=== PATIENT | female | born 1965 | race Caucasian/White ===

== ENCOUNTER 2018-10-06 12:21 | Emergency (ER) | payer MEDICAID, SELFPAY ==
[2018-10-06 10:51] VITALS: BMI 22.3
[2018-10-06 12:22] VITALS: BP 178/134; PULSE 109; RESP 16; TEMP 35.9; O2SAT 96; BMI 22.8
--- NOTE | 2018-10-06 12:33 | EKG12_ITS ---
Test Reason : Blood Pressure : / mmHG Vent. Rate : 105 BPM Atrial Rate : 105 BPM P-R Int : 164 ms QRS Dur : 076 ms QT Int : 356 ms P-R-T Axes : 052 006 004 degrees QTc Int : 470 ms Sinus tachycardia Possible Left atrial enlargement Left ventricular hypertrophy Abnormal ECG Confirmed by GANGA MEDINA, HEATHER ([id number]), sound editor JAMIE ARDON ([id number]) on 10/10/2018 1:21:17 PM Referred By: Confirmed By:HEATHER SCHULER MD
--- NOTE | 2018-10-06 13:02 | ED.VIS.GEN ---
History of Present Illness Chief Complaint: Hypertension Informant: Patient Onset: Month(s) Current Severity: - - None no complaints Narrative: Patient indicates she has hypertension she is on lisinopril, indicates she just spent 60 days in skilled nursing where she was not getting any of her meds she made upon see her outpatient providers to get her prescription for her blood pressure medicine she was found a blood pressure about 170/130 she indicates they would not treat her in the office and insisted that she come to the emergency department even though she had no complaints she simply wanted the prescription refilled the office did call they refill the prescription lisinopril to the pharmacy for her. The patient denies any complaints of any kind she has no head neck chest or abdominal pain occasionally when she is able to get her meds she does take it Past Medical History - Allergies and Home Meds Allergies/Adverse Reactions: Allergies codeine Allergy (Severe, Verified 10/06/18 12:22) difficulty breathing Primary Care Physician: Samina Joya MD [Primary Care Provider] - Past Medical History: - Smoking Status: Current every day smoker Review of Systems General: Denies: Chills, Fever, Sweats Eyes: Denies: Visual changes - bilaterally, Diplopia ENT: Denies: Rhinorrhea, Sore throat Cardiovascular: Denies: Chest pain, Palpitations Respiratory: Denies: Dyspnea, Cough, Dyspnea on exertion Gastrointestinal: Denies: Abdominal pain, Nausea, Vomiting, Diarrhea, Melena, Hematochezia Genitourinary: Denies: Dysuria, Hematuria, Frequency Musculoskeletal: Denies: Back pain, Extremity Pain Skin: Denies: Rash, Wounds Neurological: Denies: Headache, Weakness, Numbness Physical Exam Vital Signs/Narrative: Vital Signs Temp Pulse Resp BP Pulse Ox 10/06/18 12:22 96.6 F L 109 H 16 178/134 H 96 General: Well nourished, Well developed, No Acute Distress Head: Normocephalic, Atraumatic Eyes: Perrl, EOMI ENT: Moist mucous membranes, No rhinorrhea Neck: Supple, Nontender Cardiovascular: Regular rate, Regular rhythm, No murmurs Respiratory: No distress, CTA bilaterally, Chest nontender Abdomen: Soft, Nontender, Nondistended, Normal bowel sounds Back: Nontender, Normal Inspection Extremities: Nontender, No edema Skin: Normal color, No rash Neurological: Alert, Oriented x3, Cranial nerves II-XII grossly intact, Normal Strength, Normal Sensation Psychological: Normal affect, Normal Mood Diagnostic/Tx/Re-eval - Medical Decision Making His blood pressure about 170/120 she is resting company the bed she has no complaints of any kind no head neck chest or abdominal pain she indicates she will take 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 to gently lower her blood pressure of explained precipitous change in blood pressure can make her ill, EKG was done that showed a sinus rhythm no acute injury pattern rate about 70, we discussed other ED work-up such as labs etc. 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 and follow-up with your outpatient providers His repeat blood pressure is now about 170/110 , one lisinopril tablet in case there is any trouble picking up the prescription which she states she should not have any trouble doing that she will take lisinopril understand she is close outpatient follow-up with her outpatient providers to further manage her blood pressure she should return for any other symptoms develop and agrees Home stable Final impression Hypertension ED Disposition - Plan for ED Patient: Diagnosis: Hypertension Instructions: HYPERTENSION, Established Referrals: Samina Joya MD [Primary Care Provider] -
[2018-10-06] MEDS: Clonidine HCl 0.1 MG, Clonidine HCl 0.2 MG 0.3 MG PO (13:18)
[2018-10-06] MEDS: Lisinopril 20 MG Tablet PO (14:08)
[2018-10-06 14:11] VITALS: RESP 18
[2018-10-06 15:01] VITALS: BP 123/95; PULSE 101; RESP 16; O2SAT 97
== END 2018-10-06 15:02 | disposition home or self-care (01) ==
PROVIDERS: Emergency Provider Emergency Medicine; Family Provider Internal Medicine; PCP Internal Medicine
DX: I10 Essential (primary) hypertension (principal); Z79.899 Other long term (current) drug therapy; F17.200 Nicotine dependence, unspecified, uncomplicated
CPT/HCPCS: 99282

== ENCOUNTER 2018-10-07 09:19 | Inpatient (IN) | payer MEDICAID, SELFPAY ==
[2018-10-06 12:22] VITALS: BMI 22.8
[2018-10-07] VITALS (32 sets, daily range): BP systolic 65–139; BP diastolic 40–85; PULSE 46–66; RESP 14–29; TEMP 36–37.2; O2SAT 93–100; BMI 24.7; BMI 23.8
--- NOTE | 2018-10-07 09:36 | ED.VISSUMM ---
- ER Visit Summary Date of Service: 10/07/18 Chief Complaint: Abdominal pain with nausea, vomiting and diarrhea History of Present Illness: The patient is a 53 F history of hypertension. She was seen in the emergency department yesterday the only reason she came in at that time was to get a prescription for blood pressure medication. She has been incarcerated in the recent past and currently has no primary care physician. She states that last night she started having nausea, vomiting and diarrhea. Denies any melena or fever. No dysuria. And diffuse abdominal pain. She also states this is been going on for approximately a month intermittently but she has not told anyone about it or been evaluated for it. She denies any prior abdominal surgeries or any abdominal trauma. Physical Examination: Middle-aged female. Initial blood pressure was low at 86/55. She is afebrile. Pulse ox 90% room air no hypoxia. HEENT exam is unremarkable except for dry mucous membranes. Neck nontender no lymphadenopathy. Lungs clear to auscultation bilaterally. Heart regular rhythm rate about 60 no murmur. Abdomen is soft. Nondistended. Normal bowel sounds. Minimally tender in the epigastric region. No rebound, guarding or rigidity. No signs of obstruction. Positive bowel sounds. Both the right upper and right lower quadrants are unremarkable. I do not appreciate any hernias or masses. There is no pulsatile mass. Patient is moving all 4 extremities. Neurovascular intact. Calves are nontender. No edema. Back exam nontender. Neurologically she is awake and alert. Test Results: CBC White count 9. Hemoglobin 14. No bands. Chemistries CO2 of 20. Gap of 12. BUN of 47 and creatinine of 3 no old labs available for comparison. Liver enzymes unremarkable alk phos elevated 124. Lipase normal. Serum test negative. At this time she is been unable to urinate urinalysis is pending. Emergency Department Course and Treatment: Patient will be treated with IV fluids for dehydration and hypotension. Zofran for nausea. Labs will be obtained for diffuse nonspecific abdominal pain. Repeat exam the patient is doing well. She is remains hypotensive in the 70s and 80s systolically but she is tolerating it well sitting upright in bed. She is on her first liter of fluid and I ordered a second and 3rd liter. She understands she needs to be admitted we went over her labs and her kidney function. Treatment Plan: I spoke to hospitalist about the PCU admission. Disposition: Admission Impression: Acute abdominal pain uncertain etiology Acute nausea, vomiting and diarrhea Dehydration Acute kidney injury Acute hypotension This note was generated with [employer] dictation software. It may contain incorrect words, spelling, and punctuation that were not noted in review of the chart prior to signing ED Disposition - Plan for ED Patient: Referrals: Samina Joya MD [Primary Care Provider] -
[2018-10-07 09:55] LABS: Absolute Lymphocyte Count 2.49 X10^3/uL (0.83-4.51); Absolute Neutrophil Count 6.3 X10^3/uL (2.0-7.7); Basophil# 0.02 X10^3/uL; Basophil% 0.2 % (0-1); Eosinophil# 0.14 X10^3/uL; Eosinophils% 1.4 % (0-5); Hematocrit 42.9 % (37-47); Hemoglobin 14.4 g/dL (12.0-15.0); Lymphocyte # 2.49 X10^3/ul (4.0); Lymphocyte % 25.2 % (19-41); Mean Corp Hgb Conc 33.6 g/dL (32-36); Mean Corpuscular Hgb 31.2 pg (27.0-32.0); Mean Corpuscular Volume 92.9 fL (81-99); Monocyte# 0.94 X10^3/uL; Monocyte% 9.5 % (0-10); NRBC Flagged by Analyzer 0 % (0-5); Neutrophil # 6.25 X10^3/uL (2.7-7.7); Neutrophil % 63.1 % (47-70); Platelet Count 260 K/mm3 (150-450); RBC Distribution Width SD 47.7 fl (35.1-43.9); Red Blood Count 4.62 M/mm3 (4.2-5.4); White Blood Count 9.9 K/mm3 (4.4-11.0)
[2018-10-07 10:09] LABS: BUN 47 mg/dL (7-18); Creatinine, Serum 3.01 mg/dL (0.55-1.02); Estimated Creatinine Clearance 17.67 ml/min; Glucose 107 mg/dL (74-106)
[2018-10-07 10:10] LABS: AST(SGOT) 34 U/L (15-37); Alanine Aminotransfer ALT/SGPT 40 U/L (13-56); Albumin, Serum 3.6 g/dL (3.2-5.0); Alkaline Phosphatase 124 U/L (45-117); Anion Gap 12 (5-15); BUN/Creat Ratio 15.6 RATIO (10-20); Bilirubin, Direct 0.23 mg/dL (0.00-0.30); Calcium,Total 8.6 mg/dL (8.5-10.1); Chloride 106 mmol/L (98-107); EST Glomerular Filtration Rate 17 mL/min (>60); Est Glom Filt Rate - Afr Amer 21 mL/min (>60); Globulin 4.2 g/dL (2.2-4.2); Lipase 183 U/L (73-393); Potassium 4.2 mmol/L (3.5-5.1); Protein, Total 7.8 g/dL (6.4-8.2); Sodium Level 138 mmol/L (136-145)
[2018-10-07 10:14] LABS: Internal QC Validated? YES +Cl - CLEAR BKGD; Pregnancy, Serum, hCG Quali. NEGATIVE Negative
[2018-10-07] MEDS: 0.9% Normal Saline 1,000 ML 1000 ML IV ×3 (10:22→14:20)
[2018-10-07] MEDS: Ondansetron 4 MG/2 ML Vial IV (10:22)
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
[2018-10-07] MEDS: 0.9% Normal Saline 1,000 ML 999 ML IV (10:53)
--- NOTE | 2018-10-07 11:45 | US_ITS ---
STUDY: RENAL ULTRASOUND - COMPLETE REASON FOR EXAM: Female, 53 years old. Acute renal failure. TECHNIQUE: Ultrasound evaluation of the kidneys was performed with real-time and static dong-scale imaging. COMPARISON: None. FINDINGS: RIGHT KIDNEY: Normal location of the right kidney, which is normal in size. The right kidney measures 11.5 cm. There is a normal cortex of the right kidney. The renal cortex measures 1.2 cm. There is no right renal mass or cyst. There are tiny echogenic foci in the renal pelvis without shadowing. Small nonobstructing stones cannot be ruled out. There is no right hydronephrosis. There appears to be fluid in the perinephric soft tissues adjacent to the upper pole of the right kidney. DISTAL RIGHT URETER: There is non-visualization of the distal right ureter. There is no demonstrated right ureterovesical junction calculus. There is a visualized right ureteral jet. LEFT KIDNEY: Normal location of the left kidney, which is normal in size. The left kidney measures 10.8 cm. There is a normal cortex of the left kidney. The renal cortex measures 1.1 cm. There is no left renal mass or cyst. There are tiny echogenic foci in the renal pelvis without shadowing. Small nonobstructing stones cannot be ruled out. There is no left hydronephrosis. DISTAL LEFT URETER: There is non-visualization of the distal left ureter. There is no demonstrated left ureterovesical junction calculus. There is a visualized left ureteral jet. BLADDER: The distended urinary bladder has a volume of 369 ml. There is a normal wall thickness of the distended urinary bladder. There is a partially echogenic mass in the film and thought to be the balloon was fully catheter.. There are no demonstrated bladder calculi. US/Kidney and Bladder IMPRESSION: 1. Normal size, cortical thickness and cortical echogenicity of the bilateral kidneys. 2. Multiple small echogenic foci within the central sinus fat. Question small nonobstructing stones versus reflections from vascular structures. 3. Filling defect in the urinary bladder. This is thought to represent a Weeks balloon. A large calcification cannot be ruled out. Electronically Signed: Johnathon Lorenzana DO at 21:45 EDT Tel [phone], Service support ,
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
--- NOTE | 2018-10-07 12:41 | RAD_ITS ---
STUDY: X-RAY CHEST REASON FOR EXAM: Female, 53 years old. Cough, hypertension. TECHNIQUE: Single AP portable upright view of the chest. COMPARISON: None. FINDINGS: Incidental note of an azygos lobe in the medial right apex, an anatomic variant. The lungs are clear and expanded. There is no demonstrated pleural abnormality. Normal size heart. Normal mediastinum and gopal. Normal visualized pulmonary arteries. Normal visualized aortic arch and descending thoracic aorta. There is a slight S-shaped scoliosis of the thoracic spine. Slight deformity at the posterolateral left eighth rib versus questionable healed fracture. Otherwise, normal visualized ribs, clavicles, and shoulders. There is no demonstrated abnormality of the visualized soft tissue structures of the upper abdomen. RAD/Chest 1 View (Portable) IMPRESSION: No acute cardiopulmonary disease. Electronically Signed: Rohit Lai MD at 13:26 EDT , Service support ,
--- NOTE | 2018-10-07 12:46 | NURSING ---
called [employer] for picc line order. stated they will call back w/ETA.
[2018-10-07 13:33] LABS: Bacteria 0 SEEN /hpf (None Seen); Mucous, Urine 0 SEEN /hpf (<or=2+); Red Blood Cells-Urine 0 SEEN /hpf (0-5); Squamous Epithelial Cells - UA 0 SEEN /hpf (5-10); White Blood Cells 0 SEEN /hpf (0-5)
[2018-10-07 13:37] LABS: Color, Urine Yellow (Yellow); Glucose, Dipstick Normal (Normal); Ketone-Dipstick 5 mg/dl (Negative); Leukocyte Esterase-Dipstick Negative /ul (Negative); Nitrite-Dipstick Negative (Negative); Occult Blood-Urine 10 /ul (Negative); Protein-Dipstick 30 mg/dl (Negative); Specific Gravity, Urine 1.015 (1.002-1.030); Urine Bilirubin Dipstick Negative (Negative); Urine Clarity Clear (Clear); Urine Urobilinogen Normal (Normal)
[2018-10-07 13:43] LABS: Amorphous Sediment 1+
[2018-10-07 13:49] LABS: Lactic Acid 0.5 mmol/L (0.4-2.0)
[2018-10-07 14:12] LABS: Urine Sodium 27 mmol/L (Not Establ.)
[2018-10-07] MEDS: Lactated Ringers 1,000 ML 150 ML IV ×2 (15:20→21:41)
--- NOTE | 2018-10-07 16:16 | CHAPLAIN ---
Type of Pastoral Visit _x__ Initial Visit ___ Follow-up Visit ___ On-call Visit ___ General Patient Visit ___ Spiritual Assessment ___ Family Conference ___ Bereavement ___ Rapid Response ___ Code Blue ___ Other (describe below) Pastoral Care Referral From _x__ Patient ___ Family ___ Nurse ___ Physician ___ Chemical Applicator ___ Can Carrier ___ Other (describe below) Sacrament/Intervention ___ Active listening ___ Anointing ___ Confucianist ___ Bereavement ___ Communion ___ Ciarra exploration ___ ___ Life review ___ Prayer ___ Reconciliation ___ Sacrament of Sick ___ Supportive presence ___ Wedding _x__ Other (describe below) Pastoral Comments patient was sleeping and this roof foreman allowed her to rest; sister of pt was in the room and was offered support; sister affirmed hope for sister to have spiritual and emotional support but to also allow her to sleep at this time
[2018-10-07 16:30] LABS: Thyroid Stim Hormone (TSH) 1.04 uIU/mL (0.358-3.74)
[2018-10-07 16:39] LABS: Amphetamine Urine VISTA NEGATIVE (<1000 ng/mL); Barbiturate Urine VISTA NEGATIVE (< 200 ng/mL); Benzodiazepine Urine VISTA NEGATIVE (< 200 ng/mL); Cocaine Urine VISTA POSITIVE (< 300 ng/mL); Ecstacy Urine VISTA NEGATIVE (< 500 ng/mL); Methadone Urine VISTA NEGATIVE (< 300 ng/mL); PCP Urine VISTA NEGATIVE (< 25 ng/mL); THC Urine VISTA NEGATIVE (< 50 ng/mL); Vista UDS pH Range 5
[2018-10-07] MEDS: Acetaminophen 325 MG Tablet 650 MG PO (23:59)
[2018-10-08] VITALS (32 sets, daily range): BP systolic 83–179; BP diastolic 7–94; PULSE 46–75; RESP 11–24; TEMP 36.4–37; O2SAT 92–99
[2018-10-08 04:21] LABS: Absolute Lymphocyte Count 2.16 X10^3/uL (0.83-4.51); Absolute Neutrophil Count 2.9 X10^3/uL (2.0-7.7); Basophil# 0.01 X10^3/uL; Basophil% 0.2 % (0-1); Eosinophil# 0.11 X10^3/uL; Eosinophils% 1.9 % (0-5); Hematocrit 34.7 % (37-47); Hemoglobin 11.5 g/dL (12.0-15.0); Lymphocyte # 2.16 X10^3/ul (4.0); Lymphocyte % 37.9 % (19-41); Mean Corp Hgb Conc 33.1 g/dL (32-36); Mean Corpuscular Hgb 31.5 pg (27.0-32.0); Mean Corpuscular Volume 95.1 fL (81-99); Mean Platelet Vol. 8.8 fl (6.2-12.0); Monocyte# 0.51 X10^3/uL; Monocyte% 8.9 % (0-10); NRBC Flagged by Analyzer 0 % (0-5); Neutrophil # 2.89 X10^3/uL (2.7-7.7); Neutrophil % 50.7 % (47-70); Platelet Count 168 K/mm3 (150-450); RBC Distribution Width CV 14.1 % (11.6-14.6); Red Blood Count 3.65 M/mm3 (4.2-5.4); White Blood Count 5.7 K/mm3 (4.4-11.0)
[2018-10-08] MEDS: Lactated Ringers 1,000 ML 150 ML IV ×3 (04:36→17:16)
[2018-10-08 04:37] LABS: Anion Gap 6 (5-15); BUN 20 mg/dL (7-18); BUN/Creat Ratio 22.3 RATIO (10-20); Calcium,Total 7.7 mg/dL (8.5-10.1); Chloride 119 mmol/L (98-107); EST Glomerular Filtration Rate 69 mL/min (>60); Est Glom Filt Rate - Afr Amer 84 mL/min (>60); Glucose 94 mg/dL (74-106); Potassium 3.9 mmol/L (3.5-5.1); Sodium Level 147 mmol/L (136-145)
--- NOTE | 2018-10-08 06:37 | PN_ITS ---
Subjective: The patient was seen and examined at the bedside this morning. Events from the last 24 hours have been reviewed. The patient is currently afebrile, hemodynamically stable and maintaining appropriate oxygen saturations on room air. Overnight, the patient was able to be weaned off of vasopressor support at approximately 2 AM. Urine output has been adequate. Renal function is significantly improved. Although the patient initially reported to me yesterday that she has been abstinent from cocaine use for over a year, her urine toxicology screen was positive. The patient does report feeling better this morning and denies the presence of diarrhea, abdominal pain, nausea or vomiting. She did tolerate clear liquids yesterday. Objective: The patient's most recent lab work, culture data and imaging studies have all been personally reviewed. Renal ultrasound was largely unremarkable. Plain film chest x-ray revealed no acute cardiopulmonary process. Blood and urine cultures are pending. Urine toxicology screen was positive for cocaine. General: Alert, Cooperative, No apparent distress HEENT: Atraumatic, PERRLA, Normocephalic Oral: No Gingival or Mucosal Lesions/ Ulcerations Neck: Supple, No Nodes, Trachea Midline Lungs: Normal air movement, No rhonchi, No wheeze, No rales Cardiovascular: Normal S1, Normal S2, No murmurs, Bradycardic Abdomen: Bowel Sounds Present, Soft, Non-Distended Extremities: No clubbing, No cyanosis, No edema Skin: No breakdown Musculoskeletal: No Muscle Wasting Lymphatic: No Cervical, Supraclavicular, or Inguinal Adenopathy Neurological: Cranial nerves II-XII grossly intact, Neuro grossly intact Psych/Mental Status: Normal Affect, Appropriate Vital Signs Temp Pulse Resp BP Pulse Ox 97.5 F L 50 L 14 91/64 93 10/08/18 04:00 10/08/18 06:00 10/08/18 06:00 10/08/18 06:00 10/08/18 06:00 Oxygen Delivery Method Room Air Weight: 151 lb 7.321 oz Body Mass Index (BMI) 23.8 Intake and Output for Last 24 Hours 10/06/18 10/07/18 10/08/18 23:59 23:59 23:59 Intake Total 4207.7 / 4207.7 900 / 900 Output Total 1450 / 1450 800 / 800 Balance 2757.7 / 2757.7 100 / 100 Labs (Last 48 Hours) 10/07/18 10/07/18 10/07/18 09:45 09:45 09:45 WBC 9.9 RBC 4.62 Hgb 14.4 Hct 42.9 MCV 92.9 MCH 31.2 MCHC 33.6 RDW Std Deviation 47.7 H RDW Coeff of Chuck 14.0 Plt Count 260 MPV 9.0 Immature Gran % (Auto) 0.600 Neut % (Auto) 63.1 Lymph % (Auto) 25.2 [place] % (Auto) 9.5 Eos % (Auto) 1.4 Baso % (Auto) 0.2 Absolute Neuts (auto) 6.3 Absolute Lymphs (auto) 2.49 Nucleated RBC % 0 Sodium 138 Potassium 4.2 Chloride 106 Carbon Dioxide 20.0 L Anion Gap 12 BUN 47 H Creatinine 3.01 H Estim Creat Clear Calc 17.67 Est GFR (MDRD) Af Amer 21 L Est GFR (MDRD) Non-Af 17 L BUN/Creatinine Ratio 15.6 Glucose 107 H Lactic Acid Calcium 8.6 Total Bilirubin 1.00 Direct Bilirubin 0.23 AST 34 ALT 40 Alkaline Phosphatase 124 H Total Protein 7.8 Albumin 3.6 Globulin 4.2 Lipase 183 TSH Serum , Qual NEGATIVE Urine Color Urine Clarity Urine pH Ur Specific [place] Urine Protein Urine Glucose (UA) Urine Ketones Urine Occult Blood Urine Nitrite Urine Bilirubin Urine Urobilinogen Ur Leukocyte Esterase Urine RBC Urine WBC Ur Squamous Epith Cells Amorphous Sediment Urine Bacteria Urine Mucus Ur Random Sodium Urine Creatinine Urine Opiates Screen Urine Methadone Screen Ur Barbiturates Screen Ur Phencyclidine Scrn Ur Amphetamines Screen U Methamphetamin-MDMA U Benzodiazepines Scrn Urine Cocaine Screen U Cannabinoids Screen Ur Drug Screen Comment 10/07/18 10/07/18 10/07/18 09:45 11:09 13:20 WBC RBC Hgb Hct MCV MCH MCHC RDW Std Deviation RDW Coeff of Chuck Plt Count MPV Immature Gran % (Auto) Neut % (Auto) Lymph % (Auto) [place] % (Auto) Eos % (Auto) Baso % (Auto) Absolute Neuts (auto) Absolute Lymphs (auto) Nucleated RBC % Sodium Potassium Chloride Carbon Dioxide Anion Gap BUN Creatinine Estim Creat Clear Calc Est GFR (MDRD) Af Amer Est GFR (MDRD) Non-Af BUN/Creatinine Ratio Glucose Lactic Acid Cancelled 0.5 Calcium Total Bilirubin Direct Bilirubin AST ALT Alkaline Phosphatase Total Protein Albumin Globulin Lipase TSH 1.04 Serum , Qual Urine Color Urine Clarity Urine pH Ur Specific [place] Urine Protein Urine Glucose (UA) Urine Ketones Urine Occult Blood Urine Nitrite Urine Bilirubin Urine Urobilinogen Ur Leukocyte Esterase Urine RBC Urine WBC Ur Squamous Epith Cells Amorphous Sediment Urine Bacteria Urine Mucus Ur Random Sodium Urine Creatinine Urine Opiates Screen Urine Methadone Screen Ur Barbiturates Screen Ur Phencyclidine Scrn Ur Amphetamines Screen U Methamphetamin-MDMA U Benzodiazepines Scrn Urine Cocaine Screen U Cannabinoids Screen Ur Drug Screen Comment 10/07/18 10/07/18 10/07/18 13:20 13:20 13:20 WBC RBC Hgb Hct MCV MCH MCHC RDW Std Deviation RDW Coeff of Chuck Plt Count MPV Immature Gran % (Auto) Neut % (Auto) Lymph % (Auto) [place] % (Auto) Eos % (Auto) Baso % (Auto) Absolute Neuts (auto) Absolute Lymphs (auto) Nucleated RBC % Sodium Potassium Chloride Carbon Dioxide Anion Gap BUN Creatinine Estim Creat Clear Calc Est GFR (MDRD) Af Amer Est GFR (MDRD) Non-Af BUN/Creatinine Ratio Glucose Lactic Acid Calcium Total Bilirubin Direct Bilirubin AST ALT Alkaline Phosphatase Total Protein Albumin Globulin Lipase TSH Serum , Qual Urine Color Urine Clarity Urine pH Ur Specific [place] Urine Protein Urine Glucose (UA) Urine Ketones Urine Occult Blood Urine Nitrite Urine Bilirubin Urine Urobilinogen Ur Leukocyte Esterase Urine RBC Urine WBC Ur Squamous Epith Cells Amorphous Sediment Urine Bacteria Urine Mucus Ur Random Sodium 27 Urine Creatinine 127.00 Urine Opiates Screen NEGATIVE Urine Methadone Screen NEGATIVE Ur Barbiturates Screen NEGATIVE Ur Phencyclidine Scrn NEGATIVE Ur Amphetamines Screen NEGATIVE U Methamphetamin-MDMA NEGATIVE U Benzodiazepines Scrn NEGATIVE Urine Cocaine Screen POSITIVE H U Cannabinoids Screen NEGATIVE Ur Drug Screen Comment 10/07/18 10/08/18 10/08/18 13:20 04:10 04:10 WBC 5.7 RBC 3.65 L Hgb 11.5 L Hct 34.7 L MCV 95.1 MCH 31.5 MCHC 33.1 RDW Std Deviation 49.0 H RDW Coeff of Chuck 14.1 Plt Count 168 MPV 8.8 Immature Gran % (Auto) 0.400 Neut % (Auto) 50.7 Lymph % (Auto) 37.9 [place] % (Auto) 8.9 Eos % (Auto) 1.9 Baso % (Auto) 0.2 Absolute Neuts (auto) 2.9 Absolute Lymphs (auto) 2.16 Nucleated RBC % 0 Sodium 147 H Potassium 3.9 Chloride 119 H Carbon Dioxide 22.0 Anion Gap 6 BUN 20 H Creatinine 0.90 Estim Creat Clear Calc 64.30 Est GFR (MDRD) Af Amer 84 Est GFR (MDRD) Non-Af 69 BUN/Creatinine Ratio 22.3 H Glucose 94 Lactic Acid Calcium 7.7 L Total Bilirubin Direct Bilirubin AST ALT Alkaline Phosphatase Total Protein Albumin Globulin Lipase TSH Serum , Qual Urine Color Yellow Urine Clarity Clear Urine pH 5.0 Ur Specific [place] 1.015 Urine Protein 30 H Urine Glucose (UA) Normal Urine Ketones 5 H Urine Occult Blood 10 H Urine Nitrite Negative Urine Bilirubin Negative Urine Urobilinogen Normal Ur Leukocyte Esterase Negative Urine RBC 0 SEEN Urine WBC 0 SEEN Ur Squamous Epith Cells 0 SEEN Amorphous Sediment 1+ Urine Bacteria 0 SEEN Urine Mucus 0 SEEN Ur Random Sodium Urine Creatinine Urine Opiates Screen Urine Methadone Screen Ur Barbiturates Screen Ur Phencyclidine Scrn Ur Amphetamines Screen U Methamphetamin-MDMA U Benzodiazepines Scrn Urine Cocaine Screen U Cannabinoids Screen Ur Drug Screen Comment Clinical Impression(s) from Imaging Studies Renal Ultrasound 10/07/18 11:45 IMPRESSION: 1. Normal size, cortical thickness and cortical echogenicity of the bilateral kidneys. 2. Multiple small echogenic foci within the central sinus fat. Question small nonobstructing stones versus reflections from vascular structures. 3. Filling defect in the urinary bladder. This is thought to represent a Weeks balloon. A large calcification cannot be ruled out. Electronically Signed: Johnathon Lorenzana DO at 21:45 EDT Tel [phone], Service support , Chest X-Ray 10/07/18 12:41 IMPRESSION: No acute cardiopulmonary disease. Electronically Signed: Rohit Lai MD at 13:26 EDT , Service support , Medical Necessity - Tobacco Use Smoking Status: Current every day smoker Assessment/Plan RECOMMENDATIONS: 1. Continue gentle IV fluid hydration, pending improvement in p.o. intake. 2. Advance diet to regular. 3. If patient tolerates regular diet today, discontinue supplemental IV fluids. 4. Encourage incentive spirometer use while in bed. Mobilize patient as bouchra erated. 5. Remove Weeks catheter tomorrow, pending clinical stability today. 6. Continue to monitor in ICU setting to ensure stability in hemodynamics. IMPRESSIONS: 1. Hypovolemic shock Improved. The patient presented to the ICU with fluid refractory hypotension, requiring the initiation of vasopressor support. The patient was significantly intravascularly volume depleted, potentially related to viral gastroenteritis with subsequent poor p.o. intake. At this time, the patient is currently hemodynamically stable off of levophed. We will plan to continue gentle IV fluid hydration, pending improvement in p.o. intake. The patient's diet can be advanced to regular from my perspective. No infectious etiologies have been identified. Would recommend continued monitoring in ICU today. 2. Acute kidney injury Improved. Likely prerenal in etiology and related to intravascular volume depletion and concurrent use of JACINTO inhibitor. Plan to continue supplemental IV fluid hydration. Anticipate continued improvement and renal function with volume expansion. Continue to monitor urine output. No current indication for renal replacement therapy. Weeks catheter can be removed tomorrow pending clinical stability today. 3. History of cocaine abuse/tobacco dependency/hypertension Complicates care, management, recovery and prognosis. Continue to hold home antihypertensives. Nicotine replacement therapy can be offered to the patient while admitted to the hospital. This note was generated with [employer] dictation software. It may contain incorrect words, spelling, and punctuation that were not noted in checking the note before signing. Code Visit Inpatient E&M: [address] [facility] L3
--- NOTE | 2018-10-08 08:55 | PN_ITS ---
Subjective: Patient seen and examined. She had no complaints this morning. Diarrhea has resolved and she is had no vomiting. Review of systems otherwise negative. She required Levophed overnight but this has now been weaned off. Blood pressure has normalized and she is on IV fluid normal saline. Of note, patient tested positive for cocaine in her urine tox though she denied any recent history of cocaine use. Labs and vitals reviewed. Vitals/I&O's: Vital Signs Temp Pulse Resp BP Pulse Ox 97.5 F L 57 L 16 112/75 92 10/08/18 04:00 10/08/18 08:00 10/08/18 08:00 10/08/18 08:00 10/08/18 08:00 Oxygen Delivery Method Room Air Weight: 151 lb 7.321 oz Body Mass Index (BMI) 23.8 Intake and Output for Last 24 Hours 10/06/18 10/07/18 10/08/18 23:59 23:59 23:59 Intake Total 4207.7 / 4207.7 900 / 900 Output Total 1450 / 1450 800 / 800 Balance 2757.7 / 2757.7 100 / 100 General: Alert, Oriented x3, Cooperative, No apparent distress HEENT: Atraumatic, PERRLA, EOMI, Normocephalic Oral: Dry Mucosa Neck: Supple, No JVD, Negative Carotid Bruits Lungs: Clear to auscultation, Normal air movement Cardiovascular: Regular rate, Regular Rhythm, Normal S1, Normal S2, No murmurs Abdomen: Bowel Sounds Present, Soft, Non Tender, Non-Distended, No Hepato- splenomegaly Extremities: No clubbing, No cyanosis, No edema, Capillary Refill Less than 3 Seconds Skin: No rashes, No breakdown Musculoskeletal: No Tenderness to Palpation of Joints or Extremities Lymphatic: No Cervical, Supraclavicular, or Inguinal Adenopathy Neurological: Cranial nerves II-XII grossly intact, Neuro grossly intact, Motor Exam 5/5 strength throughout Psych/Mental Status: Normal Affect, Appropriate, Alert and oriented to time, place, person, mood and affect Laboratory Results 10/07/18 09:45: WBC 9.9, RBC 4.62, Hgb 14.4, Hct 42.9, MCV 92.9, MCH 31.2, MCHC 33.6, RDW Std Deviation 47.7 H, RDW Coeff of Chuck 14.0, Plt Count 260, MPV 9.0, Immature Gran % (Auto) 0.600, Neut % (Auto) 63.1, Lymph % (Auto) 25.2, [place] % (Auto) 9.5, Eos % (Auto) 1.4, Baso % (Auto) 0.2, Absolute Neuts (auto) 6.3, Absolute Lymphs (auto) 2.49, Nucleated RBC % 0 10/07/18 09:45: Sodium 138, Potassium 4.2, Chloride 106, Carbon Dioxide 20.0 L, Anion Gap 12, BUN 47 H, Creatinine 3.01 H, Estim Creat Clear Calc 17.67, Est GFR (MDRD) Af Amer 21 L, Est GFR (MDRD) Non-Af 17 L, BUN/Creatinine Ratio 15.6, Glucose 107 H, Calcium 8.6, Total Bilirubin 1.00, Direct Bilirubin 0.23, AST 34, ALT 40, Alkaline Phosphatase 124 H, Total Protein 7.8, Albumin 3.6, Globulin 4.2, Lipase 183 10/07/18 09:45: Serum , Qual NEGATIVE 10/07/18 09:45: TSH 1.04 10/07/18 11:09: Lactic Acid Cancelled 10/07/18 13:20: Lactic Acid 0.5 10/07/18 13:20: Urine Opiates Screen NEGATIVE, Urine Methadone Screen NEGATIVE, Ur Barbiturates Screen NEGATIVE, Ur Phencyclidine Scrn NEGATIVE, Ur Amphetamines Screen NEGATIVE, U Methamphetamin-MDMA NEGATIVE, U Benzodiazepines Scrn NEGATIVE, Urine Cocaine Screen POSITIVE H, U Cannabinoids Screen NEGATIVE, Ur Drug Screen Comment 10/07/18 13:20: Urine Creatinine 127.00 10/07/18 13:20: Ur Random Sodium 27 10/07/18 13:20: Urine Color Yellow, Urine Clarity Clear, Urine pH 5.0, Ur Specific [place] 1.015, Urine Protein 30 H, Urine Glucose (UA) Normal, Urine Ketones 5 H, Urine Occult Blood 10 H, Urine Nitrite Negative, Urine Bilirubin Negative, Urine Urobilinogen Normal, Ur Leukocyte Esterase Negative, Urine RBC 0 SEEN, Urine WBC 0 SEEN, Ur Squamous Epith Cells 0 SEEN, Amorphous Sediment 1+, Urine Bacteria 0 SEEN, Urine Mucus 0 SEEN 10/08/18 04:10: WBC 5.7, RBC 3.65 L, Hgb 11.5 L, Hct 34.7 L, MCV 95.1, MCH 31.5, MCHC 33.1, RDW Std Deviation 49.0 H, RDW Coeff of Chuck 14.1, Plt Count 168, MPV 8.8, Immature Gran % (Auto) 0.400, Neut % (Auto) 50.7, Lymph % (Auto) 37.9, [place] % (Auto) 8.9, Eos % (Auto) 1.9, Baso % (Auto) 0.2, Absolute Neuts (auto) 2.9, Absolute Lymphs (auto) 2.16, Nucleated RBC % 0 10/08/18 04:10: Sodium 147 H, Potassium 3.9, Chloride 119 H, Carbon Dioxide 22.0, Anion Gap 6, BUN 20 H, Creatinine 0.90, Estim Creat Clear Calc 64.30, Est GFR (MDRD) Af Amer 84, Est GFR (MDRD) Non-Af 69, BUN/Creatinine Ratio 22.3 H, Glucose 94, Calcium 7.7 L Diagnostic Data Renal Ultrasound 10/07/18 11:45 IMPRESSION: 1. Normal size, cortical thickness and cortical echogenicity of the bilateral kidneys. 2. Multiple small echogenic foci within the central sinus fat. Question small nonobstructing stones versus reflections from vascular structures. 3. Filling defect in the urinary bladder. This is thought to represent a Weeks balloon. A large calcification cannot be ruled out. Electronically Signed: Johnathon Lorenzana DO at 21:45 EDT Tel [phone], Service support , Chest X-Ray 10/07/18 12:41 IMPRESSION: No acute cardiopulmonary disease. Electronically Signed: Rohit Lai MD at 13:26 EDT , Service support , Current Medications Acetaminophen (Tylenol) 650 mg PO Q6H PRN PRN PRN Reason: PAIN Last Admin: 10/07/18 23:59 Dose: 650 mg Documented by: Dextrose (D50w Syringe) 0 gm IV X1 PRN; Protocol PRN Reason: Hypoglycemia Enoxaparin Sodium (Lovenox) 30 mg SC DAILY@1000 RUI Glucagon () 1 mg IM .X1 PRN PRN Reason: Hypoglycemia Heparin Sodium (Beef Lung) () 50 units IV UD PRN PRN Reason: HEPARIN FLUSH Lactated Ringer's () 1,000 mls @ 150 mls/hr IV .[id number] [facility] Last Admin: 10/08/18 04:36 Dose: 150 mls/hr Documented by: Norepinephrine Bitartrate 8 mg (/ Sodium Chloride) 250 mls @ 9.375 mls/hr CONT INF .[id number] [facility] Last Admin: 10/08/18 06:44 Dose: Not Given Documented by: Paroxetine HCl (Paxil Cr) 25 mg PO DAILY [facility] Sodium Chloride () 10 - 40 ml IV UD PRN PRN Reason: SALINE FLUSH Sodium Chloride () 10 - 40 ml IV UD PRN PRN Reason: PICC FLUSH Medical Necessity - Tobacco Use Smoking Status: Current every day smoker Assessment/Plan 1. Hypovolemic shock due to gastroenteritis and medication induced * resolved. Required levophed overnight, but this was weaned off successfully * lisinopril on hold and diarrhea has resolved. * BP 112/75 at time of review this morning * continue hydration with IVF * will change fluid to 0.45 NS o/a of hypernatremia, with sodium of 147 today * furnishings conservator on board * 2. OC: * was pre-renal, o/a of hypotension and gastroenteritis. FeNA was 0.5 * Cr was 3.04 on admission, now trended down to 0.9 * kidney USG pending * continue hydration with iVF. * 3. Hypernatremia: Na is 147; likely due to IVF. Switch fluids to 0.45 NS 4. Gastroenteritis: resolved. will hold off on C DIff since diarrhea has resolved. * 5. Hypertension: hold lisinopril o/a of hypotension 6. Depression and anxiety: on trazodone and paroxetine DVT prophylaxis: lovenox Code status: full code * Code Visit Inpatient E&M: 78249 Subs Hosp L3
--- NOTE | 2018-10-08 09:23 | CM.UR ---
RN CM Assessment Introduced role of RN CM to patient. Patient is alert and able to participate in RN CM Assessment. Patient's sister, Lorie Gonzalez, present during assessment. Care providers, pharmacy, and demographics verified. No family at bedside. Presentation: Presented with abd pain, nausea, vomiting, diarrhea. SBP in 70-80s. Admit Dx: OC, hypotension Re-Admit: No. was in ER day before though for rx. Had no pcp but Barriers/Issues: Drug use. Discussed her successful completion of Rehab at [facility]. States she had an exceptional completion. Tox screen + for cocaine. Did not mention during assmt since sister present. PCP: [facility]. Had not seen yet but was referred to her. Specialists: none Preferred Pharmacy: [facility] Insurance: [employer] Rx Benefit: yes via CS LNOK: Mother, Hien Carson LW/HPOA: None. Education booklet given and explained that they can be completed while she is here. Verb understanding. Living Arrangements: Technically is homeless. Staying with sister while in contact with [employer] for housing. Relocated here from [place]. ADL?s: Independent with all. Transportation: Walks, family or bus. DME: None DME co: no preference. HHC: None SNF: None Goal: To return home with sister and continue working with [employer]. DC PLAN: Referred to for further explore drug use and if needs assistance with [employer]. Has been working with Henna Haskins at [employer] [phone] Mehran Rosales RN, [facility].
[2018-10-08] MEDS: PARoxetine CR 12.5 MG Tablet 25 MG PO (10:51)
--- NOTE | 2018-10-08 17:06 | CASEMGMT ---
SOCIAL WORK INFORMANT: YESSICA RODRIGEZ REASON FOR REFERRAL: SUBSTANCE ABUSE/RESOURCES MET WITH PATIENT IN ROOM. INTRODUCED ROLE AND REASON FOR REFERRAL. DISCUSSED POSITIVE DRUG SCREEN. PATIENT REPORTS RELAPSED A FEW DAYS AGO AFTER 8 MONTHS OF SOBRIETY. PATIENT STATES HAS BEEN WORKING WITH [facility] FOR TREATMENT OPTIONS AND HAS TO COMPLETE PHYSICAL ON WEDNESDAY. PATIENT STATES WILL BE STAYING WITH SISTER UPON D/C UNTIL ACCEPTED INTO [facility]. PATIENT DENIES ANY FURTHER NEEDS. UPDATED PATIENT'S NURSE ON THE ABOVE. 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
[2018-10-08] MEDS: Acetaminophen 325 MG Tablet 650 MG PO (18:50)
--- NOTE | 2018-10-08 19:43 | NURSING ---
Pt very restless in room, sitting, laying, rocking, standing at bedside; pt c/o having a cold and needing some penicillin or something Pt informed that ATBs are usually not given and a cold needs to run its course. Pt offered hot soup broth, but refuses at this time. Nasal congestion w/sinus drainage noted, but LSC.
[2018-10-08] MEDS: Sodium Chloride 0.65% 1 SPRAY SPRAY.BTL 2 SPRAY NASAL (22:10)
[2018-10-08] MEDS: Lactated Ringers 1,000 ML 50 ML IV (22:11)
[2018-10-09] VITALS (12 sets, daily range): BP systolic 115–173; BP diastolic 61–102; PULSE 49–69; RESP 16–21; TEMP 36.6–37.1; O2SAT 92–98
[2018-10-09] MEDS: Lactated Ringers 1,000 ML 50 ML IV (04:18)
[2018-10-09 06:19] LABS: Absolute Lymphocyte Count 1.92 X10^3/uL (0.83-4.51); Absolute Neutrophil Count 3.6 X10^3/uL (2.0-7.7); Basophil# 0.02 X10^3/uL; Basophil% 0.3 % (0-1); Eosinophil# 0.14 X10^3/uL; Eosinophils% 2.2 % (0-5); Hematocrit 35.2 % (37-47); Hemoglobin 11.6 g/dL (12.0-15.0); Lymphocyte # 1.92 X10^3/ul (4.0); Lymphocyte % 30.2 % (19-41); Mean Corpuscular Hgb 30.6 pg (27.0-32.0); Mean Corpuscular Volume 92.9 fL (81-99); Mean Platelet Vol. 9.2 fl (6.2-12.0); Monocyte# 0.66 X10^3/uL; Monocyte% 10.4 % (0-10); NRBC Flagged by Analyzer 0 % (0-5); Neutrophil # 3.59 X10^3/uL (2.7-7.7); Neutrophil % 56.6 % (47-70); Platelet Count 186 K/mm3 (150-450); RBC Distribution Width CV 13.7 % (11.6-14.6); Red Blood Count 3.79 M/mm3 (4.2-5.4); White Blood Count 6.4 K/mm3 (4.4-11.0)
[2018-10-09 06:33] LABS: Anion Gap 5 (5-15); BUN 17 mg/dL (7-18); BUN/Creat Ratio 26.2 RATIO (10-20); Chloride 114 mmol/L (98-107); Creatinine, Serum 0.65 mg/dL (0.55-1.02); EST Glomerular Filtration Rate 101 mL/min (>60); Est Glom Filt Rate - Afr Amer 122 mL/min (>60); Estimated Creatinine Clearance 89.03 ml/min; Glucose 97 mg/dL (74-106); Potassium 3.6 mmol/L (3.5-5.1); Sodium Level 145 mmol/L (136-145)
--- NOTE | 2018-10-09 07:29 | PN_ITS ---
Subjective: The patient was seen and examined at the bedside this morning. Events from the last 24 hours have been reviewed. The patient is currently afebrile, hemodynamically stable and maintaining appropriate oxygen saturations on room air. The patient was noted to have one episode of diarrhea overnight. She has otherwise been clinically stable. The patient did tolerate a regular diet yesterday. She currently denies the presence of abdominal pain, nausea or vomiting. Objective: The patient's most recent lab work, culture data and imaging studies have all been personally reviewed. Renal ultrasound was largely unremarkable. Plain film chest x-ray revealed no acute cardiopulmonary process. Blood and urine cultures are pending. Urine toxicology screen was positive for cocaine. General: Alert, Cooperative, No apparent distress HEENT: Atraumatic, PERRLA, Normocephalic Oral: Moist Mucosa, No Gingival or Mucosal Lesions/ Ulcerations Neck: Supple, No Nodes, Trachea Midline Lungs: No rhonchi, No wheeze, No rales Cardiovascular: Regular rate, Regular Rhythm, Normal S1, Normal S2 Abdomen: Bowel Sounds Present, Soft, Non-Distended Extremities: No clubbing, No cyanosis, No edema Skin: No breakdown Musculoskeletal: No Muscle Wasting Lymphatic: No Cervical, Supraclavicular, or Inguinal Adenopathy Neurological: Cranial nerves II-XII grossly intact, Neuro grossly intact Psych/Mental Status: Alert and oriented to time, place, person, mood and affect Vital Signs Temp Pulse Resp BP Pulse Ox 98.7 F 65 21 H 148/102 H 93 10/09/18 04:00 10/09/18 06:00 10/09/18 06:00 10/09/18 06:00 10/09/18 06:00 Oxygen Delivery Method Room Air Weight: 154 lb 12.232 oz Body Mass Index (BMI) 23.8 Intake and Output for Last 24 Hours 10/07/18 10/08/18 10/09/18 23:59 23:59 23:59 Intake Total 4207.7 / 4207.7 4398 / 4398 439 / 439 Output Total 1450 / 1450 3575 / 3575 800 / 800 Balance 2757.7 / 2757.7 823 / 823 -361 / -361 Labs (Last 48 Hours) 10/07/18 10/07/18 10/07/18 09:45 09:45 09:45 WBC 9.9 RBC 4.62 Hgb 14.4 Hct 42.9 MCV 92.9 MCH 31.2 MCHC 33.6 RDW Std Deviation 47.7 H RDW Coeff of Chuck 14.0 Plt Count 260 MPV 9.0 Immature Gran % (Auto) 0.600 Neut % (Auto) 63.1 Lymph % (Auto) 25.2 [place] % (Auto) 9.5 Eos % (Auto) 1.4 Baso % (Auto) 0.2 Absolute Neuts (auto) 6.3 Absolute Lymphs (auto) 2.49 Nucleated RBC % 0 Sodium 138 Potassium 4.2 Chloride 106 Carbon Dioxide 20.0 L Anion Gap 12 BUN 47 H Creatinine 3.01 H Estim Creat Clear Calc 17.67 Est GFR (MDRD) Af Amer 21 L Est GFR (MDRD) Non-Af 17 L BUN/Creatinine Ratio 15.6 Glucose 107 H Lactic Acid Calcium 8.6 Total Bilirubin 1.00 Direct Bilirubin 0.23 AST 34 ALT 40 Alkaline Phosphatase 124 H Total Protein 7.8 Albumin 3.6 Globulin 4.2 Lipase 183 TSH Serum , Qual NEGATIVE Urine Color Urine Clarity Urine pH Ur Specific [place] Urine Protein Urine Glucose (UA) Urine Ketones Urine Occult Blood Urine Nitrite Urine Bilirubin Urine Urobilinogen Ur Leukocyte Esterase Urine RBC Urine WBC Ur Squamous Epith Cells Amorphous Sediment Urine Bacteria Urine Mucus Ur Random Sodium Urine Creatinine Urine Opiates Screen Urine Methadone Screen Ur Barbiturates Screen Ur Phencyclidine Scrn Ur Amphetamines Screen U Methamphetamin-MDMA U Benzodiazepines Scrn Urine Cocaine Screen U Cannabinoids Screen Ur Drug Screen Comment 10/07/18 10/07/18 10/07/18 09:45 11:09 13:20 WBC RBC Hgb Hct MCV MCH MCHC RDW Std Deviation RDW Coeff of Chuck Plt Count MPV Immature Gran % (Auto) Neut % (Auto) Lymph % (Auto) [place] % (Auto) Eos % (Auto) Baso % (Auto) Absolute Neuts (auto) Absolute Lymphs (auto) Nucleated RBC % Sodium Potassium Chloride Carbon Dioxide Anion Gap BUN Creatinine Estim Creat Clear Calc Est GFR (MDRD) Af Amer Est GFR (MDRD) Non-Af BUN/Creatinine Ratio Glucose Lactic Acid Cancelled 0.5 Calcium Total Bilirubin Direct Bilirubin AST ALT Alkaline Phosphatase Total Protein Albumin Globulin Lipase TSH 1.04 Serum , Qual Urine Color Urine Clarity Urine pH Ur Specific [place] Urine Protein Urine Glucose (UA) Urine Ketones Urine Occult Blood Urine Nitrite Urine Bilirubin Urine Urobilinogen Ur Leukocyte Esterase Urine RBC Urine WBC Ur Squamous Epith Cells Amorphous Sediment Urine Bacteria Urine Mucus Ur Random Sodium Urine Creatinine Urine Opiates Screen Urine Methadone Screen Ur Barbiturates Screen Ur Phencyclidine Scrn Ur Amphetamines Screen U Methamphetamin-MDMA U Benzodiazepines Scrn Urine Cocaine Screen U Cannabinoids Screen Ur Drug Screen Comment 10/07/18 10/07/18 10/07/18 13:20 13:20 13:20 WBC RBC Hgb Hct MCV MCH MCHC RDW Std Deviation RDW Coeff of Chuck Plt Count MPV Immature Gran % (Auto) Neut % (Auto) Lymph % (Auto) [place] % (Auto) Eos % (Auto) Baso % (Auto) Absolute Neuts (auto) Absolute Lymphs (auto) Nucleated RBC % Sodium Potassium Chloride Carbon Dioxide Anion Gap BUN Creatinine Estim Creat Clear Calc Est GFR (MDRD) Af Amer Est GFR (MDRD) Non-Af BUN/Creatinine Ratio Glucose Lactic Acid Calcium Total Bilirubin Direct Bilirubin AST ALT Alkaline Phosphatase Total Protein Albumin Globulin Lipase TSH Serum , Qual Urine Color Urine Clarity Urine pH Ur Specific [place] Urine Protein Urine Glucose (UA) Urine Ketones Urine Occult Blood Urine Nitrite Urine Bilirubin Urine Urobilinogen Ur Leukocyte Esterase Urine RBC Urine WBC Ur Squamous Epith Cells Amorphous Sediment Urine Bacteria Urine Mucus Ur Random Sodium 27 Urine Creatinine 127.00 Urine Opiates Screen NEGATIVE Urine Methadone Screen NEGATIVE Ur Barbiturates Screen NEGATIVE Ur Phencyclidine Scrn NEGATIVE Ur Amphetamines Screen NEGATIVE U Methamphetamin-MDMA NEGATIVE U Benzodiazepines Scrn NEGATIVE Urine Cocaine Screen POSITIVE H U Cannabinoids Screen NEGATIVE Ur Drug Screen Comment 10/07/18 10/08/18 10/08/18 13:20 04:10 04:10 WBC 5.7 RBC 3.65 L Hgb 11.5 L Hct 34.7 L MCV 95.1 MCH 31.5 MCHC 33.1 RDW Std Deviation 49.0 H RDW Coeff of Chuck 14.1 Plt Count 168 MPV 8.8 Immature Gran % (Auto) 0.400 Neut % (Auto) 50.7 Lymph % (Auto) 37.9 [place] % (Auto) 8.9 Eos % (Auto) 1.9 Baso % (Auto) 0.2 Absolute Neuts (auto) 2.9 Absolute Lymphs (auto) 2.16 Nucleated RBC % 0 Sodium 147 H Potassium 3.9 Chloride 119 H Carbon Dioxide 22.0 Anion Gap 6 BUN 20 H Creatinine 0.90 Estim Creat Clear Calc 64.30 Est GFR (MDRD) Af Amer 84 Est GFR (MDRD) Non-Af 69 BUN/Creatinine Ratio 22.3 H Glucose 94 Lactic Acid Calcium 7.7 L Total Bilirubin Direct Bilirubin AST ALT Alkaline Phosphatase Total Protein Albumin Globulin Lipase TSH Serum , Qual Urine Color Yellow Urine Clarity Clear Urine pH 5.0 Ur Specific [place] 1.015 Urine Protein 30 H Urine Glucose (UA) Normal Urine Ketones 5 H Urine Occult Blood 10 H Urine Nitrite Negative Urine Bilirubin Negative Urine Urobilinogen Normal Ur Leukocyte Esterase Negative Urine RBC 0 SEEN Urine WBC 0 SEEN Ur Squamous Epith Cells 0 SEEN Amorphous Sediment 1+ Urine Bacteria 0 SEEN Urine Mucus 0 SEEN Ur Random Sodium Urine Creatinine Urine Opiates Screen Urine Methadone Screen Ur Barbiturates Screen Ur Phencyclidine Scrn Ur Amphetamines Screen U Methamphetamin-MDMA U Benzodiazepines Scrn Urine Cocaine Screen U Cannabinoids Screen Ur Drug Screen Comment 10/09/18 10/09/18 06:00 06:00 WBC 6.4 RBC 3.79 L Hgb 11.6 L Hct 35.2 L MCV 92.9 MCH 30.6 MCHC 33.0 RDW Std Deviation 47.0 H RDW Coeff of Chuck 13.7 Plt Count 186 MPV 9.2 Immature Gran % (Auto) 0.300 Neut % (Auto) 56.6 Lymph % (Auto) 30.2 [place] % (Auto) 10.4 H Eos % (Auto) 2.2 Baso % (Auto) 0.3 Absolute Neuts (auto) 3.6 Absolute Lymphs (auto) 1.92 Nucleated RBC % 0 Sodium 145 Potassium 3.6 Chloride 114 H Carbon Dioxide 26.0 Anion Gap 5 BUN 17 Creatinine 0.65 Estim Creat Clear Calc 89.03 Est GFR (MDRD) Af Amer 122 Est GFR (MDRD) Non-Af 101 BUN/Creatinine Ratio 26.2 H Glucose 97 Lactic Acid Calcium 8.0 L Total Bilirubin Direct Bilirubin AST ALT Alkaline Phosphatase Total Protein Albumin Globulin Lipase TSH Serum , Qual Urine Color Urine Clarity Urine pH Ur Specific [place] Urine Protein Urine Glucose (UA) Urine Ketones Urine Occult Blood Urine Nitrite Urine Bilirubin Urine Urobilinogen Ur Leukocyte Esterase Urine RBC Urine WBC Ur Squamous Epith Cells Amorphous Sediment Urine Bacteria Urine Mucus Ur Random Sodium Urine Creatinine Urine Opiates Screen Urine Methadone Screen Ur Barbiturates Screen Ur Phencyclidine Scrn Ur Amphetamines Screen U Methamphetamin-MDMA U Benzodiazepines Scrn Urine Cocaine Screen U Cannabinoids Screen Ur Drug Screen Comment Clinical Impression(s) from Imaging Studies Renal Ultrasound 10/07/18 11:45 IMPRESSION: 1. Normal size, cortical thickness and cortical echogenicity of the bilateral kidneys. 2. Multiple small echogenic foci within the central sinus fat. Question small nonobstructing stones versus reflections from vascular structures. 3. Filling defect in the urinary bladder. This is thought to represent a Weeks balloon. A large calcification cannot be ruled out. Electronically Signed: Johnathon Lorenzana DO at 21:45 EDT Tel [phone], Service support , Chest X-Ray 10/07/18 12:41 IMPRESSION: No acute cardiopulmonary disease. Electronically Signed: Rohit Lai MD at 13:26 EDT , Service support , Medical Necessity - Tobacco Use Smoking Status: Current every day smoker Assessment/Plan RECOMMENDATIONS: 1. Supplemental IV fluids can be discontinued pending continued appropriate p.o. intake. 2. Remove Weeks catheter. 3. Encourage incentive spirometer use while in bed and mobilize patient as tolerated. 4. The patient is medically stable for transfer out of the intensive care unit. Will sign off at this time from a critical care perspective. IMPRESSIONS: 1. Hypovolemic shock Resolved. The patient presented to the ICU with fluid refractory hypotension, requiring the initiation of vasopressor support. The patient was significantly intravascularly volume depleted, potentially related to viral gastroenteritis with subsequent poor p.o. intake. At this time, the patient remains hemodynamically stable off of levophed. She is currently tolerating a regular diet. No infectious etiologies have been identified. 2. Acute kidney injury Resolved. Likely prerenal in etiology and related to intravascular volume depletion and concurrent use of JACINTO inhibitor. Plan to continue gentle supplemental IV fluid hydration. Continue to monitor urine output. No current indication for renal replacement therapy. Okay to remove Weeks catheter. 3. History of cocaine abuse/tobacco dependency/hypertension Complicates care, management, recovery and prognosis. Continue to hold home antihypertensives. Nicotine replacement therapy can be offered to the patient while admitted to the hospital. This note was generated with [employer] dictation software. It may contain incorrect words, spelling, and punctuation that were not noted in checking the note before signing. Code Visit Inpatient E&M: 67793 Subs Hosp L2
--- NOTE | 2018-10-09 11:20 | DCINST_ITS ---
You will use the following diet at home:: Cardiac Your food should be the consistency of: Regular Your liquids should be the consistency of: Regular/Thin Discharge Activity: Return to Normal Activity Weight Bearing Status: Weight bearing as tolerated Call your doctor if you observe: Dizziness, Fainting spells, Swelling in the ankles Instructions: Low Blood Pressure (Hypotension), How Your Kidneys Work Additional Instructions: check BP daily at home. If BP<120/80, dont take your BP medication until you are evaluated by your PCP at next visit. Keep a log of your BP checks and present to your PCP at next visit. Allergies/Adverse Reactions: Allergies codeine Allergy (Severe, Verified 10/07/18 09:20) difficulty breathing Medications to take at Discharge paroxetine ER 25 mg tablet,extended release 24 hr 25 mg PO DAILY #30 tab 10/06/18 trazodone 50 mg tablet 50 mg PO DAILY 10/06/18 Amlodipine [Norvasc] 5 mg PO DAILY #30 tab 10/09/18 The following prescriptions were given: Amlodipine [Norvasc] 5 mg PO DAILY #30 tab Transmission Status: Pending to [facility] [place] - [address] Primary Care Physician: Samina Joya MD [Primary Care Provider] - Please follow up with your Primary Care Physician in: within one week Test Results: Test results from this visit will be discussed in further detail at your follow- up appointment, if applicable. Proposed Discharge Date: 10/09/18
--- NOTE | 2018-10-09 11:22 | DS.PCM_ITS ---
Discharge Date and Diagnosis Date of Admission: 10/07/18 Date of Discharge: 10/09/18 - Primary Discharge Diagnosis hypovolemic shock pre-renal OC gastroenteritis Hospital Course and Treatment Imaging Results: Diagnostic Data Renal Ultrasound 10/07/18 11:45 IMPRESSION: 1. Normal size, cortical thickness and cortical echogenicity of the bilateral kidneys. 2. Multiple small echogenic foci within the central sinus fat. Question small nonobstructing stones versus reflections from vascular structures. 3. Filling defect in the urinary bladder. This is thought to represent a Weeks balloon. A large calcification cannot be ruled out. Electronically Signed: Johnathon Lorenzana DO at 21:45 EDT Tel [phone], Service support , Chest X-Ray 10/07/18 12:41 IMPRESSION: No acute cardiopulmonary disease. Electronically Signed: Rohit Lai MD at 13:26 EDT , Service support , critical care- Dr Geo Orellana Operations: None Procedures: None Summary of Care Provided: The patient is a 53 year old F with a past medical history as listed. Patient was admitted through the ED on 10/07/2018 with a complaint of general feeling of unwellness as well as diarrhea and vomiting. She states diarrhea and vomiting has been going on episodically for some time. Patient states she went to her PCP for physical yesterday and was found to have elevated blood pressure. She states she was sent to the emergency room on account of elevated blood pressure which was given some medication and his prescription refilled. On review of PCPs notes from 10/06/2018, patient went there for physical pending admission to [facility] rehab program on account of previous cocaine use. Patient's blood pressure was found to be elevated in the 170s to 190 systolic. Patient asked for refill of her medications but she was sent to the ED by PCP on account of elevated blood pressure. Of note, patient stated as per ED documentation from 10/06/2018 that she had been in snf for 60 days prior to presentation and so had not been taking her blood pressure medications. She was given p.o. clonidine in the ED and patient was not interested in any labs or further work-up. She was given a prescription for her lisinopril and was discharged. However started feeling generally unwell and states she has been having the diarrhea and vomiting but it worsened yesterday. Of note, patient also stated that about a year ago, she was admitted at [facility] for about 2 weeks on account of hypotension which did not respond to fluids and she needed to be admitted in the ICU. She could not see whether she needed vasopressors or otherwise. She also could not say exactly what the cause of her hypotension is but states that he is been known to have fluctuating blood pressure. Patient denied any fever or chills, any chest pain or palpitations or dizziness but admitted to diarrhea and vomiting as stated above. She also complained of back pain which was chronic. In the ED, blood pressure was 74/51 and pulse rate was 46 with a temperature of 97.6. Respiratory rate was 15. Chemistry showed bicarb of 20 with creatinine of 3.01. Patient denied any history of kidney disease and there is no baseline creatinine in the EMR. CBC was unremarkable. She was admitted to the ICU to be managed for hypovolemic shock due to gastroenteritis and medication induced, as well as OC. Patient was hydrated with IV fluids but was not responding and so required start of vasopressor (Levophed) to support her blood pressure. OC resolved and diarrhea also resolved spontaneously. Lisinopril was held. Renal ultrasound done showed normal size, cortical thickness and echogenicity of the bilateral kidneys with filling defect in the urinary bladder likely due to Weeks balloon as well as multiple small echogenic foci within the central sinus fat with a question of small nonobstructing stone versus reflections from vascular structures. Patient's blood pressure improved and Levophed was weaned off. Patient remained stable. IV fluids was discontinued. She remained stable and was discharged home on 10/09/2018. She was discharged with a prescription for p.o. amlodipine 5 mg daily. Patient was counseled to check her blood pressure daily and not to take her blood pressure medications if blood pressure was less than 120/80 mmHg. She is to keep her record of her blood pressure readings and is to follow-up with her primary care doctor within 1 week. Patient states she has an appointment with her primary care doctor this coming , October 13, 2018 and she was counseled to keep this appointment. Of note, patient's urine tox was positive for cocaine though she claims she had to use cocaine and at least 60 days today she had been in the [facility] snf. Patient's wishes to follow-up with inpatient rehab other [facility] program and is being discharged home pending acceptance to this facility. Patient seen and examined prior to discharge. She had no complaints and felt well. Review of systems is otherwise negative. Labs and vitals reviewed. Home medications reviewed and reconciled. o/e: Vital Signs Height 5 ft 5 in Weight: 154 lb 12.232 oz Weight in Pounds 154.8 lbs Pulse Ox 94 Temperature 98.7 F Pulse Rate 67 Respiratory Rate 19 Blood Pressure [BP] 139/79 Blood Pressure 140/100 Blood Pressure Position [BP] Semi-Fowlers Blood Pressure Position Supine General: Alert, Oriented x3, Cooperative, No apparent distress HEENT: Atraumatic, PERRLA, EOMI, Normocephalic Oral: Dry Mucosa Neck: Supple, No JVD, Negative Carotid Bruits Lungs: Clear to auscultation, Normal air movement Cardiovascular: Regular rate, Regular Rhythm, Normal S1, Normal S2, No murmurs Abdomen: Bowel Sounds Present, Soft, Non Tender, Non-Distended, No Hepato- splenomegaly Extremities: No clubbing, No cyanosis, No edema, Capillary Refill Less than 3 Seconds Skin: No rashes, No breakdown Musculoskeletal: No Tenderness to Palpation of Joints or Extremities Lymphatic: No Cervical, Supraclavicular, or Inguinal Adenopathy Neurological: Cranial nerves II-XII grossly intact, Neuro grossly intact, Motor Exam 5/5 strength throughout Psych/Mental Status: Normal Affect, Appropriate, Alert and oriented to time, place, person, mood and affect Plan as above - Physical Exam Vital Signs Temp Pulse Resp BP Pulse Ox 98.7 F 67 19 H 139/79 H 94 10/09/18 04:00 10/09/18 10:58 10/09/18 10:58 10/09/18 10:58 10/09/18 10:58 Oxygen Delivery Method Room Air Weight: 154 lb 12.232 oz Body Mass Index (BMI) 23.8 Intake and Output for Last 24 Hours 10/07/18 10/08/18 10/09/18 23:59 23:59 23:59 Intake Total 4207.7 / 4207.7 4398 / 4398 439 / 439 Output Total 1450 / 1450 3575 / 3575 800 / 800 Balance 2757.7 / 2757.7 823 / 823 -361 / -361 Laboratory Tests Past 24 Hrs 10/09/18 10/09/18 06:00 06:00 WBC 6.4 RBC 3.79 L Hgb 11.6 L Hct 35.2 L MCV 92.9 MCH 30.6 MCHC 33.0 RDW Std Deviation 47.0 H RDW Coeff of Chuck 13.7 Plt Count 186 MPV 9.2 Immature Gran % (Auto) 0.300 Neut % (Auto) 56.6 Lymph % (Auto) 30.2 [place] % (Auto) 10.4 H Eos % (Auto) 2.2 Baso % (Auto) 0.3 Absolute Neuts (auto) 3.6 Absolute Lymphs (auto) 1.92 Nucleated RBC % 0 Sodium 145 Potassium 3.6 Chloride 114 H Carbon Dioxide 26.0 Anion Gap 5 BUN 17 Creatinine 0.65 Estim Creat Clear Calc 89.03 Est GFR (MDRD) Af Amer 122 Est GFR (MDRD) Non-Af 101 BUN/Creatinine Ratio 26.2 H Glucose 97 Calcium 8.0 L Discharge Activity: Return to Normal Activity Weight Bearing Status: Weight bearing as tolerated Call your doctor if you observe: Dizziness, Fainting spells, Swelling in the ankles Home Medications: Medications to take at Discharge paroxetine ER 25 mg tablet,extended release 24 hr 25 mg PO DAILY #30 tab 10/06/18 trazodone 50 mg tablet 50 mg PO DAILY 10/06/18 Amlodipine [Norvasc] 5 mg PO DAILY #30 tab 10/09/18 Following Prescrptions Were Given to Patient: Amlodipine [Norvasc] 5 mg PO DAILY #30 tab Transmission Status: Received by [employer] [facility] [place] - [id number] Primary Care Physician: Samina Joya MD [Primary Care Provider] - Please follow up with your Primary Care Physician in: within one week Patient Instructions: How Your Kidneys Work, Low Blood Pressure (Hypotension) Disposition: Home Minutes spent on discharge:: 40 Patient Condition:: Stable Medical Necessity - Tobacco Use Smoking Status: Current every day smoker Meaningful Use Info Meaningful Use Diagnoses (Choose all that apply): None applicable Code Visit Inpatient E&M: 80427 Disch Hosp
== END 2018-10-09 11:57 | disposition home or self-care (01) | DRG 469 ==
LOC: ED 09:47 → ICU 15:29
PROVIDERS: Internal Medicine Critical Care Medicine; Admitting Provider Student in an Organized Health Care Education/Training Program; Emergency Provider Emergency Medicine; Family Provider Internal Medicine; PCP Internal Medicine; Visit Provider Student in an Organized Health Care Education/Training Program
DX: N17.9 Acute kidney failure, unspecified (principal); K52.9 Noninfective gastroenteritis and colitis, unspecified; R57.1 Hypovolemic shock; I10 Essential (primary) hypertension; F17.210 Nicotine dependence, cigarettes, uncomplicated; Z79.899 Other long term (current) drug therapy
CPT/HCPCS: 36415; 36569; 71045; 76770; 80048; 80076; 80307; 81001; 82570; 83605; 83690; 84300; 84443; 84703; 85025; 87040; 87086; 93005; 97802; 99282; 99285; 99406; J7030; J7050; J7120; A4216; J2405

== ENCOUNTER → 2018-10-20 | Outpatient (CLI) | payer MEDICAID, SELFPAY ==
[2018-10-20 10:26] VITALS: BMI 24.3
[2018-10-20 12:44] LABS: Anion Gap 6 (5-15); BUN 24 mg/dL (7-18); BUN/Creat Ratio 33.2 RATIO (10-20); Chloride 109 mmol/L (98-107); Creatinine, Serum 0.72 mg/dL (0.55-1.02); EST Glomerular Filtration Rate 89 mL/min (>60); Est Glom Filt Rate - Afr Amer 108 mL/min (>60); Glucose 107 mg/dL (74-106); Potassium 4.4 mmol/L (3.5-5.1); Sodium Level 137 mmol/L (136-145)
[2018-10-22 03:07] LABS: HCV Quant. RNA PCR 6720000 IU/mL (.)
[2018-10-23 12:09] LABS: HCV log 10 6.827 (.)
== END | disposition home or self-care (01) ==
LOC: BIMLAB 10:51
PROVIDERS: Nurse Practitioner Family; Family Provider Internal Medicine; PCP Internal Medicine; Visit Provider Internal Medicine
DX: B19.20 Unspecified viral hepatitis C without hepatic coma (principal); N17.9 Acute kidney failure, unspecified; I10 Essential (primary) hypertension
CPT/HCPCS: 36415; 80048; 87522

== ENCOUNTER → 2018-11-02 | Outpatient (CLI) | payer MEDICAID, SELFPAY ==
[2018-11-01 13:57] VITALS: BMI 24.3
[2018-11-02 09:44] LABS: Bacteria 0 SEEN /hpf (None Seen); Mucous, Urine 0 SEEN /hpf (<or=2+); Red Blood Cells-Urine 0 SEEN /hpf (0-5)
[2018-11-02 12:10] LABS: Hemoglobin 15.2 g/dL (12.0-15.0); Mean Corpuscular Volume 93.7 fL (81-99); Mean Platelet Vol. 9.1 fl (6.2-12.0); Platelet Count 219 K/mm3 (150-450); RBC Distribution Width CV 13.6 % (11.6-14.6); RBC Distribution Width SD 46.7 fl (35.1-43.9); Red Blood Count 4.91 M/mm3 (4.2-5.4); White Blood Count 6.8 K/mm3 (4.4-11.0)
[2018-11-02 12:12] LABS: Color, Urine Yellow (Yellow); Glucose, Dipstick Normal (Normal); Ketone-Dipstick 5 mg/dl (Negative); Leukocyte Esterase-Dipstick 25 /ul (Negative); Nitrite-Dipstick Negative (Negative); Occult Blood-Urine Negative /ul (Negative); Protein-Dipstick Negative (Negative); Urine Bilirubin Dipstick Negative (Negative); Urine Clarity Sl. Cloudy (Clear); Urine Urobilinogen Normal (Normal)
[2018-11-02 12:28] LABS: ALB/GLOB Ratio 0.8 RATIO (0.9-2.4); AST(SGOT) 36 U/L (15-37); Alanine Aminotransfer ALT/SGPT 53 U/L (13-56); Albumin, Serum 3.5 g/dL (3.2-5.0); Alkaline Phosphatase 137 U/L (45-117); Anion Gap 10 (5-15); BUN 16 mg/dL (7-18); BUN/Creat Ratio 21.3 RATIO (10-20); Calcium,Total 8.9 mg/dL (8.5-10.1); Chloride 108 mmol/L (98-107); Creatinine, Serum 0.75 mg/dL (0.55-1.02); EST Glomerular Filtration Rate 85 mL/min (>60); Est Glom Filt Rate - Afr Amer 103 mL/min (>60); Globulin 4.3 g/dL (2.2-4.2); Glucose 123 mg/dL (74-106); Protein, Total 7.8 g/dL (6.4-8.2); Sodium Level 143 mmol/L (136-145)
[2018-11-02 12:34] LABS: Squamous Epithelial Cells - UA 0-5 SEEN /hpf (5-10); White Blood Cells 0-5 SEEN /hpf (0-5)
[2018-11-03 07:07] LABS: HEPATITIS B SURFACE AG Negative (Negative); Hepatitis A AB, Total Negative (Negative); Hepatitis A IgM Antibody Negative (Negative); Hepatitis B Core AB IgM Negative (Negative); Hepatitis B Core Ab Total Positive (Negative); Hepatitis C Ab >11.0 s/co ratio (0.0-0.9)
[2018-11-03 13:05] LABS: Hep B Surface Antibodies Reactive (.)
== END | disposition home or self-care (01) ==
LOC: BIMLAB 09:38
PROVIDERS: Nurse Practitioner Family; Family Provider Internal Medicine; PCP Internal Medicine; Visit Provider Internal Medicine
DX: I10 Essential (primary) hypertension (principal); R30.0 Dysuria; F19.10 Other psychoactive substance abuse, uncomplicated
CPT/HCPCS: 36415; 80053; 81001; 85027; 86704; 86705; 86706; 86708; 86709; 86803; 87086; 87088; 87340

== ENCOUNTER → 2018-11-16 11:22 | Outpatient (CLI) | payer MEDICAID, SELFPAY ==
[2018-11-16 10:52] VITALS: BMI 25.4
[2018-11-16 11:25] LABS: Bacteria 0 SEEN /hpf (None Seen); Red Blood Cells-Urine 0 SEEN /hpf (0-5)
[2018-11-16 12:26] LABS: Color, Urine Yellow (Yellow); Glucose, Dipstick Normal (Normal); Ketone-Dipstick 5 mg/dl (Negative); Leukocyte Esterase-Dipstick 25 /ul (Negative); Nitrite-Dipstick Negative (Negative); Occult Blood-Urine Negative /ul (Negative); Protein-Dipstick Negative (Negative); Urine Bilirubin Dipstick Negative (Negative); Urine Clarity Clear (Clear); Urine Urobilinogen 1 mg/dl (Normal)
[2018-11-16 12:35] LABS: Squamous Epithelial Cells - UA 0-5 SEEN /hpf (5-10); White Blood Cells 0-5 SEEN /hpf (0-5)
[2018-11-16 12:36] LABS: Mucous, Urine 1+ /hpf (<or=2+)
== END ==
PROVIDERS: Family Provider Internal Medicine; PCP Internal Medicine; Visit Provider Nurse Practitioner Family
DX: R30.0 Dysuria (principal)
CPT/HCPCS: 81001; 87086; 87088

== ENCOUNTER → 2018-12-08 16:24 | Outpatient (CLI) | payer MEDICAID, SELFPAY ==
[2018-12-08 14:06] VITALS: BMI 25.4
[2018-12-08 21:51] LABS: Chlamydia Trachomatis by PCR Negative (Negative); Neisserai gonorrhoeae by PCR Negative (Negative); Probe Check PASS; Sample Adequacy Control PASS; Specimen Processing Control PASS
[2018-12-14 14:08] LABS: HPV Genotype 16, Aptima Negative (Negative)
[2018-12-15 14:36] LABS: HPV APTIMA, High Risk Positive (Negative); HPV Genotype 18,45 Aptima Negative (Negative)
== END ==
PROVIDERS: Family Provider Internal Medicine; PCP Internal Medicine; Referring Provider Nurse Practitioner Women's Health; Visit Provider Nurse Practitioner Women's Health
DX: N76.0 Acute vaginitis (principal); Z12.4 Encounter for screening for malignant neoplasm of cervix
CPT/HCPCS: 87070; 87077; 87205; 87491; 87591; 87624; 88175; G0145

== ENCOUNTER 2019-01-16 22:35 | Emergency (ER) | payer MEDICAID, SELFPAY ==
[2019-01-13 13:16] VITALS: BMI 25.4
[2019-01-16 22:36] VITALS: BP 171/124; PULSE 111; RESP 16; TEMP 36.6; O2SAT 99; BMI 26.6
[2019-01-16] MEDS: Ondansetron 4 MG/2 ML Vial IV (23:12)
[2019-01-16] MEDS: Morphine 4 MG/ML Syringe IV (23:12)
[2019-01-16] MEDS: 0.9% Normal Saline 1,000 ML 150 ML IV (23:12)
[2019-01-16 23:15] LABS: Bacteria 0 SEEN /hpf (None Seen); Mucous, Urine 0 SEEN /hpf (<or=2+); Red Blood Cells-Urine 0 SEEN /hpf (0-5); White Blood Cells 0 SEEN /hpf (0-5)
[2019-01-16 23:17] LABS: Absolute Lymphocyte Count 2.34 X10^3/uL (0.83-4.51); Absolute Neutrophil Count 6.6 X10^3/uL (2.0-7.7); Basophil# 0.02 X10^3/uL; Basophil% 0.2 % (0-1); Eosinophil# 0.09 X10^3/uL; Eosinophils% 0.9 % (0-5); Hematocrit 49.3 % (37-47); Hemoglobin 16.7 g/dL (12.0-15.0); Lymphocyte # 2.34 X10^3/ul (4.0); Lymphocyte % 23.9 % (19-41); Mean Corp Hgb Conc 33.9 g/dL (32-36); Mean Corpuscular Hgb 30.5 pg (27.0-32.0); Mean Corpuscular Volume 90.1 fL (81-99); Mean Platelet Vol. 8.7 fl (6.2-12.0); Monocyte# 0.68 X10^3/uL; Monocyte% 6.9 % (0-10); NRBC Flagged by Analyzer 0 % (0-5); Neutrophil # 6.64 X10^3/uL (2.7-7.7); Neutrophil % 67.9 % (47-70); Platelet Count 255 K/mm3 (150-450); RBC Distribution Width SD 43.4 fl (35.1-43.9); Red Blood Count 5.47 M/mm3 (4.2-5.4); White Blood Count 9.8 K/mm3 (4.4-11.0)
[2019-01-16 23:18] LABS: Color, Urine Yellow (Yellow); Glucose, Dipstick Normal (Normal); Ketone-Dipstick Negative (Negative); Leukocyte Esterase-Dipstick Negative /ul (Negative); Nitrite-Dipstick Negative (Negative); Occult Blood-Urine Negative /ul (Negative); Protein-Dipstick 15 mg/dl (Negative); Urine Bilirubin Dipstick Negative (Negative); Urine Clarity Clear (Clear); Urine Urobilinogen Normal (Normal)
[2019-01-16 23:25] LABS: Squamous Epithelial Cells - UA 0-5 SEEN /hpf (5-10)
[2019-01-16 23:30] LABS: Anion Gap 6 (5-15); BUN 7 mg/dL (7-18); BUN/Creat Ratio 8.3 RATIO (10-20); Calcium,Total 9.8 mg/dL (8.5-10.1); Chloride 103 mmol/L (98-107); Creatinine, Serum 0.84 mg/dL (0.55-1.02); EST Glomerular Filtration Rate 75 mL/min (>60); Est Glom Filt Rate - Afr Amer 91 mL/min (>60); Estimated Creatinine Clearance 63.33 ml/min; Glucose 104 mg/dL (74-106); Potassium 3.6 mmol/L (3.5-5.1); Sodium Level 136 mmol/L (136-145)
--- NOTE | 2019-01-16 23:40 | ED.VISSUMM ---
- ER Visit Summary Date of Service: 01/16/19 Chief Complaint: [Back pain] History of Present Illness: The patient is a 53 F [presents with complaint of back pain that started around 9 PM tonight. Patient states that it started gradually with spasm-like discomfort in her mid back. Pain became progressively more severe. She denies any trauma to her back. Patient states that she has a history of some chronic back pain issues because as a child she had some crushed vertebrae. Patient sees a chiropractor. Denies any pain rating down her legs. She denies any change in bowel bladder function. She denies any chest pain or shortness of breath. She has not had any trauma to her back. She denies urinary symptoms. Patient does have a history of hypertension and history of PTSD.] Patient states that she has had similar pain like this at least 3 other times. One time patient states that her kidneys had dried out and she had to spend some time in the hospital getting fluids. Physical Examination: [HEENT-PERRLA, EOMI. Cranial nerves II through XII grossly intact. TMs clear. Mucous membranes moist. No adenopathy. Cardiovascular-regular rate and rhythm without murmur or ectopy Lungs-clear to auscultation, chest wall stable without crepitus or subcu emphysema Abdomen-normoactive bowel sounds, soft, nontender, no rebound or rigidity, no peritoneal signs. Back exam-no real tenderness over the thoracic or lumbar spine. I cannot reproduce her pain with palpation of her back. Patient has negative straight leg raises. Deep tendon reflexes are plus 2 out of 4 bilaterally at the patella and Achilles. Patient has normal 5 extension bilaterally. Extremities-intact ?4, normal range of motion, normal pulses, atraumatic] Test Results: [CBC with differential was normal. Chemistries normal. Urinalysis normal.] Emergency Department Course and Treatment: [Patient was medicated with morphine and Zofran and was given normal saline. Patient did feel significantly improved.] Treatment Plan: [She will be given a prescription for Flexeril, Mckinney, and naproxen.] Disposition: [Discharged home in stable condition. Patient advised to return if worsening pain, change in bowel or bladder function, radiation to the legs or weakness in the extremities, saddle anesthesia, or conditions worsen anyway.] Impression: [Atraumatic back pain-acute on chronic] This note was generated with [employer] dictation software. It may contain incorrect words, spelling, and punctuation that were not noted in review of the chart prior to signing ED Disposition - Plan for ED Patient: Referrals: Samina Joya MD [Primary Care Provider] -
--- NOTE | 2019-01-16 23:43 | DCINST.ED_ITS ---
ED Disposition - Plan for ED Patient: Instructions: BACK AND NECK PAIN, General Prescriptions: cycloBENZAPRine HCl [Flexeril] 10 mg PO TID PRN #20 tab PRN Reason: Muscle Spasm Prescription Printed Naproxen [Naprosyn] 500 mg PO BID PRN #20 tab Prescription Printed Hydrocodone Bitart/Apap 5-325 [[place] 5MG-325MG] 1 tab PO Q4H PRN PRN 2 Days #10 tab PRN Reason: Pain Prescription Printed Referrals: Samina Joya MD [Primary Care Provider] - 3-5 Days
[2019-01-16 23:54] VITALS: BP 169/111; PULSE 100; RESP 15; O2SAT 98
--- NOTE | 2019-01-16 23:54 | ED.RN ---
PT GIVEN WRITTEN AND VERBAL DISCHARGE INSTRUCTIONS AND HOME GOING PRESCRIPTIONS. PT VERBALIZES UNDERSTANDING. EDUCATED NOT TO DRIVE WHEN TAKING NARCOTIC MEDICATION. PT VERBALIZES UNDERSTANDING. PT IV D/C AND COVERED WITH 2X2 GAUZE AND PAPER TAPE. PT DRESSES SELF AND AMBULATES OUT OF DEPT WITH SPOUSE.
== END 2019-01-16 23:57 | disposition home or self-care (01) ==
PROVIDERS: Emergency Provider Emergency Medicine; Family Provider Internal Medicine; PCP Internal Medicine
DX: M54.9 Dorsalgia, unspecified (principal); G89.29 Other chronic pain; F43.10 Post-traumatic stress disorder, unspecified; I10 Essential (primary) hypertension; Z79.899 Other long term (current) drug therapy; Z72.0 Tobacco use
CPT/HCPCS: 80048; 81001; 85025; 96361; 96374; 96375; 99284; J7030; J2405

== ENCOUNTER 2019-02-16 00:44 | Emergency (ER) | payer MEDICAID, SELFPAY ==
[2019-02-16 00:45] VITALS: BP 166/120; PULSE 139; RESP 18; TEMP 36.9; O2SAT 96; BMI 27.1
[2019-02-16 01:02] VITALS: BP 140/109; PULSE 118; RESP 28; O2SAT 93
--- NOTE | 2019-02-16 01:02 | EKG12_ITS ---
Test Reason : CP Blood Pressure : / mmHG Vent. Rate : 141 BPM Atrial Rate : 141 BPM P-R Int : 152 ms QRS Dur : 072 ms QT Int : 260 ms P-R-T Axes : 057 016 029 degrees QTc Int : 398 ms Sinus tachycardia with Fusion complexes Possible Left atrial enlargement Borderline ECG Confirmed by SALTY MEDINA, JUSTUS ([id number]), editor publications RICK RAMIREZ ([id number]) on 02/22/2019 11:36:31 AM Referred By: Confirmed By:EDUARDO POND MD
--- NOTE | 2019-02-16 01:02 | RAD_ITS ---
STUDY: X-RAY CHEST REASON FOR EXAM: Female, 53 years old. Chest pain TECHNIQUE: Single AP portable view of the chest. COMPARISON: 10/07/2018 FINDINGS: Prominence of interstitial lung markings at bilateral lung bases, new from prior imaging. No confluent airspace opacity. Normal size heart. Normal mediastinum and gopal. Normal visualized pulmonary arteries. There is atherosclerotic calcification of the aortic arch . Normal visualized thoracic spine. Normal visualized ribs, clavicles, and shoulders. There is no demonstrated abnormality of the visualized soft tissue structures of the upper abdomen. RAD/Chest 1 View (Portable) IMPRESSION: Mild bibasilar interstitial infiltration which is new from prior imaging, likely representing edema Electronically Signed: Sanjeev Garvin MD at 1:58 EST Tel , Service support ,
[2019-02-16 01:10] LABS: Absolute Lymphocyte Count 2.02 X10^3/uL (0.83-4.51); Absolute Neutrophil Count 8.3 X10^3/uL (2.0-7.7); Basophil# 0.02 X10^3/uL; Basophil% 0.2 % (0-1); Eosinophil# 0.11 X10^3/uL; Hematocrit 46.3 % (37-47); Hemoglobin 15.6 g/dL (12.0-15.0); Lymphocyte # 2.02 X10^3/ul (4.0); Lymphocyte % 17.8 % (19-41); Mean Corp Hgb Conc 33.7 g/dL (32-36); Mean Corpuscular Hgb 30.1 pg (27.0-32.0); Mean Corpuscular Volume 89.2 fL (81-99); Monocyte# 0.88 X10^3/uL; Monocyte% 7.8 % (0-10); NRBC Flagged by Analyzer 0 % (0-5); Neutrophil # 8.25 X10^3/uL (2.7-7.7); Neutrophil % 72.8 % (47-70); Platelet Count 290 K/mm3 (150-450); RBC Distribution Width CV 13.2 % (11.6-14.6); RBC Distribution Width SD 43.2 fl (35.1-43.9); Red Blood Count 5.19 M/mm3 (4.2-5.4); White Blood Count 11.3 K/mm3 (4.4-11.0)
[2019-02-16] MEDS: LORazepam 2 MG/ML Syringe 1 MG IV (01:11)
[2019-02-16] MEDS: Ketorolac 15 MG/ML Vial IV (01:11)
[2019-02-16] MEDS: 0.9% Normal Saline 1,000 ML 1000 ML IV (01:11)
--- NOTE | 2019-02-16 01:30 | ED.VIS.GEN ---
History of Present Illness Chief Complaint: Chest Pain Onset: Today Narrative: Patient presents the emergency department with chest pain. She describes it as tender to palpation over the anterior chest wall. She states she has been doing a lot of coughing recently and has had some sputum production. She states she feels herself wheezing. She states she believes her left arm is tingling now. She tells me she has a history of having had a heart attack (unfortunately I see nothing in her prior records here that would say that but the patient insists that she had a heart attack and it should be in her chart). She tells me that tonight she smokes marijuana that may or may not had something else in it. She has a history of cocaine use. No fevers but has felt chilled. Past Medical History - Allergies and Home Meds Allergies/Adverse Reactions: Allergies codeine Allergy (Severe, Verified 02/16/19 00:49) difficulty breathing latex Adverse Reaction (Unknown, Verified 02/16/19 00:49) hives Primary Care Physician: Samina Joya MD [Primary Care Provider] - 3-5 Days if not improving Smoking Status: Current every day smoker Review of Systems General: Reports: Chills. Denies: Fever, Sweats Eyes: Denies: Visual changes - bilaterally, Diplopia ENT: Denies: Rhinorrhea, Sore throat Cardiovascular: Reports: Chest pain, Heart racing. Denies: Palpitations Respiratory: Reports: Dyspnea, Cough, Sputum. Denies: Dyspnea on exertion Gastrointestinal: Denies: Abdominal pain, Nausea, Vomiting, Diarrhea, Melena, Hematochezia Genitourinary: Denies: Dysuria, Hematuria, Frequency Musculoskeletal: Denies: Back pain, Extremity Pain Skin: Denies: Rash, Wounds Neurological: Denies: Headache, Weakness, Numbness Psych: Denies: Suicidal thoughts, Suicidal ideations Endocrine: Denies: Polyuria, Polydipsia, Heat intolerance, Cold intolerance Hematologic: Denies: Easy bruising, Easy bleeding, Lymphadenopathy Allergy: Denies: Uticaria, Swelling of the mouth, Swelling of the tongue Physical Exam Vital Signs/Narrative: Vital Signs Temp Pulse Resp BP Pulse Ox 02/16/19 01:02 118 H 28 H 140/109 H 93 02/16/19 00:45 98.5 F 139 H 18 166/120 H 96 Inital Vital Signs reviewed: Yes General: Well nourished, Well developed, No Acute Distress Head: Normocephalic, Atraumatic Eyes: Perrl, EOMI ENT: Moist mucous membranes, No rhinorrhea Neck: Supple, Nontender Cardiovascular: Regular rate, No murmurs, Tachycardia Respiratory: No distress, CTA bilaterally, Chest nontender Abdomen: Soft, Nontender, Nondistended, Normal bowel sounds Back: Nontender, Normal Inspection Extremities: Nontender, No edema Skin: Normal color, No rash Neurological: Alert, Oriented x3, Cranial nerves II-XII grossly intact, Normal Strength, Normal Sensation Psychological: - - Patient appears anxious and has pressured speech Diagnostic/Tx/Re-eval - EKG Initial EKG Interpretation: Sinus Tachycardia - Heart rate 141 with noted PVCs. - Medical Decision Making Basic blood work was negative. Chest x-ray shows no consolidation. Please see radiologist read. Opponent is negative. EKG is a sinus tach with no concerning features of ACS. Tox screen is positive for cannabinoids and cocaine Patient received a liter of fluids, Toradol, and Ativan. Repeat exam shows her lungs continue to be clear pulse ox of 98% on room air and heart rate is now down into the low 90s. The patient most likely has a bronchitis. I believe she also has a costochondritis. As the chest pain is easily reproducible with palpation I do not believe this is a pulmonary embolism. I will place her on an albuterol MDI as well as burst dose prednisone. We will also add in doxycycline. Patient was encouraged to refrain from smoking as well as drug use. ED Disposition - Plan for ED Patient: Disposition: LEFT WITHOUT BEING SEEN Diagnosis: Acute bronchitis, Costochondritis, acute, Cocaine abuse Instructions: Acute Bronchitis, CHEST WALL PAIN, Costochondritis Prescriptions: Prednisone [Deltasone] 40 mg PO DAILY #10 tab Prescription Printed Doxycycline 100 mg PO BID #14 cap Prescription Printed Albuterol Inhaler [Ventolin Hfa] 2 puff INHALATION Q4H PRN PRN #1 inhaler PRN Reason: Wheezing Prescription Printed Referrals: Samina Joya MD [Primary Care Provider] - 3-5 Days if not improving
[2019-02-16 01:46] LABS: ALB/GLOB Ratio 0.9 RATIO (0.9-2.4); AST(SGOT) 49 U/L (15-37); Alanine Aminotransfer ALT/SGPT 56 U/L (13-56); Albumin, Serum 3.9 g/dL (3.2-5.0); Alkaline Phosphatase 118 U/L (45-117); Anion Gap 8 (5-15); BUN 16 mg/dL (7-18); BUN/Creat Ratio 16.3 RATIO (10-20); Calcium,Total 9.6 mg/dL (8.5-10.1); Chloride 107 mmol/L (98-107); Creatinine, Serum 0.98 mg/dL (0.55-1.02); EST Glomerular Filtration Rate 63 mL/min (>60); Est Glom Filt Rate - Afr Amer 76 mL/min (>60); Estimated Creatinine Clearance 54.29 ml/min; Globulin 4.4 g/dL (2.2-4.2); Glucose 108 mg/dL (74-106); Potassium 4.5 mmol/L (3.5-5.1); Protein, Total 8.3 g/dL (6.4-8.2); Sodium Level 139 mmol/L (136-145)
[2019-02-16 01:55] LABS: Alcohol, Blood (Medical)-Serum < 3.0 mg/dL
[2019-02-16 01:59] LABS: Bacteria 0 SEEN /hpf (None Seen); Mucous, Urine 0 SEEN /hpf (<or=2+); Red Blood Cells-Urine 0 SEEN /hpf (0-5)
[2019-02-16 02:07] VITALS: BP 136/87; PULSE 94; RESP 19; O2SAT 97
[2019-02-16 02:10] LABS: Color, Urine Yellow (Yellow); Glucose, Dipstick Normal (Normal); Ketone-Dipstick Negative (Negative); Leukocyte Esterase-Dipstick 25 /ul (Negative); Nitrite-Dipstick Negative (Negative); Occult Blood-Urine 25 /ul (Negative); Protein-Dipstick 30 mg/dl (Negative); Urine Bilirubin Dipstick Negative (Negative); Urine Clarity Sl. Cloudy (Clear); Urine Urobilinogen Normal (Normal)
[2019-02-16 02:16] LABS: Amorphous Sediment 1+; Squamous Epithelial Cells - UA 5-10 SEEN /hpf (5-10); White Blood Cells 5-10 SEEN /hpf (0-5)
[2019-02-16 02:18] VITALS: PULSE 92; RESP 22
[2019-02-16] MEDS: Ipratropium/Albuterol Sulfate 3 ML AMPUL.NEB INHALATION (02:18)
[2019-02-16 02:20] LABS: Vista UDS pH Range 5
[2019-02-16 02:32] LABS: Amphetamine Urine VISTA NEGATIVE (<1000 ng/mL); Barbiturate Urine VISTA NEGATIVE (< 200 ng/mL); Benzodiazepine Urine VISTA NEGATIVE (< 200 ng/mL); Cocaine Urine VISTA POSITIVE (< 300 ng/mL); Ecstacy Urine VISTA NEGATIVE (< 500 ng/mL); Methadone Urine VISTA NEGATIVE (< 300 ng/mL); PCP Urine VISTA NEGATIVE (< 25 ng/mL); THC Urine VISTA POSITIVE (< 50 ng/mL)
[2019-02-16 02:44] VITALS: BP 124/63; PULSE 96; RESP 18; O2SAT 97
== END 2019-02-16 02:45 | disposition home or self-care (01) ==
PROVIDERS: Emergency Provider Emergency Medicine; Family Provider Internal Medicine; PCP Internal Medicine
DX: J20.9 Acute bronchitis, unspecified (principal); M94.0 Chondrocostal junction syndrome [Tietze]; F14.10 Cocaine abuse, uncomplicated; I49.3 Ventricular premature depolarization; F12.90 Cannabis use, unspecified, uncomplicated; F17.200 Nicotine dependence, unspecified, uncomplicated
CPT/HCPCS: 71045; 80053; 80307; 80320; 81001; 84484; 85025; 93005; 94640; 96361; 96374; 96375; 99285; J7030; G0480

== ENCOUNTER 2019-04-14 20:06 | Emergency (ER) | payer MEDICAID, SELFPAY ==
[2019-04-14 20:07] VITALS: BP 151/104; PULSE 85; RESP 15; TEMP 36.8; O2SAT 96; BMI 28.7
--- NOTE | 2019-04-14 20:37 | ED.VISSUMM ---
- ER Visit Summary Date of Service: 04/14/19 Chief Complaint: Axillary abscesses, bronchitis History of Present Illness: The patient is a 53 F who presents with abscesses in both axilla as well as a cough. She states she has a history of axillary abscesses in the past. 5 days ago new and started on the left and right. The one on the left spontaneously drained. She has been using warm compresses. She denies fevers. She has a cough as well. She was diagnosed with bronchitis but seems to not be going away. Physical Examination: Vital signs reviewed. HEENT exam unremarkable. Heart is regular rate and rhythm. Lungs are clear bilaterally. She does have diffuse chest tenderness to palpation. Abdomen soft nontender. Skin exam reveals small, bilateral axillary abscesses, not amenable to drainage. One on the left has spontaneously drained. There are no fluctuant areas on either side. Her neurologic exam is normal. Test Results: None performed Emergency Department Course and Treatment: I will place the patient on Bactrim to help with these abscesses. Her bronchitis is likely viral and being exacerbated by her smoking. She will continue [id number] medications for this at home. Treatment Plan: [] Disposition: Discharge Impression: Bilateral axillary abscesses, bronchitis This note was generated with [employer] dictation software. It may contain incorrect words, spelling, and punctuation that were not noted in review of the chart prior to signing ED Disposition - Plan for ED Patient: Disposition: Home or Assisted Living Instructions: ABSCESS, Antiobiotic Treatment Only Prescriptions: Smz/Tmp Ds [Bactrim Ds] 1 tab PO BID #20 tab Prescription Printed Referrals: Samina Joya MD [Primary Care Provider] -
[2019-04-14] MEDS: Smz/Tmp Ds Tablet 1 TABLET PO (20:46)
== END 2019-04-14 20:49 | disposition home or self-care (01) ==
PROVIDERS: Emergency Provider Emergency Medicine; PCP Internal Medicine
DX: L02.412 Cutaneous abscess of left axilla (principal); L02.411 Cutaneous abscess of right axilla; J40 Bronchitis, not specified as acute or chronic; I10 Essential (primary) hypertension; Z79.899 Other long term (current) drug therapy; Z72.0 Tobacco use
CPT/HCPCS: 99283

== ENCOUNTER → 2019-04-26 09:41 | Outpatient (CLI) | payer MEDICAID, SELFPAY ==
[2019-04-25 16:40] VITALS: BMI 28.7
[2019-04-26 13:19] LABS: T4 Free Direct 0.94 ng/dL (0.76-1.46); Thyroid Stim Hormone (TSH) 1.75 uIU/mL (0.358-3.74)
== END ==
PROVIDERS: PCP Internal Medicine; Referring Provider Internal Medicine; Visit Provider Internal Medicine
DX: Z13.29 Encounter for screening for other suspected endocrine disorder (principal)
CPT/HCPCS: 36415; 84439; 84443

== ENCOUNTER 2019-05-20 20:40 | Emergency (ER) | payer MEDICAID, SELFPAY ==
[2019-04-25 16:40] VITALS: BMI 28.7
[2019-05-20 20:41] VITALS: BP 126/84; PULSE 71; RESP 16; TEMP 37.3; O2SAT 100; BMI 28.0
--- NOTE | 2019-05-20 21:09 | ED.DCSUM_ITS ---
- ER Visit Summary Date of Service: 05/20/19 Chief Complaint: Back pain History of Present Illness: The patient is a 53 F presenting with back pain. She states this started last night. She does not recall a specific injury. She has a history of chronic back pain. She has tried ibuprofen at home with no r elief. She has nausea with no vomiting. She denies urinary complaints. Denies bowel or bladder incontinence. Denies numbness or weakness. She is able to ambulate with pain. Denies other complaints. Physical Examination: Vitals are stable. Patient is afebrile. Alert no acute distress. HEENT exam is unremarkable. Neck is supple. Lungs are clear and equal bilaterally. Heart is regular rate and rhythm. Abdomen is soft nontender nondistended. Back: Bilateral paraspinal lumbar muscle tenderness. Straight leg raise negative bilaterally Extremities are unremarkable. Skin is warm and dry. No focal neurologic deficit. Normal strength and sensation Remainder of exam is unremarkable. Emergency Department Course and Treatment: Patient was given morphine, Zofran IM. Urinalysis shows 0-5 white blood cells, 0 red blood cells. Chemistries unremarkable. On reevaluation, patient is resting comfortably. She is advised to continue ibuprofen at home and was given a prescription for Flexeril. Advised to follow-up with her primary care physician. Advised return to ED if worsening complaints. Disposition: Discharge home Impression: Acute on chronic back pain This note was generated with [employer] dictation software. It may contain incorrect words, spelling, and punctuation that were not noted in review of the chart prior to signing ED Disposition - Plan for ED Patient: Instructions: Back Sprain/Strain Prescriptions: cycloBENZAPRine HCl [Flexeril] 10 mg PO TID PRN #20 tab PRN Reason: Muscle Spasm Prescription Printed Referrals: Samina Joya MD [Primary Care Provider] -
[2019-05-20] MEDS: Ondansetron 4 MG/2 ML Vial IM (21:11)
[2019-05-20] MEDS: Morphine 4 MG/ML Syringe 8 MG IM (21:11)
[2019-05-20 21:44] LABS: Red Blood Cells-Urine 0 SEEN /hpf (0-5)
[2019-05-20 21:55] LABS: Anion Gap 5 (5-15); BUN 20 mg/dL (7-18); BUN/Creat Ratio 19.4 RATIO (10-20); Calcium,Total 8.9 mg/dL (8.5-10.1); Chloride 109 mmol/L (98-107); Creatinine, Serum 1.03 mg/dL (0.55-1.02); EST Glomerular Filtration Rate 59 mL/min (>60); Est Glom Filt Rate - Afr Amer 72 mL/min (>60); Estimated Creatinine Clearance 51.65 ml/min; Glucose 111 mg/dL (74-106); Potassium 4.3 mmol/L (3.5-5.1); Sodium Level 139 mmol/L (136-145)
[2019-05-20 22:05] LABS: Color, Urine Yellow (Yellow); Glucose, Dipstick Normal (Normal); Ketone-Dipstick 5 mg/dl (Negative); Leukocyte Esterase-Dipstick 25 /ul (Negative); Nitrite-Dipstick Negative (Negative); Occult Blood-Urine Negative /ul (Negative); Protein-Dipstick 30 mg/dl (Negative); Specific Gravity, Urine 1.025 (1.002-1.030); Urine Clarity Clear (Clear); Urine Urobilinogen 1 mg/dl (Normal)
[2019-05-20 22:06] LABS: Urine Bilirubin Dipstick 1 mg/dL (Negative)
[2019-05-20 22:11] LABS: Bacteria RARE /hpf (None Seen); Mucous, Urine 1+ /hpf (<or=2+); Squamous Epithelial Cells - UA 0-5 SEEN /hpf (5-10); White Blood Cells 0-5 SEEN /hpf (0-5)
[2019-05-20 22:42] VITALS: BP 120/77; PULSE 59; RESP 18; O2SAT 97
--- NOTE | 2019-05-20 22:44 | ED.DEP ---
ED Disposition - Plan for ED Patient: Instructions: Back Sprain/Strain Prescriptions: cycloBENZAPRine HCl [Flexeril] 10 mg PO TID PRN #20 tablet PRN Reason: Muscle Spasm Referrals: Samina Joya MD [Primary Care Provider] -
== END 2019-05-20 23:01 | disposition home or self-care (01) ==
LOC: ED 21:12
PROVIDERS: Emergency Provider Emergency Medicine; PCP Internal Medicine
DX: M54.5 Low back pain (principal); G89.29 Other chronic pain; R11.0 Nausea
CPT/HCPCS: 80048; 81001; 96372; 99283; A4216; J2405

== ENCOUNTER 2019-06-27 12:50 | Emergency (ER) | payer MEDICAID, SELFPAY ==
[2019-06-27 12:51] VITALS: BP 164/100; PULSE 96; RESP 18; TEMP 36.6; O2SAT 97; BMI 27.4
--- NOTE | 2019-06-27 12:59 | ED.VIS.GEN ---
History of Present Illness Chief Complaint: Abscess Informant: Patient Narrative: Patient reports the emergency department for the evaluation of left axillary abscess. Patient has a history of recurrent issues and is in the process of getting surgery approved for it. Unfortunately she has had another flare. She notes is very painful and swollen and red. She is not currently on any antibiotics. Past Medical History - Allergies and Home Meds Allergies/Adverse Reactions: Allergies codeine Allergy (Severe, Verified 06/27/19 12:52) difficulty breathing latex Adverse Reaction (Unknown, Verified 06/27/19 12:52) hives Primary Care Physician: Cedrick Christianson MD [STAFF PHYSICIAN] - Keep [facility] appointment Smoking Status: Current every day smoker Review of Systems General: Denies: Chills, Fever, Sweats Eyes: Denies: Visual changes - bilaterally, Diplopia ENT: Denies: Rhinorrhea, Sore throat Cardiovascular: Denies: Chest pain, Palpitations Respiratory: Denies: Dyspnea, Cough, Dyspnea on exertion Gastrointestinal: Denies: Abdominal pain, Nausea, Vomiting, Diarrhea, Melena, Hematochezia Genitourinary: Denies: Dysuria, Hematuria, Frequency Musculoskeletal: Denies: Back pain, Extremity Pain Skin: Reports: Abscess. Denies: Rash, Wounds Neurological: Denies: Headache, Weakness, Numbness Physical Exam Vital Signs/Narrative: Vital Signs Temp Pulse Resp BP Pulse Ox 06/27/19 12:51 98 F 96 18 164/100 H 97 Inital Vital Signs reviewed: Yes General: Well nourished, Well developed, No Acute Distress Head: Normocephalic, Atraumatic Eyes: Perrl, EOMI ENT: Moist mucous membranes, No rhinorrhea Neck: Supple, Nontender Cardiovascular: Regular rate, Regular rhythm, No murmurs Respiratory: No distress, CTA bilaterally, Chest nontender Abdomen: Soft, Nontender, Nondistended, Normal bowel sounds Back: Nontender, Normal Inspection Extremities: Nontender, No edema Skin: Normal color, - - There is multiple cutaneous axillary abscesses on the left. There is some surrounding erythema. Neurological: Alert, Oriented x3, Cranial nerves II-XII grossly intact, Normal Strength, Normal Sensation Psychological: Normal affect, Normal Mood Diagnostic/Tx/Re-eval - Medical Decision Making Patient had let applied and then 1% lidocaine instilled into the area. Incision was made with 11 blade and large amount of pus was expressed. She will be placed on clindamycin. I will write for some [place]. She was encouraged to continue her work-up with plastic surgery. ED Disposition - Plan for ED Patient: Disposition: Home or Assisted Living Diagnosis: Hidradenitis suppurativa of left axilla Instructions: ED AXILLARY GLAND INFECTION IandD Referrals: Cedrick Christianson MD [STAFF PHYSICIAN] - Keep [facility] appointment
[2019-06-27 13:31] VITALS: BP 172/115; PULSE 78; RESP 14; O2SAT 96
[2019-06-27] MEDS: Lidocaine/Epi/Tetracaine 50 ML 1 APPLIC TOPICAL (13:33)
== END 2019-06-27 14:10 | disposition home or self-care (01) ==
PROVIDERS: Emergency Provider Emergency Medicine; PCP Internal Medicine
DX: L02.412 Cutaneous abscess of left axilla (principal); L73.2 Hidradenitis suppurativa; F17.200 Nicotine dependence, unspecified, uncomplicated
CPT/HCPCS: 10060; 99283

== ENCOUNTER 2019-08-25 12:10 | Observation (INO) | payer MEDICAID, SELFPAY ==
[2019-07-25 16:07] VITALS: BMI 27.4
[2019-08-22 13:41] VITALS: BMI 27.4
[2019-08-25] VITALS (13 sets, daily range): BP systolic 81–128; BP diastolic 52–88; PULSE 47–68; RESP 14–20; TEMP 36.1–36.9; O2SAT 92–98; BMI 25.9
--- NOTE | 2019-08-25 07:05 | HP.PCM_ITS ---
History and Physical Date of Admission: 08/25/19 HISTORY OF PRESENT ILLNESS 54 year old woman presents for evaluation of hidradenitis involving her left axillary area after a recent I&D procedure. She has persistent pain and induration in the left axilla. She states she also had an I&D procedure to an area of hidradenitis on her right axilla area and that area is stable at the present time. She was placed on Clindamycin. She denies any fever at present. She denies any trauma. She presents at this time for further evaluation and treatment. PAST MEDICAL HISTORY Hepatitis B Hepatitis C Acute kidney injury Anxiety and depression History of substance abuse PTSD (post-traumatic stress disorder) Chronic back pain Hypertension PAST SURGICAL HISTORY foot surgery hand surgery ALLERGIES codeine latex MEDICATIONS amlodipine Albuterol Inhaler [Ventolin Hfa] paroxetine clindamycin FAMILY HISTORY Other - Anxiety and depression, Asthma, Cancer, Diabetes, Hyperlipemia, Hypertension, Seizures SOCIAL HISTORY Smoking Status: Current every day smoker Tobacco: How many years used: 40 alcohol intake: never substance use type: former substance user, crack/cocaine REVIEW OF SYSTEMS General - Denies fever and weight loss. She does have a history of fatigue. Eyes - Denies cataracts and glaucoma. ENT - Denies nasal congestion and sore throat. Endocrine - Denies excessive thirst and urination. She has a history of Hepatitis B&C Skin - Denies history of skin cancer. Musculoskeletal - Denies weakness of muscles and joints, back pain, and arthritis. History of joint pain, joint stiffness and back pain. Neuro - Denies headaches. History of dizziness or lightheadedness. Cardiovascular - Denies chest pain, fatigue, and shortness of breath with exertion. History of HTN. Psych - History of depression. Respiratory - Denies chronic cough and shortness of breath. She does smoke cigarettes. Gastrointestinal - Denies nausea, vomiting, diarrhea, and constipation. Hematologic - Denies abnormal bruising and bleeding. Genitourinary - Denies hematuria and urinary frequency. PHYSICAL EXAMINATION General - Alert and oriented. HEENT - PERRL. EOMI. Throat is clear. Neck - Supple and non-tender. No cervical adenopathy. Lungs- Clear to auscultation. Heart - Regular rate and rhythm. Abdomen - Soft and non distended. Extremities - FROM. No axillary adenopathy. Radial pulses are palpable. Has bilateral axillary hidradenitis. Left side measures 7 x 4 cm with some induration present. Some nodularity present with tenderness. Minimal redness. No fluctuance. No purulent drainge. The right axilla has mild scarring from hidradenitis and is stable at this time. Neuro - CN II-XII grossly intact. Psych - Normal mood and affect. ASSESSMENT 1. Hidradenitis left axilla. 2. Hidradenitis right axilla, stable. 3. Smoker PLAN Recommend surgical preparation left axilla with excision of hidradenitis. Will leave the wound open and proceed with postop wound care with a VAC or with Silver dressing changes daily. Would send tissue to Pathology for analysis to rule out carcinoma and to Microbiology for culture. A positive culture would necessitate antibiotic therapy. If there is a plateau in the healing process, can proceed with delayed closure with skin grafting. Surgery would be done under general anesthesia with a surgical observation overnight stay in the hospital. After discharge, would followup at the Wound Center. The right axillary area is stable at this time. Continue Clindamycin antibiotics for any flare ups until the surgery. She will call when she needs a refill. Patient was informed of the risks and complications of the procedure including alternatives to surgery. These were discussed with the patient personally. Patient voices understanding and wishes to proceed. Some of the risks and complications were included in a form from the [employer]. Encouraged the patient to stop smoking as it may have deleterious effects on wound healing. Procedure Criteria Procedure Type: Essential Procedure Essential: Yes Criteria Statement: On 05/23/2019 the [place] Department of Health ([facility]) Public Order signed by [facility] Director Ysabel Solo M.D., regarding the Management of Non-Essential Surgeries and Procedures for the purpose of preserving Personal Protective Equipment (PPE) and critical hospital capacity and resources within [place] went into effect as of 05/24/2019 at 5:00PM. According to the [facility] Public Order: This action will remain in full force and effect until the State of Emergency declared by the Governor no longer exists or the Director of the [facility] rescinds or modifies this Order. This [facility] order stated all non-essential or elective surgeries and procedures that utilize PPE should be delayed unless there is undue risk to the current or future health of a patient. After reviewing the aforementioned [facility] Public Order and the patient's clinical case, I have determined that the scheduled procedure meets the criteria to go forward. Risk to Patient if Procedure Delayed: Risk of rapidly worsening to severe symptoms if delayed - patient has left axillary hidradenitis with risk of worsening infection that may affect left arm function.
[2019-08-25] MEDS: Lactated Ringers 1,000 ML 100 ML IV (10:53)
--- NOTE | 2019-08-25 11:25 | HID_PTH ---
PATIENT: ANGELA ARRIAGA LOC: MS3 U#:[id number] AGE/SX: 54/F ROOM: ND306 RE08/25/[address]: Dr. Cedrick Christianson MD : 1965 BED: 1 DIS: 08/28/2019 SPEC #: [id number] RECD: 08/25/19 13:39 STATUS: PRICILLA REJo Ann #: [id number] EUGENIA: 08/25/19 11:[address]: Cedrick Christianson DEPT: SURGICAL PATHOLOGY RECD BY: Ngoc Pickard ENTERED: 08/28/19 09:38 SP TYPE: Hidradenit YAHIR DR: Dr. Samina Joya MD Tissues: Axilla, NOS Procedures: Surgery Specimen Level III HEADER OPERATION: Surgical preparation axilla with excision hidradenitis PRE-OP DIAGNOSIS: Hidradenitis left axilla TISSUE SUBMITTED: Hidradenitis left axilla, soft tissue MICROSCOPIC DIAGNOSIS Skin and soft tissue of left axilla, excision: Consistent with hidradenitis. AM:vazquez 08/29/19 COMMENT Case has been reviewed in consultation with Dr. Cifuentes who concurs with the above diagnosis. IDC:JOSÉ MIGUEL MICROSCOPIC DESCRIPTION Slides are reviewed. GROSS DESCRIPTION Received in fixative is one container labeled with the patient's name and designated hidradenitis left axilla soft tissue. The specimen consists of a piece of skin with underlying tissue measuring 5.5 x 4 x 1 cm. Sections do not reveal any mass lesion. Carbon Lamp Cleaner sections are submitted in 7 cassettes. / SJ:vazquez 08/28/19 Additional sections are submitted in cassettes 3-5. / AM:vazquez 08/29/19 TC:3 CPT: 01890
--- NOTE | 2019-08-25 12:05 | OP.PCM_ITS ---
Report of Operation Date of Procedure: 08/25/19 Pre-Operative Diagnosis: 1. Hidradenitis left axilla. 2. Smoker. Post-Operative Diagnosis: Same. Surgery/Procedure Performed:: Surgical preparation left axilla with excision hidradenitis (24 cm2). Description of Surgical Findings:: 54 year old woman presents for evaluation of hidradenitis involving her left axillary area after a recent I&D procedure. She has persistent pain and induration in the left axilla. She states she also had an I&D procedure to an area of hidradenitis on her right axilla area and that area is stable at the present time. She was placed on Clindamycin. She denies any fever at present. She denies any trauma. Patient was informed of the risks and complications of the procedure including alternatives to surgery. These were discussed with the patient personally. Patient voices understanding and wishes to proceed. Some of the risks and complications were included in a form from the [employer] [place] [employer]. Encouraged patient to stop smoking as it may have deleterious effects on wound healing. Size of defect left axilla - 6 x 4 x 1.5 cm. engineering equipment operator: None Type of Anesthesia:: General Specimen's removed: Hidradenitis left axilla to Pathology and Microbiology. Drains: None. Estimated Blood Loss (mL): 20 ml. Description of Procedure: Patient was taken to OR in supine position and was placed under general anesthesia. The left axilla was prepped and draped in the usual fashion. SCD's were placed for DVT prophylaxis. Perioperative antibiotics were given intravenously. I performed the surgery with an N95 mask and proper eye protection. Using xylocaine with epinephrine, the left axilla was infiltrated. After waiting 5 minutes for the anesthetic to take effect, I made a circular incision in the left axilla, and I excised skin and subcutaneous tissue down to the underlying muscle. There was fat necrosis present and indurated tissue indicative of chronic scarring from infection as well as previous scarring from previous hidradenitis. No pus was seen. The wound was irrigated with saline. Hemostasis was obtained with electrocautery. Tissue was sent to Microbiology for culture as well as to Pathology for analysis to rule out carcinoma. A positive culture will necessitate antibiotic therapy. The size of the defect left axilla after excision of her recurrent hidradenitis, was 6 x 4 x 1.5 cm or 24 cm2. The wound was dressed with Mepitel nonadherent dressing followed by Kerlix gauze and Betadine followed by dry Kerlix gauze and followed by compression jah wrap. Patient tolerated the procedure well and was sent to PACU in satisfactory condition. Patient will be sent upstairs for continued postop care. The VAC will be applied tomorrow. She will followup at the wound center after discharge. Grafts/Implants Used: None. - Complications None. - Admit VTE Documentation VTE Present on Admission: No VTE Mechan Device Prophylaxis: SCD's VTE Pharm Prophylaxis ordered?: No Surgery Charges CPT - 85234 ICD-10 - L73.2, S41.102A, F17.200
--- NOTE | 2019-08-25 14:51 | CASEMGMT ---
GELACIO JUAN updated that patient will need wound vac at discharge. GELACIO JUAN submitted order for wound vac on [facility] website. GELACIO JUAN called [facility] to arrange for HHC. [facility] is able to accept the patient. GELACIO JUAN updated the patient regarding wound vac and HHC setup. Patient is agreeable to [facility] and had no other concerns at this time.
[2019-08-25] MEDS: oxyCODONE 5 MG Tablet 10 MG PO ×2 (16:10→20:17)
[2019-08-25] MEDS: Lactated Ringers 1,000 ML 60 ML IV (20:18)
[2019-08-25] MEDS: Docusate Sodium 100 MG Capsule PO (22:32)
[2019-08-26 02:30] VITALS: BP 93/56; PULSE 58; RESP 16; TEMP 36.3; O2SAT 94
--- NOTE | 2019-08-26 02:48 | NURSING ---
informed pt that her boyfriend called asking for an update regarding her bp and that this RN reported to him that the pt is sleeping and stable but did not give any further detail. this RN asked pt if she wanted her boyfriends contact information added to the chart and if updates should be given in future. pt asks that updates only be given to her mother, Hien, by staff at this time.
[2019-08-26] MEDS: oxyCODONE 5 MG Tablet 10 MG PO ×3 (05:27→19:50)
[2019-08-26 06:38] LABS: Hematocrit 43.6 % (37-47); Hemoglobin 14.2 g/dL (12.0-15.0); Mean Corp Hgb Conc 32.6 g/dL (32-36); Mean Corpuscular Hgb 30.3 pg (27.0-32.0); Mean Platelet Vol. 9.5 fl (6.2-12.0); Platelet Count 217 K/mm3 (150-450); RBC Distribution Width CV 13.4 % (11.6-14.6); RBC Distribution Width SD 46.1 fl (35.1-43.9); Red Blood Count 4.69 M/mm3 (4.2-5.4); White Blood Count 18.5 K/mm3 (4.4-11.0)
[2019-08-26 07:22] LABS: Anion Gap 7 (5-15); BUN 25 mg/dL (7-18); BUN/Creat Ratio 32.2 RATIO (10-20); Calcium,Total 8.4 mg/dL (8.5-10.1); Chloride 105 mmol/L (98-107); Creatinine, Serum 0.78 mg/dL (0.55-1.02); EST Glomerular Filtration Rate 82 mL/min (>60); Est Glom Filt Rate - Afr Amer 99 mL/min (>60); Estimated Creatinine Clearance 73.33 ml/min; Glucose 187 mg/dL (74-106); Prealbumin 19.7 mg/dL (20.0-40.0); Sodium Level 138 mmol/L (136-145)
[2019-08-26 08:11] VITALS: BP 95/63; PULSE 49; PULSE 70; RESP 16; TEMP 36.7; O2SAT 94
[2019-08-26] MEDS: Paroxetine 20 MG Tablet 30 MG PO (08:25)
[2019-08-26] MEDS: Docusate Sodium 100 MG Capsule PO ×2 (08:25→21:12)
[2019-08-26] MEDS: Lactated Ringers 1,000 ML 60 ML IV (13:49)
[2019-08-26 14:55] VITALS: BP 112/71; PULSE 62; RESP 16; TEMP 36.9; O2SAT 94
--- NOTE | 2019-08-26 15:29 | PCM.PN.SRG ---
Subjective: Postop #1 Patient complains of wound pain. VAC to be applied today. - Physical Exam Vitals/I&O's: Vital Signs Temp Pulse Resp BP Pulse Ox 98.4 F 62 16 112/71 94 08/26/19 14:55 08/26/19 14:55 08/26/19 14:55 08/26/19 14:55 08/26/19 14:55 Oxygen Delivery Method Room Air Weight: 156 lb 4.924 oz Body Mass Index (BMI) 25.9 Intake and Output for Last 24 Hours 08/24/19 08/25/19 08/26/19 23:59 23:59 23:59 Intake Total 1437.33 / 2077.33 2110 Output Total 240 / 240 Balance 1197.33 / 1837.33 2110 General: Alert, Oriented x3 HEENT: PERRLA, EOMI Oral: Moist Mucosa Neck: Supple Abdomen: Soft, Non-Distended Skin: Ulcer/ Wound - left axillary wound stable. No active bleeding seen. VAC to be applied today. Neurological: Cranial nerves II-XII grossly intact Psych/Mental Status: Normal Affect, Appropriate Microbiology Past 72 Hours 08/25/19 11:57 Tissue - Other Gram Stain - Final 08/25/19 11:57 Tissue - Other Wound Culture - Preliminary No growth-Final to follow Laboratory Results 08/26/19 06:06: WBC 18.5 H, RBC 4.69, Hgb 14.2, Hct 43.6, MCV 93.0, MCH 30.3, MCHC 32.6, RDW Std Deviation 46.1 H, RDW Coeff of Chuck 13.4, Plt Count 217, MPV 9.5 08/26/19 06:06: Sodium 138, Potassium 4.0, Chloride 105, Carbon Dioxide 26.0, Anion Gap 7, BUN 25 H, Creatinine 0.78, Estim Creat Clear Calc 73.33, Est GFR (MDRD) Af Amer 99, Est GFR (MDRD) Non-Af 82, BUN/Creatinine Ratio 32.2 H, Glucose 187 H, Calcium 8.4 L, Prealbumin 19.7 L Current Medications Amlodipine Besylate (Norvasc) 2.5 mg PO BID [facility] Last Admin: 08/26/19 10:49 Dose: Not Given Documented by: Diazepam (Valium) 5 mg PO 4X/DAY PRN PRN PRN Reason: SPASMS Docusate Sodium (Colace) 100 mg PO BID [facility] Last Admin: 08/26/19 08:25 Dose: 100 mg Documented by: Hydromorphone HCl (Dilaudid Inj) 1 mg IV Q4H PRN PRN PRN Reason: Pain Score 6-10/10 Clindamycin Phosphate 900 mg/ (Dextrose) 106 mls @ 150 mls/hr IV Q8 [facility] Last Infusion: 08/26/19 14:35 Dose: Infused Documented by: Lactated Ringer's () 1,000 mls @ 60 mls/hr IV .[id number] [facility] Last Admin: 08/26/19 13:49 Dose: 60 mls/hr Documented by: Sodium Chloride () 250 mls @ 15 mls/hr IV .[id number] PRN PRN Reason: Saline Flush Sodium Chloride () 250 mls @ 15 mls/hr IV .[id number] PRN PRN Reason: Additional IVPB Infusion Nutritional [facility] ([facility] [place] [facility] Last Admin: 08/26/19 08:25 Dose: 1 packet Documented by: Ondansetron HCl (Zofran) 4 mg IV Q6H PRN PRN PRN Reason: NAUSEA Oxycodone HCl (Oxyir) 10 mg PO Q4H PRN PRN PRN Reason: Pain Score 4-5/10 Last Admin: 08/26/19 12:15 Dose: 10 mg Documented by: Paroxetine HCl (Paxil) 30 mg PO DAILY [facility] Last Admin: 08/26/19 08:25 Dose: 30 mg Documented by: Promethazine HCl (Phenergan Tablet) 25 mg PO Q4H PRN PRN PRN Reason: NAUSEA/VOMITING Sodium Chloride () 10 - 40 ml IV UD PRN PRN Reason: SALINE FLUSH Medical Necessity - Tobacco Use Smoking Status: Current every day smoker Tobacco Use: Cigarettes Assessment/Plan All Active Problems (Last Reviewed 08/22/19 @ 13:40 by Meilton Agarwal) Open wound of left axillary region with complication (Acute) HPV (human papilloma virus) infection (Acute) Hepatitis B (Resolved) Hepatitis C (Acute) 1. Hidradenitis left axilla. 2. Smoker. 3. s/p surgical preparation left axilla with excision hidradenitis (24 cm2). Left axillary wound stable. No active bleeding seen, VAC to be applied today. Complains of wound pain. Awaiting VAC approval. Continue Cleocin. Operative cultures pending. Prealbumin 19.7. Encourage nutritional supplementation with protein to help the healing process. Encouraged patient to stop smoking as it may have deleterious effects on wound healing. After discharge followup at the Wound Center.
[2019-08-26 19:47] VITALS: BP 126/76; PULSE 56; RESP 16; TEMP 36.8; O2SAT 96
[2019-08-27 01:55] VITALS: BP 119/76; PULSE 56; RESP 18; TEMP 36.7; O2SAT 97
[2019-08-27] MEDS: oxyCODONE 5 MG Tablet 10 MG PO ×3 (05:32→21:50)
[2019-08-27 08:26] VITALS: BP 90/60; PULSE 51; PULSE 60; RESP 12; TEMP 36.7; O2SAT 93
[2019-08-27] MEDS: Paroxetine 20 MG Tablet 30 MG PO (08:37)
[2019-08-27] MEDS: Lactated Ringers 1,000 ML 60 ML IV (08:37)
[2019-08-27] MEDS: Docusate Sodium 100 MG Capsule PO ×2 (08:39→20:49)
[2019-08-27 11:40] VITALS: BP 120/74; PULSE 49; RESP 16; TEMP 36.8; O2SAT 94
[2019-08-27 12:24] LABS: Hematocrit 45.4 % (37-47); Hemoglobin 14.7 g/dL (12.0-15.0); Mean Corp Hgb Conc 32.4 g/dL (32-36); Mean Corpuscular Hgb 30.4 pg (27.0-32.0); Mean Corpuscular Volume 93.8 fL (81-99); Mean Platelet Vol. 9.4 fl (6.2-12.0); Platelet Count 201 K/mm3 (150-450); RBC Distribution Width CV 14.1 % (11.6-14.6); RBC Distribution Width SD 48.2 fl (35.1-43.9); Red Blood Count 4.84 M/mm3 (4.2-5.4); White Blood Count 9.9 K/mm3 (4.4-11.0)
--- NOTE | 2019-08-27 14:47 | PCM.PN.SRG ---
Subjective: Postop #2 Patient is resting comfortably. - Physical Exam Vitals/I&O's: Vital Signs Temp Pulse Resp BP Pulse Ox 98.2 F 49 L 16 120/74 94 08/27/19 11:40 08/27/19 11:40 08/27/19 11:40 08/27/19 11:40 08/27/19 11:40 Oxygen Delivery Method Room Air Weight: 156 lb 4.924 oz Body Mass Index (BMI) 25.9 Intake and Output for Last 24 Hours 08/25/19 08/26/19 08/27/19 23:59 23:59 23:59 Intake Total 1437.33 / 2077.33 2661 / 2911 1138 / 1138 Output Total 240 / 240 Balance 1197.33 / 1837.33 2661 / 2911 1138 / 1138 General: Alert, Oriented x3 HEENT: PERRLA, EOMI Oral: Moist Mucosa Neck: Supple Abdomen: Soft, Non-Distended Skin: Ulcer/ Wound - left axillary wound stable. VAC in place. Minimal drainage in the canister. Neurological: Cranial nerves II-XII grossly intact Psych/Mental Status: Normal Affect, Appropriate Microbiology Past 72 Hours 08/25/19 11:57 Tissue - Other Gram Stain - Final 08/25/19 11:57 Tissue - Other Wound Culture - Preliminary No growth-Final to follow Laboratory Results 08/27/19 12:05: WBC 9.9, RBC 4.84, Hgb 14.7, Hct 45.4, MCV 93.8, MCH 30.4, MCHC 32.4, RDW Std Deviation 48.2 H, RDW Coeff of Chuck 14.1, Plt Count 201, MPV 9.4 Current Medications Amlodipine Besylate (Norvasc) 2.5 mg PO BID [facility] Last Admin: 08/27/19 11:41 Dose: Not Given Documented by: Diazepam (Valium) 5 mg PO 4X/DAY PRN PRN PRN Reason: SPASMS Docusate Sodium (Colace) 100 mg PO BID [facility] Last Admin: 08/27/19 08:39 Dose: 100 mg Documented by: Hydromorphone HCl (Dilaudid Inj) 1 mg IV Q4H PRN PRN PRN Reason: Pain Score 6-10/10 Clindamycin Phosphate 900 mg/ (Dextrose) 106 mls @ 150 mls/hr IV Q8 [facility] Last Infusion: 08/27/19 14:27 Dose: Infused Documented by: Lactated Ringer's () 1,000 mls @ 60 mls/hr IV .[id number] [facility] Last Admin: 08/27/19 08:37 Dose: 60 mls/hr Documented by: Sodium Chloride () 250 mls @ 15 mls/hr IV .[id number] PRN PRN Reason: Saline Flush Sodium Chloride () 250 mls @ 15 mls/hr IV .[id number] PRN PRN Reason: Additional IVPB Infusion Nutritional Formula (Darryl - [place] Flavor) 1 packet PO BIDCM [facility] Last Admin: 08/27/19 08:39 Dose: 1 packet Documented by: Ondansetron HCl (Zofran) 4 mg IV Q6H PRN PRN PRN Reason: NAUSEA Oxycodone HCl (Oxyir) 10 mg PO Q4H PRN PRN PRN Reason: Pain Score 4-5/10 Last Admin: 08/27/19 13:36 Dose: 10 mg Documented by: Paroxetine HCl (Paxil) 30 mg PO DAILY [facility] Last Admin: 08/27/19 08:37 Dose: 30 mg Documented by: Promethazine HCl (Phenergan Tablet) 25 mg PO Q4H PRN PRN PRN Reason: NAUSEA/VOMITING Sodium Chloride () 10 - 40 ml IV UD PRN PRN Reason: SALINE FLUSH Medical Necessity - Tobacco Use Smoking Status: Current every day smoker Tobacco Use: Cigarettes Assessment/Plan All Active Problems (Last Reviewed 08/22/19 @ 13:40 by Meliton Agarwal) Open wound of left axillary region with complication (Acute) HPV (human papilloma virus) infection (Acute) Hepatitis B (Resolved) Hepatitis C (Acute) 1. Hidradenitis left axilla. 2. Smoker. 3. s/p surgical preparation left axilla with excision hidradenitis (24 cm2). 4. Open surgical hidradenitis wound left axilla. Left axillary wound stable. VAC stable. Minimal drainage in the canister. To be changed tomorrow. Complains of wound pain. Awaiting VAC approval. Continue Cleocin. Operative cultures pending. WBC improved to 9.9. Prealbumin 19.7. Encourage nutritional supplementation with protein to help the healing process. Encouraged patient to stop smoking as it may have deleterious effects on wound healing. After discharge followup at the Wound Center.
[2019-08-27 16:08] VITALS: BP 141/93; PULSE 50; RESP 16; TEMP 36.9; O2SAT 97
[2019-08-27] MEDS: Nicotine Polacrilex 2 MG GUM PO (20:49)
[2019-08-27] MEDS: amLODIPine 2.5 MG Tablet PO (20:49)
[2019-08-27 22:00] VITALS: PULSE 52
[2019-08-28] VITALS: BP 127/78; PULSE 52; RESP 16; TEMP 37.1; O2SAT 96
[2019-08-28] MEDS: Lactated Ringers 1,000 ML 60 ML IV (05:13)
[2019-08-28 05:55] VITALS: BP 123/77; PULSE 44; RESP 16; TEMP 36.7; O2SAT 97
[2019-08-28] MEDS: oxyCODONE 5 MG Tablet 10 MG PO ×2 (09:34→16:19)
[2019-08-28] MEDS: Docusate Sodium 100 MG Capsule PO (09:37)
[2019-08-28] MEDS: Paroxetine 20 MG Tablet 30 MG PO (09:37)
--- NOTE | 2019-08-28 12:10 | NURSING ---
wound photo: left axilla
[2019-08-28 14:22] VITALS: BP 98/60; PULSE 56; RESP 18; TEMP 36.7; O2SAT 95
--- NOTE | 2019-08-28 14:39 | PCM.PN.SRG ---
Subjective: Post op day #3 Objective: Patient resting in bed. - Physical Exam Vitals/I&O's: Vital Signs Temp Pulse Resp BP Pulse Ox 98.0 F 56 L 18 98/60 95 08/28/19 14:22 08/28/19 14:22 08/28/19 14:22 08/28/19 14:22 08/28/19 14:22 Oxygen Delivery Method Room Air Weight: 156 lb 4.924 oz Body Mass Index (BMI) 25.9 Intake and Output for Last 24 Hours 08/26/19 08/27/19 08/28/19 23:59 23:59 23:59 Intake Total 2661 / 2911 1244 / 1844 2656 / 2656 Balance 2661 / 2911 1244 / 1844 2656 / 2656 General: Alert, Oriented x3, Cooperative HEENT: Atraumatic Oral: Moist Mucosa Lungs: Normal air movement Cardiovascular: Regular rate Abdomen: Soft Extremities: Capillary Refill Less than 3 Seconds Skin: Ulcer/ Wound - Left axilla wound with no bleeding. Wound VAC dressing intact. Musculoskeletal: No Tenderness to Palpation of Joints or Extremities, - - full ROM of left arm/shoulder Neurological: Neuro grossly intact Psych/Mental Status: Normal Affect, Appropriate Microbiology Past 72 Hours 08/25/19 11:57 Tissue - Other Gram Stain - Final 08/25/19 11:57 Tissue - Other Wound Culture - Final No growth aerobically. 08/25/19 11:57 Tissue - Other Anaerobic Culture - Preliminary No growth in 48 hours. Current Medications Amlodipine Besylate (Norvasc) 2.5 mg PO BID [facility] Last Admin: 08/28/19 09:40 Dose: Not Given Documented by: Diazepam (Valium) 5 mg PO 4X/DAY PRN PRN PRN Reason: SPASMS Docusate Sodium (Colace) 100 mg PO BID [facility] Last Admin: 08/28/19 09:37 Dose: 100 mg Documented by: Hydromorphone HCl (Dilaudid Inj) 1 mg IV Q4H PRN PRN PRN Reason: Pain Score 6-10/10 Clindamycin Phosphate 900 mg/ (Dextrose) 106 mls @ 150 mls/hr IV Q8 [facility] Last Admin: 08/28/19 14:20 Dose: 150 mls/hr Documented by: Lactated Ringer's () 1,000 mls @ 60 mls/hr IV .[id number] [facility] Last Admin: 08/28/19 05:13 Dose: 60 mls/hr Documented by: Sodium Chloride () 250 mls @ 15 mls/hr IV .[id number] PRN PRN Reason: Saline Flush Sodium Chloride () 250 mls @ 15 mls/hr IV .[id number] PRN PRN Reason: Additional IVPB Infusion Nicotine Polacrilex (Rugby Nicotine (Bkc)) 2 mg PO Q2H PRN PRN PRN Reason: Nicotine Craving Last Admin: 08/27/19 20:49 Dose: 2 mg Documented by: Nutritional Formula (Darryl - [place] Flavor) 1 packet PO BIDCM [facility] Last Admin: 08/28/19 09:37 Dose: 1 packet Documented by: Ondansetron HCl (Zofran) 4 mg IV Q6H PRN PRN PRN Reason: NAUSEA Oxycodone HCl (Oxyir) 10 mg PO Q4H PRN PRN PRN Reason: Pain Score 4-5/10 Last Admin: 08/28/19 09:34 Dose: 10 mg Documented by: Paroxetine HCl (Paxil) 30 mg PO DAILY [facility] Last Admin: 08/28/19 09:37 Dose: 30 mg Documented by: Promethazine HCl (Phenergan Tablet) 25 mg PO Q4H PRN PRN PRN Reason: NAUSEA/VOMITING Sodium Chloride () 10 - 40 ml IV UD PRN PRN Reason: SALINE FLUSH Medical Necessity - Tobacco Use Smoking Status: Current every day smoker Tobacco Use: Cigarettes Assessment/Plan All Active Problems (Last Reviewed 08/22/19 @ 13:40 by Meliton Agarwal) Open wound of left axillary region with complication (Acute) HPV (human papilloma virus) infection (Acute) Hepatitis B (Resolved) Hepatitis C (Acute) 1. Hidradenitis left axilla. 2. Smoker. 3. s/p surgical preparation left axilla with excision hidradenitis (24 cm2). 4. Open surgical hidradenitis wound left axilla. Left axillary wound stable. VAC stable. Minimal drainage in the canister. Will discharge later today. She will have home health to help with wound VAC dressing. She states her left axilla wound pain is controlled. VAC approval obtained this afternoon. Continue Cleocin. Operative cultures pending. WBC improved to 9.9 on 08/27/19. Prealbumin 19.7. Encourage nutritional supplementation with protein to help the healing process. Encouraged patient to stop smoking as it may have deleterious effects on wound healing. After discharge followup at the Wound Center.
--- NOTE | 2019-08-28 17:35 | PCM.DC ---
You will use the following diet at home:: No restrictions, Other - encourage nutritional supplementation with protein to help the healing process. Discharge Activity: May not drive while taking narcotic pain medications., May Shower - on the days the vac is changed., - - elevate left arm. no heavy lifting. May shower in (days): 2 - may shower on the days the vac is changed. May resume sexual activity in: No Restrictions Weight Bearing Status: Weight bearing as tolerated Lifting Restrictions: 20 lbs. Keep extremity elevated above heart level: Left Arm Call your doctor if your incision/area has: Continuous Slow Oozing, Sudden Increased Bleeding, Increased Pain/ Swelling, Increased Redness, Foul Smelling Discharge, Swelling at the incision site Call your doctor if you observe: Fever of 101 or Higher, Coldness, Increased Pain, Shortness of breath, Chest pain, Calf discomfort, Uncontrolled pain Suture Line Care: - - vac changes three times per week at 150 mmHg continuous suction. Change Dressing in (Days):: 2 - vac changes three times per week. Cleanse incision/area with: Soap & Water - may cleanse the wound with soap and water at the time of the vac change., - - may shower on the days the vac is changed. Additional Dressing/Incision Instructions:: Home Health to assist with vac changes three times per week at 150 mmHg continuous suction. Cleanse the wound with soap and water at the time of the vac dressing change. Allergies/Adverse Reactions: Allergies codeine Allergy (Severe, Verified 08/25/19 10:31) difficulty breathing latex Adverse Reaction (Unknown, Verified 08/25/19 10:31) hives Medications to take at Discharge amlodipine 2.5 mg tablet 2.5 mg PO BID #180 tab 10/20/18 paroxetine HCl 30 mg tablet 30 mg PO DAILY #60 tab 08/22/19 Diazepam [Valium] 5 mg PO 4X/DAY PRN PRN #30 tablet 08/28/19 Doxycycline [Vibramycin] 100 mg PO BID #60 cap 08/28/19 Lactobacillus Acidophilus/Fos [Acidophilus Probiotic Tablet] 1 ea PO BID #60 tab 08/28/19 Oxycodone HCl/Acetaminophen [Percocet 5/325] 1 tablet PO Q4H PRN PRN 7 Days #40 tablet 08/28/19 The following prescriptions were given: Lactobacillus Acidophilus/Fos [Acidophilus Probiotic Tablet] 1 ea PO BID #60 tab Transmission Status: Pending to [facility] #30 Oxycodone HCl/Acetaminophen [Percocet 5/325] 1 tablet PO Q4H PRN PRN 7 Days #40 tablet PRN Reason: Pain Score 4-5/10 Transmission Status: Sent to [facility] #30 Diazepam [Valium] 5 mg PO 4X/DAY PRN PRN #30 tablet PRN Reason: Spasms Transmission Status: Sent to [facility] #30 Doxycycline [Vibramycin] 100 mg PO BID #60 cap Transmission Status: Pending to [facility] #30 Primary Care Physician: Samina Joya MD [Primary Care Provider] - Test Results: Test results from this visit will be discussed in further detail at your follow-up appointment, if applicable. Please Follow Up With: Cedrick Christianson MD When: 1-2 weeks at wound center. Call [phone] for appt time. Proposed Discharge Date: 08/28/19
--- NOTE | 2019-08-28 17:42 | DS.PCM_ITS ---
Discharge Date and Diagnosis Date of Admission: 08/25/19 Date of Discharge: 08/28/19 - Primary Discharge Diagnosis Acute Problems: Left axillary hidradenitis. Open surgical hidradenitis wound left axilla. - Secondary Discharge Diagnosis Chronic Problems: Smoker Right axillary hidradenitis Hypertension Hospital Course and Treatment Imaging Results: None. Consultations 08/28/19 06:40 Consult: Onc/Wound/antisubmarine weapons officer Routine Comment: Reason for Consult:: wound VAC Operations: - - 08/25/19 - Surgical preparation left axilla with excision hidradenitis (24 cm2). Procedures: Wound vac placement Summary of Care Provided: 54 year old woman presents for evaluation of hidradenitis involving her left axillary area after a recent I&D procedure. She has persistent pain and induration in the left axilla. She states she also had an I&D procedure to an area of hidradenitis on her right axilla area and that area is stable at the present time. She was placed on Clindamycin. She denies any fever at present. She denies any trauma. Patient was informed of the risks and complications of the procedure including alternatives to surgery. These were discussed with the patient personally. Patient voices understanding and wishes to proceed. Some of the risks and complications were included in a form from the [employer]. Encouraged patient to stop smoking as it may have deleterious effects on wound healing. On 08/25/19 the patient went to surgery where she underwent surgical preparation left axilla with excision hidradenitis (24 cm2). She tolerated the procedure well. The next day, the VAC was applied. Her Prealbumin was 19.7. Encourage nutritional supplementation with protein to help the healing process. The VAC was approved by her insurance company on the 3rd postop day and she was discharged home. She remained afebrile during her hospital stay. She was treated with Cleocin perioperatively. The operative wound culture was negative. She was discharged home on Doxycycline for flare ups. Her WBC after surgery was 18.5 and improved to 9.9 at discharge. On the 3rd postop day, 08/28/19, she was tolerating po analgesia and the VAC was approved and she was discharged home. Wrote scripts for Doxycycline, Percocet for pain (40 tabs) and Valium for spasm (30 tabs). The VAC will be changed three times per week at 150 mmHg continuous suction. Followup at Wound Center in 1-2 weeks. - Physical Exam Vitals/I&O's: Vital Signs Temp Pulse Resp BP Pulse Ox 98.0 F 56 L 18 98/60 95 08/28/19 14:22 08/28/19 14:22 08/28/19 14:22 08/28/19 14:22 08/28/19 14:22 Oxygen Delivery Method Room Air Weight: 156 lb 4.924 oz Body Mass Index (BMI) 25.9 Intake and Output for Last 24 Hours 08/26/19 08/27/19 08/28/19 23:59 23:59 23:59 Intake Total 2661 / 2911 1244 / 1844 3419 / 3419 Balance 2661 / 2911 1244 / 1844 3419 / 3419 Microbiology Past 72 Hours 08/25/19 11:57 Tissue - Other Gram Stain - Final 08/25/19 11:57 Tissue - Other Wound Culture - Final No growth aerobically. 08/25/19 11:57 Tissue - Other Anaerobic Culture - Preliminary No growth in 48 hours. Current Medications Amlodipine Besylate (Norvasc) 2.5 mg PO BID [facility] Last Admin: 08/28/19 09:40 Dose: Not Given Documented by: Diazepam (Valium) 5 mg PO 4X/DAY PRN PRN PRN Reason: SPASMS Docusate Sodium (Colace) 100 mg PO BID [facility] Last Admin: 08/28/19 09:37 Dose: 100 mg Documented by: Hydromorphone HCl (Dilaudid Inj) 1 mg IV Q4H PRN PRN PRN Reason: Pain Score 6-10/10 Clindamycin Phosphate 900 mg/ (Dextrose) 106 mls @ 150 mls/hr IV Q8 [facility] Last Infusion: 08/28/19 15:03 Dose: Infused Documented by: Lactated Ringer's () 1,000 mls @ 60 mls/hr IV .[id number] [facility] Last Infusion: 08/28/19 16:10 Dose: Infused Documented by: Sodium Chloride () 250 mls @ 15 mls/hr IV .[id number] PRN PRN Reason: Saline Flush Sodium Chloride () 250 mls @ 15 mls/hr IV .[id number] PRN PRN Reason: Additional IVPB Infusion Nicotine Polacrilex (Rugby Nicotine (Bkc)) 2 mg PO Q2H PRN PRN PRN Reason: Nicotine Craving Last Admin: 08/27/19 20:49 Dose: 2 mg Documented by: Nutritional Formula (Darryl - [place] Flavor) 1 packet PO BIDCM [facility] Last Admin: 08/28/19 09:37 Dose: 1 packet Documented by: Ondansetron HCl (Zofran) 4 mg IV Q6H PRN PRN PRN Reason: NAUSEA Oxycodone HCl (Oxyir) 10 mg PO Q4H PRN PRN PRN Reason: Pain Score 4-5/10 Last Admin: 08/28/19 16:19 Dose: 10 mg Documented by: Paroxetine HCl (Paxil) 30 mg PO DAILY [facility] Last Admin: 08/28/19 09:37 Dose: 30 mg Documented by: Promethazine HCl (Phenergan Tablet) 25 mg PO Q4H PRN PRN PRN Reason: NAUSEA/VOMITING Sodium Chloride () 10 - 40 ml IV UD PRN PRN Reason: SALINE FLUSH Discharge Diet: No Restrictions, - - encourage nutritional supplementation with protein to help the healing process. Discharge Activity: May not drive while taking narcotic pain medications., May Shower - on the days the vac is changed., - - elevate left arm. no heavy lifting. May shower in (days): 2 - may shower on the days the vac is changed. May resume sexual activity in: No Restrictions Weight Bearing Status: Weight bearing as tolerated Lifting Restrict to (lbs):: 20 Keep extremity elevated above heart level: Left Arm Call your doctor if your incision/area has: Continuous Slow Oozing, Sudden Increased Bleeding, Increased Pain/ Swelling, Increased Redness, Foul Smelling Discharge, Swelling at the incision site Call your doctor if you observe: Fever of 101 or Higher, Coldness, Increased Pain, Shortness of breath, Chest pain, Calf discomfort, Uncontrolled pain Suture Line Care: - - vac changes three times per week at 150 mmHg continuous suction. Change Dressing in (Days):: 2 - vac changes three times per week. Cleanse incision/area with: Soap & Water - may cleanse the wound with soap and water at the time of the vac change., - - may shower on the days the vac is changed. Additional Dressing/Incision Instructions:: Home Health to assist with vac changes three times per week at 150 mmHg continuous suction. Cleanse the wound with soap and water at the time of the vac dressing change. Home Medications: Medications to take at Discharge amlodipine 2.5 mg tablet 2.5 mg PO BID #180 tab 10/20/18 paroxetine HCl 30 mg tablet 30 mg PO DAILY #60 tab 08/22/19 Diazepam [Valium] 5 mg PO 4X/DAY PRN PRN #30 tab 08/28/19 Doxycycline [Vibramycin] 100 mg PO BID #60 cap 08/28/19 Lactobacillus Acidophilus/Fos [Acidophilus Probiotic Tablet] 1 ea PO BID #60 tab 08/28/19 Oxycodone HCl/Acetaminophen [Percocet 5/325] 1 tab PO Q4H PRN PRN 7 Days #40 tab 08/28/19 Following Prescrptions Were Given to Patient: Lactobacillus Acidophilus/Fos [Acidophilus Probiotic Tablet] 1 ea PO BID #60 tab Transmission Status: Received by [facility] #30 Oxycodone HCl/Acetaminophen [Percocet 5/325] 1 tab PO Q4H PRN PRN 7 Days #40 tab PRN Reason: Pain Score 4-5/10 Transmission Status: Received by [facility] [facility] #30 Diazepam [Valium] 5 mg PO 4X/DAY PRN PRN #30 tab PRN Reason: Spasms Transmission Status: Received by [facility] [facility] #30 Doxycycline [Vibramycin] 100 mg PO BID #60 cap Transmission Status: Received by [facility] #30 Primary Care Physician: Samina Joya MD [Primary Care Provider] - Please Follow Up With: Cedrick Christianson MD When: 1-2 weeks at wound center. Call [phone] for appt time. Disposition: Home with Home Health Minutes spent on discharge:: 30 Patient Condition:: Stable Medical Necessity - Tobacco Use Smoking Status: Current every day smoker Tobacco Use: Cigarettes Meaningful Use Info Meaningful Use Diagnoses (Choose all that apply): None applicable
== END 2019-08-28 18:13 | disposition home health service (06) ==
LOC: SDC 12:32 → MS3 12:32
PROVIDERS: Anesthesiology; Admitting Provider Surgery; PCP Internal Medicine; Referring Provider Surgery; Visit Provider Surgery
PROC: (CPT 11450; principal; 2019-08-25 11:10)
DX: L73.2 Hidradenitis suppurativa (principal); I10 Essential (primary) hypertension; F43.10 Post-traumatic stress disorder, unspecified; F17.210 Nicotine dependence, cigarettes, uncomplicated; K21.9 Gastro-esophageal reflux disease without esophagitis; G25.81 Restless legs syndrome; Z79.899 Other long term (current) drug therapy; Z86.19 Personal history of other infectious and parasitic diseases
CPT/HCPCS: 11450; 36415; 80048; 84134; 85027; 87070; 87075; 87102; 87205; 87206; 87635; 88304; 96365; 96366; 99218; 99251; G2023; J7120; G0378; G0379; G0463; J2405; U0003

== ENCOUNTER 2019-09-01 08:32 | Emergency (ER) | payer MEDICAID, SELFPAY ==
[2019-08-25 14:31] VITALS: BMI 25.9
[2019-09-01 08:33] VITALS: BP 102/71; PULSE 68; RESP 16; TEMP 37.2; O2SAT 98; BMI 26.7
[2019-09-01 08:37] VITALS: BP 102/71; PULSE 68; RESP 16; TEMP 37.2; O2SAT 98
--- NOTE | 2019-09-01 08:57 | ED.VIS.GEN ---
History of Present Illness Chief Complaint: Wound Informant: Patient Narrative: Patient is a 54-year-old female presenting with postop wound check. Patient had excision of skin of the left axilla secondary to hidradenitis supra T. Jenni by Dr. Christianson on 08/25/2019, 7 days ago. She states she is having more pain at the site and her wound VAC came off. Patient states she took pain medicine prior to arrival here. Her review shows that patient is currently on Percocet. Patient is quite somnolent in the emergency room and does not provide further history. Past Medical History - Allergies and Home Meds Allergies/Adverse Reactions: Allergies codeine Allergy (Severe, Verified 09/01/19 08:33) difficulty breathing latex Adverse Reaction (Unknown, Verified 09/01/19 08:33) hives Primary Care Physician: Samina Joya MD [Primary Care Provider] - Past Medical History: - - History of hepatitis, hidradenitis supra T. Jenni, history of drug abuse, hypertension, PTSD Surgical History: - - Excision of left axilla Smoking Status: Current every day smoker Review of Systems General: Denies: Chills, Fever, Sweats Eyes: Denies: Visual changes - bilaterally, Diplopia ENT: Denies: Rhinorrhea, Sore throat Cardiovascular: Denies: Chest pain, Palpitations Respiratory: Denies: Dyspnea, Cough, Dyspnea on exertion Gastrointestinal: Denies: Abdominal pain, Nausea, Vomiting, Diarrhea, Melena, Hematochezia Genitourinary: Denies: Dysuria, Hematuria, Frequency Musculoskeletal: Reports: Extremity Pain - Left axilla radiating to left arm. Denies: Back pain Skin: Reports: Wounds - Wound, left axilla. Denies: Rash Neurological: Denies: Headache, Weakness, Numbness Physical Exam Vital Signs/Narrative: Vital Signs Temp Pulse Resp BP Pulse Ox 09/01/19 08:37 98.9 F 68 16 102/71 98 09/01/19 08:33 98.9 F 68 16 102/71 98 Inital Vital Signs reviewed: Yes General: Well nourished, Well developed, No Acute Distress Head: Normocephalic, Atraumatic Eyes: Perrl, EOMI, - - Pupils 6 mm and sluggishly reactive bilaterally ENT: Moist mucous membranes, No rhinorrhea, TM's clear, - Neck: Supple, Nontender Cardiovascular: Regular rate, Regular rhythm, No murmurs Respiratory: No distress, CTA bilaterally, Chest nontender Abdomen: Soft, Nontender, Nondistended, Normal bowel sounds Back: Nontender, Normal Inspection Extremities: Nontender, No edema Skin: Normal color, No rash, - - Surgical wound left axilla, mild surrounding erythema more consistent with skin irritation. Granulation tissue present. No active bleeding. Appears to be appropriately healing. Wound VAC is malpositioned and deflated over the wound. Neurological: Alert, Oriented x3, Cranial nerves II-XII grossly intact, Normal Strength, Normal Sensation, - - Somnolent, slightly slurred speech but answers questions appropriately Psychological: Normal affect, Normal Mood Diagnostic/Tx/Re-eval Clinical Impression(s) from Imaging Studies Brain CT 09/01/19 09:36 IMPRESSION: No intracranial hemorrhage. Out of proportion ventricular dilatation and periventricular hypodensity. Acute hydrocephalus is not excluded. Neurology consultation is recommended. Electronically Signed: Hai Maher MD at 10:17 EDT Tel , Service support , Laboratory Data 09/01/19 09/01/19 09/01/19 09:06 09:06 09:06 WBC 9.5 RBC 4.70 Hgb 14.3 Hct 42.7 MCV 90.9 MCH 30.4 MCHC 33.5 RDW Std Deviation 46.6 H RDW Coeff of Chuck 13.9 Plt Count 214 MPV 9.1 Immature Gran % (Auto) 0.500 Neut % (Auto) 54.3 Lymph % (Auto) 28.4 Bennett % (Auto) 11.9 H Eos % (Auto) 4.5 Baso % (Auto) 0.4 Absolute Neuts (auto) 5.1 Absolute Lymphs (auto) 2.69 Nucleated RBC % 0 Sodium 139 Potassium 3.9 Chloride 106 Carbon Dioxide 28.0 Anion Gap 5 BUN 30 H Creatinine 0.76 Estim Creat Clear Calc 75.26 Est GFR (MDRD) Af Amer 101 Est GFR (MDRD) Non-Af 83 BUN/Creatinine Ratio 39.3 H Glucose 101 Calcium 9.0 Total Bilirubin 1.00 Direct Bilirubin 0.27 AST 29 ALT 39 Alkaline Phosphatase 103 Total Protein 7.2 Albumin 3.5 Globulin 3.7 Lipase 132 POC Glucose 09/01/19 09:06 WBC RBC Hgb Hct MCV MCH MCHC RDW Std Deviation RDW Coeff of Chuck Plt Count MPV Immature Gran % (Auto) Neut % (Auto) Lymph % (Auto) Bennett % (Auto) Eos % (Auto) Baso % (Auto) Absolute Neuts (auto) Absolute Lymphs (auto) Nucleated RBC % Sodium Potassium Chloride Carbon Dioxide Anion Gap BUN Creatinine Estim Creat Clear Calc Est GFR (MDRD) Af Amer Est GFR (MDRD) Non-Af BUN/Creatinine Ratio Glucose Calcium Total Bilirubin Direct Bilirubin AST ALT Alkaline Phosphatase Total Protein Albumin Globulin Lipase POC Glucose 90 - Medical Decision Making Patient is a 54-year-old female presenting from home for worsening postoperative pain in her left axilla. She is also had dislodgment of her wound VAC. When patient first arrived she is quite somnolent with slurred speech. She appears to be acutely intoxicated. I am concerned that patient might have overdosed on her Percocet. Patient is given 0.4 mg of IV Narcan does have some improvement. She continues to be slightly somnolent so I did obtain a head CT. No acute process is seen however patient does have reportedly dilation of her ventricles. Patient is completely returned to her neurologic baseline at this point so I do not think she requires emergent neurologic evaluation. She is informed of these findings and need to follow-up with her primary care doctor. In addition patient not complain of a headache, her only complaint is pain from her surgical site. She has a normal neurologic exam. Patient's wound appears to be healing normally. She is some mild surrounding erythema but I think it is more from irritation than infection/cellulitic changes. Discussed the case with her surgeon, Dr. Christianson, who recommends having the wound VAC replaced and outpatient follow-up. He is very explicit that he does not want her to have any further opioid pain medication. Him in agreement with this. Wound nurse is able to come down and replace her wound VAC. She is familiar with the wound and states that it looks like it is healing appropriately. She states it does not look significantly different than it did when she was discharged from the hospital. CBC and BMP are unremarkable. No signs of systemic infection. Patient is given IV Toradol for pain control in the emergency room. She is discharged home. Patient is counseled on signs and symptoms requiring return to the emergency room. Patient verbalizes agreement and understand this plan. Patient discharged home in stable and improved condition. ED Disposition - Plan for ED Patient: Disposition: Home or Assisted Living Diagnosis: Encounter for postoperative wound check Referrals: Samina Joya MD [Primary Care Provider] - Additional Instructions: Please follow-up with home health over the weekend and at the wound care on Wednesday as scheduled. Return the emergency room with any worsening symptoms. At this time the ER cannot prescribe you any further pain control medication. You may also take Tylenol at home for pain control.
[2019-09-01] MEDS: Naloxone 0.4 MG/ML Syringe IV (09:06)
[2019-09-01 09:10] LABS: Bedside Glucose 90 mg/dL (70-110)
[2019-09-01 09:12] LABS: Absolute Lymphocyte Count 2.69 X10^3/uL (0.83-4.51); Absolute Neutrophil Count 5.1 X10^3/uL (2.0-7.7); Basophil# 0.04 X10^3/uL; Basophil% 0.4 % (0-1); Eosinophil# 0.43 X10^3/uL; Eosinophils% 4.5 % (0-5); Hematocrit 42.7 % (37-47); Hemoglobin 14.3 g/dL (12.0-15.0); Lymphocyte # 2.69 X10^3/ul (4.0); Lymphocyte % 28.4 % (19-41); Mean Corp Hgb Conc 33.5 g/dL (32-36); Mean Corpuscular Hgb 30.4 pg (27.0-32.0); Mean Corpuscular Volume 90.9 fL (81-99); Mean Platelet Vol. 9.1 fl (6.2-12.0); Monocyte# 1.13 X10^3/uL; Monocyte% 11.9 % (0-10); NRBC Flagged by Analyzer 0 % (0-5); Neutrophil # 5.13 X10^3/uL (2.7-7.7); Neutrophil % 54.3 % (47-70); Platelet Count 214 K/mm3 (150-450); RBC Distribution Width CV 13.9 % (11.6-14.6); RBC Distribution Width SD 46.6 fl (35.1-43.9); White Blood Count 9.5 K/mm3 (4.4-11.0)
--- NOTE | 2019-09-01 09:14 | ED.RN ---
WOUND CENTER CONTACT TO REAPPLY WOUND VAC
[2019-09-01 09:26] LABS: Anion Gap 5 (5-15); BUN 30 mg/dL (7-18); BUN/Creat Ratio 39.3 RATIO (10-20); Chloride 106 mmol/L (98-107); Creatinine, Serum 0.76 mg/dL (0.55-1.02); EST Glomerular Filtration Rate 83 mL/min (>60); Est Glom Filt Rate - Afr Amer 101 mL/min (>60); Estimated Creatinine Clearance 75.26 ml/min; Glucose 101 mg/dL (74-106); Lipase 132 U/L (73-393); Potassium 3.9 mmol/L (3.5-5.1); Sodium Level 139 mmol/L (136-145)
[2019-09-01 09:28] LABS: AST(SGOT) 29 U/L (15-37); Alanine Aminotransfer ALT/SGPT 39 U/L (13-56); Albumin, Serum 3.5 g/dL (3.2-5.0); Alkaline Phosphatase 103 U/L (45-117); Bilirubin, Direct 0.27 mg/dL (0.00-0.30); Globulin 3.7 g/dL (2.2-4.2); Protein, Total 7.2 g/dL (6.4-8.2)
--- NOTE | 2019-09-01 09:36 | CT_ITS ---
STUDY: CT BRAIN WITHOUT CONTRAST REASON FOR EXAM: Female, 54 years old. AMS, WOUND, HEP B + C, DRUG ABUSE, HTN RADIATION DOSAGE (If Supplied By Facility): CTDIvol = ( 44.99 ) mGy, DLP = ( 812.98 ) mGycm TECHNIQUE: Transaxial CT imaging of the brain was performed without administration of intravenous contrast material. Individualized dose optimization techniques were used for this CT. COMPARISON: None. FINDINGS: There is mild cerebral atrophy with widening of the extra-axial spaces and ventricular dilatation. The ventricular dilatation and periventricular hypodensity is out of proportion to sulcal atrophy. Acute hydrocephalus is not excluded. There are areas of decreased attenuation within the white matter tracts of the supratentorial brain, consistent with microvascular disease changes. There is no intracranial hemorrhage. There are no findings of an acute ischemic infarction. CT/Brain/Head without Contrast IMPRESSION: No intracranial hemorrhage. Out of proportion ventricular dilatation and periventricular hypodensity. Acute hydrocephalus is not excluded. Neurology consultation is recommended. Electronically Signed: Hai Maher MD at 10:17 EDT Tel , Service support ,
--- NOTE | 2019-09-01 09:37 | ED.RN ---
[facility] CONTACTED TO REAPPLY WOUND VAC
[2019-09-01 10:32] VITALS: BP 96/75; PULSE 62; RESP 17; TEMP 37.1; O2SAT 95
--- NOTE | 2019-09-01 11:00 | CM.ED ---
SOCIAL WORK Informant: Dr. Lenz Reason for Consult: Resources Met with patient in room. Introduced role and reason for referral. Wound nurse re-applied wound vac. Patient states skin has been irritated and voiced pain with wound vac. Patient requesting pain medication. Patient was given Narcan upon arrival. Patient states lives home with boyfriend and wishes to return home as before. Patient admits to history of PTSD and is treated with Paxil. Patient denies any history of substance abuse. Reviewed chart. Upon discharge case management set patient up with home health services through [facility]. Call to [facility], spoke with [facility]. Per [facility], home health has seen patient in the home over the last 3 days and when nurse was out this morning sent patient to ED. [facility] reports home health will continue to follow. Nurse and Dr. Lenz updated on the above. Plan: Home with continued home health services through [facility]. Neville Spain MSW, [employer]
--- NOTE | 2019-09-01 11:09 | NURSING ---
Was asked to come to the ED to assess the left axilla wound. patient had been discharged home with some health s/p excision of hidradenitis on 08/28/19. wound VAC is off, but patient just has a large piece of black foam taped across the wound. the foam is at least twice as large as the wound. periwound is slightly denuded. appears irritated from the drape. pt not able to answer many questions. falls quickly to sleep. wound bed pale pink with some yellow slough noted. no odor noted. no purulence. the redness to the periwound does not appear to be infection related. more d/t irritation from the drape or the foam being too large. wound measures approx 6.5cm x 4cm x 0.4cm. wound and periwound cleansed with NS. pat dry. applied drape to all outer wound edges and to the left upper arm to bridge the trac pad. wound filled with 1 piece of black foam and used another to bridge to the left upper arm for a total of 2 pieces of foam. Good seal noted at 150mmHg low continuous suction. pt tolerated well. Did discuss wound with Dr Lenz. Pt is scheduled to follow up at the wound center next week and will also continue with home health.
[2019-09-01 12:11] VITALS: BP 123/86; PULSE 59; RESP 17; O2SAT 99
--- NOTE | 2019-09-01 12:11 | ED.RN ---
IV DC'ED, CATHETER INTACT, SMALL GAUZE DRESSING PLACED. DISCHARGE INSTRUCTIONS GIVEN TO AND REVIEWED WITH PATIENT, PATIENT DENIES QUESTIONS OR CONCERNS AND VOICES UNDERSTANDING OF DISCHARGE INSTRUCTIONS.
== END 2019-09-01 12:20 | disposition home or self-care (01) ==
PROVIDERS: Emergency Provider Emergency Medicine; PCP Internal Medicine
DX: G89.18 Other acute postprocedural pain (principal); L73.2 Hidradenitis suppurativa; I10 Essential (primary) hypertension; F43.10 Post-traumatic stress disorder, unspecified; F17.200 Nicotine dependence, unspecified, uncomplicated; R47.81 Slurred speech
CPT/HCPCS: 36415; 70450; 80048; 80076; 82962; 83690; 85025; 99284; A4216; J2310

== ENCOUNTER 2019-09-04 12:51 | Outpatient (RCR) | payer MEDICAID, SELFPAY ==
[2019-09-04 13:29] VITALS: BMI 26.7
--- NOTE | 2019-09-04 16:14 | PCM.WC.HP ---
(1) Open wound of left axillary region with complication Status: Acute Code(s): S41.102A - Unspecified open wound of left upper arm, initial encounter (2) Left axillary hidradenitis Status: Chronic Code(s): L73.2 - Hidradenitis suppurativa (3) Smoker Status: Chronic Code(s): F17.200 - Nicotine dependence, unspecified, uncomplicated History of Present Illness Date of Service: 09/04/19 Chief Complaint: Left axillary surgical wound. History of Wound: 54 year old woman presents for evaluation of hidradenitis involving her left axillary area after a recent I&D procedure. She has persistent pain and induration in the left axilla. She states she also had an I&D procedure to an area of hidradenitis on her right axilla area and that area is stable at the present time. She was placed on Clindamycin. She denies any fever at present. She denies any trauma. 08/25/19 Surgical preparation left axilla with excision hidradenitis. Size of defect left axilla - 6 x 4 x 1.5 cm. (24 cm2). She was discharged home on Doxycycline and home health to help with the wound VAC. Surgical wound cultures showed no growth. 08/26/19 Prealbumin 19.7. Wound care: wound VAC. She denies fever or chills. She states she has a good appetite. Past Medical History Past Medical History: Chronic Problems (Last Reviewed 09/06/19 @ 14:32 by Meliton Agarwal) Smoker (Chronic) Right axillary hidradenitis (Chronic) Left axillary hidradenitis (Chronic) Hypertension (Chronic) Surgical History: - - Excision of left axilla Allergies/Adverse Reactions: Allergies codeine Allergy (Severe, Verified 09/06/19 14:31) difficulty breathing latex Adverse Reaction (Unknown, Verified 09/06/19 14:31) hives Home Medications: Ambulatory Orders Medication Instructions Recorded amlodipine 2.5 mg tablet 2.5 mg PO BID #180 tab 10/20/18 paroxetine HCl 30 mg tablet 30 mg PO DAILY #60 tab 08/22/19 Diazepam [Valium] 5 mg PO 4X/DAY PRN PRN #30 tab 08/28/19 Doxycycline [Vibramycin] 100 mg PO BID #60 cap 08/28/19 Lactobacillus Acidophilus/Fos 1 ea PO BID #60 tab 08/28/19 [Acidophilus Probiotic Tablet] diazepam 5 mg tablet 5 mg PO TID PRN 7 Days #20 tab 09/04/19 oxycodone-acetaminophen 5 mg-325 1 tab PO 4X/DAY PRN 7 Days #28 tab 09/04/19 mg tablet blood pressure monitor See Rx Instructions .ROUTE 09/06/19 .MEDSUPPLY #1 ea Smoking Status: Current every day smoker Review of Systems Constitutional: Denies: Chills, Fever Eyes: Denies: Pain, Vision Change HEENT: Denies: Difficulty Hearing, Difficulty Swallowing, Sinus Congestion Cardiovascular: Denies: Chest Pain, Palpitations Respiratory: Denies: Cough, Shortness of Breath Gastrointestinal: Denies: Diarrhea, Nausea, Vomiting Musculoskeletal: Denies: Back Pain, Joint Pain Skin: Reports: Wounds - left axillay wound Neurological: Denies: Balance problems, Blurred vision Psychiatric: Denies: Depression - Physical Exam General: Alert, Oriented x3, Cooperative HEENT: Atraumatic Oral: Moist Mucosa Lungs: Clear to auscultation, Normal air movement Cardiovascular: Regular rate, Regular Rhythm Extremities: No edema, Capillary Refill Less than 3 Seconds Skin: Ulcer/ Wound - Left axillay wound beefy pink. Wound Measurements and Assessment WC - Nurse 1 - General Ulcer Measurement Start: 09/04/19 13:28 Freq: Status: Active Protocol: Activity Type Activity Date Activity User E-Sign Co-Sign Detail Recorded Client Recorded Date Recorded By Document 09/04/19 13:29 MW [id number] 09/04/19 13:33 MW 09/04/19 13:29 Wound Center Nurse 1 [Ulcer Assessment] #1 left axilla -Combined with other wound No -Current Size (cm) - Length 8.0 -Current Size (cm) - Width 4.0 -Current Size (cm) - Depth 0.5 -Total Square Cm 32.00 -Date of Last Picture (Recall this 09/04/19 field) -Photo Taken Yes -Epithelialization None Present -Tunneling No -Undermining/Tunneling No -Circular Undermining No -Exudate Amt Medium -Exudate Type Sanguineous -Wound Margin Distinct, Outline Attached -Granulation Amt Large (67-100%) -Granulation Quality Red -Slough/Fibrin Yes -Necrosis Amt Small (1-33%) -Necrotic Tissue Type Adherent Slough -Structure Exposed N/A -Texture (Naa-wound Skin Appearance) Assessed, Scarring -Moisture (Naa-wound Skin Appearance No Abnormality, ) Assessed -Color (Naa-wound Skin Appearance) No Abnormality, Assessed -Temperature (Naa-wound Skin No Abnormality Appearance) (Pt Warm) -Tenderness on Palpation (Naa-wound Yes Skin Appearance) -Ulcer Cleansing soap and water -Foul Odor after Cleansing No -Anesthetic Used 5% Lidocaine Gel [Edema Assessment] -Lower Limb Edema Present No - Nurse 2 - General Ulcer CM Notes Start: 09/04/19 13:28 Freq: Status: Active Protocol: Activity Type Activity Date Activity User E-Sign Co-Sign Detail Recorded Client Recorded Date Recorded By Document 09/04/19 14:05 [email or web address] [id number] 09/04/19 14:06 09/04/19 14:05 Wound Center Nurse 2 [Procedure/Treatment] #1 left axilla -Time 14:06 -Correct Patient Yes -Correct Side, Site, Position Yes -Correct Procedure Yes -Procedure Performed Yes -Type of Procedure Debridement -Clinical Debridement Muscle -Post Debridement Size (cm) - Length 8.2 -Post Debridement Size (cm) - Width 3.8 -Post Debridement Size (cm) - Depth 1.2 -Total Square Cm 31.16 -Wound/Ulcer Outcome Not Healed -Ulcer Cleansing Rinsed/ Irrigated with Saline -Foul Odor after Cleansing No -Bioengineered Tissue No -Bleeding Controlled with Pressure -Offloading No -Treatment Response Procedure Tolerated Well [See Physician Procedure note for Specifics] Pain Scale: 0-10 Numeric [Pain] -Is Patient Pain Free? Yes Musculoskeletal: No Tenderness to Palpation of Joints or Extremities Neurological: Neuro grossly intact Psych/Mental Status: Normal Affect, Appropriate Debridement Note Post-Debridement Measurements/Treatment - Nurse 2 - General Ulcer CM Notes Start: 09/04/19 13:28 Freq: Status: Active Protocol: Activity Type Activity Date Activity User E-Sign Co-Sign Detail Recorded Client Recorded Date Recorded By Document 09/04/19 14:05 [email or web address] [id number] 09/04/19 14:06 09/04/19 14:05 Wound Center Nurse 2 #1 left axilla -Time 14:06 -Correct Patient Yes -Correct Side, Site, Position Yes -Correct Procedure Yes -Procedure Performed Yes -Type of Procedure Debridement -Clinical Debridement Muscle -Post Debridement Size (cm) - Length 8.2 -Post Debridement Size (cm) - Width 3.8 -Post Debridement Size (cm) - Depth 1.2 -Total Square Cm 31.16 -Wound/Ulcer Outcome Not Healed -Ulcer Cleansing Rinsed/ Irrigated with Saline -Foul Odor after Cleansing No -Bioengineered Tissue No -Bleeding Controlled with Pressure -Offloading No -Treatment Response Procedure Tolerated Well Pain Scale: 0-10 Numeric Is Patient Pain Free? Yes Wound debrided: axillary wound Laterality: Left Type of Debridement: Excisional debridement Anesthesia Used: 5% Lidocaine Gel Depth: Down to and including healthy tissue, in the subcutaneous layer, to muscle Percentage of wound debrided: 100 Instrument Used: 7mm curette Tissue Removed: Subcutaneous tissue and slough into the muscle. Severity: Fat Layer Exposed Amount of bleeding with debridement: Mild Bleeding Controlled with: Pressure Patient tolerated procedure well Assessment/Plan Assessment: 1. Opened wound of left axillary. 2. Left axillary hidradenitis. 3. Smoker Plan: 08/25/19 Surgical preparation left axilla with excision hidradenitis. Size of defect left axilla - 6 x 4 x 1.5 cm. (24 cm2). She was discharged home on Doxycycline and home health to help with the wound VAC. Surgical wound cultures showed no growth. 08/26/19 Prealbumin 19.7. Wound care: wound VAC. Instructed her that the wound needs to washed with soap and water with all VAC dressing changes. Encouraged range of motion of left arm and shoulder. Encouraged her to increase her protein intake for wound healing. Encouraged patient to stop smoking as it may have deleterious effects on wound healing. Renewed Percocet (28) and Valium (20). PDMP reviewed. Follow up in 2 weeks due to the holiday. [id number]: [id number] Global Visit
== END 2019-09-05 23:59 ==
LOC: WC 12:51
PROVIDERS: PCP Internal Medicine; Visit Provider Nurse Practitioner Family
DX: L73.2 Hidradenitis suppurativa (principal); F17.200 Nicotine dependence, unspecified, uncomplicated; I10 Essential (primary) hypertension; Z79.899 Other long term (current) drug therapy
CPT/HCPCS: 11042; 11043; 11046; 97605; 99213; G0463

== ENCOUNTER → 2019-09-18 11:00 | Outpatient (CLI) | payer MEDICAID, SELFPAY ==
[2019-09-06 14:33] VITALS: BMI 26.7
--- NOTE | 2019-09-18 11:02 | MRI_ITS ---
STUDY: MRI BRAIN WITH AND WITHOUT CONTRAST REASON FOR EXAM: Female, [address] , lt arm /leg numbness, h/a , vision changes TECHNIQUE: Standardized multiplanar fat and water weighted pulse sequences were obtained. 15 mL of IV Dotarem was administered for the contrast portion of the examination. COMPARISON: CT head without contrast 09/01/2019. FINDINGS: No restricted diffusion to suspect acute or subacute ischemic infarct. Normal size of the ventricles and extra-axial spaces for the patient''s age. Multiple T2 FLAIR hyperintensity foci in the white matter of both cerebral hemispheres. Some of them are perpendicular to the bodies of the lateral ventricles which are suggestive of Carrington''s fingers. No midline shift and no mass effects. Normal bilateral basal ganglia. Normal thalami. There is no extra-axial fluid accumulation. Normal flow voids within the major intracranial circulation suggesting patency by spin echo criteria. Normal venous enhancement. There is no enhancing intra-axial or extra-axial abnormality. Normal sella turcica, pituitary gland, infundibular stalk, optic chiasm and hypothalamus. Normal tectal plate and pineal gland. Normal midbrain, ligia and medulla. Normal cerebellum. Normal basal cisterns. Normal bilateral temporal bones. Normal bilateral internal auditory canals. No demonstrated orbital abnormality, within the constraints of a routine brain study. Normal visualized paranasal sinuses. Normal calvarium and skull base. Normal visualized soft tissue structures. Normal visualized upper cervical spine. MRI/Brain W/WO Contrast IMPRESSION: 1. Abnormal white matter of both cerebral hemispheres are highly suspicious for MS plaques although microvascular disease cannot be entirely excluded. 2. No MRI evidence of any enhancing active MS plaques. 3. No MRI evidence of acute or subacute ischemic infarct or remote cortical based ischemic infarct. Electronically Signed: Berto Watkins MD at 12:29 EDT , Service support ,
== END ==
PROVIDERS: PCP Internal Medicine; Referring Provider Internal Medicine; Visit Provider Internal Medicine
DX: G91.9 Hydrocephalus, unspecified (principal); L73.2 Hidradenitis suppurativa; F17.200 Nicotine dependence, unspecified, uncomplicated; L98.492 Non-pressure chronic ulcer of skin of other sites with fat layer exposed
CPT/HCPCS: 11042; 70553; 97605; A9575

== ENCOUNTER 2019-10-02 10:30 | Outpatient (RCR) | payer MEDICAID, SELFPAY ==
[2019-09-06 14:33] VITALS: BMI 26.7
[2019-09-18 13:11] VITALS: BP 133/88; PULSE 68; RESP 16; TEMP 36.7; BMI 26.7
--- NOTE | 2019-09-18 15:43 | PCM.WC.PN ---
(1) Open wound of left axillary region with complication Status: Chronic Code(s): S41.102A - Unspecified open wound of left upper arm, initial encounter (2) Smoker Status: Chronic Code(s): F17.200 - Nicotine dependence, unspecified, uncomplicated (3) Left axillary hidradenitis Status: Chronic Code(s): L73.2 - Hidradenitis suppurativa Type of Wound Date of Service: 09/18/19 Chief Complaint: Left axillary surgical wound. History of Wound: 54 year old woman presents for evaluation of hidradenitis involving her left axillary area after a recent I&D procedure. She has persistent pain and induration in the left axilla. She states she also had an I&D procedure to an area of hidradenitis on her right axilla area and that area is stable at the present time. She was placed on Clindamycin. She denies any fever at present. She denies any trauma. 08/25/19 Surgical preparation left axilla with excision hidradenitis. Size of defect left axilla - 6 x 4 x 1.5 cm. (24 cm2). She was discharged home on Doxycycline and home health to help with the wound VAC. Surgical wound cultures showed no growth. 08/26/19 Prealbumin 19.7. Wound care: wound VAC. She denies fever or chills. She states she has a good appetite. Progress of Wound: Improved - Physical Exam Vital Signs Temp Pulse Resp BP 98.0 F 68 16 133/88 H 09/18/19 13:11 09/18/19 13:11 09/18/19 13:11 09/18/19 13:11 General: Alert, Oriented x3, Cooperative HEENT: Atraumatic Oral: Moist Mucosa Lungs: Normal air movement Cardiovascular: Regular rate Extremities: Capillary Refill Less than 3 Seconds Skin: Ulcer/ Wound - left axilla ulcer with granulation tissue Wound Measurements and Assessment WC - Nurse 1 - General Ulcer Measurement Start: 09/18/19 13:10 Freq: Status: Active Protocol: Activity Type Activity Date Activity User E-Sign Co-Sign Detail Recorded Client Recorded Date Recorded By Document 09/18/19 13:11 DV [id number] 09/18/19 13:20 DV 09/18/19 13:11 Wound Center Nurse 1 [Ulcer Assessment] #1 left axilla -Combined with other wound No -Current Size (cm) - Length 3.8 -Current Size (cm) - Width 5.5 -Current Size (cm) - Depth 0.2 -Total Square Cm 20.90 -Photo Taken No -Epithelialization None Present -Tunneling No -Undermining/Tunneling No -Circular Undermining No -Classification - Thickness Full Thickness without Exposed Support Structure -Exudate Amt Large -Exudate Type Yellow/Green -Wound Margin Flat & Intact -Granulation Amt None Present (0 %) -Granulation Quality N/A -Slough/Fibrin No -Necrosis Amt None Present (0 %) -Necrotic Tissue Type Adherent Slough -Structure Exposed None/Limited to Skin Breakdown -Texture (Naa-wound Skin Appearance) Assessed, Localized Edema ,Scarring -Moisture (Naa-wound Skin Appearance Assessed, ) Weeping -Color (Naa-wound Skin Appearance) Assessed, Erythema -Temperature (Naa-wound Skin No Abnormality Appearance) (Pt Warm) -Tenderness on Palpation (Naa-wound No Skin Appearance) -Ulcer Cleansing Rinsed/ Irrigated with Saline -Foul Odor after Cleansing No -Anesthetic Used 4% Lidocaine Solution WC - Nurse 2 - General Ulcer CM Notes Start: 09/18/19 13:10 Freq: Status: Active Protocol: Activity Type Activity Date Activity User E-Sign Co-Sign Detail Recorded Client Recorded Date Recorded By Document 09/18/19 13:37 [email or web address] [id number] 09/18/19 13:38 [email or web address] 09/18/19 13:37 Wound Center Nurse 2 [Procedure/Treatment] -Time 13:37 -Correct Patient Yes -Correct Side, Site, Position Yes -Correct Procedure Yes -Procedure Performed Yes -Type of Procedure Debridement -Clinical Debridement Subcutaneous -Post Debridement Size (cm) - Length 6.0 -Post Debridement Size (cm) - Width 3.2 -Post Debridement Size (cm) - Depth 0.3 -Total Square Cm 19.20 -Wound/Ulcer Outcome Not Healed -Ulcer Cleansing Rinsed/ Irrigated with Saline -Foul Odor after Cleansing No -Bioengineered Tissue No -Bleeding Controlled with Pressure -Offloading No -Treatment Response Procedure Tolerated Well [See Physician Procedure note for Specifics] Pain Scale: 0-10 Numeric [Pain] -Is Patient Pain Free? Yes Musculoskeletal: No Tenderness to Palpation of Joints or Extremities Neurological: Neuro grossly intact Psych/Mental Status: Normal Affect, Appropriate Debridement Note Post-Debridement Measurements/Treatment WC - Nurse 2 - General Ulcer CM Notes Start: 09/18/19 13:10 Freq: Status: Active Protocol: Activity Type Activity Date Activity User E-Sign Co-Sign Detail Recorded Client Recorded Date Recorded By Document 09/18/19 13:37 [id number] 09/18/19 13:38 [email or web address] 09/18/19 13:37 Wound Center Nurse 2 #1 left axilla -Time 13:37 -Correct Patient Yes -Correct Side, Site, Position Yes -Correct Procedure Yes -Procedure Performed Yes -Type of Procedure Debridement -Clinical Debridement Subcutaneous -Post Debridement Size (cm) - Length 6.0 -Post Debridement Size (cm) - Width 3.2 -Post Debridement Size (cm) - Depth 0.3 -Total Square Cm -Wound/Ulcer Outcome Not Healed -Ulcer Cleansing Rinsed/ Irrigated with Saline -Foul Odor after Cleansing No -Bioengineered Tissue No -Bleeding Controlled with Pressure -Offloading No -Treatment Response Procedure Tolerated Well Pain Scale: 0-10 Numeric Is Patient Pain Free? Yes Wound debrided: axilla Laterality: Left Type of Debridement: Excisional debridement Anesthesia Used: 5% Lidocaine Gel Depth: Down to and including healthy tissue, in the subcutaneous layer Percentage of wound debrided: 100 Instrument Used: 5mm curette Tissue Removed: Subcutaneous tissue and slough Severity: Fat Layer Exposed Amount of bleeding with debridement: Mild Bleeding Controlled with: Pressure Patient tolerated procedure well Assessment/Plan Assessment: 1. Opened wound of left axillary. 2. Left axillary hidradenitis. 3. Smoker Plan: 08/25/19 Surgical preparation left axilla with excision hidradenitis. Size of defect left axilla - 6 x 4 x 1.5 cm. (24 cm2). She was discharged home on Doxycycline and home health to help with the wound VAC. Surgical wound cultures showed no growth. 08/26/19 Prealbumin 19.7. Wound care: wound VAC. Instructed her that the wound needs to washed with soap and water with all VAC dressing changes. Encouraged range of motion of left arm and shoulder. Encouraged her to increase her protein intake for wound healing. Encouraged patient to stop smoking as it may have deleterious effects on wound healing. Renewed Percocet (14) and Valium (14). PDMP reviewed. Follow up in 2 weeks. [id number]: [id number] Global Visit
[2019-10-02 10:45] VITALS: BP 149/86; PULSE 63; RESP 20; TEMP 36.3; BMI 26.7
--- NOTE | 2019-10-02 13:14 | PCM.WC.PN ---
(1) Open wound of left axillary region with complication Status: Chronic Current Visit: Yes Code(s): S41.102A - Unspecified open wound of left upper arm, initial encounter (2) Smoker Status: Chronic Current Visit: Yes Code(s): F17.200 - Nicotine dependence, unspecified, uncomplicated (3) Left axillary hidradenitis Status: Chronic Current Visit: Yes Code(s): L73.2 - Hidradenitis suppurativa Type of Wound Date of Service: 10/02/19 Chief Complaint: Left axillary surgical wound. History of Wound: 54 year old woman presents for evaluation of hidradenitis involving her left axillary area after a recent I&D procedure. She has persistent pain and induration in the left axilla. She states she also had an I&D procedure to an area of hidradenitis on her right axilla area and that area is stable at the present time. She was placed on Clindamycin. She denies any fever at present. She denies any trauma. 08/25/19 Surgical preparation left axilla with excision hidradenitis. Size of defect left axilla - 6 x 4 x 1.5 cm. (24 cm2). She was discharged home on Doxycycline and home health to help with the wound VAC. Surgical wound cultures showed no growth. 08/26/19 Prealbumin 19.7. Wound care: Stopwound VAC, start Elinor daily dressing changes. She denies fever or chills. She states she has a good appetite. Progress of Wound: Improved - Physical Exam Vital Signs Temp Pulse Resp BP 97.4 F L 63 20 H 149/86 H 10/02/19 10:45 10/02/19 10:45 10/02/19 10:45 10/02/19 10:45 General: Alert, Oriented x3, Cooperative HEENT: Atraumatic Oral: Moist Mucosa Lungs: Normal air movement Cardiovascular: Regular rate Extremities: Capillary Refill Less than 3 Seconds Skin: Ulcer/ Wound - Left axilla ulcer Wound Measurements and Assessment WC - Nurse 1 - General Ulcer Measurement Start: 09/18/19 13:10 Freq: Status: Active Protocol: Activity Type Activity Date Activity User E-Sign Co-Sign Detail Recorded Client Recorded Date Recorded By Document 10/02/19 10:45 DL [id number] 10/02/19 10:53 DL 10/02/19 10:45 Wound Center Nurse 1 [Ulcer Assessment] #1 left axilla -Current Size (cm) - Length 1.8 -Current Size (cm) - Width 3.8 -Current Size (cm) - Depth 0.1 -Total Square Cm 6.84 -Photo Taken No -Tunneling No -Undermining/Tunneling No -Exudate Amt Small -Exudate Type Serosanguineous -Wound Margin Distinct, Outline Attached -Granulation Amt Large (67-100%) -Granulation Quality Red -Necrosis Amt Small (1-33%) -Necrotic Tissue Type Adherent Slough -Structure Exposed N/A -Texture (Naa-wound Skin Appearance) Scarring -Moisture (Naa-wound Skin Appearance No Abnormality ) -Color (Naa-wound Skin Appearance) No Abnormality -Temperature (Naa-wound Skin No Abnormality Appearance) (Pt Warm) -Tenderness on Palpation (Naa-wound No Skin Appearance) -Ulcer Cleansing Wound Cleanser -Foul Odor after Cleansing No -Anesthetic Used 4% Lidocaine Solution WC - Nurse 2 - General Ulcer CM Notes Start: 09/18/19 13:10 Freq: Status: Active Protocol: Activity Type Activity Date Activity User E-Sign Co-Sign Detail Recorded Client Recorded Date Recorded By Document 10/02/19 11:32 [email or web address] [id number] 10/02/19 11:33 [email or web address] 10/02/19 11:32 Wound Center Nurse 2 [Procedure/Treatment] -Time 11:32 -Correct Patient Yes -Correct Side, Site, Position Yes -Correct Procedure Yes -Procedure Performed Yes -Type of Procedure Debridement -Clinical Debridement Subcutaneous -Post Debridement Size (cm) - Length 4 -Post Debridement Size (cm) - Width 1.8 -Post Debridement Size (cm) - Depth 0.2 -Total Square (cm) 7.2 -Wound/Ulcer Outcome Not Healed -Ulcer Cleansing Rinsed/ Irrigated with Saline -Foul Odor after Cleansing No -Bioengineered Tissue No -Bleeding Controlled with Pressure -Offloading No -Treatment Response Procedure Tolerated Well [See Physician Procedure note for Specifics] Pain Scale: 0-10 Numeric [Pain] -Is Patient Pain Free? Yes Musculoskeletal: No Tenderness to Palpation of Joints or Extremities Neurological: Neuro grossly intact Psych/Mental Status: Normal Affect, Appropriate Debridement Note Post-Debridement Measurements/Treatment WC - Nurse 2 - General Ulcer CM Notes Start: 09/18/19 13:10 Freq: Status: Active Protocol: Activity Type Activity Date Activity User E-Sign Co-Sign Detail Recorded Client Recorded Date Recorded By Document 09/18/19 13:37 [id number] 09/18/19 13:38 Document 10/02/19 11:32 [id number] 10/02/19 11:33 09/18/19 10/02/19 13:37 11:32 Wound Center Nurse 2 #1 left axilla -Time 13:37 11:32 -Correct Patient Yes Yes -Correct Side, Site, Position Yes Yes -Correct Procedure Yes Yes -Procedure Performed Yes Yes -Type of Procedure Debridement Debridement -Clinical Debridement Subcutaneous Subcutaneous -Post Debridement Size (cm) - Length 6.0 4 -Post Debridement Size (cm) - Width 3.2 1.8 -Post Debridement Size (cm) - Depth 0.3 0.2 -Total Square (cm) 19.20 7.2 -Wound/Ulcer Outcome Not Healed Not Healed -Ulcer Cleansing Rinsed/ Rinsed/ Irrigated with Irrigated with Saline Saline -Foul Odor after Cleansing No No -Bioengineered Tissue No No -Bleeding Controlled with Pressure Pressure -Offloading No No -Treatment Response Procedure Procedure Tolerated Well Tolerated Well Pain Scale: 0-10 Numeric Is Patient Pain Free? Yes Yes Wound debrided: Axilla ulcer Laterality: Left Type of Debridement: Excisional debridement Anesthesia Used: 5% Lidocaine Gel Depth: Down to and including healthy tissue, in the subcutaneous layer Percentage of wound debrided: 100 Instrument Used: 5mm curette Tissue Removed: Subcutaneous tissue and slough Severity: Fat Layer Exposed Amount of bleeding with debridement: Mild Bleeding Controlled with: Pressure Patient tolerated procedure well Assessment/Plan Active Problems (Last Reviewed 09/06/19 @ 14:32 by Meliton Agarwal) Open wound of left axillary region with complication (Chronic) Smoker (Chronic) Left axillary hidradenitis (Chronic) Assessment: 1. Opened wound of left axillary. 2. Left axillary hidradenitis. 3. Smoker Plan: 08/25/19 Surgical preparation left axilla with excision hidradenitis. Size of defect left axilla - 6 x 4 x 1.5 cm. (24 cm2). She was discharged home on Doxycycline and home health to help with the wound VAC. Surgical wound cultures showed no growth. 08/26/19 Prealbumin 19.7. Wound care: Stop wound VAC. Start Elinor daily dressing changes, covered with gauze. Encouraged range of motion of left arm and shoulder. Encouraged her to increase her protein intake for wound healing. Encouraged patient to stop smoking as it may have deleterious effects on wound healing. Follow up in 2 weeks. [id number]: [id number] Global Visit
== END 2019-10-06 23:59 ==
LOC: WC 10:30
PROVIDERS: PCP Internal Medicine; Visit Provider Nurse Practitioner Family
DX: L73.2 Hidradenitis suppurativa (principal); F17.200 Nicotine dependence, unspecified, uncomplicated; L98.492 Non-pressure chronic ulcer of skin of other sites with fat layer exposed
CPT/HCPCS: 11042; 97605

== ENCOUNTER 2019-10-16 09:15 | Outpatient (RCR) | payer MEDICAID, SELFPAY ==
[2019-10-07 00:37] VITALS: BP 149/86; PULSE 63; RESP 20; TEMP 36.3
[2019-10-16 11:05] VITALS: BP 164/111; PULSE 74; RESP 18; TEMP 36.5; BMI 26.7
--- NOTE | 2019-10-16 15:49 | PCM.WC.PN ---
(1) Open wound of left axillary region with complication Status: Chronic Code(s): S41.102A - Unspecified open wound of left upper arm, initial encounter (2) Smoker Status: Chronic Code(s): F17.200 - Nicotine dependence, unspecified, uncomplicated (3) Left axillary hidradenitis Status: Chronic Code(s): L73.2 - Hidradenitis suppurativa Type of Wound Date of Service: 10/16/19 Chief Complaint: Left axillary surgical wound. History of Wound: 54 year old woman presents for evaluation of hidradenitis involving her left axillary area after a recent I&D procedure. She has persistent pain and induration in the left axilla. She states she also had an I&D procedure to an area of hidradenitis on her right axilla area and that area is stable at the present time. She was placed on Clindamycin. She denies any fever at present. She denies any trauma. 08/25/19 Surgical preparation left axilla with excision hidradenitis. Size of defect left axilla - 6 x 4 x 1.5 cm. (24 cm2). She was discharged home on Doxycycline and home health to help with the wound VAC. Surgical wound cultures showed no growth. 08/26/19 Prealbumin 19.7. Wound care: Collagen hydrogel covered by adaptic daily, topped with gauze. She denies fever or chills. She states she has a good appetite. Progress of Wound: Improved - Physical Exam Vital Signs Temp Pulse Resp BP 97.7 F L 74 18 164/111 H 10/16/19 11:05 10/16/19 11:05 10/16/19 11:05 10/16/19 11:05 General: Alert, Oriented x3, Cooperative HEENT: Atraumatic Oral: Moist Mucosa Lungs: Normal air movement Cardiovascular: Regular rate Extremities: Capillary Refill Less than 3 Seconds Skin: Ulcer/ Wound - Left axilary wound with good granulation and beefy pink. Wound Measurements and Assessment WC - Nurse 1 - General Ulcer Measurement Start: 10/16/19 11:04 Freq: Status: Active Protocol: Activity Type Activity Date Activity User E-Sign Co-Sign Detail Recorded Client Recorded Date Recorded By Document 10/16/19 11:05 VERONICA [id number] 10/16/19 11:08 DL 10/16/19 11:05 Wound Center Nurse 1 [Ulcer Assessment] #1 left axilla -Current Size (cm) - Length 1 -Current Size (cm) - Width 2 -Current Size (cm) - Depth 0.1 -Total Square Cm 2 -Photo Taken No -Exudate Amt Small -Exudate Type Serosanguineous -Wound Margin Distinct, Outline Attached -Granulation Amt Large (67-100%) -Granulation Quality Red -Necrosis Amt None Present (0 %) -Structure Exposed N/A -Texture (Naa-wound Skin Appearance) Scarring -Moisture (Naa-wound Skin Appearance No Abnormality ) -Color (Naa-wound Skin Appearance) No Abnormality -Temperature (Naa-wound Skin No Abnormality Appearance) (Pt Warm) -Tenderness on Palpation (Naa-wound No Skin Appearance) -Ulcer Cleansing Rinsed/ Irrigated with Saline -Foul Odor after Cleansing No -Anesthetic Used 4% Lidocaine Solution WC - Nurse 2 - General Ulcer CM Notes Start: 10/16/19 11:04 Freq: Status: Active Protocol: Activity Type Activity Date Activity User E-Sign Co-Sign Detail Recorded Client Recorded Date Recorded By Document 10/16/19 11:48 [email or web address] [id number] 10/16/19 11:49 TOMMIE 10/16/19 11:48 Wound Center Nurse 2 [Procedure/Treatment] -Time 11:48 -Correct Patient Yes -Correct Side, Site, Position Yes -Correct Procedure Yes -Procedure Performed Yes -Type of Procedure Debridement -Clinical Debridement Subcutaneous -Post Debridement Size (cm) - Length 2.0 -Post Debridement Size (cm) - Width 1.2 -Post Debridement Size (cm) - Depth 0.1 -Total Square (cm) 2.40 -Wound/Ulcer Outcome Not Healed -Ulcer Cleansing Rinsed/ Irrigated with Saline -Foul Odor after Cleansing No -Bioengineered Tissue No -Bleeding Controlled with Pressure -Offloading No -Treatment Response Procedure Tolerated Well [See Physician Procedure note for Specifics] Pain Scale: 0-10 Numeric [Pain] -Is Patient Pain Free? Yes Musculoskeletal: No Tenderness to Palpation of Joints or Extremities - Good ROM of left shoulder and arm. Neurological: Cranial nerves II-XII grossly intact Psych/Mental Status: Normal Affect, Appropriate Debridement Note Post-Debridement Measurements/Treatment WC - Nurse 2 - General Ulcer CM Notes Start: 10/16/19 11:04 Freq: Status: Active Protocol: Activity Type Activity Date Activity User E-Sign Co-Sign Detail Recorded Client Recorded Date Recorded By Document 10/16/19 11:48 [email or web address] [id number] 10/16/19 11:49 TOMMIE 10/16/19 11:48 Wound Center Nurse 2 #1 left axilla -Time 11:48 -Correct Patient Yes -Correct Side, Site, Position Yes -Correct Procedure Yes -Procedure Performed Yes -Type of Procedure Debridement -Clinical Debridement Subcutaneous -Post Debridement Size (cm) - Length 2.0 -Post Debridement Size (cm) - Width 1.2 -Post Debridement Size (cm) - Depth 0.1 -Total Square (cm) 2.40 -Wound/Ulcer Outcome Not Healed -Ulcer Cleansing Rinsed/ Irrigated with Saline -Foul Odor after Cleansing No -Bioengineered Tissue No -Bleeding Controlled with Pressure -Offloading No -Treatment Response Procedure Tolerated Well Pain Scale: 0-10 Numeric Is Patient Pain Free? Yes Wound debrided: axillary wound Laterality: Left Type of Debridement: Excisional debridement Anesthesia Used: 5% Lidocaine Gel Depth: Down to and including healthy tissue, in the subcutaneous layer Percentage of wound debrided: 100 Instrument Used: 3mm curette Tissue Removed: Subcutaneous tissue and slough Severity: Fat Layer Exposed Amount of bleeding with debridement: Mild Bleeding Controlled with: Pressure, Compression and gauze Patient tolerated procedure well Assessment/Plan Assessment: 1. Opened wound of left axillary. 2. Left axillary hidradenitis. 3. Smoker Plan: 08/25/19 Surgical preparation left axilla with excision hidradenitis. Size of defect left axilla - 6 x 4 x 1.5 cm. (24 cm2). She was discharged home on Doxycycline and home health to help with the wound VAC. Surgical wound cultures showed no growth. 08/26/19 Prealbumin 19.7. Wound care: Collagen hydrogel covered by adaptic daily, topped with gauze. Encouraged range of motion of left arm and shoulder. Encouraged her to increase her protein intake for wound healing. Encouraged patient to stop smoking as it may have deleterious effects on wound healing. Follow up in 2 weeks. [id number]: [id number] Global Visit
== END 2019-11-06 23:59 ==
LOC: WC 09:15
PROVIDERS: PCP Internal Medicine; Visit Provider Nurse Practitioner Family
DX: L73.2 Hidradenitis suppurativa (principal); S41.102A Unspecified open wound of left upper arm, initial encounter; Y83.8 Other surgical procedures as the cause of abnormal reaction of the patient, or of later complication, without mention of misadventure at the time of the procedure; Y92.9 Unspecified place or not applicable; F17.200 Nicotine dependence, unspecified, uncomplicated; Z79.899 Other long term (current) drug therapy
CPT/HCPCS: 11042

== ENCOUNTER 2019-10-17 11:32 | Emergency (ER) | payer MEDICAID, SELFPAY ==
[2019-10-16 11:05] VITALS: BMI 26.7
[2019-10-17 11:33] VITALS: BP 157/115; PULSE 68; RESP 20; TEMP 36.6; O2SAT 98; BMI 26.5
--- NOTE | 2019-10-17 11:52 | CT_ITS ---
STUDY: CT BRAIN WITHOUT CONTRAST REASON FOR EXAM: Female, 54 years old. SEVERE FELDER SINCE LAST WEEK/COUGH/SOB. Hx of hepatitis B and C RADIATION DOSAGE (If Supplied By Facility): CTDIvol = ( 44.99 ) mGy, DLP = ( 796.11 ) mGycm TECHNIQUE: Transaxial CT imaging of the brain was performed without administration of intravenous contrast material. Individualized dose optimization techniques were used for this CT. COMPARISON: Comparison is made with prior study dated 09/01/2019. FINDINGS: Normal soft tissue structures. Normal calvarium. There is mild cerebral atrophy with widening of the extra-axial spaces and ventricular dilatation. There are areas of decreased attenuation within the white matter tracts of the supratentorial brain, consistent with microvascular disease changes. Normal basal ganglia and thalami. Normal brainstem. Normal cerebellum. There is no intracranial hemorrhage. There are no findings of an acute ischemic infarction. Atherosclerotic calcification of the vertebral arteries and cavernous portions of the internal carotid arteries bilaterally. Normal visualized paranasal sinuses. CT/Brain/Head without Contrast IMPRESSION: Chronic involutional changes of the brain. Electronically Signed: Yonatan Quintana, at 13:16 EDT , Service support ,
[2019-10-17] MEDS: 0.9% Normal Saline 1,000 ML 150 ML IV (12:50)
[2019-10-17 13:28] LABS: Erythrocyte Sedimentation Rate 27 mm/hr (0-30)
[2019-10-17 13:31] LABS: Absolute Lymphocyte Count 1.75 X10^3/uL (0.83-4.51); Absolute Neutrophil Count 4.8 X10^3/uL (2.0-7.7); Basophil# 0.02 X10^3/uL; Basophil% 0.3 % (0-1); Eosinophil# 0.32 X10^3/uL; Eosinophils% 4.2 % (0-5); Hematocrit 47.3 % (37-47); Hemoglobin 15.9 g/dL (12.0-15.0); Lymphocyte # 1.75 X10^3/ul (4.0); Mean Corp Hgb Conc 33.6 g/dL (32-36); Mean Corpuscular Hgb 30.5 pg (27.0-32.0); Mean Corpuscular Volume 90.8 fL (81-99); Mean Platelet Vol. 9.1 fl (6.2-12.0); Monocyte% 9.2 % (0-10); NRBC Flagged by Analyzer 0 % (0-5); Neutrophil % 62.9 % (47-70); Platelet Count 231 K/mm3 (150-450); RBC Distribution Width CV 13.8 % (11.6-14.6); RBC Distribution Width SD 46.4 fl (35.1-43.9); Red Blood Count 5.21 M/mm3 (4.2-5.4); White Blood Count 7.6 K/mm3 (4.4-11.0)
[2019-10-17 13:32] LABS: ALB/GLOB Ratio 0.9 RATIO (0.9-2.4); AST(SGOT) 48 U/L (15-37); Alanine Aminotransfer ALT/SGPT 52 U/L (13-56); Albumin, Serum 3.6 g/dL (3.2-5.0); Alkaline Phosphatase 115 U/L (45-117); Anion Gap 3 (5-15); BUN 15 mg/dL (7-18); BUN/Creat Ratio 21.7 RATIO (10-20); Calcium,Total 9.5 mg/dL (8.5-10.1); Chloride 110 mmol/L (98-107); Creatinine, Serum 0.69 mg/dL (0.55-1.02); EST Glomerular Filtration Rate 94 mL/min (>60); Est Glom Filt Rate - Afr Amer 113 mL/min (>60); Globulin 4.1 g/dL (2.2-4.2); Glucose 102 mg/dL (74-106); Potassium 4.4 mmol/L (3.5-5.1); Protein, Total 7.7 g/dL (6.4-8.2); Sodium Level 139 mmol/L (136-145)
[2019-10-17] MEDS: DiphenhydrAMINE 50 MG/ML Syringe 25 MG IV (14:00)
[2019-10-17] MEDS: Metoclopramide 10 MG/2 ML Vial IV (14:00)
[2019-10-17] MEDS: Ketorolac 30 MG/ML Syringe IV (14:00)
--- NOTE | 2019-10-17 14:33 | RAD_ITS ---
STUDY: X-RAY CHEST REASON FOR EXAM: Female, 54 years old. Severe headache, cough, shortness of breath since last week. TECHNIQUE: Single AP portable view of the chest. COMPARISON: Comparison is made with prior study dated 02/16/2019. FINDINGS: Hyperinflation. The lungs are clear. There is evidence of azygos lobe. There is no demonstrated pleural abnormality. Normal size heart. Normal mediastinum and gopal. Normal visualized pulmonary arteries. There is atherosclerotic calcification of the aortic arch with tortuosity. There are diffuse degenerative changes of the visualized thoracic spine. Normal visualized ribs, clavicles, and shoulders. There is no demonstrated abnormality of the visualized soft tissue structures of the upper abdomen. RAD/Chest 1 View (Portable) IMPRESSION: Hyperinflation. The lungs are clear. Electronically Signed: Yonatan Quintana, at 15:20 EDT , Service support ,
--- NOTE | 2019-10-17 14:34 | ED.DCSUM_ITS ---
- ER Visit Summary Date of Service: 10/17/19 Chief Complaint: [Headache] History of Present Illness: The patient is a 54 F [presents to the emergency department with complaint of a headache for over 2 weeks. Patient also with cough and body aches as well as dyspnea for about a week. Patient scheduled to see a neurologist in November for recent findings possibly consistent with MS and possible hydrocephalus. Patient denies any fevers at home. She denies any sore throat. She does state that she has been falling more and stumbling more than usual. Patient with history of hypertension, hep B, hep C, and PTSD. She denies any exposures to individuals with COVID-19.] Physical Examination: [HEENT-PERRLA, EOMI. Cranial nerves II through XII grossly intact. TMs clear. Mucous membranes moist. No adenopathy. Cardiovascular-regular rate and rhythm without murmur or ectopy Lungs-clear to auscultation, chest wall stable without crepitus or subcu emphysema Abdomen-normoactive bowel sounds, soft, nontender, no rebound or rigidity, no peritoneal signs Neuro vqou-eefsvx-pyxt and heel silva testing within normal limits, negative Romberg, negative pronator drift Extremities-intact ?4, normal range of motion, normal pulses, atraumatic] Test Results: [CBC with differential obtained showed a white count 7.6, hemoglobin 16, hematocrit 47, platelets 231. Sed rate was 27. Chemistries unremarkable. LFTs unremarkable. CT scan of the brain showed chronic involutional changes otherwise nothing acute.] COVID 19 test ordered and pending. Emergency Department Course and Treatment: [IV line was tablets. Patient was given Reglan, Benadryl, Toradol, and a liter normal same fluid bolus. She had good improvement in her pain.] Treatment Plan: [Case turned over to evening physician awaiting COVID test result and reevaluation of headache. Plan will be to admit if persistent headache for neurological evaluation.] At this point it is unclear if her headaches are related to COVID like symptoms versus hydrocephalus versus other etiology. Disposition: [Pending] Impression: [Cephalgia URI] This note was generated with [employer] software. It may contain incorrect words, spelling, and punctuation that were not noted in review of the chart prior to signing ED Disposition - Plan for ED Patient: Referrals: Samina Joya MD [Primary Care Provider] -
[2019-10-17 15:29] VITALS: BP 122/74; PULSE 50; RESP 14; O2SAT 98
== END 2019-10-17 16:07 | disposition home or self-care (01) ==
PROVIDERS: Emergency Provider Emergency Medicine; PCP Internal Medicine
DX: J06.9 Acute upper respiratory infection, unspecified (principal); R51 Headache; I10 Essential (primary) hypertension; F41.9 Anxiety disorder, unspecified; F32.9 Major depressive disorder, single episode, unspecified; F43.10 Post-traumatic stress disorder, unspecified; Z86.19 Personal history of other infectious and parasitic diseases; Z79.899 Other long term (current) drug therapy; Z72.0 Tobacco use
CPT/HCPCS: 70450; 71045; 80048; 80053; 85025; 85652; 87635; 94799; 96361; 96374; 96375; 99284; J7030; A4216; U0003

== ENCOUNTER 2019-10-23 14:30 | Emergency (ER) | payer MEDICAID, SELFPAY ==
[2019-10-23 14:45] VITALS: BP 152/108; TEMP 36.9; BMI 27.1
--- NOTE | 2019-10-23 14:53 | ED.DCSUM_ITS ---
History of Present Illness Chief Complaint: Headache Informant: Patient Narrative: Patient presents with chronic recurrent cephalgia, she has been seen in the emergency department [facility] CT[facility] and MRIs, the MRI was suspicious for plaques concerning for multiple sclerosis. There was no evidence of active disease however. She has no neurological symptoms her only complaint today is the same headache that she has had in the past. She is not taking anything at home for headaches, she has an appointment with neurology next month. She denies any fever chills cough congestion. She denies any sinus headache. She denies unilateral headache or temporal headache. She is not currently a smoker. She denies vision changes, paresthesias weakness or any kind of confusion. Past Medical History - Allergies and Home Meds Allergies/Adverse Reactions: Allergies codeine Allergy (Severe, Verified 10/17/19 11:34) difficulty breathing latex Adverse Reaction (Unknown, Verified 10/17/19 11:34) hives Primary Care Physician: Samina Joya MD [Primary Care Provider] - Past Medical History: - - Hypertension, history of [place], she is not currently taking any medications. Surgical History: - - Excision of left axilla Smoking Status: Current every day smoker Review of Systems All systems negative except as indicated General: Denies: Fever Eyes: Denies: Visual changes - bilaterally, Blurred Vision - bilaterally, Diplopia ENT: Denies: Rhinorrhea, Sore throat Cardiovascular: Denies: Chest pain Respiratory: Denies: Dyspnea, Cough Gastrointestinal: Reports: Nausea. Denies: Abdominal pain, Vomiting Genitourinary: Denies: Dysuria Musculoskeletal: Denies: Myalgias, Neck pain Skin: Denies: Rash Neurological: Reports: Headache. Denies: Weakness, Parasthesia, Numbness Psych: Denies: Depression Endocrine: Denies: Polyuria Hematologic: Denies: Easy bruising, Easy bleeding Physical Exam General: Well nourished, Well developed Head: Normocephalic, Atraumatic, - - No tenderness over the temporal area bilaterally Eyes: Perrl, EOMI. Negative for: Pale conjunctiva ENT: Moist mucous membranes Cardiovascular: Regular rate, Regular rhythm Respiratory: No distress, CTA bilaterally Abdomen: Soft, Nontender Back: Nontender, Normal Inspection Extremities: Nontender, No edema Skin: Normal color, No rash Neurological: Alert, Oriented x3, Cranial nerves II-XII grossly intact, Normal Strength, Normal Sensation Diagnostic/Tx/Re-eval - Medical Decision Making Patient has chronic recurrent cephalgia with CT and MRI which does not show acute emergencies. She has a normal exam with no neurological symptoms no further imaging is needed. She received IV fluids and cephalgia medications which improved her symptoms. She will be discharged home in stable condition. I will add Fioricet and give her steroids prior to discharge. ED Disposition - Plan for ED Patient: Disposition: Home or Assisted Living Instructions: ED Headache Unspecified Prescriptions: Acetaminophen/Butalbital/Caffe [Fioricet] 1 tablet PO Q4H PRN PRN #20 tablet PRN Reason: Headache Transmission Status: Sent to [facility] Referrals: Samina Joya MD [Primary Care Provider] - 2 Days Additional Instructions: Follow-up with neurology as scheduled
[2019-10-23] MEDS: 0.9% Normal Saline 1,000 ML 999 ML IV (15:06)
[2019-10-23] MEDS: Metoclopramide 10 MG/2 ML Vial IV (15:07)
[2019-10-23] MEDS: Ketorolac 30 MG/ML Syringe IV (15:09)
[2019-10-23] MEDS: DiphenhydrAMINE 50 MG/ML Syringe 25 MG IV (15:10)
[2019-10-23 15:18] VITALS: BP 118/93; PULSE 82; RESP 18; O2SAT 95
== END 2019-10-23 16:35 | disposition home or self-care (01) ==
PROVIDERS: Emergency Provider Emergency Medicine; PCP Internal Medicine
DX: R51 Headache (principal); R11.0 Nausea; I10 Essential (primary) hypertension; I25.2 Old myocardial infarction; Z79.899 Other long term (current) drug therapy; F17.200 Nicotine dependence, unspecified, uncomplicated
CPT/HCPCS: 96361; 96374; 96375; 99285; J7030

== ENCOUNTER → 2019-10-27 10:28 | Outpatient (CLI) | payer MEDICAID, SELFPAY ==
[2019-10-27 09:40] VITALS: BMI 27.1
[2019-10-27 12:31] LABS: Erythrocyte Sedimentation Rate 40 mm/hr (0-30)
== END ==
PROVIDERS: PCP Internal Medicine; Referring Provider Internal Medicine; Visit Provider Internal Medicine
DX: G91.9 Hydrocephalus, unspecified (principal); R51 Headache
CPT/HCPCS: 36415; 85652; 86140

== ENCOUNTER → 2019-11-06 09:43 | Outpatient (CLI) | payer MEDICAID, SELFPAY ==
[2019-11-02 13:22] VITALS: BMI 27.1
[2019-11-06 11:08] LABS: Vitamin B12 542 pg/mL (211-911)
[2019-11-06 11:21] LABS: Cholesterol 183 mg/dL (200); High Density Lipoprotein 73 mg/dL; Thyroid Stim Hormone (TSH) 1.35 uIU/mL (0.358-3.74); Triglycerides 82 mg/dL; Very Low Density Lipoprotein 16 mg/dL (5-40)
== END ==
PROVIDERS: PCP Internal Medicine; Referring Provider Psychiatry & Neurology Neurology; Visit Provider Psychiatry & Neurology Neurology
DX: I67.9 Cerebrovascular disease, unspecified (principal); G31.84 Mild cognitive impairment of uncertain or unknown etiology; R53.83 Other fatigue
CPT/HCPCS: 36415; 80061; 82607; 82746; 84443

== ENCOUNTER → 2019-11-27 09:40 | Outpatient (CLI) | payer MEDICAID, SELFPAY ==
[2019-11-16 14:13] VITALS: BMI 27.1
--- NOTE | 2019-11-27 09:59 | CDU_ITS ---
Reason For Study: Cerebrovascular disease Rt. Velocities/BP Lt. Velocities/BP Prox CCA 96/33 cm/sec. Prox CCA 77/19 cm/sec. Mid CCA 78/27 cm/sec. Mid CCA 80/30 cm/sec. Dist CCA 56/24 cm/sec. Dist CCA 81/30 cm/sec. Prox ICA 91/34 cm/sec. Prox ICA 70/27 cm/sec. Mid ICA 84/38 cm/sec. Mid ICA 93/35 cm/sec. Dist ICA 76/37 cm/sec. Dist ICA 62/29 cm/sec. Rt. ICA/CCA = 1.2. Lt. ICA/CCA = 1.2. Prox ECA 66/19 cm/sec. Prox ECA 71/13 cm/sec. Rt. Vert. 36/14 cm/sec. Lt. Vert. 59/18 cm/sec. Right Extracranial There is heterogeneous, irregular atherosclerotic plaque noted in the right common carotid artery. There is heterogeneous, smooth atherosclerotic plaque noted in the right internal carotid artery. There is intimal thickening but no significant atherosclerotic plaque noted in the right external carotid artery. Antegrade flow is noted in the right vertebral artery. Left Extracranial There is heterogeneous, irregular atherosclerotic plaque noted in the left common carotid artery. There is no significant atherosclerotic plaque noted in the left internal carotid artery. There is no significant atherosclerotic plaque noted in the left external carotid artery. Antegrade flow is noted in the left vertebral artery. Procedure Carotid Duplex [id number]. Exam performed in department. Interpretation Summary Smooth plague right proximal internal carotid and no significant plague on the left with <50% stenosis bilaterally <50% stenosis bilateral external carotids Patent,antegrade vertebrals bilaterally Ordering Physician: Ailyn Méndez Referring Physician: Samina Joya Performed By: Bhakti Guerrero, RDCS, RVT
== END ==
PROVIDERS: PCP Internal Medicine; Referring Provider Nurse Practitioner Family; Visit Provider Nurse Practitioner Family
DX: Z86.73 Personal history of transient ischemic attack (TIA), and cerebral infarction without residual deficits (principal)
CPT/HCPCS: 93880

== ENCOUNTER 2019-12-16 13:47 | Emergency (ER) | payer MEDICAID, SELFPAY ==
[2019-11-16 14:13] VITALS: BMI 27.1
[2019-12-16 13:48] VITALS: BP 142/107; PULSE 71; RESP 22; TEMP 36.6; O2SAT 95; BMI 26.6
--- NOTE | 2019-12-16 14:18 | CT_ITS ---
STUDY: CT ABDOMEN AND PELVIS WITH CONTRAST REASON FOR EXAM: Female, 54 years old. ABD PAIN, BLOATING X 1 MON, ELEV WBC, HX-DRUG ABUSE, HTN, HEP B,HEP C, GERD, CVA RADIATION DOSAGE (If Supplied By Facility): CTDIvol = ( 8.89 ) mGy, DLP = ( 644.93 ) mGycm TECHNIQUE: Transaxial images were obtained from the dome of the diaphragm to the symphysis pubis without oral contrast. Oral and amp; IV Gastrografin and amp; 100mL Isovue-300 was administered. Sagittal and coronal images were reconstructed. Individualized dose optimization techniques were used for this CT. COMPARISON: None. FINDINGS: The visualized lung bases are unremarkable. The visualized portions of the heart are within normal limits. Normal liver. Normal gallbladder and extrahepatic biliary system. Normal spleen. Normal pancreas. The right adrenal is normal. There is a low-attenuation 1.1 cm left adrenal nodule most likely representing an adenoma. There is a subcentimeter probable cyst of the right kidney. Normal left kidney. Normal visualized stomach. Normal small intestine. There is colonic diverticulosis with no evidence of associated diverticulitis. The appendix is normal, best seen on coronal image 57. There are calcified plaques of the abdominal aorta and common iliac arteries. Normal inferior vena cava. Normal retroperitoneum. Normal urinary bladder. Uterus and adnexal structures are unremarkable. There is a tiny fat-containing umbilical hernia. There are diffuse degenerative changes in the visualized thoracolumbar spine. There is a decrease in vertical height of L4 which may be congenital in nature or due to old injury. CT/Abdomen/Pelvis WITH Contrast IMPRESSION: 1. Low-attenuation 1.1 cm left adrenal nodule most likely representing a benign adenoma. 2. Subcentimeter probable cyst of the right kidney. Nonemergent ultrasound correlation is recommended. 3. Colonic diverticulosis with no evidence of associated diverticulitis. 4. Tiny fat-containing umbilical hernia. 5. Diffuse degenerative changes of the visualized thoracolumbar spine. There is a decrease in vertical height of L4 which may be congenital in nature or due to old injury. There is also inflammation of the inferior endplate of L3 and superior endplate of L4. 6. There is no evidence of free intra-abdominal or intrapelvic air, fluid, or inflammatory process. Electronically Signed: Fritz Cabrera MD at 16:59 EDT , Service support ,
[2019-12-16] MEDS: 0.9% Normal Saline 1,000 ML 125 ML IV (14:53)
[2019-12-16] MEDS: Ondansetron 4 MG/2 ML Vial IV (14:53)
[2019-12-16] MEDS: Morphine 4 MG/ML Syringe IV (14:53)
[2019-12-16 15:17] LABS: ALB/GLOB Ratio 0.8 RATIO (0.9-2.4); AST(SGOT) 74 U/L (15-37); Absolute Lymphocyte Count 2.59 X10^3/uL (0.83-4.51); Absolute Neutrophil Count 8.2 X10^3/uL (2.0-7.7); Alanine Aminotransfer ALT/SGPT 80 U/L (13-56); Albumin, Serum 3.7 g/dL (3.2-5.0); Alkaline Phosphatase 98 U/L (45-117); Anion Gap 10 (5-15); BUN 35 mg/dL (7-18); BUN/Creat Ratio 29.2 RATIO (10-20); Basophil# 0.04 X10^3/uL; Basophil% 0.3 % (0-1); Calcium,Total 9.3 mg/dL (8.5-10.1); Chloride 106 mmol/L (98-107); EST Glomerular Filtration Rate 50 mL/min (>60); Eosinophil# 0.17 X10^3/uL; Eosinophils% 1.4 % (0-5); Est Glom Filt Rate - Afr Amer 60 mL/min (>60); Estimated Creatinine Clearance 47.66 ml/min; Globulin 4.5 g/dL (2.2-4.2); Glucose 94 mg/dL (74-106); Hematocrit 45.7 % (37-47); Hemoglobin 14.8 g/dL (12.0-15.0); Lipase 71 U/L (73-393); Lymphocyte # 2.59 X10^3/ul (4.0); Lymphocyte % 21.1 % (19-41); Mean Corp Hgb Conc 32.4 g/dL (32-36); Mean Corpuscular Volume 92.7 fL (81-99); Mean Platelet Vol. 9.6 fl (6.2-12.0); Monocyte# 1.22 X10^3/uL; Monocyte% 9.9 % (0-10); NRBC Flagged by Analyzer 0 % (0-5); Neutrophil # 8.19 X10^3/uL (2.7-7.7); Neutrophil % 66.7 % (47-70); Platelet Count 259 K/mm3 (150-450); Potassium 4.1 mmol/L (3.5-5.1); Protein, Total 8.2 g/dL (6.4-8.2); RBC Distribution Width CV 13.7 % (11.6-14.6); RBC Distribution Width SD 46.5 fl (35.1-43.9); Red Blood Count 4.93 M/mm3 (4.2-5.4); Sodium Level 135 mmol/L (136-145); White Blood Count 12.3 K/mm3 (4.4-11.0)
[2019-12-16 15:37] LABS: Lactic Acid 0.6 mmol/L (0.4-1.9)
[2019-12-16 16:32] LABS: Bacteria 0 SEEN /hpf (None Seen); Mucous, Urine 0 SEEN /hpf (<or=2+); Red Blood Cells-Urine 0 SEEN /hpf (0-5); Squamous Epithelial Cells - UA 0 SEEN /hpf (5-10); White Blood Cells 0 SEEN /hpf (0-5)
[2019-12-16 16:34] LABS: Color, Urine Yellow (Yellow); Glucose, Dipstick Normal (Normal); Ketone-Dipstick 50 mg/dl (Negative); Leukocyte Esterase-Dipstick Negative /ul (Negative); Nitrite-Dipstick Negative (Negative); Occult Blood-Urine Negative /ul (Negative); Protein-Dipstick 30 mg/dl (Negative); Specific Gravity, Urine 1.025 (1.002-1.030); Urine Bilirubin Dipstick Negative (Negative); Urine Clarity Clear (Clear); Urine Urobilinogen Normal (Normal)
[2019-12-16 16:41] LABS: Hyaline Cast 0-5 SEEN /lpf (0-5)
[2019-12-16 17:34] VITALS: BP 130/89; PULSE 91; RESP 18
--- NOTE | 2019-12-16 17:37 | ED.VISSUMM ---
- ER Visit Summary Date of Service: 12/16/19 Chief Complaint: [Abdominal pain] History of Present Illness: The patient is a 54 F [presents the emergency department complaint of abdominal pain that she has had off and on for several months. Patient states the pain was worse today. Patient states oftentimes she is bloated and she is not sure why. She denies any fevers. She denies vomiting. She has had nausea. She denies urinary symptoms. She states that her urine was almost orange color today. Patient has history of prior stroke as well as hypertension and history of hep B and hep C. She denies any illicit drug use. She has not had any abdominal surgeries.] Patient also states that she has had a rash for several days on her buttocks as well as her abdomen and extremities. Physical Examination: [HEENT-PERRLA, EOMI. Cranial nerves II through XII grossly intact. TMs clear. Mucous membranes moist. No adenopathy. Cardiovascular-regular rate and rhythm without murmur or ectopy Lungs-clear to auscultation, chest wall stable without crepitus or subcu emphysema Abdomen-normoactive bowel sounds, soft. Patient has some mild tenderness diffusely. There is no rebound, rigidity, peritoneal signs. Negative Otto sign. Skin exam-patient does have a erythematous rash that is excoriated in places and is patchy involving the buttocks as well as the abdomen and extremities. No significant cellulitis noted. Extremities-intact ?4, normal range of motion, normal pulses, atraumatic] Test Results: [CBC with differential obtained showed a white count of 12.3, hemoglobin 14.8, hematocrit 46, placed 259. Chemistries unremarkable. LFTs did show slight elevated total bili of 1.2 as well as an alk phos that was normal at 98, ALT was 80, and AST was 74. Lipase was normal at 71. Urinalysis was normal. CT scan of the abdomen pelvis with IV and p.o. contrast showed a right renal cyst as well as degenerative changes of the spine otherwise nothing acute.] Emergency Department Course and Treatment: [On arrival patient had an IV line established. Patient was medicated morphine and Zofran.] Treatment Plan: [Patient advised to follow-up with primary care physician in 3 to 5 days. Patient will be started on Bactrim for her rash which I suspect may be staph.] Disposition: [Discharged home in stable condition] Impression: [Abdominal pain-etiology uncertain Dermatitis-suspect staph] This note was generated with [employer] dictation software. It may contain incorrect words, spelling, and punctuation that were not noted in review of the chart prior to signing ED Disposition - Plan for ED Patient: Referrals: Samina Joya MD [Primary Care Provider] -
--- NOTE | 2019-12-16 17:40 | ED.DEP ---
ED Disposition - Plan for ED Patient: Instructions: ED Abdominal Pain Unkn Cause Fem Prescriptions: Smz/Tmp Ds [Bactrim Ds] 1 tab PO BID #14 tab Prescription Printed Referrals: Samina Joya MD [Primary Care Provider] - 3-5 Days
[2019-12-16 17:50] VITALS: PULSE 90; RESP 18
== END 2019-12-16 17:54 | disposition home or self-care (01) ==
PROVIDERS: Emergency Provider Emergency Medicine; PCP Internal Medicine
DX: R10.9 Unspecified abdominal pain (principal); L30.9 Dermatitis, unspecified; R11.0 Nausea; R14.0 Abdominal distension (gaseous); N28.1 Cyst of kidney, acquired; I10 Essential (primary) hypertension; Z86.19 Personal history of other infectious and parasitic diseases; Z86.73 Personal history of transient ischemic attack (TIA), and cerebral infarction without residual deficits; Z79.899 Other long term (current) drug therapy; Z72.0 Tobacco use
CPT/HCPCS: 74177; 80053; 81001; 83605; 83690; 85025; 96361; 96374; 96375; 99285; J7030; Q9967; A4216; J2405

== ENCOUNTER → 2020-06-28 10:13 | Outpatient (CLI) | payer MEDICAID, SELFPAY ==
[2020-06-28 09:37] VITALS: BMI 25.2
[2020-06-28 12:40] LABS: Absolute Lymphocyte Count 2.35 X10^3/uL (0.83-4.51); Absolute Neutrophil Count 4.9 X10^3/uL (2.0-7.7); Basophil# 0.03 X10^3/uL; Basophil% 0.4 % (0-1); Eosinophil# 0.14 X10^3/uL; Eosinophils% 1.7 % (0-5); Hematocrit 47.1 % (37-47); Hemoglobin 15.2 g/dL (12.0-15.0); Lymphocyte # 2.35 X10^3/ul (0.83-4.51); Lymphocyte % 29.3 % (19-41); Mean Corp Hgb Conc 32.3 g/dL (32-36); Mean Corpuscular Volume 89.9 fL (81-99); Mean Platelet Vol. 9.3 fl (6.2-12.0); Monocyte# 0.61 X10^3/uL; Monocyte% 7.6 % (0-10); NRBC Flagged by Analyzer 0 % (0-5); Neutrophil # 4.85 X10^3/uL (2.7-7.7); Neutrophil % 60.6 % (47-70); Platelet Count 289 K/mm3 (150-450); RBC Distribution Width CV 13.9 % (11.6-14.6); RBC Distribution Width SD 45.7 fl (35.1-43.9); Red Blood Count 5.24 M/mm3 (4.2-5.4)
[2020-06-28 12:58] LABS: ALB/GLOB Ratio 0.9 RATIO (0.9-2.4); AST(SGOT) 37 U/L (15-37); Alanine Aminotransfer ALT/SGPT 46 U/L (13-56); Albumin, Serum 3.8 g/dL (3.2-5.0); Alkaline Phosphatase 116 U/L (45-117); Anion Gap 5 (5-15); BUN 12 mg/dL (7-18); Calcium,Total 9.1 mg/dL (8.5-10.1); Chloride 107 mmol/L (98-107); Creatinine, Serum 0.86 mg/dL (0.55-1.02); EST Glomerular Filtration Rate 73 mL/min (>60); Est Glom Filt Rate - Afr Amer 88 mL/min (>60); Globulin 4.1 g/dL (2.2-4.2); Glucose 90 mg/dL (74-106); Potassium 3.9 mmol/L (3.5-5.1); Protein, Total 7.9 g/dL (6.4-8.2); Sodium Level 137 mmol/L (136-145)
== END ==
PROVIDERS: PCP Internal Medicine; Referring Provider Internal Medicine; Visit Provider Internal Medicine
DX: R23.8 Other skin changes (principal)
CPT/HCPCS: 36415; 80053; 85025

== ENCOUNTER 2020-07-09 11:55 | Emergency (ER) | payer MEDICAID, SELFPAY ==
[2020-06-28 09:37] VITALS: BMI 25.2
[2020-07-09 11:57] VITALS: BP 128/84; PULSE 96; RESP 18; TEMP 35.5; O2SAT 98; BMI 22.6
[2020-07-09 12:16] VITALS: BP 140/108; PULSE 88; RESP 19; O2SAT 94
[2020-07-09 12:52] LABS: Absolute Lymphocyte Count 2.62 X10^3/uL (0.83-4.51); Absolute Neutrophil Count 6.4 X10^3/uL (2.0-7.7); Basophil# 0.05 X10^3/uL; Basophil% 0.5 % (0-1); Eosinophil# 0.23 X10^3/uL; Eosinophils% 2.2 % (0-5); Hematocrit 43.9 % (37-47); Hemoglobin 14.7 g/dL (12.0-15.0); Lymphocyte # 2.62 X10^3/ul (0.83-4.51); Lymphocyte % 25.6 % (19-41); Mean Corp Hgb Conc 33.5 g/dL (32-36); Mean Corpuscular Hgb 29.2 pg (27.0-32.0); Mean Corpuscular Volume 87.3 fL (81-99); Mean Platelet Vol. 8.9 fl (6.2-12.0); Monocyte# 0.89 X10^3/uL; Monocyte% 8.7 % (0-10); NRBC Flagged by Analyzer 0 % (0-5); Neutrophil # 6.42 X10^3/uL (2.7-7.7); Neutrophil % 62.6 % (47-70); Platelet Count 284 K/mm3 (150-450); RBC Distribution Width CV 13.6 % (11.6-14.6); RBC Distribution Width SD 43.7 fl (35.1-43.9); Red Blood Count 5.03 M/mm3 (4.2-5.4); White Blood Count 10.3 K/mm3 (4.4-11.0)
[2020-07-09] MEDS: DiphenhydrAMINE 50 MG/ML Syringe 25 MG IV (12:52)
[2020-07-09] MEDS: 0.9% Normal Saline 1,000 ML 999 ML IV (12:53)
[2020-07-09] MEDS: proCHLORPERazine 10 MG/2 ML Vial IV (12:53)
[2020-07-09 13:07] LABS: Anion Gap 6 (5-15); BUN 31 mg/dL (7-18); BUN/Creat Ratio 30.1 RATIO (10-20); Calcium,Total 9.3 mg/dL (8.5-10.1); Chloride 106 mmol/L (98-107); Creatinine, Serum 1.03 mg/dL (0.55-1.02); EST Glomerular Filtration Rate 59 mL/min (>60); Est Glom Filt Rate - Afr Amer 71 mL/min (>60); Estimated Creatinine Clearance 57.09 ml/min; Glucose 117 mg/dL (74-106); Potassium 3.7 mmol/L (3.5-5.1); Sodium Level 136 mmol/L (136-145)
--- NOTE | 2020-07-09 13:10 | CT_ITS ---
STUDY: CT BRAIN WITHOUT CONTRAST REASON FOR EXAM: Female, 55 years old. HEADACHE WITH NAUSEA AND VOMITING RADIATION DOSAGE (If Supplied By Facility): CTDIvol = ( 44.99 ) mGy, DLP = ( 829.85 ) mGycm TECHNIQUE: Transaxial CT imaging of the brain was performed without administration of intravenous contrast material. Individualized dose optimization techniques were used for this CT. COMPARISON: Comparison is made with prior examination dated 10/17/2019. FINDINGS: Normal soft tissue structures. Normal calvarium. There is mild cerebral atrophy with widening of the extra-axial spaces and ventricular dilatation. There are areas of decreased attenuation within the white matter tracts of the supratentorial brain, consistent with microvascular disease changes. Normal basal ganglia and thalami. Normal brainstem. Normal cerebellum. There is no intracranial hemorrhage. There are no findings of an acute ischemic infarction. Atherosclerotic calcification of the vertebral arteries and cavernous portions of the internal carotid arteries bilaterally. Normal visualized paranasal sinuses. CT/Brain/Head without Contrast IMPRESSION: Chronic involutional changes of the brain. Electronically Signed: Yonatan Quintana MD at 13:28 EDT , Service support ,
[2020-07-09 14:48] VITALS: BP 131/105; PULSE 62; RESP 14; O2SAT 98
--- NOTE | 2020-07-09 15:02 | EDS_ITS ---
ED.HPI.FELDER History of Present Illness Chief Complaint: Headache Narrative Narrative: Patient presenting for evaluation secondary to headache. Patient states that she has been undergoing work-up by outpatient neurology and was told that she potentially was having complications of hydrocephalus. Patient states that she has daily generalized frontal aching headaches. She also states it has been associated with generalized body cramps that will come and go. No specific exacerbating relieving factors associated with this. She denies any visual changes numbness or weakness. She denies any fevers associated with this. No neck rigidity. No recent history of head injury or IV drug abuse. Review of systems otherwise negative. [facility] Medical History Acute kidney injury Anxiety and depression Chronic back pain Hepatitis B Hepatitis C History of substance abuse Hydrocephalus Hypertension Migraines PTSD (post-traumatic stress disorder) Seizures Home Medications amlodipine 5 mg tablet 5 mg PO BID #60 tablet 06/06/20 [Rx Last Taken Unknown] diclofenac sodium 75 mg tablet,delayed release 75 mg PO BID PRN #60 tab 06/06/20 [Rx Last Taken Unknown] paroxetine HCl 20 mg tablet 20 mg PO QAM #30 tab 06/06/20 [Rx Last Taken Unknown] tizanidine 4 mg tablet See Rx Instructions PO QHS PRN #60 tab 06/06/20 [Rx Last Taken Unknown] Allergy/AdvReac Type Severity Reaction Status Date / Time codeine Allergy Severe difficulty Verified 07/09/20 11:57 breathing latex AdvReac Unknown hives Verified 07/09/20 11:57 Family History Daughter Seizures Mother Diabetes Brother Diabetes Aunt Cancer Uncle Cancer Surgical History History of foot surgery History of hand surgery History of surgery on arm Social History Smoking Status: Heavy Smoker (>10/day) Tobacco: How many years used: 40 alcohol intake: never substance use type: former substance user Date of last use: 2 years and crack/cocaine what type of physical activity do you participate in: none ROS ROS ED Constitutional Constitutional ED: Denies chills, fever(s), sweats or weight loss Eyes Eyes: Denies blurry vision, change in vision, diplopia or photophobia ENT ENT ED: Denies ear pain, neck pain, rhinorrhea or sore throat Cardiovascular Cardiovascular: Denies chest pain Respiratory/Chest Respiratory/Chest: Denies cough or dyspnea Gastrointestinal Gastrointestinal: Denies abdominal pain, nausea or vomiting Musculoskeletal Musculoskeletal: Denies arthralgias, myalgias or neck pain Integumentary Reports other Details: No petechia ; Denies rash Neurologic Neurologic: Reports headache(s); Denies paresthesias or weakness Psychiatric Psychiatric: Reports other Details: No history of IV drug abuse ; Denies depression Hematologic/Lymphatic Hematologic/Lymphatic: Denies easy bleeding or easy bruising Allergic/Immunologic Allergic/Immunologic ED: Reports other Details: No immunosuppression EXAM Physical Exam Const Vital Signs: 07/09/20 11:57 07/09/20 12:16 07/09/20 14:48 Temperature 96 F L Temperature Source Temporal Pulse Rate 96 88 62 Respiratory Rate 18 19 H 14 Blood Pressure 128/84 H 140/108 H 131/105 H Blood Pressure Mean 98 118 113 Pulse Ox 98 94 98 Oxygen Delivery Method Room Air Room Air Room Air Positive well nourished and well developed General Appearance ED: well developed and NAD HEENT Reports normocephalic HEENT Narrative: No mastoid tenderness atraumatic; Negative for temporal artery tenderness or vesicular rash Face and Sinus: Negative for sinus tenderness Eyes PERRL and EOMs intact bilaterally Direct Ophthalmoscopy: No papilledema and No retinal abnormality Neck no lymphadenopathy, supple and no meningeal signs Resp normal respiratory effort and clear to auscultation bilaterally Cardio regular rate, regular rhythm, no murmurs and peripheral pulses 2+ throughout GI non-tender and non-distended Palpation: soft Extremity normal to inspection and full ROM Neuro oriented x3, CN's II-XII intact bilaterally and no sensory deficits noted Sensorium / Orientation: awake and alert Meningeal Signs: no meningeal signs Speech: speech normal Motor Exam: strength 5/5 throughout Psych mental status grossly normal Skin General Skin Exam: Negative for petechiae Lesions: no lesions Rashes: no rashes MDM MDM MDM Narrative Medical decision making narrative: Patient presented secondary to headaches. I reviewed patient's records, neurology actually seems to think that the patient's headaches are more so from worsening of her migraines rather than from a issue with normal pressure hydrocephalus. Patient was given Compazine and Benadryl in the emergency department and a liter of saline. Due to her cramping I did perf orm lab work which was found to be unremarkable. CT imaging of the brain was also obtained and was found to be unremarkable. Repeat evaluation of the patient at 1500 shows symptomatic improvement. At this point I feel that she is stable and appropriate for discharge. She will continue to follow-up with neurology. Lab Data Labs: Laboratory Results - last 24 hr 07/09/20 07/09/20 12:47 12:47 WBC 10.3 RBC 5.03 Hgb 14.7 Hct 43.9 MCV 87.3 MCH 29.2 MCHC 33.5 RDW Std Deviation 43.7 RDW Coeff of Chuck 13.6 Plt Count 284 MPV 8.9 Immature Gran % (Auto) 0.400 Neut % (Auto) 62.6 Lymph % (Auto) 25.6 [place] % (Auto) 8.7 Eos % (Auto) 2.2 Baso % (Auto) 0.5 Absolute Neuts (auto) 6.4 Absolute Lymphs (auto) 2.62 Nucleated RBC % 0 Sodium 136 Potassium 3.7 Chloride 106 Carbon Dioxide 24.0 Anion Gap 6 BUN 31 H Creatinine 1.03 H Estim Creat Clear Calc 57.09 Est GFR (MDRD) Af Amer 71 Est GFR (MDRD) Non-Af 59 L BUN/Creatinine Ratio 30.1 H Glucose 117 H Calcium 9.3 Radiography Diagnostic Testing: Radiology Impression Brain CT 07/09/20 13:10 IMPRESSION: Chronic involutional changes of the brain. Electronically Signed: Yonatan Quintana MD at 13:28 EDT , Service support , Discharge Plan Triage Chief Complaint: Headache Other Complaint: Nausea/Vomiting ED Provider: Harlan Corrigan Dx/Rx/DC Orders Clinical Impression: Headache, migraine Prescriptions: No Action tizanidine 4 mg tablet See Rx Instructions PO QHS PRN (Reason: neck pain) Qty: 60 RF: 1 paroxetine HCl 20 mg tablet 20 mg PO QAM Qty: 30 RF: 1 diclofenac sodium 75 mg tablet,delayed release (DR/EC) 75 mg PO BID PRN (Reason: headache) Qty: 60 RF: 1 amlodipine 5 mg tablet 5 mg PO BID Qty: 60 RF: 1 Primary Care Provider: Samina Joya Referrals: Samina Joya MD [Primary Care Provider] - As Needed Disposition Disposition: Home, self care
[2020-07-09 15:30] VITALS: BP 118/91; PULSE 68; RESP 18; O2SAT 98
== END 2020-07-09 15:33 | disposition home or self-care (01) ==
PROVIDERS: Emergency Provider Emergency Medicine; PCP Internal Medicine
DX: G43.909 Migraine, unspecified, not intractable, without status migrainosus (principal); I10 Essential (primary) hypertension; F32.9 Major depressive disorder, single episode, unspecified; F43.10 Post-traumatic stress disorder, unspecified; G89.29 Other chronic pain; Z87.448 Personal history of other diseases of urinary system; Z86.19 Personal history of other infectious and parasitic diseases; Z79.899 Other long term (current) drug therapy
CPT/HCPCS: 70450; 80048; 85025; 96361; 96374; 96375; 99285; J7030; A4216

== ENCOUNTER → 2020-07-26 10:17 | Outpatient (CLI) | payer MEDICAID, SELFPAY ==
[2020-07-26 10:00] VITALS: BMI 23.7
[2020-07-26 12:16] LABS: Erythrocyte Sedimentation Rate 43 mm/hr (0-30)
[2020-07-26 12:56] LABS: ALB/GLOB Ratio 1.1 RATIO (0.9-2.4); AST(SGOT) 48 U/L (15-37); Alanine Aminotransfer ALT/SGPT 53 U/L (13-56); Albumin, Serum 4.1 g/dL (3.2-5.0); Alkaline Phosphatase 135 U/L (45-117); Anion Gap 10 (5-15); BUN 27 mg/dL (7-18); BUN/Creat Ratio 20.5 RATIO (10-20); CRP < 2.90 mg/L (0.0-3.0); Calcium,Total 9.1 mg/dL (8.5-10.1); Chloride 106 mmol/L (98-107); Creatinine, Serum 1.32 mg/dL (0.55-1.02); EST Glomerular Filtration Rate 44 mL/min (>60); Est Glom Filt Rate - Afr Amer 54 mL/min (>60); Globulin 3.9 g/dL (2.2-4.2); Glucose 84 mg/dL (74-106); Potassium 4.5 mmol/L (3.5-5.1); Sodium Level 138 mmol/L (136-145); Thyroid Stim Hormone (TSH) 0.82 uIU/mL (0.358-3.74)
[2020-07-29 07:42] LABS: ANTINUCLEAR ANTIBODIES DIRECT Negative (Negative)
[2020-07-29 20:32] LABS: Cytoplasmic Ab (C-ANCA) <1:20 titer (Neg:<1:20); Perinuclear Ab (P-ANCA) <1:20 titer (Neg:<1:20)
== END ==
PROVIDERS: PCP Internal Medicine; Referring Provider Internal Medicine; Visit Provider Internal Medicine
DX: I77.6 Arteritis, unspecified (principal)
CPT/HCPCS: 36415; 80053; 84443; 85652; 86038; 86140; 86225; 86235; 86256

== ENCOUNTER 2020-10-17 12:23 | Emergency (ER) | payer MEDICAID, SELFPAY ==
[2020-07-26 10:00] VITALS: BMI 23.7
[2020-10-17 12:24] VITALS: BP 155/120; PULSE 123; RESP 20; TEMP 36; O2SAT 97; BMI 23.3
--- NOTE | 2020-10-17 12:40 | ED.VIS.FEGU ---
HPI HPI - Female History of Present Illness Chief Complaint: Female C/O Detail of Chief Complaint: Genital rash and dysuria Informant: patient Narrative Narrative: Patient presents with a genital rash that started yesterday. She describes a burning sensation when she urinates. Patient's noticed a little bit of vaginal discharge. She tells me she started using new toilet paper with fragrance in it and she is wondering she is allergic to it. Patient states that she is not sexually active. No history of sexually transmitted diseases or herpes. She had no fevers or recent illness. Patient states there is a foul odor to the urine. Prior similar symptoms: No PFSH PFSH Medical History Abnormal ANCA test Acute kidney injury Anxiety and depression Chronic back pain Hepatitis B Hepatitis C History of substance abuse Hydrocephalus Hypertension Migraines PTSD (post-traumatic stress disorder) Seizures Vasculitis Home Medications trazodone 50 mg tablet 50 mg PO QHS tab 07/26/20 [History Last Taken Unknown] amlodipine 5 mg tablet 5 mg PO BID 08/26/20 [History Last Taken Unknown] aspirin 81 mg chewable tablet 81 mg PO .every other day tab 08/26/20 [History Last Taken Unknown] diclofenac sodium 75 mg tablet,delayed release 75 mg PO BID PRN #60 tab 08/26/20 [Rx Last Taken Unknown] divalproex 250 mg tablet,extended release 24 hr 250 mg PO DAILY #30 tab 08/26/20 [Rx Last Taken Unknown] tizanidine 4 mg tablet See Rx Instructions PO QHS #90 tab 08/26/20 [Rx Last Taken Unknown] paroxetine HCl 20 mg tablet 20 mg PO QAM #30 tab 10/14/20 [Rx Last Taken Unknown] prednisone 20 mg PO BID #6 tablet 10/17/20 [Rx Last Taken Unknown] sulfamethoxazole-trimethoprim [Bactrim DS] 1 tab PO BID #10 tab 10/17/20 [Rx Last Taken Unknown] Allergy/AdvReac Type Severity Reaction Status Date / Time codeine Allergy Severe difficulty Verified 10/17/20 12:24 breathing latex AdvReac Unknown hives Verified 10/17/20 12:24 Family History Daughter Seizures Mother Diabetes Brother Diabetes Aunt Cancer Uncle Cancer Surgical History History of foot surgery History of hand surgery History of surgery on arm Social History Smoking Status: Current every day smoker tobacco type: cigarettes Tobacco: How many years used: 40 alcohol intake: never substance use type: former substance user Date of last use: 2 years and crack/cocaine what type of physical activity do you participate in: none ROS ROS ED Constitutional Constitutional ED: Reports systems reviewed and no addt'l complaints, except as documented; Denies body ache(s), change in weight or chills Eyes Eyes: Denies acute decrease in peripheral vision, change in vision, double vision or loss of vision ENT ENT ED: Reports none; Denies ear pain, lip swelling, loss taste/smell, neck pain, otalgia or sore throat Cardiovascular Cardiovascular: Reports none; Denies abdominal pain, chest pain with activity, leg edema, lightheadedness, palpitations, rapid heart rate or syncope Respiratory/Chest Respiratory/Chest: Reports none; Denies change in mental status, dry cough, dyspnea, hemoptysis, shortness of breath at rest or shortness of breath with exertion Gastrointestinal Gastrointestinal: Reports none; Denies abdominal pain, change in stool character, diarrhea, hematemesis, hematochezia, melena, rectal bleeding or vomiting Genitourinary Genitourinary ED: Reports none, dysuria and urinary frequency; Denies abdominal discomfort, anuria, genital pain or polyuria Musculoskeletal Musculoskeletal: Reports none; Denies arthralgias, back pain, difficulty walking, extremity pain, muscle weakness or myalgias Integumentary Reports none and rash; Denies abscess Neurologic Neurologic: Reports none; Denies abnormal gait, confusion, focal weakness, frequent falls, headache(s), loss of vision, numbness, paresthesias, radicular pain, vertigo or weakness Psychiatric Psychiatric: Reports systems reviewed and no addt'l complaints, except as documented and none; Denies behavioral changes, confusion, difficulty concentrating, hallucinations, suicidal ideation, tactile hallucinations or visual hallucinations Endocrine Endocrinology: Denies none, cold intolerance, excessive sweating, fatigue or heat intolerance Hematologic/Lymphatic Hematologic/Lymphatic: Reports none; Denies anemia, easy bleeding or easy bruising Allergic/Immunologic Allergic/Immunologic ED: Denies as per HPI, none, lip swelling, mouth swelling, throat swelling, tongue swelling or hives EXAM Physical Exam Const Vital Signs: 10/17/20 12:24 Temperature 96.8 F L Temperature Source Temporal Pulse Rate 123 H Respiratory Rate 20 H Blood Pressure 155/120 H Blood Pressure Mean 131 Pulse Ox 97 Oxygen Delivery Method Room Air Positive well nourished and well developed General Appearance ED: well developed and NAD HEENT Reports TM's clear and moist mucous membranes normocephalic and atraumatic; Negative for trauma or tenderness Tympanic Membrane ED: Yes TM's clear Eyes PERRL and EOMs intact bilaterally General Eye ED: Negative for pale conjunctiva or scleral icterus Neck no lymphadenopathy, supple and no JVD General: Negative for tenderness Chest Wall inspection of chest normal and palpation of chest normal Chest: Negative for tenderness Resp normal respiratory effort and clear to auscultation bilaterally Effort and Inspection: Negative for respiratory distress or pain with movement Auscultation: Negative for rhonchi, wheezes or diminished lung sounds Cardio regular rate, regular rhythm, S1 normal heart sound, S2 normal heart sound and no murmurs Peripheral Pulses: pulses 2+ throughout GI normal to inspection, nondistended, normoactive bowel sounds, soft to palpation, non-tender, non-distended and no masses Narrative: Evaluation of the perineum reveals some faint erythema involving the labia as well as the perineum and upper thighs. There are no blisters or vesicles noted. No significant vaginal discharge noted. Back/Spine no CVA tenderness and no thoracic nor lumbar tenderness Extremity normal to inspection General Extremety ED: Negative for edema General Extremity: Negative for edema Neuro oriented x3, CN's II-XII intact bilaterally, no sensory deficits noted and gait normal Sensorium / Orientation: awake, alert, oriented to person, oriented to place and oriented to time Motor Exam: strength 5/5 throughout and strength abnormal Psych mental status grossly normal Skin no rashes or lesions noted and no wounds MDM MDM MDM Narrative Medical decision making narrative: Patient does have some mild signs of UTI and was started on Bactrim. Patient also started on prednisone for suspected contact dermatitis of the perineum. CHI prep was negative. Patient advised to discontinue the wipes that she is currently using. She is to follow-up with her primary care physician in 3 to 5 days. She will be started on Bactrim and a prednisone. I suspect she may also have a chemical urethritis. Lab Data Labs: Laboratory Results - last 24 hr 10/17/20 12:50 Urine Color Yellow Urine Clarity Clear Urine pH 6.0 Ur Specific [place] 1.025 Urine Protein 30 H Urine Glucose (UA) Normal Urine Ketones 5 H Urine Occult Blood 10 H Urine Nitrite Negative Urine Bilirubin Negative Urine Urobilinogen 1 H Ur Leukocyte Esterase 500 H Urine RBC 0-5 SEEN Urine WBC 5-10 SEEN Ur Squamous Epith Cells 0 SEEN Urine Bacteria 1+ Urine Mucus 0 SEEN Discharge Plan Triage Chief Complaint: Female C/O ED Provider: Hosea Pope Dx/Rx/DC Orders Clinical Impression: UTI (urinary tract infection), Urethritis, nonspecific, Contact dermatitis Instructions: ED Contact Dermatitis, ED CYSTITIS Female Adult Prescriptions: New sulfamethoxazole-trimethoprim [Bactrim DS] 800-160 mg tablet 1 tab PO BID Qty: 10 RF: 0 prednisone 20 mg tablet 20 mg PO BID Qty: 6 RF: 0 No Action trazodone 50 mg tablet 50 mg PO QHS RF: 0 amlodipine 5 mg tablet 5 mg PO BID RF: 0 tizanidine 4 mg tablet See Rx Instructions PO QHS Qty: 90 RF: 3 divalproex 250 mg tablet extended release 24 hr 250 mg PO DAILY Qty: 30 RF: 3 aspirin [Gurdeep Chewable Aspirin] 81 mg tablet,chewable 81 mg PO .every other day RF: 0 diclofenac sodium 75 mg tablet,delayed release (DR/EC) 75 mg PO BID PRN (Reason: headache and pain) Qty: 60 RF: 3 paroxetine HCl 20 mg tablet 20 mg PO QAM Qty: 30 RF: 2 Primary Care Provider: Samina Joya Referrals: Samina Joya MD [Primary Care Provider] - 3-5 Days Disposition Disposition: Home, Self Care
[2020-10-17 12:58] LABS: Mucous, Urine 0 SEEN /hpf (<or=2+); Squamous Epithelial Cells - UA 0 SEEN /hpf (5-10)
[2020-10-17 13:00] LABS: Color, Urine Yellow (Yellow); Glucose, Dipstick Normal (Normal); Ketone-Dipstick 5 mg/dl (Negative); Leukocyte Esterase-Dipstick 500 /ul (Negative); Nitrite-Dipstick Negative (Negative); Occult Blood-Urine 10 /ul (Negative); Protein-Dipstick 30 mg/dl (Negative); Specific Gravity, Urine 1.025 (1.002-1.030); Urine Bilirubin Dipstick Negative (Negative); Urine Clarity Clear (Clear); Urine Urobilinogen 1 mg/dl (Normal)
[2020-10-17 13:07] LABS: Red Blood Cells-Urine 0-5 SEEN /hpf (0-5); White Blood Cells 5-10 SEEN /hpf (0-5)
[2020-10-17 13:08] LABS: Bacteria 1+ /hpf (None Seen)
[2020-10-17] MEDS: predniSONE 20 MG Tablet 40 MG PO (13:47)
[2020-10-17] MEDS: Smz/Tmp Ds Tablet 1 TABLET PO (13:47)
== END 2020-10-17 13:51 | disposition home or self-care (01) ==
PROVIDERS: Emergency Provider Emergency Medicine; PCP Internal Medicine
DX: N34.2 Other urethritis (principal); N39.0 Urinary tract infection, site not specified; L25.9 Unspecified contact dermatitis, unspecified cause; I10 Essential (primary) hypertension; F41.9 Anxiety disorder, unspecified; F32.9 Major depressive disorder, single episode, unspecified; F43.10 Post-traumatic stress disorder, unspecified; G89.29 Other chronic pain; G91.9 Hydrocephalus, unspecified; G43.909 Migraine, unspecified, not intractable, without status migrainosus; G40.909 Epilepsy, unspecified, not intractable, without status epilepticus; Z86.19 Personal history of other infectious and parasitic diseases; Z79.82 Long term (current) use of aspirin; Z79.899 Other long term (current) drug therapy; F17.210 Nicotine dependence, cigarettes, uncomplicated
CPT/HCPCS: 81001; 87210; 99283

== ENCOUNTER 2021-01-14 23:22 | Emergency (ER) | payer MEDICAID, SELFPAY ==
[2021-01-14 23:23] VITALS: PULSE 19; RESP 103; TEMP 36.5; O2SAT 95; BMI 23.4
[2021-01-14 23:35] VITALS: BP 130/110; PULSE 97; RESP 16; O2SAT 95
--- NOTE | 2021-01-14 23:36 | EDS_ITS ---
HPI HPI - GI History of Present Illness Chief Complaint: Abd Pain Narrative Narrative: Patient presents via EMS with 3 hours of abdominal pain and bloating. She states past medical history includes problems with urination/urinary retention so she gets frequent urinary tract infections. She also has hydrocephalus and states that they were talking about inserting a [employer] shunt. She states that she has to strain when she goes to the restroom. Her main concern is that her abdomen feels bloated and she is having abdominal pain over the last 3 hours. She denies any problems with bowel movements. No true exacerbating or alleviating factors. No fevers or chills. [facility] Medical History Abnormal ANCA test Acute kidney injury Anxiety and depression Chronic back pain Hepatitis B Hepatitis C History of substance abuse Hydrocephalus Hypertension Migraines PTSD (post-traumatic stress disorder) Seizures Vasculitis Home Medications aspirin 81 mg chewable tablet 81 mg PO .every other day tab 08/26/20 [History Last Taken Unknown] diclofenac sodium 75 mg tablet,delayed release 75 mg PO BID PRN #60 tab 08/26/20 [Rx Last Taken Unknown] tizanidine 4 mg tablet See Rx Instructions PO QHS #90 tab 08/26/20 [Rx Last Taken Unknown] paroxetine HCl 20 mg tablet 20 mg PO QAM #30 tab 10/14/20 [Rx Last Taken Unknown] prednisone 20 mg PO BID #6 tablet 10/17/20 [Rx Last Taken Unknown] sulfamethoxazole-trimethoprim [Bactrim DS] 1 tab PO BID #10 tab 10/17/20 [Rx Last Taken Unknown] amlodipine 5 mg tablet 5 mg PO BID #60 tab 11/18/20 [Rx Last Taken Unknown] divalproex 250 mg tablet,extended release 24 hr 250 mg PO DAILY #30 tab 11/18/20 [Rx Last Taken Unknown] trazodone 50 mg tablet 50 mg PO QHS #30 tab 11/18/20 [Rx Last Taken Unknown] Allergy/AdvReac Type Severity Reaction Status Date / Time codeine Allergy Severe difficulty Verified 01/14/21 23:37 breathing latex AdvReac Unknown hives Verified 01/14/21 23:37 Family History Daughter Seizures Mother Diabetes Brother Diabetes Aunt Cancer Uncle Cancer Surgical History History of foot surgery History of hand surgery History of surgery on arm Social History Smoking Status: Current every day smoker tobacco type: cigarettes Tobacco: How many years used: 40 alcohol intake: never substance use type: former substance user Date of last use: 2 years and crack/cocaine what type of physical activity do you participate in: none ROS ROS ED ROS Narrative Constitutional: No fever, no chills. HEENT: No sore throat. No neck pain. No loss of vision. No rhinorrhea. Cardiovascular: No chest pain. No palpitations. No pedal edema. Respiratory: No cough, no shortness of breath. Abdominal: Periumbilical, diffuse abdominal pain. No nausea. No vomiting. Positive abdominal bloating. Genitourinary: No dysuria. No hematuria. Musculoskeletal: No myalgias. No arthralgias. Neurologic: No headaches. No dizziness. No lightheadedness. Skin: No rash. No change in color. Psychiatric: No depression. No anxiety. EXAM Physical Exam Narrative Exam Narrative: Afebrile. Vital signs noted. HEENT: Normocephalic. Atraumatic. PERRL, EOMI. Neck soft and supple. No point tenderness or step off. Cardiovascular: Regular rate and rhythm. No murmurs, rubs, or gallops appreciated. Respiratory: No tachypnea. Lungs clear to auscultation bilaterally. Gastrointestinal: Abdomen soft, diffuse periumbilical tenderness, with normoactive bowel sounds. No rebound or guarding. Neurological: Awake. Alert. Nonfocal, nonlateralizing. Skin: No rash. Normal color. No pallor. Musculoskeletal: No pedal edema. Full range of motion extremities. Const Vital Signs: 01/14/21 23:23 01/14/21 23:35 Temperature 97.7 F L Temperature Source Axillary Pulse Rate 19 L 97 Respiratory Rate 103 H 16 Blood Pressure 130/110 H Blood Pressure Mean 116 Pulse Ox 95 95 Oxygen Delivery Method Room Air Room Air MDM MDM MDM Narrative Medical decision making narrative: Comprehensive work-up was pursued. Her CBC shows normal white count of 7.3, however hemoglobin is low at 7.4 with a hematocrit of 22.4. Platelet count is also low at 120. Sodium is low at 134, carbon dioxide low at 20, BUN slightly elevated at 38. This is consistent with mild dehydration. Glucose appropriately elevated at 121. Urinalysis is negative for nitrites. On microanalysis there are only 0-[address] of the abdomen and pelvis shows no acute process. After I had been involved with the critical care of another patient/cardiac arrest, I was informed by the RN that the patient eloped without any results. Disposition is eloped in stable condition. Lab Data Attestation: I reviewed the patient's lab results. Labs: Laboratory Results - last 24 hr 01/15/21 01/15/21 01/15/21 00:00 00:00 00:40 WBC 7.3 RBC 2.42 L Hgb 7.4 L Hct 22.4 L MCV 92.6 MCH 30.6 MCHC 33.0 RDW Std Deviation 45.4 H RDW Coeff of Chuck 13.3 Plt Count 120 L MPV 9.0 Immature Gran % (Auto) 0.400 Neut % (Auto) 73.5 H Lymph % (Auto) 17.6 L [place] % (Auto) 8.1 Eos % (Auto) 0.3 Baso % (Auto) 0.1 Absolute Neuts (auto) 5.4 Absolute Lymphs (auto) 1.29 Nucleated RBC % 0.3 Sodium 134 L Potassium 3.7 Chloride 104 Carbon Dioxide 20.0 L Anion Gap 10 BUN 38 H Creatinine 1.02 Estim Creat Clear Calc 57.65 Est GFR (MDRD) Af Amer 72 Est GFR (MDRD) Non-Af 59 L BUN/Creatinine Ratio 37.3 H Glucose 121 H Calcium 8.3 L Total Bilirubin 1.20 H AST 46 H ALT 51 Alkaline Phosphatase 102 Total Protein 7.9 Albumin 3.6 Globulin 4.3 H Albumin/Globulin Ratio 0.8 L Lipase 102 Urine Color Yellow Urine Clarity Clear Urine pH 5.0 Ur Specific [place] 1.025 Urine Protein 100 H Urine Glucose (UA) Normal Urine Ketones 50 H Urine Occult Blood 25 H Urine Nitrite Negative Urine Bilirubin 1 H Urine Urobilinogen 1 H Ur Leukocyte Esterase 25 H Urine RBC 0-5 SEEN Urine WBC 0-5 SEEN Ur Squamous Epith Cells 0-5 SEEN Urine Bacteria 1+ Hyaline Casts 0-5 SEEN Urine Mucus 0 SEEN Radiography Diagnostic Testing: Clinical Impression(s) from Imaging Studies Abdomen/Pelvis CT 01/15/21 23:29 IMPRESSION: Normal unenhanced CT of the abdomen and pelvis. Electronically Signed: Maximo Figueroa DO at 1:06 EST Tel , Service support , Discharge Plan Triage Chief Complaint: Abd Pain ED Provider: Berto Akins Dx/Rx/DC Orders Prescriptions: No Action tizanidine 4 mg tablet See Rx Instructions PO QHS Qty: 90 RF: 3 aspirin [Gurdeep Chewable Aspirin] 81 mg tablet,chewable 81 mg PO .every other day RF: 0 diclofenac sodium 75 mg tablet,delayed release (DR/EC) 75 mg PO BID PRN (Reason: headache and pain) Qty: 60 RF: 3 sulfamethoxazole-trimethoprim [Bactrim DS] 800-160 mg tablet 1 tab PO BID Qty: 10 RF: 0 prednisone 20 mg tablet 20 mg PO BID Qty: 6 RF: 0 paroxetine HCl 20 mg tablet 20 mg PO QAM Qty: 30 RF: 2 amlodipine 5 mg tablet 5 mg PO BID Qty: 60 RF: 2 divalproex 250 mg tablet extended release 24 hr 250 mg PO DAILY Qty: 30 RF: 2 trazodone 50 mg tablet 50 mg PO QHS Qty: 30 RF: 2 Primary Care Provider: Samina Joya Referrals: Samina Joya MD [Primary Care Provider] - Disposition Disposition: Elopement Discharge Date/Time: 01/15/21 02:07
[2021-01-15 00:11] LABS: Absolute Lymphocyte Count 1.29 X10^3/uL (0.83-4.51); Absolute Neutrophil Count 5.4 X10^3/uL (2.0-7.7); Basophil# 0.01 X10^3/uL; Basophil% 0.1 % (0-1); Eosinophil# 0.02 X10^3/uL; Eosinophils% 0.3 % (0-5); Hematocrit 22.4 % (37-47); Hemoglobin 7.4 g/dL (12.0-15.0); Lymphocyte # 1.29 X10^3/ul (0.83-4.51); Lymphocyte % 17.6 % (19-41); Mean Corpuscular Hgb 30.6 pg (27.0-32.0); Mean Corpuscular Volume 92.6 fL (81-99); Monocyte# 0.59 X10^3/uL; Monocyte% 8.1 % (0-10); NRBC Flagged by Analyzer 0.3 % (0-5); Neutrophil # 5.37 X10^3/uL (2.7-7.7); Neutrophil % 73.5 % (47-70); Platelet Count 120 K/mm3 (150-450); RBC Distribution Width CV 13.3 % (11.6-14.6); RBC Distribution Width SD 45.4 fl (35.1-43.9); Red Blood Count 2.42 M/mm3 (4.2-5.4); White Blood Count 7.3 K/mm3 (4.4-11.0)
[2021-01-15 00:35] LABS: ALB/GLOB Ratio 0.8 RATIO (0.9-2.4); AST(SGOT) 46 U/L (15-37); Alanine Aminotransfer ALT/SGPT 51 U/L (13-56); Albumin, Serum 3.6 g/dL (3.2-5.0); Alkaline Phosphatase 102 U/L (45-117); Anion Gap 10 (5-15); BUN 38 mg/dL (7-18); BUN/Creat Ratio 37.3 RATIO (10-20); Calcium,Total 8.3 mg/dL (8.5-10.1); Chloride 104 mmol/L (98-107); Creatinine, Serum 1.02 mg/dL (0.55-1.02); EST Glomerular Filtration Rate 59 mL/min (>60); Est Glom Filt Rate - Afr Amer 72 mL/min (>60); Estimated Creatinine Clearance 57.65 ml/min; Globulin 4.3 g/dL (2.2-4.2); Glucose 121 mg/dL (74-106); Lipase 102 U/L (73-393); Potassium 3.7 mmol/L (3.5-5.1); Protein, Total 7.9 g/dL (6.4-8.2); Sodium Level 134 mmol/L (136-145)
[2021-01-15 00:45] LABS: Mucous, Urine 0 SEEN /hpf (<or=2+)
[2021-01-15 00:46] LABS: Color, Urine Yellow (Yellow); Glucose, Dipstick Normal (Normal); Ketone-Dipstick 50 mg/dl (Negative); Leukocyte Esterase-Dipstick 25 /ul (Negative); Nitrite-Dipstick Negative (Negative); Occult Blood-Urine 25 /ul (Negative); Protein-Dipstick 100 mg/dl (Negative); Specific Gravity, Urine 1.025 (1.002-1.030); Urine Clarity Clear (Clear); Urine Urobilinogen 1 mg/dl (Normal)
[2021-01-15 00:50] LABS: Urine Bilirubin Dipstick 1 mg/dL (Negative)
[2021-01-15 00:56] LABS: Red Blood Cells-Urine 0-5 SEEN /hpf (0-5); Squamous Epithelial Cells - UA 0-5 SEEN /hpf (5-10); White Blood Cells 0-5 SEEN /hpf (0-5)
[2021-01-15 00:57] LABS: Bacteria 1+ /hpf (None Seen); Hyaline Cast 0-5 SEEN /lpf (0-5)
--- NOTE | 2021-01-15 01:14 | ED.RN ---
PT STATES SHE IS LEAVING, [facility] IS BEING TAKEN TO [facility]. PT AWARE SHE HAS NOT BEEN GIVEN RESULTS OR DISCHARGED. VOICES UNDERSTANDING THAT SHE MAY RISK SERIOUS ILLNESS UP TO AND INCLUDING . STATES SHE WILL RETURN FOR ANY CONCERNS.
--- NOTE | 2021-01-15 01:16 | ED.RN ---
IV REMOVED, INTACT.
--- NOTE | 2021-01-15 23:29 | CT_ITS ---
STUDY: CT ABDOMEN AND PELVIS WITHOUT CONTRAST REASON FOR EXAM: Female, 55 years old. Pain RADIATION DOSAGE (If Supplied By Facility): CTDIvol = ( 6.93 ) mGy, DLP = ( 330.53 ) mGycm TECHNIQUE: Transaxial images were obtained from the dome of the diaphragm to the symphysis pubis without oral contrast, and without intravenous contrast. Sagittal and coronal images were reconstructed. Individualized dose optimization techniques were used for this CT. COMPARISON: None. FINDINGS: The visualized lung bases are unremarkable. The visualized portions of the heart are within normal limits. Normal liver. Normal gallbladder and extrahepatic biliary system. Normal spleen. Normal pancreas. Normal bilateral adrenal glands. Normal right kidney. Normal left kidney. Normal visualized stomach. Normal small intestine. There are multiple colonic diverticula consistent with diverticulosis. The appendix is visualized and appears normal. Normal abdominal aorta. Normal inferior vena cava. Normal retroperitoneum. Normal urinary bladder. Normal visualized uterus. Normal abdominal wall. There are diffuse degenerative changes of the visualized lumbar spine. CT/Abdomen/Pelvis without Cont IMPRESSION: Normal unenhanced CT of the abdomen and pelvis. Electronically Signed: Maximo Figueroa DO at 1:06 EST Tel , Service support ,
== END 2021-01-15 02:07 | disposition left against medical advice (07) ==
PROVIDERS: Emergency Provider Emergency Medicine; PCP Internal Medicine
DX: R10.9 Unspecified abdominal pain (principal); Z53.21 Procedure and treatment not carried out due to patient leaving prior to being seen by health care provider; I10 Essential (primary) hypertension; F32.A Depression, unspecified; F43.10 Post-traumatic stress disorder, unspecified; G89.29 Other chronic pain; G91.9 Hydrocephalus, unspecified; G43.909 Migraine, unspecified, not intractable, without status migrainosus; G40.909 Epilepsy, unspecified, not intractable, without status epilepticus; Z87.440 Personal history of urinary (tract) infections; Z79.82 Long term (current) use of aspirin; Z79.899 Other long term (current) drug therapy; F17.210 Nicotine dependence, cigarettes, uncomplicated
CPT/HCPCS: 74176; 80053; 81001; 83690; 85025; 96361; 96374; 96375; 99284; 99285; A4216

== ENCOUNTER 2021-01-15 07:22 | Emergency (ER) | payer MEDICAID, SELFPAY ==
[2021-01-15 07:25] VITALS: BP 157/111; PULSE 88; RESP 19; TEMP 35.8; O2SAT 95; BMI 23.9
--- NOTE | 2021-01-15 07:46 | EDS_ITS ---
HPI HPI - GI History of Present Illness Chief Complaint: Abd Pain Detail of Chief Complaint: Abdominal pain that started 2 hours ago Informant: patient Narrative Narrative: Patient presents with abdominal pain is her about 2 hours ago. Patient complains of some chills and some sweats. Patient states that she just finished antibiotics recently for a UTI and states that her she was told that her bladder did not empty properly. Patient also states that she has had some dark runny stools since yesterday. She denies any fevers. She describes some dysuria. Patient did have 1 episode of vomiting yesterday but none since. She describes a mild nausea. She is not had any abdominal surgeries in the past. She denies sick contacts. Patient has had the Covid vaccine. [facility] Medical History Abnormal ANCA test Acute kidney injury Anxiety and depression Chronic back pain Hepatitis B Hepatitis C History of substance abuse Hydrocephalus Hypertension Migraines PTSD (post-traumatic stress disorder) Seizures Vasculitis Home Medications aspirin 81 mg chewable tablet 81 mg PO .every other day tab 08/26/20 [History Last Taken Unknown] diclofenac sodium 75 mg tablet,delayed release 75 mg PO BID PRN #60 tab 08/26/20 [Rx Last Taken Unknown] tizanidine 4 mg tablet See Rx Instructions PO QHS #90 tab 08/26/20 [Rx Last Taken Unknown] paroxetine HCl 20 mg tablet 20 mg PO QAM #30 tab 10/14/20 [Rx Last Taken Unknown] prednisone 20 mg PO BID #6 tablet 10/17/20 [Rx Last Taken Unknown] sulfamethoxazole-trimethoprim [Bactrim DS] 1 tab PO BID #10 tab 10/17/20 [Rx Last Taken Unknown] amlodipine 5 mg tablet 5 mg PO BID #60 tab 11/18/20 [Rx Last Taken Unknown] divalproex 250 mg tablet,extended release 24 hr 250 mg PO DAILY #30 tab 11/18/20 [Rx Last Taken Unknown] trazodone 50 mg tablet 50 mg PO QHS #30 tab 11/18/20 [Rx Last Taken Unknown] Allergy/AdvReac Type Severity Reaction Status Date / Time codeine Allergy Severe difficulty Verified 01/15/21 07:23 breathing latex AdvReac Unknown hives Verified 01/15/21 07:23 Family History Daughter Seizures Mother Diabetes Brother Diabetes Aunt Cancer Uncle Cancer Surgical History History of foot surgery History of hand surgery History of surgery on arm Social History Smoking Status: Current every day smoker tobacco type: cigarettes Tobacco: How many years used: 40 alcohol intake: never substance use type: former substance user Date of last use: 2 years and crack/cocaine what type of physical activity do you participate in: none ROS ROS ED Constitutional Constitutional ED: Reports systems reviewed and no addt'l complaints, except as documented; Denies body ache(s), change in weight or chills Eyes Eyes: Denies acute decrease in peripheral vision, change in vision, double vision or loss of vision ENT ENT ED: Reports none; Denies ear pain, lip swelling, loss taste/smell, neck pain, otalgia or sore throat Cardiovascular Cardiovascular: Reports none; Denies abdominal pain, chest pain with activity, leg edema, lightheadedness, palpitations, rapid heart rate or syncope Respiratory/Chest Respiratory/Chest: Reports none; Denies change in mental status, dry cough, dyspnea, hemoptysis, shortness of breath at rest or shortness of breath with exertion Gastrointestinal Gastrointestinal: Reports none, abdominal pain, diarrhea and nausea; Denies change in stool character, hematemesis, hematochezia, melena, rectal bleeding or vomiting Genitourinary Genitourinary ED: Reports none; Denies abdominal discomfort, anuria, dysuria, genital pain or polyuria Musculoskeletal Musculoskeletal: Reports none; Denies arthralgias, back pain, difficulty walking, extremity pain, muscle weakness or myalgias Integumentary Reports none; Denies abscess or rash Neurologic Neurologic: Reports none; Denies abnormal gait, confusion, focal weakness, frequent falls, headache(s), loss of vision, numbness, paresthesias, radicular pain, vertigo or weakness Psychiatric Psychiatric: Reports systems reviewed and no addt'l complaints, except as documented and none; Denies behavioral changes, confusion, difficulty concentrating, hallucinations, suicidal ideation, tactile hallucinations or visual hallucinations Endocrine Endocrinology: Denies none, cold intolerance, excessive sweating, fatigue or heat intolerance Hematologic/Lymphatic Hematologic/Lymphatic: Reports none; Denies anemia, easy bleeding or easy br uising Allergic/Immunologic Allergic/Immunologic ED: Denies as per HPI, none, lip swelling, mouth swelling, throat swelling, tongue swelling or hives EXAM Physical Exam Const Vital Signs: 01/15/21 07:25 Temperature 96.4 F L Temperature Source Temporal Pulse Rate 88 Respiratory Rate 19 H Blood Pressure 157/111 H Blood Pressure Mean 126 Pulse Ox 95 Oxygen Delivery Method Room Air Positive well nourished and well developed General Appearance ED: well developed and NAD HEENT Reports TM's clear and moist mucous membranes normocephalic and atraumatic; Negative for trauma or tenderness Tympanic Membrane ED: Yes TM's clear Eyes PERRL and EOMs intact bilaterally General Eye ED: Negative for pale conjunctiva or scleral icterus Neck no lymphadenopathy, supple and no JVD General: Negative for tenderness Chest Wall inspection of chest normal and palpation of chest normal Chest: Negative for tenderness Resp normal respiratory effort and clear to auscultation bilaterally Effort and Inspection: Negative for respiratory distress or pain with movement Auscultation: Negative for rhonchi, wheezes or diminished lung sounds Cardio regular rate, regular rhythm, S1 normal heart sound, S2 normal heart sound and no murmurs Peripheral Pulses: pulses 2+ throughout GI normal to inspection, nondistended, normoactive bowel sounds, soft to palpation, non-distended and no masses GI Narrative: Patient with diffuse abdominal pain on exam. There are some diffuse guarding. There is no rebound, rigidity, or peritoneal signs. Back/Spine no CVA tenderness and no thoracic nor lumbar tenderness Extremity normal to inspection General Extremety ED: Negative for edema General Extremity: Negative for edema Neuro oriented x3, CN's II-XII intact bilaterally, no sensory deficits noted and gait normal Sensorium / Orientation: awake, alert, oriented to person, oriented to place and oriented to time Motor Exam: strength 5/5 throughout and strength abnormal Psych mental status grossly normal Skin no rashes or lesions noted and no wounds MDM MDM MDM Narrative Medical decision making narrative: IV line established on arrival. Patient was medicated morphine and Zofran. Found out later in the visit that patient was just seen in the emergency department several hours ago and left prior to her results being given to her. She had blood work as well as a CT scan of her abdomen pelvis without contrast. The scan that I ordered was canceled and it was noted that her CT few hours ago was essentially normal. I did order stool for C. difficile and enteric pathogens however she is unable to produce a sample here. I will write her a prescription to bring in a sample to the lab. At this point etiology of her abdominal pain is unclear but she states she gets something sim ilar every 6 months. Patient also will be referred to GI for follow-up. Patient also noted to be positive for cocaine on her tox screen. Lab Data Attestation: I reviewed the patient's lab results. Labs: Laboratory Results - last 24 hr 01/15/21 01/15/21 01/15/21 07:40 07:40 08:20 WBC 12.8 H RBC 4.88 Hgb 14.9 Hct 43.1 MCV 88.3 MCH 30.5 MCHC 34.6 RDW Std Deviation 43.2 RDW Coeff of Chuck 13.2 Plt Count 268 MPV 9.1 Immature Gran % (Auto) 0.300 Neut % (Auto) 70.2 H Lymph % (Auto) 19.2 [place] % (Auto) 9.6 Eos % (Auto) 0.4 Baso % (Auto) 0.3 Absolute Neuts (auto) 9.0 H Absolute Lymphs (auto) 2.47 Nucleated RBC % 0 Sodium Potassium Chloride Carbon Dioxide Anion Gap BUN Creatinine Estim Creat Clear Calc Est GFR (MDRD) Af Amer Est GFR (MDRD) Non-Af BUN/Creatinine Ratio Glucose Lactic Acid Calcium Total Bilirubin AST ALT Alkaline Phosphatase Total Protein Albumin Globulin Albumin/Globulin Ratio Lipase Urine Color Yellow Urine Clarity Sl. Cloudy Urine pH 5.0 Ur Specific [place] 1.025 Urine Protein 100 H Urine Glucose (UA) Normal Urine Ketones 15 H Urine Occult Blood 25 H Urine Nitrite Negative Urine Bilirubin Negative Urine Urobilinogen Normal Ur Leukocyte Esterase 25 H Urine RBC 0-5 SEEN Urine WBC 0-5 SEEN Ur Squamous Epith Cells 5-10 SEEN Urine Bacteria 1+ Urine Mucus 0 SEEN Urine Opiates Screen NEGATIVE Urine Methadone Screen NEGATIVE Ur Barbiturates Screen NEGATIVE Ur Phencyclidine Scrn NEGATIVE Ur Amphetamines Screen NEGATIVE U Methamphetamin-MDMA NEGATIVE U Benzodiazepines Scrn NEGATIVE Urine Cocaine Screen POSITIVE H U Cannabinoids Screen POSITIVE H Ur Drug Screen Comment 01/15/21 01/15/21 08:20 08:20 WBC RBC Hgb Hct MCV MCH MCHC RDW Std Deviation RDW Coeff of Chuck Plt Count MPV Immature Gran % (Auto) Neut % (Auto) Lymph % (Auto) [place] % (Auto) Eos % (Auto) Baso % (Auto) Absolute Neuts (auto) Absolute Lymphs (auto) Nucleated RBC % Sodium 133 L Potassium 3.1 L Chloride 100 Carbon Dioxide 25.0 Anion Gap 8 BUN 37 H Creatinine 1.02 Estim Creat Clear Calc 57.65 Est GFR (MDRD) Af Amer 72 Est GFR (MDRD) Non-Af 59 L BUN/Creatinine Ratio 36.3 H Glucose 106 Lactic Acid 0.7 Calcium 9.2 Total Bilirubin 1.20 H AST 47 H ALT 51 Alkaline Phosphatase 101 Total Protein 8.4 H Albumin 3.8 Globulin 4.6 H Albumin/Globulin Ratio 0.8 L Lipase 81 Urine Color Urine Clarity Urine pH Ur Specific [place] Urine Protein Urine Glucose (UA) Urine Ketones Urine Occult Blood Urine Nitrite Urine Bilirubin Urine Urobilinogen Ur Leukocyte Esterase Urine RBC Urine WBC Ur Squamous Epith Cells Urine Bacteria Urine Mucus Urine Opiates Screen Urine Methadone Screen Ur Barbiturates Screen Ur Phencyclidine Scrn Ur Amphetamines Screen U Methamphetamin-MDMA U Benzodiazepines Scrn Urine Cocaine Screen U Cannabinoids Screen Ur Drug Screen Comment Discharge Plan Triage Chief Complaint: Abd Pain ED Provider: Hosea Pope Dx/Rx/DC Orders Clinical Impression: Abdominal pain, Diarrhea Instructions: Abdominal Pain, ED Diarrhea, Unknown Cause Prescriptions: No Action tizanidine 4 mg tablet See Rx Instructions PO QHS Qty: 90 RF: 3 aspirin [Gurdeep Chewable Aspirin] 81 mg tablet,chewable 81 mg PO .every other day RF: 0 diclofenac sodium 75 mg tablet,delayed release (DR/EC) 75 mg PO BID PRN (Reason: headache and pain) Qty: 60 RF: 3 sulfamethoxazole-trimethoprim [Bactrim DS] 800-160 mg tablet 1 tab PO BID Qty: 10 RF: 0 prednisone 20 mg tablet 20 mg PO BID Qty: 6 RF: 0 paroxetine HCl 20 mg tablet 20 mg PO QAM Qty: 30 RF: 2 amlodipine 5 mg tablet 5 mg PO BID Qty: 60 RF: 2 divalproex 250 mg tablet extended release 24 hr 250 mg PO DAILY Qty: 30 RF: 2 trazodone 50 mg tablet 50 mg PO QHS Qty: 30 RF: 2 Primary Care Provider: Samina Joya Referrals: Samina Joya MD [Primary Care Provider] - 3-5 Days Friend,DO Bandar [STAFF PHYSICIAN] - 3-5 Days Disposition Disposition: Home, Self Care
[2021-01-15 07:48] LABS: Mucous, Urine 0 SEEN /hpf (<or=2+)
[2021-01-15 08:10] LABS: Color, Urine Yellow (Yellow); Glucose, Dipstick Normal (Normal); Ketone-Dipstick 15 mg/dl (Negative); Leukocyte Esterase-Dipstick 25 /ul (Negative); Nitrite-Dipstick Negative (Negative); Occult Blood-Urine 25 /ul (Negative); Protein-Dipstick 100 mg/dl (Negative); Specific Gravity, Urine 1.025 (1.002-1.030); Urine Bilirubin Dipstick Negative (Negative); Urine Clarity Sl. Cloudy (Clear); Urine Urobilinogen Normal (Normal)
[2021-01-15 08:17] LABS: Bacteria 1+ /hpf (None Seen); Red Blood Cells-Urine 0-5 SEEN /hpf (0-5); Squamous Epithelial Cells - UA 5-10 SEEN /hpf (5-10); White Blood Cells 0-5 SEEN /hpf (0-5)
[2021-01-15] MEDS: 0.9% Normal Saline 1,000 ML 125 ML IV (08:21)
[2021-01-15] MEDS: Ondansetron 4 MG/2 ML Vial IV (08:21)
[2021-01-15] MEDS: Morphine 4 MG/ML Syringe IV (08:21)
[2021-01-15 08:26] LABS: Amphetamine Urine VISTA NEGATIVE (<1000 ng/mL); Barbiturate Urine VISTA NEGATIVE (< 200 ng/mL); Benzodiazepine Urine VISTA NEGATIVE (< 200 ng/mL); Cocaine Urine VISTA POSITIVE (< 300 ng/mL); Ecstacy Urine VISTA NEGATIVE (< 500 ng/mL); Methadone Urine VISTA NEGATIVE (< 300 ng/mL); PCP Urine VISTA NEGATIVE (< 25 ng/mL); THC Urine VISTA POSITIVE (< 50 ng/mL); Vista UDS pH Range 5
[2021-01-15 08:28] LABS: Absolute Lymphocyte Count 2.47 X10^3/uL (0.83-4.51); Basophil# 0.04 X10^3/uL; Basophil% 0.3 % (0-1); Eosinophil# 0.05 X10^3/uL; Eosinophils% 0.4 % (0-5); Hematocrit 43.1 % (37-47); Hemoglobin 14.9 g/dL (12.0-15.0); Lymphocyte # 2.47 X10^3/ul (0.83-4.51); Lymphocyte % 19.2 % (19-41); Mean Corp Hgb Conc 34.6 g/dL (32-36); Mean Corpuscular Hgb 30.5 pg (27.0-32.0); Mean Corpuscular Volume 88.3 fL (81-99); Mean Platelet Vol. 9.1 fl (6.2-12.0); Monocyte# 1.23 X10^3/uL; Monocyte% 9.6 % (0-10); NRBC Flagged by Analyzer 0 % (0-5); Neutrophil # 9.01 X10^3/uL (2.7-7.7); Neutrophil % 70.2 % (47-70); Platelet Count 268 K/mm3 (150-450); RBC Distribution Width CV 13.2 % (11.6-14.6); RBC Distribution Width SD 43.2 fl (35.1-43.9); Red Blood Count 4.88 M/mm3 (4.2-5.4); White Blood Count 12.8 K/mm3 (4.4-11.0)
[2021-01-15 09:01] LABS: ALB/GLOB Ratio 0.8 RATIO (0.9-2.4); AST(SGOT) 47 U/L (15-37); Alanine Aminotransfer ALT/SGPT 51 U/L (13-56); Albumin, Serum 3.8 g/dL (3.2-5.0); Alkaline Phosphatase 101 U/L (45-117); Anion Gap 8 (5-15); BUN 37 mg/dL (7-18); BUN/Creat Ratio 36.3 RATIO (10-20); Calcium,Total 9.2 mg/dL (8.5-10.1); Chloride 100 mmol/L (98-107); Creatinine, Serum 1.02 mg/dL (0.55-1.02); EST Glomerular Filtration Rate 59 mL/min (>60); Est Glom Filt Rate - Afr Amer 72 mL/min (>60); Estimated Creatinine Clearance 57.65 ml/min; Globulin 4.6 g/dL (2.2-4.2); Glucose 106 mg/dL (74-106); Lactic Acid 0.7 mmol/L (0.4-1.9); Lipase 81 U/L (73-393); Potassium 3.1 mmol/L (3.5-5.1); Protein, Total 8.4 g/dL (6.4-8.2); Sodium Level 133 mmol/L (136-145)
[2021-01-15 09:25] VITALS: RESP 18
== END 2021-01-15 09:25 | disposition home or self-care (01) ==
PROVIDERS: Emergency Provider Emergency Medicine; PCP Internal Medicine
DX: R19.7 Diarrhea, unspecified (principal); R10.9 Unspecified abdominal pain; I10 Essential (primary) hypertension; F32.A Depression, unspecified; F43.10 Post-traumatic stress disorder, unspecified; G89.29 Other chronic pain; G91.9 Hydrocephalus, unspecified; G43.909 Migraine, unspecified, not intractable, without status migrainosus; G40.909 Epilepsy, unspecified, not intractable, without status epilepticus; Z87.440 Personal history of urinary (tract) infections; Z79.82 Long term (current) use of aspirin; Z79.899 Other long term (current) drug therapy; F17.210 Nicotine dependence, cigarettes, uncomplicated
CPT/HCPCS: 80053; 80307; 81001; 82274; 83605; 83690; 85025; J7030; A4216; J2405

== ENCOUNTER 2021-04-07 09:47 | Outpatient (CLI) | payer MEDICAID, SELFPAY ==
[2021-04-07 09:50] LABS: Mucous, Urine 0 SEEN /hpf (<or=2+); Red Blood Cells-Urine 0 SEEN /hpf (0-5); Squamous Epithelial Cells - UA 0 SEEN /hpf (5-10)
[2021-04-07 12:43] LABS: Color, Urine Yellow (Yellow); Glucose, Dipstick Normal (Normal); Ketone-Dipstick Negative (Negative); Leukocyte Esterase-Dipstick 25 /ul (Negative); Nitrite-Dipstick Negative (Negative); Occult Blood-Urine Negative /ul (Negative); Protein-Dipstick 15 mg/dl (Negative); Specific Gravity, Urine 1.025 (1.002-1.030); Urine Bilirubin Dipstick Negative (Negative); Urine Clarity Clear (Clear); Urine Urobilinogen Normal (Normal)
[2021-04-07 12:54] LABS: Bacteria RARE /hpf (None Seen); White Blood Cells 0-5 SEEN /hpf (0-5)
[2021-04-07 13:24] LABS: HIV - WCH Non-Reactive (Nonreactive); Syphilis Antibodies Non-reactive
[2021-04-08 21:07] LABS: HCV Quant. RNA PCR 6180000 IU/mL (.); HEPATITIS B SURFACE AG Negative (Negative); Hepatitis A AB, Total Negative (Negative); Hepatitis A IgM Antibody Negative (Negative); Hepatitis B Core AB IgM Negative (Negative); Hepatitis B Core Ab Total Positive (Negative); Hepatitis Be Ab Positive (Negative); Hepatitis Be Ag Negative (Negative)
[2021-04-10 12:31] LABS: HPV APTIMA, High Risk Negative (Negative)
[2021-04-10 12:34] LABS: HCV log 10 6.791 (.)
[2021-04-11 19:15] LABS: HPV Reflexed? YES, CHARGE PATIENT
== END 2021-04-07 23:59 | disposition short-term general hospital (02) ==
LOC: LAB.FUTURE 09:47 → BIMLAB 04-08 11:15
PROVIDERS: PCP Internal Medicine; Visit Provider Physician Assistant
DX: Z12.4 Encounter for screening for malignant neoplasm of cervix (principal); Z11.3 Encounter for screening for infections with a predominantly sexual mode of transmission; N89.8 Other specified noninflammatory disorders of vagina; Z78.0 Asymptomatic menopausal state
CPT/HCPCS: 36415; 81001; 86703; 86704; 86705; 86706; 86707; 86708; 86709; 86780; 87070; 87205; 87340; 87350; 87522; 87624; 88175; G0145

== ENCOUNTER 2021-05-16 03:34 | Emergency (ER) | payer MEDICAID, SELFPAY ==
[2021-05-16 03:35] VITALS: BP 135/97; PULSE 79; RESP 18; TEMP 36.4; O2SAT 98; BMI 25.8
--- NOTE | 2021-05-16 03:56 | ED.RN ---
0335 PT MOVING ALL OVER THE BED,SMACKING HER LIPS,ARMS MOVING ABOUT THE BED.ASKED THE PT IF SHE HAD TAKEN ANY UNUSUAL MEDICATION TONIGHT.PT RESPONDED,I HAVE BEEN CLEAN. I HATE THIS FUCKING HOSPITAL EVERY TIME I COME HERE THEY ACCUSE ME OF USING DRUGS. I AM LEAVING THIS STUPID HOSPITAL! PT WENT TO THE NURSE'S DESK AND STATED SHE WANTED A RIDE NOW! PT CALLED THIS NURSE,UNPROFESSIONAL. DID NOT ENGAGE WITH THIS PT. ANYTHING THIS NURSE SAID MADE HER FURTHER ANGRIER. PT WAS AT THE DESK WITH HER ARMS FLAILING ABOUT RANDOMLY.
== END 2021-05-16 03:40 | disposition left against medical advice (07) ==
LOC: ED 03:43
PROVIDERS: PCP Internal Medicine
DX: Z53.21 Procedure and treatment not carried out due to patient leaving prior to being seen by health care provider (principal)

== ENCOUNTER 2021-06-26 00:59 | Emergency (ER) | payer MEDICAID, SELFPAY ==
[2021-06-26 01:00] VITALS: BP 145/100; PULSE 91; RESP 18; TEMP 36.4; O2SAT 94; BMI 23.1
--- NOTE | 2021-06-26 01:10 | RAD_ITS ---
EXAM: XR ABDOMEN, 2 VIEWS AND XR CHEST, 1 VIEW CLINICAL INDICATION: abd pain TECHNIQUE: Frontal view of the chest, frontal view of the abdomen/pelvis and upright or decubitus view of the abdomen. This report was created using [employer] report generation technology. COMPARISON: Chest x-ray 10/17/2019. FINDINGS: CHEST: LUNGS AND PLEURAL SPACES: Unremarkable. No consolidation or edema. No pneumothorax. No effusion. HEART: Unremarkable. Cardiac silhouette not enlarged. MEDIASTINUM: Central airways and mediastinal contour are unremarkable. ABDOMEN: INTRAPERITONEAL SPACE: No free air. GASTROINTESTINAL TRACT: Air-fluid level in the ascending colon that may be related to diarrheal disorder. Non-obstructive. No bowel or stomach distention. ORGANS: Unremarkable as visualized. No organomegaly. No abnormal calcifications. TUBES, LINES AND DEVICES: None. BONES/JOINTS: Moderate degenerative changes in the lower lumbar spine with mild scoliosis convex to the right. SOFT TISSUES: No acute findings. RAD/Acute Abdomen Inc Chest IMPRESSION: 1. Air-fluid level in the ascending colon that may be related to diarrheal disorder. 2. Moderate degenerative changes in the lower lumbar spine with mild scoliosis convex to the right. Electronically Signed: Harlan Madison MD at 2:05 EDT ,
--- NOTE | 2021-06-26 01:12 | EX.ED.DYSGE1 ---
HPI History of Present Illness Chief Complaint: Constipation Informant: patient Onset/Context/Timing Onset: Days Context: Gradual Onset Current Severity: Moderate Maximum Severity: Moderate Narrative Narrative: Patient presents via EMS secondary to abdominal pain and constipation. She reports not having a bowel movement for the past several days but she is passing a lot of gas. She complains of diffuse abdominal cramping. She does report dysuria. She complains of her whole body feeling weak and fatigued. No fever or chills. [facility] Medical History Abnormal ANCA test Acute kidney injury Anxiety and depression Chronic back pain Hepatitis B Hepatitis C History of substance abuse Hydrocephalus Hypertension Migraines PTSD (post-traumatic stress disorder) Vasculitis Home Medications aspirin 81 mg chewable tablet 81 mg PO .every other day tab 08/26/20 [History Last Taken Unknown] diclofenac sodium 75 mg tablet,delayed release 75 mg PO BID PRN #60 tab 08/26/20 [Rx Last Taken Unknown] amlodipine 5 mg tablet 5 mg PO BID #60 tab 02/25/21 [Rx Last Taken Unknown] divalproex 250 mg tablet,extended release 24 hr 250 mg PO DAILY #30 tab 02/25/21 [Rx Last Taken Unknown] tizanidine 4 mg tablet See Rx Instructions PO QHS #90 tab 02/25/21 [Rx Last Taken Unknown] trazodone 50 mg tablet 50 mg PO QHS #30 tab 02/25/21 [Rx Last Taken Unknown] paroxetine HCl 20 mg tablet 20 mg PO QAM #30 tab 05/22/21 [Rx Last Taken Unknown] magnesium citrate 300 ml PO DAILY PRN #296 ml 06/26/21 [Rx Last Taken Unknown] sulfamethoxazole-trimethoprim [Bactrim DS] 1 tab PO BID #6 tab 06/26/21 [Rx Last Taken Unknown] Allergy/AdvReac Type Severity Reaction Status Date / Time codeine Allergy Severe difficulty Verified 06/26/21 01:05 breathing latex AdvReac Unknown hives Verified 06/26/21 01:05 Family History Daughter Seizures Mother Diabetes Brother Diabetes Aunt Cancer Uncle Cancer Surgical History History of foot surgery History of hand surgery History of surgery on arm Social History Smoking Status: Current every day smoker tobacco type: cigarettes Tobacco: How many years used: 40 alcohol intake: never substance use type: former substance user Date of last use: 2 years and crack/cocaine what type of physical activity do you participate in: none ROS ROS ED Constitutional Constitutional ED: Denies chills or fever(s) Eyes Eyes: Denies change in vision ENT ENT ED: Denies sore throat Cardiovascular Cardiovascular: Denies chest pain Respiratory/Chest Respiratory/Chest: Denies cough or dyspnea Gastrointestinal Gastrointestinal: Reports abdominal pain and constipation; Denies nausea or vomiting Genitourinary Genitourinary ED: Reports dysuria Musculoskeletal Musculoskeletal: Reports back pain Integumentary Denies rash Neurologic Neurologic: Reports weakness; Denies headache(s) Allergic/Immunologic Allergic/Immunologic ED: Denies urticaria EXAM Physical Exam Const Vital Signs: 06/26/21 01:00 Temperature 97.6 F L Temperature Source Temporal Pulse Rate 91 Respiratory Rate 18 Blood Pressure 145/100 H Blood Pressure Mean 115 Pulse Ox 94 Oxygen Delivery Method Room Air Positive well nourished and well developed General Appearance ED: well developed HEENT Reports moist mucous membranes Eyes PERRL and EOMs intact bilaterally Neck supple Chest Wall inspection of chest normal and palpation of chest normal Resp normal respiratory effort and clear to auscultation bilaterally Cardio regular rate and regular rhythm GI GI Narrative: Mild diffuse abdominal tenderness. Active bowel sounds are noted throughout. No guarding or rebound. Palpation: soft Neuro oriented x3 Sensorium / Orientation: alert Psych mental status grossly normal Skin no rashes or lesions noted MDM MDM MDM Narrative Medical decision making narrative: Acute abdominal series ordered. Lab work and urinalysis ordered. Patient given Toradol for pain and IV fluids. Lab Data Attestation: I reviewed the patient's lab results. Labs: Laboratory Results - last 24 hr 06/26/21 06/26/21 06/26/21 01:25 01:25 01:35 WBC 11.1 H RBC 4.91 Hgb 14.3 Hct 43.6 MCV 88.8 MCH 29.1 MCHC 32.8 RDW Std Deviation 43.8 RDW Coeff of Chuck 13.5 Plt Count 273 MPV 9.1 Immature Gran % (Auto) 0.500 Neut % (Auto) 61.6 Lymph % (Auto) 25.6 [place] % (Auto) 9.8 Eos % (Auto) 2.1 Baso % (Auto) 0.4 Absolute Neuts (auto) 6.8 Absolute Lymphs (auto) 2.84 Nucleated RBC % 0 Sodium 138 Potassium 3.4 L Chloride 103 Carbon Dioxide 25.0 Anion Gap 10 BUN 38 H Creatinine 1.26 H Estim Creat Clear Calc 46.12 Est GFR (MDRD) Af Amer 56 L Est GFR (MDRD) Non-Af 47 L BUN/Creatinine Ratio 30.2 H Glucose 130 H Calcium 9.3 Total Bilirubin 1.30 H Direct Bilirubin 0.45 H AST 49 H ALT 59 H Alkaline Phosphatase 119 H Total Protein 8.0 Albumin 3.7 Globulin 4.3 H Urine Color Yellow Urine Clarity Clear Urine pH 5.0 Ur Specific [place] 1.025 Urine Protein 30 H Urine Glucose (UA) Normal Urine Ketones Negative Urine Occult Blood 10 H Urine Nitrite Negative Urine Bilirubin 1 H Urine Urobilinogen 1 H Ur Leukocyte Esterase 100 H Urine RBC 0-5 SEEN Urine WBC 5-10 SEEN Ur Squamous Epith Cells 0-5 SEEN Urine Bacteria 2+ Hyaline Casts 10-25 SEEN Urine Mucus 0 SEEN Urine Opiates Screen Urine Methadone Screen Ur Barbiturates Screen Ur Phencyclidine Scrn Ur Amphetamines Screen MDMA (Ecstasy) Screen U Benzodiazepines Scrn Urine Cocaine Screen U Cannabinoids Screen Ur Drug Screen Comment 06/26/21 01:35 WBC RBC Hgb Hct MCV MCH MCHC RDW Std Deviation RDW Coeff of Chuck Plt Count MPV Immature Gran % (Auto) Neut % (Auto) Lymph % (Auto) [place] % (Auto) Eos % (Auto) Baso % (Auto) Absolute Neuts (auto) Absolute Lymphs (auto) Nucleated RBC % Sodium Potassium Chloride Carbon Dioxide Anion Gap BUN Creatinine Estim Creat Clear Calc Est GFR (MDRD) Af Amer Est GFR (MDRD) Non-Af BUN/Creatinine Ratio Glucose Calcium Total Bilirubin Direct Bilirubin AST ALT Alkaline Phosphatase Total Protein Albumin Globulin Urine Color Urine Clarity Urine pH Ur Specific [place] Urine Protein Urine Glucose (UA) Urine Ketones Urine Occult Blood Urine Nitrite Urine Bilirubin Urine Urobilinogen Ur Leukocyte Esterase Urine RBC Urine WBC Ur Squamous Epith Cells Urine Bacteria Hyaline Casts Urine Mucus Urine Opiates Screen NEGATIVE Urine Methadone Screen NEGATIVE Ur Barbiturates Screen NEGATIVE Ur Phencyclidine Scrn NEGATIVE Ur Amphetamines Screen POSITIVE H MDMA (Ecstasy) Screen POSITIVE H U Benzodiazepines Scrn NEGATIVE Urine Cocaine Screen POSITIVE H U Cannabinoids Screen POSITIVE H Ur Drug Screen Comment Radiography Diagnostic Testing: Clinical Impression(s) from Imaging Studies Acute Abdomen Series 06/26/21 01:10 IMPRESSION: 1. Air-fluid level in the ascending colon that may be related to diarrheal disorder. 2. Moderate degenerative changes in the lower lumbar spine with mild scoliosis convex to the right. Electronically Signed: Harlan Madison MD at 2:05 EDT , Treatment and Re-Evaluation Narrative: On repeat evaluation patient is sleeping soundly. She has to be shaken to be awoken from sleep. Lab work is reviewed and is unremarkable. Urinalysis does reveal sign of infection with 2+ bacteria and 5-10 white cells. Only 0-5 epithelials noted. Because she is having dysuria she will be covered with 3 days of Bactrim. Talk screen is positive for amphetamines, MDMA, cocaine, cannabinoids. Abdominal x-rays per my interpretation reveal no obstruction. Some stool noted. Patient be given a prescription for magnesium citrate. Discharge Plan Triage Chief Complaint: Constipation ED Provider: Yanely Alegria Dx/Rx/DC Orders Clinical Impression: UTI (urinary tract infection), Constipation Instructions: ED Constipation (Adult), ED CYSTITIS Female Adult Prescriptions: New sulfamethoxazole-trimethoprim [Bactrim DS] 800-160 mg tablet 1 tab PO BID Qty: 6 RF: 0 magnesium citrate Solution 300 ml PO DAILY PRN (Reason: constipation) Qty: 296 RF: 0 No Action aspirin [Gurdeep Chewable Aspirin] 81 mg tablet,chewable 81 mg PO .every other day RF: 0 diclofenac sodium 75 mg tablet,delayed release (DR/EC) 75 mg PO BID PRN (Reason: headache and pain) Qty: 60 RF: 3 amlodipine 5 mg tablet 5 mg PO BID Qty: 60 RF: 1 divalproex 250 mg tablet extended release 24 hr 250 mg PO DAILY Qty: 30 RF: 1 tizanidine 4 mg tablet See Rx Instructions PO QHS Qty: 90 RF: 1 trazodone 50 mg tablet 50 mg PO QHS Qty: 30 RF: 1 paroxetine HCl 20 mg tablet 20 mg PO QAM Qty: 30 RF: 1 Primary Care Provider: Samina Joya Referrals: Samina Joya MD [Primary Care Provider] - 1-2 Weeks Disposition Disposition: Home, Self Care
[2021-06-26] MEDS: 0.9% Normal Saline 1,000 ML 1000 ML IV (01:17)
[2021-06-26] MEDS: Ketorolac 30 MG/ML Syringe IV (01:17)
[2021-06-26 01:41] LABS: Absolute Lymphocyte Count 2.84 X10^3/uL (0.83-4.51); Absolute Neutrophil Count 6.8 X10^3/uL (2.0-7.7); Basophil# 0.04 X10^3/uL; Basophil% 0.4 % (0-1); Eosinophil# 0.23 X10^3/uL; Eosinophils% 2.1 % (0-5); Hematocrit 43.6 % (37-47); Hemoglobin 14.3 g/dL (12.0-15.0); Lymphocyte # 2.84 X10^3/ul (0.83-4.51); Lymphocyte % 25.6 % (19-41); Mean Corp Hgb Conc 32.8 g/dL (32-36); Mean Corpuscular Hgb 29.1 pg (27.0-32.0); Mean Corpuscular Volume 88.8 fL (81-99); Mean Platelet Vol. 9.1 fl (6.2-12.0); Monocyte# 1.09 X10^3/uL; Monocyte% 9.8 % (0-10); NRBC Flagged by Analyzer 0 % (0-5); Neutrophil # 6.84 X10^3/uL (2.7-7.7); Neutrophil % 61.6 % (47-70); Platelet Count 273 K/mm3 (150-450); RBC Distribution Width CV 13.5 % (11.6-14.6); RBC Distribution Width SD 43.8 fl (35.1-43.9); Red Blood Count 4.91 M/mm3 (4.2-5.4); White Blood Count 11.1 K/mm3 (4.4-11.0)
[2021-06-26 01:43] LABS: Mucous, Urine 0 SEEN /hpf (<or=2+)
[2021-06-26 01:48] LABS: Color, Urine Yellow (Yellow); Glucose, Dipstick Normal (Normal); Ketone-Dipstick Negative (Negative); Leukocyte Esterase-Dipstick 100 /ul (Negative); Nitrite-Dipstick Negative (Negative); Occult Blood-Urine 10 /ul (Negative); Protein-Dipstick 30 mg/dl (Negative); Specific Gravity, Urine 1.025 (1.002-1.030); Urine Clarity Clear (Clear); Urine Urobilinogen 1 mg/dl (Normal)
[2021-06-26 01:49] LABS: Urine Bilirubin Dipstick 1 mg/dL (Negative)
[2021-06-26 02:09] LABS: Bacteria 2+ /hpf (None Seen); Hyaline Cast 10-25 SEEN /lpf (0-5); Red Blood Cells-Urine 0-5 SEEN /hpf (0-5); Squamous Epithelial Cells - UA 0-5 SEEN /hpf (5-10); White Blood Cells 5-10 SEEN /hpf (0-5)
[2021-06-26 02:15] LABS: Amphetamine Urine VISTA POSITIVE (<1000 ng/mL); Barbiturate Urine VISTA NEGATIVE (< 200 ng/mL); Benzodiazepine Urine VISTA NEGATIVE (< 200 ng/mL); Cocaine Urine VISTA POSITIVE (< 300 ng/mL); Ecstacy Urine VISTA POSITIVE (< 500 ng/mL); Methadone Urine VISTA NEGATIVE (< 300 ng/mL); PCP Urine VISTA NEGATIVE (< 25 ng/mL); THC Urine VISTA POSITIVE (< 50 ng/mL); Vista UDS pH Range 5
[2021-06-26 02:44] LABS: AST(SGOT) 49 U/L (15-37); Alanine Aminotransfer ALT/SGPT 59 U/L (13-56); Albumin, Serum 3.7 g/dL (3.2-5.0); Alkaline Phosphatase 119 U/L (45-117); Anion Gap 10 (5-15); BUN 38 mg/dL (7-18); BUN/Creat Ratio 30.2 RATIO (10-20); Bilirubin, Direct 0.45 mg/dL (0.00-0.30); Calcium,Total 9.3 mg/dL (8.5-10.1); Chloride 103 mmol/L (98-107); Creatinine, Serum 1.26 mg/dL (0.55-1.02); EST Glomerular Filtration Rate 47 mL/min (>60); Est Glom Filt Rate - Afr Amer 56 mL/min (>60); Estimated Creatinine Clearance 46.12 ml/min; Globulin 4.3 g/dL (2.2-4.2); Glucose 130 mg/dL (74-106); Potassium 3.4 mmol/L (3.5-5.1); Sodium Level 138 mmol/L (136-145)
[2021-06-26] MEDS: Smz/Tmp Ds Tablet 1 TABLET PO (03:13)
[2021-06-26 03:14] VITALS: BP 120/72; RESP 18; TEMP 36.7; O2SAT 97
== END 2021-06-26 03:15 | disposition home or self-care (01) ==
PROVIDERS: Emergency Provider Emergency Medicine; PCP Internal Medicine; Visit Provider Emergency Medicine
DX: N39.0 Urinary tract infection, site not specified (principal); K59.00 Constipation, unspecified; F17.210 Nicotine dependence, cigarettes, uncomplicated; I10 Essential (primary) hypertension; G89.29 Other chronic pain; F43.10 Post-traumatic stress disorder, unspecified; G43.909 Migraine, unspecified, not intractable, without status migrainosus; F32.A Depression, unspecified; F41.9 Anxiety disorder, unspecified; Z79.899 Other long term (current) drug therapy; Z79.82 Long term (current) use of aspirin
CPT/HCPCS: 74022; 80048; 80076; 80307; 81001; 85025; 96361; 96374; 99284; J7030; A4216

== ENCOUNTER 2021-07-10 04:42 | Emergency (ER) | payer MEDICAID, SELFPAY ==
[2021-07-10 04:43] VITALS: BP 101/78; PULSE 62; RESP 16; TEMP 36.4; O2SAT 97; BMI 23.0
[2021-07-10 05:09] LABS: Absolute Lymphocyte Count 2.98 X10^3/uL (0.83-4.51); Absolute Neutrophil Count 7.7 X10^3/uL (2.0-7.7); Basophil# 0.03 X10^3/uL; Basophil% 0.3 % (0-1); Eosinophils% 0.8 % (0-5); Hematocrit 45.1 % (37-47); Hemoglobin 15.3 g/dL (12.0-15.0); Lymphocyte # 2.98 X10^3/ul (0.83-4.51); Lymphocyte % 25.1 % (19-41); Mean Corp Hgb Conc 33.9 g/dL (32-36); Mean Corpuscular Hgb 29.4 pg (27.0-32.0); Mean Corpuscular Volume 86.6 fL (81-99); Mean Platelet Vol. 8.8 fl (6.2-12.0); Monocyte# 0.99 X10^3/uL; Monocyte% 8.3 % (0-10); NRBC Flagged by Analyzer 0 % (0-5); Neutrophil # 7.73 X10^3/uL (2.7-7.7); Platelet Count 332 K/mm3 (150-450); RBC Distribution Width CV 13.8 % (11.6-14.6); RBC Distribution Width SD 43.5 fl (35.1-43.9); Red Blood Count 5.21 M/mm3 (4.2-5.4); White Blood Count 11.9 K/mm3 (4.4-11.0)
--- NOTE | 2021-07-10 05:09 | EDS_ITS ---
HPI History of Present Illness Chief Complaint: Diarrhea Narrative Narrative: Patient is a 56-year-old female who states that she ate [employer] pizza around 9 or 10 last evening. She states about 45 minutes later she felt her stomach was bloated and distended. She states after that she took some Pepto-Bismol and then progressed to have multiple episodes of loose stool/diarrhea. She denies any known sick contacts. She denies any travel outside the country or livestock exposure. She does state that she had a short round of antibiotics a few weeks ago secondary to urinary tract infection but overall denies any previous history of intestinal disorder. She states that the diarrhea has been persistent and she is concerned for dehydration and that she has recurrent cramps and she is concerned for a underlying intestinal infection and therefore comes in for evaluation [facility] Medical History Abnormal ANCA test Acute kidney injury Anxiety and depression Chronic back pain Hepatitis B Hepatitis C History of substance abuse Hydrocephalus Hypertension Migraines PTSD (post-traumatic stress disorder) Vasculitis Home Medications aspirin 81 mg chewable tablet 81 mg PO DAILY tab 08/26/20 [History Last Taken Unknown] diclofenac sodium 75 mg tablet,delayed release 75 mg PO BID PRN #60 tab 08/26/20 [Rx Last Taken Unknown] amlodipine 5 mg tablet 5 mg PO BID #60 tab 02/25/21 [Rx Last Taken Unknown] divalproex 250 mg tablet,extended release 24 hr 250 mg PO DAILY #30 tab 02/25/21 [Rx Last Taken Unknown] tizanidine 4 mg tablet See Rx Instructions PO QHS #90 tab 02/25/21 [Rx Last Taken Unknown] trazodone 50 mg tablet 50 mg PO QHS #30 tab 02/25/21 [Rx Last Taken Unknown] paroxetine HCl 20 mg tablet 20 mg PO QAM #30 tab 05/22/21 [Rx Last Taken Unknown] dicyclomine 20 mg PO 4X/DAY PRN PRN #28 tab 07/10/21 [Rx Last Taken Unknown] Allergy/AdvReac Type Severity Reaction Status Date / Time codeine Allergy Severe difficulty Verified 06/26/21 01:05 breathing latex AdvReac Unknown hives Verified 06/26/21 01:05 Family History Daughter Seizures Mother Diabetes Brother Diabetes Aunt Cancer Uncle Cancer Surgical History History of foot surgery History of hand surgery History of surgery on arm Social History Smoking Status: Current every day smoker tobacco type: cigarettes Tobacco: How many years used: 40 alcohol intake: never substance use type: former substance user Date of last use: 2 years and crack/cocaine what type of physical activity do you participate in: none ROS ROS ED Constitutional Constitutional ED: Denies chills or fever(s) ENT ENT ED: Denies sore throat Cardiovascular Cardiovascular: Denies chest pain Respiratory/Chest Respiratory/Chest: Denies cough or dyspnea Gastrointestinal Gastrointestinal: Reports abdominal pain and diarrhea; Denies nausea or vomiting Genitourinary Genitourinary ED: Denies dysuria Musculoskeletal Musculoskeletal: Reports myalgias; Denies back pain Integumentary Denies rash Neurologic Neurologic: Denies headache(s) Hematologic/Lymphatic Hematologic/Lymphatic: Denies easy bleeding or easy bruising EXAM Physical Exam Const Vital Signs: 07/10/21 04:43 Temperature 97.5 F L Temperature Source Temporal Pulse Rate 62 Respiratory Rate 16 Blood Pressure 101/78 Blood Pressure Mean 85 Pulse Ox 97 Oxygen Delivery Method Room Air Positive well nourished and well developed General Appearance ED: well developed HEENT Reports dry mucous membranes Mouth ED: Yes dry mucous membranes Mouth: dry mucous membranes Eyes PERRL and EOMs intact bilaterally General Eye ED: Negative for scleral icterus Neck supple Resp normal respiratory effort and clear to auscultation bilaterally Cardio regular rate and regular rhythm Rate: other Other Details: Radial pulses are plus 2 out of 4 bilaterally are equal and symmetric GI non-distended and no masses GI Narrative: Abdomen is soft and nondistended with hyperactive bowel sound. There is mild diffuse pain with palpation without voluntary guarding or rigidity. No pulsatile mass or fluid wave Palpation: soft Extremity normal to inspection Neuro oriented x3 and CN's II-XII intact bilaterally Sensorium / Orientation: alert Motor Exam: strength 5/5 throughout Psych mental status grossly normal Skin no rashes or lesions noted General Skin Exam: Negative for jaundice MDM MDM MDM Narrative Medical decision making narrative: Patient presented to the ER with stable vitals and a soft nonsurgical abdomen. Therefore I felt no need for imaging studies. With the complaint of persistent diarrhea throughout the evening there is concerned that this could have led to acute kidney injury from dehydration or electrolyte abnormality. Blood work revealed no clinically significant changes. She was given IV hydration as well as Toradol and Bentyl. The patient was resting comfortably and able to fall asleep and she had no bouts of diarrhea while in the ER. Her only risk factor for infectious diarrhea reported was recent antibiotics for UTI but this was only for 3 days and therefore chance for C. difficile infection is low and I do not feel there is need for stool studies. Therefore at this time as vitals are stable and patient is been rehydrated with labs not showing any clinically significant abnormalities patient can be given symptomatic medications and discharged home. Lab Data Attestation: I reviewed the patient's lab results. Labs: Laboratory Results - last 24 hr 07/10/21 07/10/21 04:53 04:53 WBC 11.9 H RBC 5.21 Hgb 15.3 H Hct 45.1 MCV 86.6 MCH 29.4 MCHC 33.9 RDW Std Deviation 43.5 RDW Coeff of Chuck 13.8 Plt Count 332 MPV 8.8 Immature Gran % (Auto) 0.500 Neut % (Auto) 65.0 Lymph % (Auto) 25.1 [place] % (Auto) 8.3 Eos % (Auto) 0.8 Baso % (Auto) 0.3 Absolute Neuts (auto) 7.7 Absolute Lymphs (auto) 2.98 Nucleated RBC % 0 Sodium 133 L Potassium 3.8 Chloride 100 Carbon Dioxide 25.0 Anion Gap 8 BUN 22 H Creatinine 1.51 H Estim Creat Clear Calc 38.48 Est GFR (MDRD) Af Amer 46 L Est GFR (MDRD) Non-Af 38 L BUN/Creatinine Ratio 14.6 Glucose 126 H Calcium 9.4 Total Bilirubin 0.80 Direct Bilirubin 0.19 AST 47 H ALT 54 Alkaline Phosphatase 110 Total Protein 8.4 H Albumin 3.9 Globulin 4.5 H Lipase 142 Discharge Plan Triage Chief Complaint: Diarrhea ED Provider: Luis Patel Dx/Rx/DC Orders Clinical Impression: Diarrhea, Mild dehydration Instructions: ED Dehydration (Adult), ED Diarrhea, Viral (Adult) Prescriptions: New dicyclomine 20 mg tablet 20 mg PO 4X/DAY PRN PRN (Reason: Abdominal bloating/spasm) Qty: 28 RF: 0 No Action aspirin [Gurdeep Chewable Aspirin] 81 mg tablet,chewable 81 mg PO DAILY RF: 0 diclofenac sodium 75 mg tablet,delayed release (DR/EC) 75 mg PO BID PRN (Reason: headache and pain) Qty: 60 RF: 3 amlodipine 5 mg tablet 5 mg PO BID Qty: 60 RF: 1 divalproex 250 mg tablet extended release 24 hr 250 mg PO DAILY Qty: 30 RF: 1 tizanidine 4 mg tablet See Rx Instructions PO QHS Qty: 90 RF: 1 trazodone 50 mg tablet 50 mg PO QHS Qty: 30 RF: 1 paroxetine HCl 20 mg tablet 20 mg PO QAM Qty: 30 RF: 1 Primary Care Provider: Samina Joya Referrals: Samina Joya MD [Primary Care Provider] - Disposition Disposition: Home, Self Care
[2021-07-10] MEDS: Dicyclomine 20 MG/2 ML Vial IM (05:17)
[2021-07-10] MEDS: Ketorolac 30 MG/ML Syringe IV (05:17)
[2021-07-10] MEDS: 0.9% Normal Saline 1,000 ML 999 ML IV (05:17)
[2021-07-10 05:31] LABS: AST(SGOT) 47 U/L (15-37); Alanine Aminotransfer ALT/SGPT 54 U/L (13-56); Albumin, Serum 3.9 g/dL (3.2-5.0); Alkaline Phosphatase 110 U/L (45-117); Anion Gap 8 (5-15); BUN 22 mg/dL (7-18); BUN/Creat Ratio 14.6 RATIO (10-20); Bilirubin, Direct 0.19 mg/dL (0.00-0.30); Calcium,Total 9.4 mg/dL (8.5-10.1); Chloride 100 mmol/L (98-107); Creatinine, Serum 1.51 mg/dL (0.55-1.02); EST Glomerular Filtration Rate 38 mL/min (>60); Est Glom Filt Rate - Afr Amer 46 mL/min (>60); Estimated Creatinine Clearance 38.48 ml/min; Globulin 4.5 g/dL (2.2-4.2); Glucose 126 mg/dL (74-106); Lipase 142 U/L (73-393); Potassium 3.8 mmol/L (3.5-5.1); Protein, Total 8.4 g/dL (6.4-8.2); Sodium Level 133 mmol/L (136-145)
[2021-07-10 07:10] VITALS: BP 138/71; PULSE 82; RESP 16; O2SAT 95
== END 2021-07-10 07:12 | disposition home or self-care (01) ==
PROVIDERS: Emergency Provider Emergency Medicine; PCP Internal Medicine; Visit Provider Emergency Medicine
DX: R19.7 Diarrhea, unspecified (principal); E86.0 Dehydration; F17.210 Nicotine dependence, cigarettes, uncomplicated; I10 Essential (primary) hypertension; G89.29 Other chronic pain; F41.9 Anxiety disorder, unspecified; F32.A Depression, unspecified; F43.10 Post-traumatic stress disorder, unspecified; Z79.82 Long term (current) use of aspirin; Z79.899 Other long term (current) drug therapy; Z87.440 Personal history of urinary (tract) infections
CPT/HCPCS: 80048; 80076; 83690; 85025; 87811; 96361; 96372; 96374; 99284; J7030; A4216

== ENCOUNTER 2021-09-05 02:04 | Emergency (ER) | payer MEDICAID, SELFPAY ==
[2021-09-05 02:05] VITALS: BP 171/131; PULSE 129; RESP 18; TEMP 36.2; O2SAT 96; BMI 20.9
--- NOTE | 2021-09-05 02:26 | EDS_ITS ---
HPI History of Present Illness Chief Complaint: Bite Informant: patient Narrative Narrative: 56-year-old female states that 2 days ago while baling hay she got bit by something on the left lower leg. She states that its swollen and painful. She is concerned it could be a spider bite. [facility] Medical History Abnormal ANCA test Acute kidney injury Anxiety and depression Chronic back pain Hepatitis B Hepatitis C History of substance abuse Hydrocephalus Hypertension Migraines PTSD (post-traumatic stress disorder) Vasculitis Home Medications aspirin 81 mg chewable tablet (Gurdeep Chewable Low Dose Aspirin) 81 mg PO DAILY 08/26/20 [History Last Taken Unknown] diclofenac sodium 75 mg tablet,delayed release 75 mg PO BID PRN headache and pain #60 tabs 08/26/20 [Rx Last Taken Unknown] tizanidine 4 mg tablet See Rx Instructions PO QHS #90 tabs 02/25/21 [Rx Last Taken Unknown] trazodone 50 mg tablet 50 mg PO QHS #30 tabs 02/25/21 [Rx Last Taken Unknown] dicyclomine 20 mg tablet 20 mg PO 4X/DAY PRN PRN Abdominal bloating/spasm #28 tabs 07/10/21 [Rx Last Taken Unknown] amlodipine 5 mg tablet 5 mg PO BID #60 tabs 08/13/21 [Rx Last Taken Unknown] paroxetine HCl 20 mg tablet 20 mg PO QAM #30 tabs 08/14/21 [Rx Last Taken Unknown] divalproex 250 mg tablet,extended release 24 hr (Depakote ER) 250 mg PO DAILY 09/05/21 [History Last Taken Unknown] hydrocodone-acetaminophen 5-325mg 5mg-325mg 1 tab PO Q6H PRN PRN Pain 3 days #12 TABLETS 09/05/21 [Rx Last Taken Unknown] sulfamethoxazole 800 mg-trimethoprim 160 mg tablet 1 tab PO BID #14 TABLETS 09/05/21 [Rx Last Taken Unknown] Allergy/AdvReac Type Severity Reaction Status Date / Time codeine Allergy Severe difficulty Verified 06/26/21 01:05 breathing latex AdvReac Unknown hives Verified 06/26/21 01:05 Family History Daughter Seizures Mother Diabetes Brother Diabetes Aunt Cancer Uncle Cancer Surgical History History of foot surgery History of hand surgery History of surgery on arm Social History Smoking Status: Current every day smoker tobacco type: cigarettes Tobacco: How many years used: 40 alcohol intake: never substance use type: former substance user Date of last use: 2 years and crack/cocaine what type of physical activity do you participate in: none ROS ROS ED Constitutional Constitutional ED: Denies chills or weight loss Eyes Eyes: Denies change in vision or diplopia ENT ENT ED: Denies ear pain, rhinorrhea or sore throat Cardiovascular Cardiovascular: Denies chest pain, orthopnea, palpitations or racing heartbeat Respiratory/Chest Respiratory/Chest: Denies cough, dyspnea or orthopnea Gastrointestinal Gastrointestinal: Denies abdominal pain, diarrhea, nausea or vomiting Genitourinary Genitourinary ED: Denies dysuria, hematuria or urinary frequency Musculoskeletal Musculoskeletal: Denies arthralgias or myalgias Integumentary Reports other Details: See history of present illness ; Denies abscess or rash Neurologic Neurologic: Denies headache(s) or weakness Psychiatric Psychiatric: Denies anxiety, depression, suicidal ideation or suicidal thoughts Endocrine Endocrinology: Denies polydipsia, polyphagia or polyuria Allergic/Immunologic Allergic/Immunologic ED: Denies mouth swelling, tongue swelling or urticaria EXAM Physical Exam Const Vital Signs: 09/05/21 02:05 Temperature 97.1 F L Temperature Source Temporal Pulse Rate 129 H Respiratory Rate 18 Blood Pressure 171/131 H Blood Pressure Mean 144 Pulse Ox 96 Oxygen Delivery Method Room Air Positive well nourished and well developed General Appearance ED: well developed HEENT Reports normocephalic, head/scalp atraumatic and moist mucous membranes Eyes PERRL and EOMs intact bilaterally Neck no lymphadenopathy, supple and no JVD Resp normal respiratory effort and clear to auscultation bilaterally Cardio regular rate, regular rhythm and no murmurs GI normal to inspection, nondistended, normoactive bowel sounds and non-tender Palpation: soft Back/Spine no CVA tenderness and normal ROM Extremity normal to inspection General Extremety ED: Negative for edema General Extremity: Negative for edema Neuro oriented x3 and CN's II-XII intact bilaterally Sensorium / Orientation: alert Motor Exam: strength 5/5 throughout Psych mental status grossly normal Mood & Affect: Negative for depressed or tearful Skin skin turgor normal Skin Narrative: Located on the lateral aspect of the left leg is a 1 cm raised tender erythematous lesion appears to be consistent with a insect bite. There is about another centimeter of surrounding erythema and induration. No lymphangitis. MDM MDM MDM Narrative Medical decision making narrative: Bedside ultrasound does not show any loculated fluid collections. This looks more like a local reaction to an insect bite. I recommend continued Benadryl either topical or oral. She states it was very itchy and she did scratch did not she is worried about infection I do not think it is unreasonable to start her on Bactrim. Discharge Plan Triage Chief Complaint: Bite ED Provider: Dmitry Ayon Dx/Rx/DC Orders Clinical Impression: Insect bite Instructions: ED Insect Sting/Bite, Infected Prescriptions: New hydrocodone-acetaminophen [hydrocodone-acetaminophen] 5-325 mg tablet 1 tab PO Q6H PRN PRN (Reason: Pain) 3 Days Qty: 12 0RF sulfamethoxazole-trimethoprim [sulfamethoxazole-trimethoprim] 800-160 mg tablet 1 tab PO BID Qty: 14 0RF No Action aspirin [Gurdeep Chewable Aspirin] 81 mg tablet,chewable 81 mg PO DAILY Label Comments: every other day diclofenac sodium 75 mg tablet,delayed release (DR/EC) 75 mg PO BID PRN (Reason: headache and pain) Qty: 60 3RF dicyclomine 20 mg tablet 20 mg PO 4X/DAY PRN PRN (Reason: Abdominal bloating/spasm) Qty: 28 0RF divalproex [Depakote ER] 250 mg tablet extended release 24 hr 250 mg PO DAILY tizanidine 4 mg tablet See Rx Instructions PO QHS Qty: 90 1RF Rx Instructions: one to three tablets PO at bedtime for neck pain or muscle cramps trazodone 50 mg tablet 50 mg PO QHS Qty: 30 1RF amlodipine 5 mg tablet 5 mg PO BID Qty: 60 3RF paroxetine HCl 20 mg tablet 20 mg PO QAM Qty: 30 3RF Primary Care Provider: Samina Joya Referrals: Samina Joya MD [Primary Care Provider] - As Needed Activity Restrictions/Additional Instructions: He was either a topical Benadryl cream or oral Benadryl every 6 hours. Monitor for changes. Disposition Disposition: Home, Self Care
[2021-09-05] MEDS: Smz/Tmp Ds Tablet 1 TABLET PO (02:33)
[2021-09-05] MEDS: DiphenhydrAMINE 25 MG Capsule PO (02:33)
[2021-09-05] MEDS: HYDROcodone Bitartrate/Apap 5/325 Tablet PO (02:33)
[2021-09-05 02:35] VITALS: PULSE 110; RESP 18; O2SAT 98
== END 2021-09-05 02:35 | disposition home or self-care (01) ==
PROVIDERS: Emergency Provider Emergency Medicine; PCP Internal Medicine; Visit Provider Emergency Medicine
DX: S80.862A Insect bite (nonvenomous), left lower leg, initial encounter (principal); G91.9 Hydrocephalus, unspecified; F17.210 Nicotine dependence, cigarettes, uncomplicated; I10 Essential (primary) hypertension; W57.XXXA Bitten or stung by nonvenomous insect and other nonvenomous arthropods, initial encounter; F43.10 Post-traumatic stress disorder, unspecified; G43.909 Migraine, unspecified, not intractable, without status migrainosus; M54.9 Dorsalgia, unspecified; G89.29 Other chronic pain; F32.A Depression, unspecified; F41.9 Anxiety disorder, unspecified; Z79.899 Other long term (current) drug therapy; Z79.82 Long term (current) use of aspirin
CPT/HCPCS: 99283

== ENCOUNTER 2022-02-18 04:00 | Emergency (ER) | payer MEDICAID, SELFPAY ==
[2022-02-18 04:01] VITALS: BP 148/107; PULSE 97; RESP 19; TEMP 36.1; O2SAT 95; BMI 22.8
--- NOTE | 2022-02-18 04:22 | ED.VIS.GI ---
HPI HPI - GI History of Present Illness Chief Complaint: Abd Pain Informant: patient Abdominal Pain/Flank Pain Onset: Yesterday Context: Gradual Onset Timing: Continuous Quality: Cramping Location: - (Periumbilical, like my bowels are about to dump) Current Severity: Moderate Maximum Severity: Moderate Nausea/Vomiting/Emesis GI Symptom: Positive for Nausea and Vomiting Quality: Positive for Nonbilious; Negative for Blood streaks, Coffee ground or Hematemesis Episodes: 6 Diarrhea/Melena/Hematochezia GI Symptom: Negative for Diarrhea, Melena or Hematochezia Associated Symptoms Associated Symptoms: Negative for Dysuria, Frequency, Hematuria or Urgency Narrative Narrative: Patient has had almost 24 hours worth of abdominal cramping, malaise, body aches, and vomiting. She presents by EMS. She states I feel like I have the flu. She states that her mother, with whom she interacts frequently, was diagnosed with influenza 2 weeks ago, and she was coughing. This patient denies having a cough. [facility] Medical History Abnormal ANCA test Acute kidney injury Anxiety and depression Chronic back pain Hepatitis B Hepatitis C History of substance abuse Hydrocephalus Hypertension Migraines PTSD (post-traumatic stress disorder) Vasculitis Home Medications trazodone 50 mg tablet 50 mg PO QHS #30 tabs 02/25/21 [Rx Last Taken Unknown] dicyclomine 20 mg tablet 20 mg PO 4X/DAY PRN PRN Abdominal bloating/spasm #28 tabs 07/10/21 [Rx Last Taken Unknown] amlodipine 5 mg tablet 5 mg PO BID #60 tabs 08/13/21 [Rx Last Taken Unknown] sulfamethoxazole 800 mg-trimethoprim 160 mg tablet 1 tab PO BID #14 TABLETS 09/05/21 [Rx Last Taken Unknown] diclofenac sodium 75 mg tablet,delayed release 75 mg PO BID PRN headache and pain #60 tabs 10/23/21 [Rx Last Taken Unknown] tizanidine 4 mg tablet See Rx Instructions PO QHS #90 tabs 10/23/21 [Rx Last Taken Unknown] paroxetine HCl 20 mg tablet 20 mg PO QAM #30 tabs 02/03/22 [Rx Last Taken Unknown] ondansetron 4 mg disintegrating tablet 8 mg PO Q8H PRN PRN Nausea #20 tabs 02/18/22 [Rx Last Taken Unknown] Allergy/AdvReac Type Severity Reaction Status Date / Time codeine Allergy Severe difficulty Verified 02/18/22 04:04 breathing latex AdvReac Unknown hives Verified 02/18/22 04:04 Family History Daughter Seizures Mother Diabetes Brother Diabetes Aunt Cancer Uncle Cancer Surgical History History of foot surgery History of hand surgery History of surgery on arm Social History Smoking Status: Current every day smoker tobacco type: cigarettes Tobacco: How many years used: 40 second hand exposure: Yes alcohol intake: never substance use type: former substance user Date of last use: 2 years and crack/cocaine what type of physical activity do you participate in: walking frequency: 3-4 times per week tiffanie/yarsani: None seatbelt use: never ROS ROS ED Constitutional Constitutional ED: Reports body ache(s) and malaise; Denies chills or fever(s) Eyes Eyes: Denies change in vision or diplopia ENT ENT ED: Denies rhinorrhea or sore throat Cardiovascular Cardiovascular: Denies chest pain or palpitations Respiratory/Chest Respiratory/Chest: Denies cough or dyspnea Gastrointestinal Gastrointestinal: Reports abdominal pain, nausea and vomiting; Denies diarrhea or melena Genitourinary Genitourinary ED: Denies dysuria or hematuria Musculoskeletal Musculoskeletal: Denies back pain or neck pain Integumentary Denies abscess or rash Neurologic Neurologic: Denies headache(s), paresthesias or weakness Psychiatric Psychiatric: Denies anxiety or suicidal thoughts EXAM Physical Exam Const Vital Signs: 02/18/22 04:01 Temperature 96.9 F L Temperature Source Temporal Pulse Rate 97 Respiratory Rate 19 H Blood Pressure 148/107 H Blood Pressure Mean 120 Pulse Ox 95 Oxygen Delivery Method Room Air Positive well nourished and well developed General Appearance ED: well developed and NAD HEENT Reports moist mucous membranes normocephalic and atraumatic Eyes PERRL and EOMs intact bilaterally Neck full ROM and supple Resp normal respiratory effort and clear to auscultation bilaterally Cardio regular rate, regular rhythm and no murmurs Rate: Negative for tachycardic GI non-distended GI Narrative: Mild periumbilical tenderness, no hernias, nondistended. No guarding or rebound tenderness or other areas of focal tenderness. Auscultation: hyperactive bowel sounds Palpation: soft Back/Spine no CVA tenderness General Back: other FROM Extremity normal to inspection General Extremety ED: Negative for edema, pulses abnormal or tenderness General Extremity: Negative for edema or pulses abnormal Neuro oriented x3, CN's II-XII intact bilaterally and no sensory deficits noted Sensorium / Orientation: awake and alert Motor Exam: strength 5/5 throughout Psych mental status grossly normal and thought process normal Skin no rashes or lesions noted and no wounds MDM MDM MDM Narrative Medical decision making narrative: Because of her exposure only I obtained an influenza swab, it is negative. Ordered some blood work, although I suspect she has viral gastritis, along with intestinal pain, as there is a high prevalence of that in this area currently. She was difficult stick and then refused the blood work and IV fluids/medications. I am okay with that. She received GI cocktail and dicyclomine and felt a lot better, her nausea was gone even though she did not receive any Zofran. She is her ride is here and she prefers to go home, offered a prescription for Zofran which she is agreeable to, discharged home and we discussed reasons to return she is comfortable with that plan. Discharge Plan Triage Chief Complaint: Abd Pain ED Provider: García Christiansen Dx/Rx/DC Orders Clinical Impression: Periumbilical abdominal pain, Acute gastritis without bleeding Instructions: ED Gastritis (Adult) Prescriptions: New ondansetron [ondansetron] 4 mg tablet,disintegrating 8 mg PO Q8H PRN PRN (Reason: Nausea) Qty: 20 0RF No Action diclofenac sodium 75 mg tablet,delayed release (DR/EC) 75 mg PO BID PRN (Reason: headache and pain) Qty: 60 5RF tizanidine 4 mg tablet See Rx Instructions PO QHS Qty: 90 5RF Rx Instructions: one to three tablets PO at bedtime for neck pain or muscle cramps dicyclomine 20 mg tablet 20 mg PO 4X/DAY PRN PRN (Reason: Abdominal bloating/spasm) Qty: 28 0RF sulfamethoxazole-trimethoprim [sulfamethoxazole-trimethoprim] 800-160 mg tablet 1 tab PO BID Qty: 14 0RF trazodone 50 mg tablet 50 mg PO QHS Qty: 30 1RF amlodipine 5 mg tablet 5 mg PO BID Qty: 60 3RF paroxetine HCl 20 mg tablet 20 mg PO QAM Qty: 30 3RF Primary Care Provider: Samina Joya Referrals: Samina Joya MD [Primary Care Provider] - 3-5 Days if not improving (Or may return to the ER if you cannot stop vomiting or develop other concerning symptoms.) Disposition Disposition: Home, Self Care
[2022-02-18] MEDS: Mag Hydrox/Al Hydrox/Simeth 30 ML UDC PO (04:50)
[2022-02-18] MEDS: Dicyclomine 10 MG Capsule 20 MG PO (04:51)
--- NOTE | 2022-02-18 05:24 | ED.RN ---
Pt is difficult IV stick, attempted x2 on this pt. Philly BRIZUELA walked into room to attempt IV start when pt requested to leave. Unable to give IV medications, Dr. Christiansen aware. Pt d/c.
== END 2022-02-18 05:27 | disposition home or self-care (01) ==
PROVIDERS: Emergency Provider Emergency Medicine; PCP Internal Medicine; Visit Provider Emergency Medicine
DX: R10.33 Periumbilical pain (principal); K29.00 Acute gastritis without bleeding; F17.210 Nicotine dependence, cigarettes, uncomplicated
CPT/HCPCS: J2405; 87804; 99285; J7030; A4216

== ENCOUNTER 2022-03-21 15:19 | Emergency (ER) | payer MEDICAID, SELFPAY ==
[2022-03-21 15:20] VITALS: BP 158/111; PULSE 93; RESP 18; TEMP 36.6; O2SAT 99; BMI 22.6
--- NOTE | 2022-03-21 15:35 | CT_ITS ---
INDICATION: Leg and arm pain with spasms EXAMINATION: CT BRAIN - CT Head or Brain W/O Contrast Injection TECHNIQUE: Multiple axial images were obtained of the head without intravenous contrast. A radiation dose optimization technique was used for this scan. IV Contrast dosage and agent: None. COMPARISON: 07/09/2020 FINDINGS: BRAIN PARENCHYMA: No intra- or extra-axial hemorrhage. No evidence of acute infarct. No intracranial mass or mass effect. There is preservation of the girard/white matter interface. Posterior fossa structures are unremarkable. Volume loss with low attenuation of the periventricular white matter typical of chronic small vessel disease. CSF SPACES: Appropriate for age. No hydrocephalus. Basal cisterns are patent. CALVARIUM, SKULL BASE, PARANASAL SINUSES AND MASTOID AIR CELLS: Clear. No discrete lytic or blastic abnormalities. CT/Brain/Head without Contrast IMPRESSION: Volume loss with chronic white matter changes. No acute intracranial findings. Electronically Signed: Angel Grullon MD at 17:14 EST ,
--- NOTE | 2022-03-21 15:37 | EX.ED.DYSGE1 ---
HPI History of Present Illness Chief Complaint: General Illness Informant: patient Narrative Narrative: Patient presents with primary complaint of muscle spasms all over her body. She has had them in the legs and arms. She denies trauma. Although she has a history of hydrocephalus, she is not having any headaches. She has no visual complaints. Sometimes she states she feels foggy and her thoughts are not clear. However, this is evidently been an ongoing issue and she already has an appointment to see her neurologist for this. She denied having a history of muscle spasms in the past. I reviewed some of the meds she brought with her in her purse. 1 of these is tizanidine. When I asked what this is for she stated that is for her muscle spasms that she has had in the past. She is not having any focal weakness. She does not have focal numbness. She has not had trouble walking. She once stated that she has had nausea at times and then she denied having nausea. She consistently denied vomiting. She has no chest pain or palpitations. She has no abdominal pain. It sounds like her urine may have been darker recently but it does not burn. Of note, she has multiple meds on her med list. It sounds like she usually takes amlodipine and she frequently takes Paxil. The other medicines are just as needed for her neurologic symptoms. [facility] Medical History Abnormal ANCA test Acute kidney injury Anxiety and depression Chronic back pain Hepatitis B Hepatitis C History of substance abuse Hydrocephalus Hypertension Migraines PTSD (post-traumatic stress disorder) Vasculitis Home Medications trazodone 50 mg tablet 50 mg PO QHS #30 tabs 02/25/21 [Rx Last Taken Unknown] dicyclomine 20 mg tablet 20 mg PO 4X/DAY PRN PRN Abdominal bloating/spasm #28 tabs 07/10/21 [Rx Last Taken Unknown] sulfamethoxazole 800 mg-trimethoprim 160 mg tablet 1 tab PO BID #14 TABLETS 09/05/21 [Rx Last Taken Unknown] diclofenac sodium 75 mg tablet,delayed release 75 mg PO BID PRN headache and pain #60 tabs 10/23/21 [Rx Last Taken Unknown] tizanidine 4 mg tablet See Rx Instructions PO QHS #90 tabs 10/23/21 [Rx Last Taken Unknown] paroxetine HCl 20 mg tablet 20 mg PO QAM #30 tabs 02/03/22 [Rx Last Taken Unknown] ondansetron 4 mg disintegrating tablet 8 mg PO Q8H PRN PRN Nausea #20 tabs 02/18/22 [Rx Last Taken Unknown] amlodipine 5 mg tablet 5 mg PO BID #60 tabs 03/05/22 [Rx Last Taken Unknown] Allergy/AdvReac Type Severity Reaction Status Date / Time codeine Allergy Severe difficulty Verified 03/21/22 15:19 breathing latex AdvReac Unknown hives Verified 03/21/22 15:19 Family History Daughter Seizures Mother Diabetes Brother Diabetes Aunt Cancer Uncle Cancer Surgical History History of foot surgery History of hand surgery History of surgery on arm Social History Smoking Status: Current every day smoker tobacco type: cigarettes Tobacco: How many years used: 40 second hand exposure: Yes alcohol intake: never substance use type: former substance user Date of last use: 2 years and crack/cocaine what type of physical activity do you participate in: walking frequency: 3-4 times per week tiffanie/roman catholic: None seatbelt use: never ROS ROS ED Constitutional Constitutional ED: Denies chills, fever(s) or sweats Eyes Eyes: Denies change in vision or diplopia ENT ENT ED: Denies rhinorrhea or sore throat Cardiovascular Cardiovascular: Denies palpitations or racing heartbeat Respiratory/Chest Respiratory/Chest: Denies cough or dyspnea Gastrointestinal Gastrointestinal: Denies abdominal pain, diarrhea, nausea or vomiting Genitourinary Genitourinary ED: Reports other Details: Urine has seemed darker. ; Denies dysuria or urinary frequency Musculoskeletal Musculoskeletal: Reports other Details: She denies muscle pain but does describe muscle spasms that are intermittent and can include all extremities at various times. ; Denies myalgias Integumentary Reports other Details: She has some sores and abrasions to her knee. But they are not draining or painful. Neurologic Neurologic: Denies headache(s) or weakness Psychiatric Psychiatric: Reports anxiety Endocrine Endocrinology: Denies polydipsia or polyuria Hematologic/Lymphatic Hematologic/Lymphatic: Denies easy bleeding or easy bruising Allergic/Immunologic Allergic/Immunologic ED: Denies urticaria EXAM Physical Exam Narrative Exam Narrative: Patient is awake and alert. She has a little trouble sitting still. I do not see any sign of head or facial trauma. Mucous membranes are just minimally dry. Extraocular muscles are intact. Pupils are normal. There is no JVD. There is no meningismus. I feel no cervical lymphadenopathy. Her lungs are clear and she breathes easily. Heart is regular with no murmur gallop or rub. Rate is about 90. Peripheral pulses including lower extremities are normal. Abdomen is soft without tenderness. Back and flank show no CVA or spinal tenderness. Extremities have normal pulses and no swelling. She does have some dried over sores on both knees but they do not look acutely infected. They are not warm. Patient is oriented x3. She seems mildly internally stimulated. This may be nervousness. But she can move all extremities well and with normal strength and coordination. She is not having spasms while I am in the room. Const Vital Signs: 03/21/22 15:20 03/21/22 15:48 Temperature 97.8 F Temperature Source Temporal Pulse Rate 93 Respiratory Rate 18 Respiratory Effort Normal Non-Labored Respiratory Pattern Normal Blood Pressure 158/111 H Blood Pressure Mean 126 Pulse Ox 99 Oxygen Delivery Method Room Air MDM MDM MDM Narrative Medical decision making narrative: My independent interpretation of CT of the patient's head shows possible mildly enlarged lateral ventricles but no sign of bleeding or mass that I note. Final reading by radiology shows some volume loss with chronic white matter changes but no acute process. Her CBC shows a minimal elevation white count which is nonspecific. Hemoglobin platelets are normal. Electrolytes are overall normal other than some mild baseline renal function which is chronic. Urine shows no sign of infection. However, her urine tox screen is positive for amphetamines and ecstasy. I am suspicious that these 2 chemicals could cause her to feel not quite right. They also could contribute to muscle spasms. There is no sign of significant electrolyte abnormality such as abnormality of calcium or potassium or sodium that is causing her symptoms. I think she can take her tizanidine which she has. I have also recommended she avoid drug use in the future as this is not healthy. Lab Data Attestation: I reviewed the patient's lab results. Labs: Laboratory Results - last 24 hr 03/21/22 03/21/22 03/21/22 15:45 15:45 15:50 WBC 12.9 H RBC 5.26 Hgb 15.3 H Hct 46.0 MCV 87.5 MCH 29.1 MCHC 33.3 RDW Std Deviation 44.8 H RDW Coeff of Chuck 14.0 Plt Count 313 MPV 8.8 Immature Gran % (Auto) 0.500 Neut % (Auto) 64.1 Lymph % (Auto) 24.9 Charlton % (Auto) 8.5 Eos % (Auto) 1.6 Baso % (Auto) 0.4 Absolute Neuts (auto) 8.3 H Absolute Lymphs (auto) 3.20 Nucleated RBC % 0 Sodium 136 Potassium 4.3 Chloride 102 Carbon Dioxide 27.0 Anion Gap 7 BUN 36 H Creatinine 1.35 H Estim Creat Clear Calc 43.04 Est GFR (MDRD) Af Amer 52 L Est GFR (MDRD) Non-Af 43 L BUN/Creatinine Ratio 26.7 H Glucose 92 Calcium 9.5 Magnesium 2.2 Urine Color Yellow Urine Clarity Sl. Cloudy Urine pH 5.0 Ur Specific [place] 1.025 Urine Protein 30 H Urine Glucose (UA) Normal Urine Ketones Negative Urine Occult Blood Negative Urine Nitrite Negative Urine Bilirubin Negative Urine Urobilinogen Normal Ur Leukocyte Esterase 25 H Urine RBC 0 SEEN Urine WBC 0-5 SEEN Ur Squamous Epith Cells 0-5 SEEN Urine Bacteria 0 SEEN Hyaline Casts 0-5 SEEN Urine Mucus 0 SEEN Urine Opiates Screen Urine Methadone Screen Ur Barbiturates Screen Ur Phencyclidine Scrn Ur Amphetamines Screen MDMA (Ecstasy) Screen U Benzodiazepines Scrn Urine Cocaine Screen U Cannabinoids Screen Ur Drug Screen Comment 03/21/22 15:50 WBC RBC Hgb Hct MCV MCH MCHC RDW Std Deviation RDW Coeff of Chuck Plt Count MPV Immature Gran % (Auto) Neut % (Auto) Lymph % (Auto) Charlton % (Auto) Eos % (Auto) Baso % (Auto) Absolute Neuts (auto) Absolute Lymphs (auto) Nucleated RBC % Sodium Potassium Chloride Carbon Dioxide Anion Gap BUN Creatinine Estim Creat Clear Calc Est GFR (MDRD) Af Amer Est GFR (MDRD) Non-Af BUN/Creatinine Ratio Glucose Calcium Magnesium Urine Color Urine Clarity Urine pH Ur Specific [place] Urine Protein Urine Glucose (UA) Urine Ketones Urine Occult Blood Urine Nitrite Urine Bilirubin Urine Urobilinogen Ur Leukocyte Esterase Urine RBC Urine WBC Ur Squamous Epith Cells Urine Bacteria Hyaline Casts Urine Mucus Urine Opiates Screen NEGATIVE Urine Methadone Screen NEGATIVE Ur Barbiturates Screen NEGATIVE Ur Phencyclidine Scrn NEGATIVE Ur Amphetamines Screen POSITIVE H MDMA (Ecstasy) Screen POSITIVE H U Benzodiazepines Scrn NEGATIVE Urine Cocaine Screen NEGATIVE U Cannabinoids Screen NEGATIVE Ur Drug Screen Comment Radiography Diagnostic Testing: Clinical Impression(s) from Imaging Studies Brain CT 03/21/22 15:35 IMPRESSION: Volume loss with chronic white matter changes. No acute intracranial findings. Electronically Signed: Angel Grullon MD at 17:14 EST , Discharge Plan Triage Chief Complaint: General Illness ED Provider: Sung Vega Dx/Rx/DC Orders Clinical Impression: Muscle spasm, General ill feeling, Methamphetamine abuse, Ecstasy abuse Instructions: Muscle Spasm Prescriptions: No Action diclofenac sodium 75 mg tablet,delayed release (DR/EC) 75 mg PO BID PRN (Reason: headache and pain) Qty: 60 5RF tizanidine 4 mg tablet See Rx Instructions PO QHS Qty: 90 5RF Rx Instructions: one to three tablets PO at bedtime for neck pain or muscle cramps dicyclomine 20 mg tablet 20 mg PO 4X/DAY PRN PRN (Reason: Abdominal bloating/spasm) Qty: 28 0RF sulfamethoxazole-trimethoprim [sulfamethoxazole-trimethoprim] 800-160 mg tablet 1 tab PO BID Qty: 14 0RF ondansetron [ondansetron] 4 mg tablet,disintegrating 8 mg PO Q8H PRN PRN (Reason: Nausea) Qty: 20 0RF trazodone 50 mg tablet 50 mg PO QHS Qty: 30 1RF paroxetine HCl 20 mg tablet 20 mg PO QAM Qty: 30 3RF amlodipine 5 mg tablet 5 mg PO BID Qty: 60 1RF Primary Care Provider: Samina Joya Referrals: Samina Joya MD [Primary Care Provider] - 3-5 Days Disposition Disposition: Home, Self Care
[2022-03-21 15:56] LABS: Bacteria 0 SEEN /hpf (None Seen); Mucous, Urine 0 SEEN /hpf (<or=2+); Red Blood Cells-Urine 0 SEEN /hpf (0-5)
[2022-03-21 16:01] LABS: Absolute Neutrophil Count 8.3 X10^3/uL (2.0-7.7); Basophil# 0.05 X10^3/uL; Basophil% 0.4 % (0-1); Eosinophils% 1.6 % (0-5); Hemoglobin 15.3 g/dL (12.0-15.0); Lymphocyte % 24.9 % (19-41); Mean Corp Hgb Conc 33.3 g/dL (32-36); Mean Corpuscular Hgb 29.1 pg (27.0-32.0); Mean Corpuscular Volume 87.5 fL (81-99); Mean Platelet Vol. 8.8 fl (6.2-12.0); Monocyte% 8.5 % (0-10); NRBC Flagged by Analyzer 0 % (0-5); Neutrophil # 8.25 X10^3/uL (2.7-7.7); Neutrophil % 64.1 % (47-70); Platelet Count 313 K/mm3 (150-450); RBC Distribution Width SD 44.8 fl (35.1-43.9); Red Blood Count 5.26 M/mm3 (4.2-5.4); White Blood Count 12.9 K/mm3 (4.4-11.0)
[2022-03-21 16:02] LABS: Color, Urine Yellow (Yellow); Glucose, Dipstick Normal (Normal); Ketone-Dipstick Negative (Negative); Leukocyte Esterase-Dipstick 25 /ul (Negative); Nitrite-Dipstick Negative (Negative); Occult Blood-Urine Negative /ul (Negative); Protein-Dipstick 30 mg/dl (Negative); Specific Gravity, Urine 1.025 (1.002-1.030); Urine Bilirubin Dipstick Negative (Negative); Urine Clarity Sl. Cloudy (Clear); Urine Urobilinogen Normal (Normal)
[2022-03-21 16:15] LABS: Amphetamine Urine VISTA POSITIVE (<1000 ng/mL); Barbiturate Urine VISTA NEGATIVE (< 200 ng/mL); Benzodiazepine Urine VISTA NEGATIVE (< 200 ng/mL); Cocaine Urine VISTA NEGATIVE (< 300 ng/mL); Ecstacy Urine VISTA POSITIVE (< 500 ng/mL); Methadone Urine VISTA NEGATIVE (< 300 ng/mL); PCP Urine VISTA NEGATIVE (< 25 ng/mL); THC Urine VISTA NEGATIVE (< 50 ng/mL); Vista UDS pH Range 6
[2022-03-21 16:19] LABS: Anion Gap 7 (5-15); BUN 36 mg/dL (7-18); BUN/Creat Ratio 26.7 RATIO (10-20); Calcium,Total 9.5 mg/dL (8.5-10.1); Chloride 102 mmol/L (98-107); Creatinine, Serum 1.35 mg/dL (0.55-1.02); EST Glomerular Filtration Rate 43 mL/min (>60); Est Glom Filt Rate - Afr Amer 52 mL/min (>60); Estimated Creatinine Clearance 43.04 ml/min; Glucose 92 mg/dL (74-106); Magnesium 2.2 mg/dL (1.6-2.6); Potassium 4.3 mmol/L (3.5-5.1); Sodium Level 136 mmol/L (136-145)
[2022-03-21 16:22] LABS: Hyaline Cast 0-5 SEEN /lpf (0-5); Squamous Epithelial Cells - UA 0-5 SEEN /hpf (5-10); White Blood Cells 0-5 SEEN /hpf (0-5)
== END 2022-03-21 17:55 | disposition home or self-care (01) ==
PROVIDERS: Emergency Provider Emergency Medicine; PCP Internal Medicine; Visit Provider Emergency Medicine
DX: M62.838 Other muscle spasm (principal); F15.10 Other stimulant abuse, uncomplicated; F16.10 Hallucinogen abuse, uncomplicated; I10 Essential (primary) hypertension; M54.9 Dorsalgia, unspecified; G89.29 Other chronic pain; F17.210 Nicotine dependence, cigarettes, uncomplicated; Z79.899 Other long term (current) drug therapy; Z86.19 Personal history of other infectious and parasitic diseases
CPT/HCPCS: 70450; 80048; 80307; 81001; 83735; 85025; 99283; A4216

== ENCOUNTER → 2022-06-18 | Outpatient (CLI) | payer MEDICAID, SELFPAY ==
[2022-06-18 15:44] LABS: Erythrocyte Sedimentation Rate 22 mm/hr (0-30)
[2022-06-18 15:45] LABS: Absolute Lymphocyte Count 1.87 X10^3/uL (0.83-4.51); Absolute Neutrophil Count 5.8 X10^3/uL (2.0-7.7); Basophil# 0.05 X10^3/uL; Basophil% 0.6 % (0-1); Eosinophil# 0.24 X10^3/uL; Eosinophils% 2.8 % (0-5); Hematocrit 47.9 % (37-47); Hemoglobin 15.4 g/dL (12.0-15.0); Lymphocyte # 1.87 X10^3/ul (0.83-4.51); Lymphocyte % 21.5 % (19-41); Mean Corp Hgb Conc 32.2 g/dL (32-36); Mean Corpuscular Hgb 29.4 pg (27.0-32.0); Mean Corpuscular Volume 91.6 fL (81-99); Mean Platelet Vol. 9.5 fl (6.2-12.0); Monocyte# 0.64 X10^3/uL; Monocyte% 7.4 % (0-10); NRBC Flagged by Analyzer 0 % (0-5); Neutrophil # 5.83 X10^3/uL (2.7-7.7); Neutrophil % 67.1 % (47-70); Platelet Count 266 K/mm3 (150-450); RBC Distribution Width CV 14.5 % (11.6-14.6); RBC Distribution Width SD 48.8 fl (35.1-43.9); Red Blood Count 5.23 M/mm3 (4.2-5.4); White Blood Count 8.7 K/mm3 (4.4-11.0)
[2022-06-18 16:02] LABS: CRP < 2.90 mg/L (0.0-3.0)
[2022-06-18 16:14] LABS: Vitamin B12 405 pg/mL (211-911)
[2022-06-18 17:41] LABS: ALB/GLOB Ratio 0.8 RATIO (0.9-2.4); AST(SGOT) 67 U/L (15-37); Alanine Aminotransfer ALT/SGPT 75 U/L (13-56); Albumin, Serum 3.4 g/dL (3.2-5.0); Alkaline Phosphatase 129 U/L (45-117); Anion Gap 8 (5-15); BUN 12 mg/dL (7-18); BUN/Creat Ratio 18.9 RATIO (10-20); Calcium,Total 9.4 mg/dL (8.5-10.1); Chloride 108 mmol/L (98-107); Creatinine, Serum 0.64 mg/dL (0.55-1.02); EST Glomerular Filtration Rate 102 mL/min (>60); Est Glom Filt Rate - Afr Amer 124 mL/min (>60); Globulin 4.3 g/dL (2.2-4.2); Glucose 98 mg/dL (74-106); Potassium 4.2 mmol/L (3.5-5.1); Protein, Total 7.7 g/dL (6.4-8.2); Sodium Level 135 mmol/L (136-145); Thyroid Stim Hormone (TSH) 0.82 uIU/mL (0.358-3.74)
[2022-06-21 08:29] LABS: HCV log 10 6.803 (.)
[2022-06-23 16:09] LABS: Vitamin B1, Thiamine 167.5 nmol/L (66.5-200.0)
== END | disposition home or self-care (01) ==
LOC: BIMLAB 13:45
PROVIDERS: Psychiatry & Neurology Neurology; PCP Internal Medicine; Referring Provider Nurse Practitioner Family; Visit Provider Nurse Practitioner Family
DX: I77.6 Arteritis, unspecified (principal); R53.83 Other fatigue; B19.20 Unspecified viral hepatitis C without hepatic coma; E56.9 Vitamin deficiency, unspecified; R41.3 Other amnesia; I10 Essential (primary) hypertension
CPT/HCPCS: 36415; 80053; 82306; 82607; 82746; 84425; 84443; 85025; 85652; 86140; 87522

== ENCOUNTER 2022-07-08 23:06 | Emergency (ER) | payer MEDICAID, SELFPAY ==
[2022-07-08 23:07] VITALS: BP 166/90; PULSE 110; RESP 18; TEMP 36.7; O2SAT 95; BMI 24.7
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
[2022-07-09] MEDS: Ondansetron ODT 4 MG Tablet 8 MG PO (00:05)
[2022-07-09] MEDS: Mag Hydrox/Al Hydrox/Simeth 30 ML UDC PO (00:06)
[2022-07-09] MEDS: Dicyclomine 10 MG Capsule 20 MG PO ×2 (00:06→01:08)
[2022-07-09 01:18] VITALS: BP 155/70; PULSE 100; RESP 18
== END 2022-07-09 01:18 | disposition home or self-care (01) ==
PROVIDERS: Emergency Provider Emergency Medicine; PCP Internal Medicine; Visit Provider Emergency Medicine
DX: K52.9 Noninfective gastroenteritis and colitis, unspecified (principal); I10 Essential (primary) hypertension; F17.210 Nicotine dependence, cigarettes, uncomplicated; K12.1 Other forms of stomatitis; Z79.899 Other long term (current) drug therapy
CPT/HCPCS: 99285

== ENCOUNTER → 2022-11-16 | Outpatient (CLI) | payer OTHER, MEDICAID, SELFPAY ==
[2022-11-16 15:17] LABS: Absolute Lymphocyte Count 1.83 X10^3/uL (0.83-4.51); Basophil# 0.04 X10^3/uL; Basophil% 0.6 % (0-1); Eosinophil# 0.35 X10^3/uL; Eosinophils% 5.1 % (0-5); Hematocrit 42.9 % (37-47); Lymphocyte # 1.83 X10^3/ul (0.83-4.51); Lymphocyte % 26.4 % (19-41); Mean Corp Hgb Conc 32.6 g/dL (32-36); Mean Corpuscular Hgb 29.3 pg (27.0-32.0); Mean Corpuscular Volume 89.7 fL (81-99); Mean Platelet Vol. 9.3 fl (6.2-12.0); Monocyte# 0.69 X10^3/uL; NRBC Flagged by Analyzer 0 % (0-5); Neutrophil # 3.99 X10^3/uL (2.7-7.7); Neutrophil % 57.6 % (47-70); Platelet Count 271 K/mm3 (150-450); RBC Distribution Width CV 14.4 % (11.6-14.6); RBC Distribution Width SD 47.4 fl (35.1-43.9); Red Blood Count 4.78 M/mm3 (4.2-5.4); White Blood Count 6.9 K/mm3 (4.4-11.0)
[2022-11-16 15:43] LABS: ALB/GLOB Ratio 0.8 RATIO (0.9-2.4); AST(SGOT) 35 U/L (15-37); Alanine Aminotransfer ALT/SGPT 48 U/L (13-56); Albumin, Serum 3.3 g/dL (3.2-5.0); Alkaline Phosphatase 125 U/L (45-117); Anion Gap 8 (5-15); BUN 20 mg/dL (7-18); BUN/Creat Ratio 25.5 RATIO (10-20); Calcium,Total 9.1 mg/dL (8.5-10.1); Chloride 108 mmol/L (98-107); Cholesterol 139 mg/dL (200); Creatinine, Serum 0.78 mg/dL (0.55-1.02); EST Glomerular Filtration Rate 80 mL/min (>60); Est Glom Filt Rate - Afr Amer 97 mL/min (>60); Globulin 4.1 g/dL (2.2-4.2); Glucose 92 mg/dL (74-106); High Density Lipoprotein 64 mg/dL; Potassium 4.2 mmol/L (3.5-5.1); Protein, Total 7.4 g/dL (6.4-8.2); Sodium Level 139 mmol/L (136-145); T4 Free Direct 0.87 ng/dL (0.76-1.46); Thyroid Stim Hormone (TSH) 0.53 uIU/mL (0.358-3.74); Triglycerides 33 mg/dL; Very Low Density Lipoprotein 7 mg/dL (5-40)
== END | disposition home or self-care (01) ==
LOC: BIMLAB 11:42
PROVIDERS: PCP Internal Medicine; Referring Provider Internal Medicine; Visit Provider Internal Medicine
DX: I10 Essential (primary) hypertension (principal)
CPT/HCPCS: 36415; 80053; 80061; 84439; 84443; 85025

== ENCOUNTER 2023-02-01 21:08 | Emergency (ER) | payer MEDICAID, SELFPAY ==
[2023-02-01 21:09] VITALS: BP 166/114; PULSE 100; RESP 16; TEMP 36.9; O2SAT 96
[2023-02-01 22:13] VITALS: BMI 25.6
--- NOTE | 2023-02-01 22:18 | EDS_ITS ---
HPI History of Present Illness Chief Complaint: Abd Pain Narrative Narrative: Patient presents via EMS secondary to abdominal cramping, nausea and vomiting, vaginal discharge. Patient states she had unprotected intercourse 2 weeks ago. 3 or 4 days later she started having foul-smelling green discharge with abdominal cramping. Today she has had nausea and vomiting. She was seen by her PCP earlier today who ordered lab work as well as a urinalysis and a gonorrhea/chlamydia test. Patient states she was so dehydrated she was not able to provide a urine sample. [facility] Medical History Abnormal ANCA test Acute kidney injury Anxiety and depression Bilateral otitis media Burning with urination Chronic back pain Dermatitis Fatigue Hepatitis B Hepatitis C Hepatitis C History of substance abuse Hydrocephalus Hypertension Lower extremity neuropathy Malaise and fatigue Migraines Nasal congestion PTSD (post-traumatic stress disorder) Screening for STD (sexually transmitted disease) Vaginal discharge Vasculitis Vasculitis Vitamin deficiency Home Medications dicyclomine 20 mg tablet 20 mg PO 4X/DAY PRN PRN Abdominal bloating/spasm #28 tabs 07/10/21 [Rx Last Taken Unknown] multivitamin with minerals-folic acid 200 mcg chewable tablet (Multivitamin Gummies) 1 tab PO DAILY 07/08/22 [History Last Taken Unknown] fluticasone propionate 50 mcg/actuation nasal spray,suspension (Flonase Allergy Relief) 2 spray intranasal DAILY #15.8 grams 07/28/22 [Rx Last Taken Unknown] levocetirizine 5 mg tablet (Xyzal) 5 mg PO QPM PRN 07/28/22 [History Last Taken Unknown] amlodipine 5 mg tablet 5 mg PO BID 11/16/22 [History Last Taken Unknown] paroxetine HCl 20 mg tablet 20 mg PO QAM #90 tabs 01/18/23 [Rx Last Taken Unknown] sulfamethoxazole 800 mg-trimethoprim 160 mg tablet (Bactrim DS) 1 tab PO BID #6 tabs 02/01/23 [Rx Last Taken Unknown] tizanidine 4 mg tablet See Rx Instructions PO QHS 02/01/23 [History Last Taken Unknown] Allergy/AdvReac Type Severity Reaction Status Date / Time codeine Allergy Severe difficulty Verified 02/01/23 21:08 breathing latex AdvReac Unknown hives Verified 02/01/23 21:08 GABAPENTIN Allergy Intermediate Itching Uncoded 02/01/23 13:15 Family History Daughter Seizures Mother Diabetes Brother Diabetes Aunt Cancer Uncle Cancer Surgical History History of foot surgery History of hand surgery History of surgery on arm Social History Smoking Status: Current every day smoker tobacco type: cigarettes Tobacco: How many years used: 40 second hand exposure: Yes alcohol intake: never substance use type: former substance user Date of last use: 2 years and crack/cocaine what type of physical activity do you participate in: walking frequency: 3-4 times per week tiffanie/alevism: None seatbelt use: never ROS ROS ED Constitutional Constitutional ED: Reports chills; Denies fever(s) Eyes Eyes: Denies discharge from eye(s) ENT ENT ED: Denies discharge from eye(s), rhinorrhea or sore throat Cardiovascular Cardiovascular: Denies chest pain or palpitations Respiratory/Chest Respiratory/Chest: Reports cough; Denies dyspnea Gastrointestinal Gastrointestinal: Reports abdominal pain, nausea and vomiting; Denies diarrhea Genitourinary Genitourinary ED: Reports dysuria and other Details: Vaginal discharge ; Denies difficulty urinating Musculoskeletal Musculoskeletal: Reports myalgias; Denies back pain or extremity pain Integumentary Denies Abrasions or rash Neurologic Neurologic: Denies headache(s) or weakness Psychiatric Psychiatric: Reports anxiety; Denies depression Allergic/Immunologic Allergic/Immunologic ED: Denies lip swelling or urticaria EXAM Physical Exam Const Vital Signs: 02/01/23 21:09 Temperature 98.5 F Temperature Source Temporal Pulse Rate 100 Respiratory Rate 16 Blood Pressure 166/114 H Blood Pressure Mean 131 Pulse Ox 96 Positive well nourished and well developed General Appearance ED: well developed HEENT Reports dry mucous membranes Mouth ED: Yes dry mucous membranes Mouth: dry mucous membranes Eyes EOMs intact bilaterally Chest Wall inspection of chest normal and palpation of chest normal Resp normal respiratory effort and clear to auscultation bilaterally Cardio regular rate and regular rhythm GI GI Narrative: Abdomen is soft with no focal tenderness to palpation. Hypoactive bowel sounds. Back/Spine no CVA tenderness Extremity normal to inspection Neuro oriented x3 and no sensory deficits noted Psych Mood & Affect: anxious Skin no rashes or lesions noted MDM MDM MDM Narrative Medical decision making narrative: Patient's lab work from earlier today is reviewed. Her white count is elevated at 12.5 with hemoglobin concentrated at 17.7. 78% neutrophils noted. Chemistry studies significant for a sodium of 135 with a potassium of 5.6. Potassium is noted to be moderate hemolyzed. Creatinine is bumped to 1.24 with baseline around 0.75. AST is slightly elevated at 62 and alk phos is 159. Given her evidence of dehydration on her lab work IV line is initiated here and patient given a liter IV fluids along with Zofran for nausea. Urinalysis is or dered along with urine for gonorrhea/chlamydia. History & Record Review Discussion w/independent historian: Patient Additional record(s) reviewed:: Prior outpatient record, Prior ED visit and Prior labs Lab Data Attestation: I reviewed the patient's lab results. Labs: Laboratory Results - last 24 hr 02/01/23 22:55 Urine Color Yellow Urine Clarity Cloudy Urine pH 5.0 Ur Specific [place] 1.030 Urine Protein 100 H Urine Glucose (UA) Normal Urine Ketones 50 H Urine Occult Blood 25 H Urine Nitrite Positive H Urine Bilirubin 3 H Urine Urobilinogen 1 H Ur Leukocyte Esterase 500 H Urine RBC 0-5 SEEN Urine WBC 10-25 SEEN Ur Squamous Epith Cells 0-5 SEEN Urine Bacteria 1+ Urine Mucus 0 SEEN Treatment and Re-Evaluation :: Urinalysis does reveal evidence of infection with positive nitrites, 10-25 white cells, 1+ bacteria. Gonorrhea and Chlamydia test are still pending. With the patient having symptoms and probable exposure I will go ahead and treat her with Rocephin and Zithromax. I will write her 3 days of Bactrim to cover her urine to ensure she does not have coinfection. She was advised that if her gonorrhea or chlamydia test comes back positive she will be called to notify her of her results and she can notify any partners that they need to be tested. She states that she does have Zofran at home that she can use for nausea. Discharge Plan Triage Chief Complaint: Abd Pain ED Provider: Yanely Alegria Dx/Rx/DC Orders Clinical Impression: UTI (urinary tract infection), STI in female Instructions: If You Think You Have an STI (STD), ED Cystitis Female Adult Prescriptions: New sulfamethoxazole-trimethoprim [Bactrim DS] 800-160 mg tablet 1 tab PO BID Qty: 6 0RF No Action fluticasone propionate [Flonase Allergy Relief] 50 mcg/actuation spray,suspension 2 spray intranasal DAILY Qty: 15.8 1RF Rx Instructions: administer into each nostril amlodipine 5 mg tablet 5 mg PO BID dicyclomine 20 mg tablet 20 mg PO 4X/DAY PRN PRN (Reason: Abdominal bloating/spasm) Qty: 28 0RF Multivitamin Gummies 200 mcg Tablet,Chewable 1 tab PO DAILY levocetirizine [Xyzal] 5 mg tablet 5 mg PO QPM PRN tizanidine 4 mg tablet See Rx Instructions PO QHS Rx Instructions: 4-8mg orally at bedtime; one to three tablets PO at bedtime for neck pain or muscle cramps paroxetine HCl 20 mg tablet 20 mg PO QAM Qty: 90 1RF Primary Care Provider: Samina Joya Referrals: Samina Joya MD [Primary Care Provider] - 1-2 Weeks Disposition Disposition: Home, Self Care
[2023-02-01] MEDS: 0.9% Normal Saline (1000mL) 1,000 ML 1000 ML IV (22:22)
[2023-02-01] MEDS: Ondansetron 4 MG/2 ML Vial IV (22:22)
[2023-02-01 23:07] LABS: Mucous, Urine 0 SEEN /hpf (<or=2+)
[2023-02-01 23:08] VITALS: PULSE 80; RESP 16; O2SAT 95
[2023-02-01 23:09] LABS: Color, Urine Yellow (Yellow); Glucose, Dipstick Normal (Normal); Ketone-Dipstick 50 mg/dl (Negative); Leukocyte Esterase-Dipstick 500 /ul (Negative); Nitrite-Dipstick Positive (Negative); Occult Blood-Urine 25 /ul (Negative); Protein-Dipstick 100 mg/dl (Negative); Urine Clarity Cloudy (Clear); Urine Urobilinogen 1 mg/dl (Normal)
[2023-02-01 23:23] LABS: Urine Bilirubin Dipstick 3 mg/dL (Negative)
[2023-02-01 23:24] LABS: Bacteria 1+ /hpf (None Seen); Red Blood Cells-Urine 0-5 SEEN /hpf (0-5); Squamous Epithelial Cells - UA 0-5 SEEN /hpf (5-10); White Blood Cells 10-25 SEEN /hpf (0-5)
[2023-02-01] MEDS: Azithromycin 250 MG Tablet 1000 MG PO (23:48)
[2023-02-01] MEDS: Ceftriaxone 500 MG Vial 250 MG IM (23:49)
== END 2023-02-02 00:11 | disposition home or self-care (01) ==
PROVIDERS: Emergency Provider Emergency Medicine; PCP Internal Medicine; Visit Provider Emergency Medicine
DX: N39.0 Urinary tract infection, site not specified (principal); R11.2 Nausea with vomiting, unspecified; F17.210 Nicotine dependence, cigarettes, uncomplicated; E86.0 Dehydration; I10 Essential (primary) hypertension; R53.81 Other malaise; R53.83 Other fatigue; R09.81 Nasal congestion; Z11.3 Encounter for screening for infections with a predominantly sexual mode of transmission; Z79.899 Other long term (current) drug therapy; F41.8 Other specified anxiety disorders; A64 Unspecified sexually transmitted disease
CPT/HCPCS: 36415; 80053; 81001; 85025; 86703; 87491; 87591; 87635; 96361; 96372; 96374; 99284; J7030; A4216; J2405

== ENCOUNTER → 2023-02-01 | Outpatient (CLI) | payer MEDICAID, SELFPAY ==
[2023-02-01 15:16] LABS: Absolute Lymphocyte Count 1.87 X10^3/uL (0.83-4.51); Absolute Neutrophil Count 9.8 X10^3/uL (2.0-7.7); Basophil# 0.03 X10^3/uL; Basophil% 0.2 % (0-1); Eosinophil# 0.14 X10^3/uL; Eosinophils% 1.1 % (0-5); Hematocrit 55.2 % (37-47); Hemoglobin 17.7 g/dL (12.0-15.0); Lymphocyte # 1.87 X10^3/ul (0.83-4.51); Mean Corp Hgb Conc 32.1 g/dL (32-36); Mean Corpuscular Hgb 28.1 pg (27.0-32.0); Mean Corpuscular Volume 87.6 fL (81-99); Mean Platelet Vol. 10.3 fl (6.2-12.0); Monocyte# 0.59 X10^3/uL; Monocyte% 4.7 % (0-10); NRBC Flagged by Analyzer 0 % (0-5); Neutrophil # 9.81 X10^3/uL (2.7-7.7); Neutrophil % 78.5 % (47-70); Platelet Count 244 K/mm3 (150-450); RBC Distribution Width CV 14.6 % (11.6-14.6); RBC Distribution Width SD 46.7 fl (35.1-43.9); White Blood Count 12.5 K/mm3 (4.4-11.0)
[2023-02-01 15:50] LABS: ALB/GLOB Ratio 0.9 RATIO (0.9-2.4); AST(SGOT) 62 U/L (15-37); Alanine Aminotransfer ALT/SGPT 56 U/L (13-56); Albumin, Serum 4.6 g/dL (3.2-5.0); Alkaline Phosphatase 159 U/L (45-117); Anion Gap 11 (5-15); BUN 15 mg/dL (7-18); BUN/Creat Ratio 12.1 RATIO (10-20); Calcium,Total 9.9 mg/dL (8.5-10.1); Chloride 101 mmol/L (98-107); Creatinine, Serum 1.24 mg/dL (0.55-1.02); EST Glomerular Filtration Rate 47 mL/min (>60); Est Glom Filt Rate - Afr Amer 57 mL/min (>60); Globulin 5.2 g/dL (2.2-4.2); Glucose 96 mg/dL (74-106); Potassium 5.6 mmol/L (3.5-5.1); Protein, Total 9.8 g/dL (6.4-8.2); Sodium Level 135 mmol/L (136-145)
[2023-02-01 16:03] LABS: HIV - WCH Non-Reactive (Nonreactive)
== END | disposition home or self-care (01) ==
PROVIDERS: PCP Internal Medicine; Visit Provider Internal Medicine
DX: R53.81 Other malaise (principal); R53.83 Other fatigue; R09.81 Nasal congestion; Z11.3 Encounter for screening for infections with a predominantly sexual mode of transmission
CPT/HCPCS: 36415; 80053; 85025; 86703; 87635

== ENCOUNTER 2023-02-08 19:19 | Emergency (ER) | payer MEDICAID, SELFPAY ==
[2023-02-08 19:21] VITALS: BP 134/94; PULSE 100; RESP 24; TEMP 36; O2SAT 99
--- NOTE | 2023-02-08 20:36 | CT_ITS ---
EXAM: CT ABDOMEN AND PELVIS WITH INTRAVENOUS CONTRAST CLINICAL INDICATION: Abdominal pain TECHNIQUE: Helically acquired images were obtained of the abdomen and pelvis with intravenous contrast. CTDIvol = ( 16.68 ) mGy, DLP = ( 1227.74 ) mGycm This CT exam was performed using one or more of the following dose reduction techniques: automated exposure control, adjustment of the mA and/or kV according to patient size, and/or use of iterative reconstruction technique. CONTRAST: IV 100mL [id number] COMPARISON: No relevant prior studies available. FINDINGS: LOWER THORAX: Unremarkable. Lung bases are clear. No cardiomegaly. No significant pericardial effusion. ABDOMEN: LIVER: Unremarkable. Homogeneous. No focal mass. GALLBLADDER AND BILE DUCTS: Unremarkable. No calcified gallstones. No gallbladder distention or wall edema. No intra- or extrahepatic biliary ductal dilation. PANCREAS: Unremarkable. No focal cystic or solid mass. SPLEEN: Unremarkable. Normal size without focal cystic or solid mass. ADRENALS: 1.4 cm hypodense lesion involving the left adrenal gland. KIDNEYS AND URETERS: Bilateral renal scarring. No obstructive uropathy. STOMACH AND BOWEL: Distal colonic diverticulosis but no acute diverticulitis. No colitis. No bowel obstruction. PELVIS: APPENDIX: No evidence of acute appendicitis. BLADDER: Unremarkable. REPRODUCTIVE: Unremarkable as visualized. No adnexal masses. ABDOMEN and PELVIS: INTRAPERITONEAL SPACE: Unremarkable. No free air or free fluid. BONES/JOINTS: Degenerative changes in the pelvis and spine. No suspicious lytic or blastic abnormality. SOFT TISSUES: Unremarkable. No discrete abdominal or pelvic wall hernia. VASCULATURE: Unremarkable. Abdominal aorta is non-dilated. LYMPH NODES: Unremarkable. No enlarged lymph nodes. CT/Abdomen/Pelvis W IV Cont ONLY IMPRESSION: 1. No acute or inflammatory disease or bowel obstruction. 2. Distal colonic diverticulosis without acute diverticulitis. Electronically Signed: Luis Mei MD at 23:42 EST ,
--- NOTE | 2023-02-08 20:37 | ED.VIS.GI ---
HPI HPI - GI History of Present Illness Chief Complaint: Abd Pain Narrative Narrative: 57-year-old female past medical history of hepatitis C, hydrocephalus, states she was seen in the emergency department previously, because of vaginal discharge. Her primary care provider had done gonorrhea test on her and she was awaiting that. She was also treated for a UTI. She finished antibiotics, but presents via EMS today with abdominal pain, and nausea and vomiting. She states that she has been vomiting all day. It has been multiple times without any blood in her emesis. She has diffuse abdominal pain as well, on both sides of her abdomen. No fevers or chills, no other symptoms. [facility] Medical History Abnormal ANCA test Acute kidney injury Anxiety and depression Bilateral otitis media Burning with urination Chronic back pain Dermatitis Fatigue Hepatitis B Hepatitis C Hepatitis C History of substance abuse Hydrocephalus Hypertension Lower extremity neuropathy Malaise and fatigue Migraines Nasal congestion PTSD (post-traumatic stress disorder) Screening for STD (sexually transmitted disease) Vaginal discharge Vasculitis Vasculitis Vitamin deficiency Home Medications dicyclomine 20 mg tablet 20 mg PO 4X/DAY PRN PRN Abdominal bloating/spasm #28 tabs 07/10/21 [Rx Last Taken Unknown] multivitamin with minerals-folic acid 200 mcg chewable tablet (Multivitamin Gummies) 1 tab PO DAILY 07/08/22 [History Last Taken Unknown] fluticasone propionate 50 mcg/actuation nasal spray,suspension (Flonase Allergy Relief) 2 spray intranasal DAILY #15.8 grams 07/28/22 [Rx Last Taken Unknown] levocetirizine 5 mg tablet (Xyzal) 5 mg PO QPM PRN 07/28/22 [History Last Taken Unknown] amlodipine 5 mg tablet 5 mg PO BID 11/16/22 [History Last Taken Unknown] paroxetine HCl 20 mg tablet 20 mg PO QAM #90 tabs 01/18/23 [Rx Last Taken Unknown] sulfamethoxazole 800 mg-trimethoprim 160 mg tablet (Bactrim DS) 1 tab PO BID #6 tabs 02/01/23 [Rx Last Taken Unknown] tizanidine 4 mg tablet See Rx Instructions PO QHS 02/01/23 [History Last Taken Unknown] Allergy/AdvReac Type Severity Reaction Status Date / Time codeine Allergy Severe difficulty Verified 02/01/23 21:08 breathing latex AdvReac Unknown hives Verified 02/01/23 21:08 GABAPENTIN Allergy Intermediate Itching Uncoded 02/01/23 13:15 Family History Daughter Seizures Mother Diabetes Brother Diabetes Aunt Cancer Uncle Cancer Surgical History History of foot surgery History of hand surgery History of surgery on arm Social History Smoking Status: Current every day smoker tobacco type: cigarettes Tobacco: How many years used: 40 second hand exposure: Yes alcohol intake: never substance use type: former substance user Date of last use: 2 years and crack/cocaine what type of physical activity do you participate in: walking frequency: 3-4 times per week tiffanie/restoration: None seatbelt use: never ROS ROS ED ROS Narrative Constitutional: No fever, no chills. HEENT: No sore throat. No neck pain. No loss of vision. No rhinorrhea. Cardiovascular: No chest pain. No palpitations. No pedal edema. Respiratory: No cough, no shortness of breath. Abdominal: Diffuse abdominal pain. Multiple episodes of nausea and vomiting today, no hematemesis. Diarrhea. Genitourinary: No dysuria. No hematuria. Musculoskeletal: No myalgias. No arthralgias. Neurologic: No headaches. No dizziness. No lightheadedness. Skin: No rash. No change in color. Psychiatric: No depression. No anxiety. EXAM Physical Exam Narrative Exam Narrative: Afebrile. Vital signs noted. HEENT: Normocephalic. Atraumatic. PERRL, EOMI. Neck soft and supple. No point tenderness or step off. Cardiovascular: Regular rate and rhythm with intermittent tachycardia. No murmurs, rubs, or gallops appreciated. Respiratory: No tachypnea. Lungs clear to auscultation bilaterally. Gastrointestinal: Abdomen soft, mild diffuse tenderness. With normoactive bowel sounds. No rebound or guarding. Neurological: Awake. Alert. Nonfocal, nonlateralizing. Skin: No rash. Normal color. No pallor. Musculoskeletal: No pedal edema. Full range of motion extremities. Const Vital Signs: 02/08/23 19:21 Temperature 96.8 F L Temperature Source Temporal Pulse Rate 100 Respiratory Rate 24 H Blood Pressure 134/94 H Blood Pressure Mean 107 Pulse Ox 99 Oxygen Delivery Method Room Air MDM MDM MDM Narrative Medical decision making narrative: Given her abdominal pain, in the differential diagnosis is bowel obstruction versus diverticulitis versus pancreatitis. She may also have a UTI that not resolved next. I reviewed her prior ED report. She was treated for vaginal discharge with azithromycin and Rocephin. She was written for 3 days worth of Bactrim. Comprehensive work-up was pursued. I do feel CT imaging is indicated with IV contrast. She will be bolused normal saline and administered ondansetron. I will obtain a CBC, CMP, and lipase to help rule out pancreatitis. I reviewed her laboratory work and she has elevated white count of 17.0 which may be demargination from her vomiting. Hemoglobin normal at 14.8, hematocrit 45.4, platelet count normal at 315. Sodium is normal at 136 with potassium 4.2, BUN 27 with creatinine elevated at 1.72, but she does have chronic kidney disease. Glucose appropriately elevated at 96 with an anion gap normal at 12. AST and ALT are normal and lipase is also normal. I do not feel she has a pancreatitis. Urinalysis obtained and reviewed and she is positive for nitrites with 5-10 WBCs. We will send a urine culture as I am not sure that her UTI was fully treated. She was given a dose of Levaquin here in the emergency department. At this point in time, the CT of the abdomen pelvis is currently pending. Patient will be signed out to the oncoming physician, Dr. Jennings, to check the CT scan and make final disposition on this patient. Patient is in stable condition. History & Record Review Discussion w/independent historian: Patient Additional record(s) reviewed:: Prior ED visit and Prior labs Lab Data Attestation: I reviewed the patient's lab results. Labs: Laboratory Results - last 24 hr 02/08/23 02/08/23 21:10 21:30 WBC 17.0 H RBC 5.26 Hgb 14.8 Hct 45.4 MCV 86.3 MCH 28.1 MCHC 32.6 RDW Std Deviation 44.4 H RDW Coeff of Chuck 14.1 Plt Count 315 MPV 8.9 Immature Gran % (Auto) 0.500 Neut % (Auto) 74.3 H Lymph % (Auto) 17.1 L [place] % (Auto) 7.3 Eos % (Auto) 0.3 Baso % (Auto) 0.5 Absolute Neuts (auto) 12.6 H Absolute Lymphs (auto) 2.90 Nucleated RBC % 0 Sodium 136 Potassium 4.2 Chloride 103 Carbon Dioxide 21.0 Anion Gap 12 BUN 27 H Creatinine 1.72 H Est GFR (MDRD) Af Amer 39 L Est GFR (MDRD) Non-Af 32 L BUN/Creatinine Ratio 15.7 Glucose 96 Calcium 9.7 Total Bilirubin 1.20 H AST 30 ALT 36 Alkaline Phosphatase 115 Total Protein 8.3 H Albumin 3.9 Globulin 4.4 H Albumin/Globulin Ratio 0.9 Lipase 26 Urine Color Yellow Urine Clarity Sl. Cloudy Urine pH 5.0 Ur Specific [place] 1.025 Urine Protein 100 H Urine Glucose (UA) Normal Urine Ketones 15 H Urine Occult Blood 10 H Urine Nitrite Positive H Urine Bilirubin 3 H Urine Urobilinogen 1 H Ur Leukocyte Esterase 100 H Urine RBC 0-5 SEEN Urine WBC 5-10 SEEN Ur Squamous Epith Cells 0-5 SEEN Amorphous Sediment 1+ URATE Urine Bacteria 1+ Urine Mucus 0 SEEN Discharge Plan Triage Chief Complaint: Abd Pain ED Provider: Berto Akins Dx/Rx/DC Orders Clinical Impression: UTI (urinary tract infection), Nausea and vomiting, Abdominal pain Prescriptions: No Action fluticasone propionate [Flonase Allergy Relief] 50 mcg/actuation spray,suspension 2 spray intranasal DAILY Qty: 15.8 1RF Rx Instructions: administer into each nostril amlodipine 5 mg tablet 5 mg PO BID dicyclomine 20 mg tablet 20 mg PO 4X/DAY PRN PRN (Reason: Abdominal bloating/spasm) Qty: 28 0RF Multivitamin Gummies 200 mcg Tablet,Chewable 1 tab PO DAILY levocetirizine [Xyzal] 5 mg tablet 5 mg PO QPM PRN tizanidine 4 mg tablet See Rx Instructions PO QHS Rx Instructions: 4-8mg orally at bedtime; one to three tablets PO at bedtime for neck pain or muscle cramps sulfamethoxazole-trimethoprim [Bactrim DS] 800-160 mg tablet 1 tab PO BID Qty: 6 0RF paroxetine HCl 20 mg tablet 20 mg PO QAM Qty: 90 1RF Primary Care Provider: Samina Joya Referrals: Samina Joya MD [Primary Care Provider] -
[2023-02-08] MEDS: 0.9% Normal Saline (1000mL) 1,000 ML 1000 ML IV (21:23)
[2023-02-08] MEDS: Ondansetron 4 MG/2 ML Vial IV (21:24)
[2023-02-08 21:36] LABS: Mucous, Urine 0 SEEN /hpf (<or=2+)
[2023-02-08 21:39] LABS: Color, Urine Yellow (Yellow); Glucose, Dipstick Normal (Normal); Ketone-Dipstick 15 mg/dl (Negative); Leukocyte Esterase-Dipstick 100 /ul (Negative); Nitrite-Dipstick Positive (Negative); Occult Blood-Urine 10 /ul (Negative); Protein-Dipstick 100 mg/dl (Negative); Specific Gravity, Urine 1.025 (1.002-1.030); Urine Clarity Sl. Cloudy (Clear); Urine Urobilinogen 1 mg/dl (Normal)
[2023-02-08 21:47] LABS: Red Blood Cells-Urine 0-5 SEEN /hpf (0-5); Squamous Epithelial Cells - UA 0-5 SEEN /hpf (5-10); Urine Bilirubin Dipstick 3 mg/dL (Negative); White Blood Cells 5-10 SEEN /hpf (0-5)
[2023-02-08 21:48] LABS: Amorphous Sediment 1+ URATE; Bacteria 1+ /hpf (None Seen)
[2023-02-08 21:53] LABS: Absolute Neutrophil Count 12.6 X10^3/uL (2.0-7.7); Basophil# 0.08 X10^3/uL; Basophil% 0.5 % (0-1); Eosinophil# 0.05 X10^3/uL; Eosinophils% 0.3 % (0-5); Hematocrit 45.4 % (37-47); Hemoglobin 14.8 g/dL (12.0-15.0); Lymphocyte % 17.1 % (19-41); Mean Corp Hgb Conc 32.6 g/dL (32-36); Mean Corpuscular Hgb 28.1 pg (27.0-32.0); Mean Corpuscular Volume 86.3 fL (81-99); Mean Platelet Vol. 8.9 fl (6.2-12.0); Monocyte# 1.24 X10^3/uL; Monocyte% 7.3 % (0-10); NRBC Flagged by Analyzer 0 % (0-5); Neutrophil % 74.3 % (47-70); Platelet Count 315 K/mm3 (150-450); RBC Distribution Width CV 14.1 % (11.6-14.6); RBC Distribution Width SD 44.4 fl (35.1-43.9); Red Blood Count 5.26 M/mm3 (4.2-5.4)
[2023-02-08 22:11] LABS: ALB/GLOB Ratio 0.9 RATIO (0.9-2.4); AST(SGOT) 30 U/L (15-37); Alanine Aminotransfer ALT/SGPT 36 U/L (13-56); Albumin, Serum 3.9 g/dL (3.2-5.0); Alkaline Phosphatase 115 U/L (45-117); Anion Gap 12 (5-15); BUN 27 mg/dL (7-18); BUN/Creat Ratio 15.7 RATIO (10-20); Calcium,Total 9.7 mg/dL (8.5-10.1); Chloride 103 mmol/L (98-107); Creatinine, Serum 1.72 mg/dL (0.55-1.02); EST Glomerular Filtration Rate 32 mL/min (>60); Est Glom Filt Rate - Afr Amer 39 mL/min (>60); Globulin 4.4 g/dL (2.2-4.2); Glucose 96 mg/dL (74-106); Lipase 26 U/L (13-75); Potassium 4.2 mmol/L (3.5-5.1); Protein, Total 8.3 g/dL (6.4-8.2); Sodium Level 136 mmol/L (136-145)
[2023-02-08 23:00] VITALS: RESP 20
[2023-02-08] MEDS: levoFLOXacin 750 MG Tablet PO (23:45)
== END 2023-02-09 00:07 | disposition home or self-care (01) ==
PROVIDERS: Emergency Provider Emergency Medicine; PCP Internal Medicine; Visit Provider Emergency Medicine
DX: R10.9 Unspecified abdominal pain (principal); N39.0 Urinary tract infection, site not specified; I12.9 Hypertensive chronic kidney disease with stage 1 through stage 4 chronic kidney disease, or unspecified chronic kidney disease; R11.2 Nausea with vomiting, unspecified; N18.9 Chronic kidney disease, unspecified; F17.210 Nicotine dependence, cigarettes, uncomplicated; B19.20 Unspecified viral hepatitis C without hepatic coma; Z79.899 Other long term (current) drug therapy; F41.8 Other specified anxiety disorders
CPT/HCPCS: 36415; 74177; 80053; 81001; 83690; 85025; 87086; 96361; 96374; 99284; J7030; Q9967; A4216; J2405

== ENCOUNTER 2023-05-17 02:30 | Emergency (ER) | payer MEDICAID, SELFPAY ==
--- NOTE | 2023-05-17 02:32 | EDS_ITS ---
HPI History of Present Illness Chief Complaint: Abd Pain [facility] Medical History (Updated 05/17/23 @ 04:[address] Adi Couch, DO) Abnormal ANCA test Acute kidney injury Anxiety and depression Bilateral otitis media Burning with urination Chronic back pain Dermatitis Fatigue Hepatitis B Hepatitis C Hepatitis C History of substance abuse Hydrocephalus Hypertension Lower extremity neuropathy Malaise and fatigue Migraines Nasal congestion PTSD (post-traumatic stress disorder) Screening for STD (sexually transmitted disease) Suprapubic discomfort Vaginal discharge Vasculitis Vasculitis Vitamin deficiency Home Medications fluticasone propionate 50 mcg/actuation nasal spray,suspension (Flonase Allergy Relief) 2 spray intranasal DAILY #15.8 grams 07/28/22 [Rx Last Taken Unknown] levocetirizine 5 mg tablet (Xyzal) 5 mg PO QPM PRN allergy symptoms 07/28/22 [History Last Taken Unknown] amlodipine 5 mg tablet 5 mg PO BID #180 tabs 02/19/23 [Rx Last Taken Unknown] tizanidine 4 mg tablet 4 mg PO QHS PRN muscle spasticity 03/10/23 [History Last Taken Unknown] paroxetine HCl 20 mg tablet 20 mg PO QAM #90 tabs 04/30/23 [Rx Last Taken Unknown] Allergy/AdvReac Type Severity Reaction Status Date / Time codeine Allergy Severe difficulty Verified 05/17/23 02:43 breathing latex AdvReac Unknown hives Verified 05/17/23 02:43 gabapentin AdvReac Itching Verified 05/17/23 02:43 Family History Daughter Seizures Mother Diabetes Brother Diabetes Aunt Cancer Uncle Cancer Surgical History History of foot surgery History of hand surgery History of surgery on arm Social History Smoking Status: Current every day smoker tobacco type: cigarettes Tobacco: How many years used: 40 second hand exposure: Yes alcohol intake: never substance use type: former substance user Date of last use: 2 years and crack/cocaine what type of physical activity do you participate in: walking frequency: 3-4 times per week tiffanie/oriental orthodox: None seatbelt use: never EXAM Physical Exam Const Vital Signs: 05/17/23 02:35 05/17/23 02:38 Temperature 98.1 F 98.1 F Temperature Source Temporal Temporal Pulse Rate 90 90 Respiratory Rate 28 H 28 H Blood Pressure 146/98 H 146/98 H Blood Pressure Mean 114 114 Pulse Ox 98 98 Oxygen Delivery Method Room Air Room Air [facility] Narrative Medical decision making narrative: HISTORY OF PRESENT ILLNESS: 57-year-old female presents with abdominal pain and diarrhea. She states she is concerned about abdominal pain. States she has mid abdominal pain that is constant. She states she is having diarrhea. Notes copious watery stool. Last bowel was just prior to arrival. She denies any melena or hematochezia. Notes no history abdominal surgeries. Denies any vomiting or fever. Denies urinary complaints. Denies any vaginal bleeding or discharge. Notes recent sick contact. States her daughter was diagnosed with E. coli. Patient denies sudden onset or thunderclap headache, denies maximal intensity within 1 minute, vomiting, neck pain, stiffness, changes in vision, fever, history malignancy, syncope, or seizures associated with headache. REVIEW OF SYSTEMS: Pertinent positives: abdominal pain, diarrhea, headache Pertinent negatives: Focal numbness, loss sensation, PHYSICAL EXAM: Nursing triage notes reviewed, Vital signs reviewed Constitutional: please see [facility] HENT: MMM Eyes: Pupils equal round and reactive to light, Extraocular muscles intact Neck: No stridor, no JVD, full neck ROM, no posterior C-spine step offs of deformities Lungs: Clear to auscultation, No wheezing or rales. No increased work of breathing, no conversational dyspnea, no accessory muscle use, no nasal flaring. No respiratory distress noted Heart: Regular rate and rhythm, No murmurs, No rubs and No gallops, 2+ distal pulses (radial, femoral, posterior tibial) in all extremities Abdomen: Soft, mild abdominal discomfort upon palpation, slight distention noted, no rigidity, rebound or guarding, no obvious peritoneal signs, no palpable pulsatile abdominal masses, no auscultated abdominal bruit, negative Otto sign. No right lower quadrant TTP. : No CVAT Extremities: No edema Neuro: No focal neurological deficits, cranial nerves II through XII intact, 5/5 strength in all extremities. Intact sensation to light touch in all extremities, 2+ reflexes bilateral patella tendons. Normal gait. No ataxia. Intact 5/5 strength with ok sign (median), intact finger abduction (ulnar) intact wrist extension (radial n). Intact sensation in the radial, ulnar, and median nerve distributions. Skin: No rash or lesions noted MEDICAL DECISION MAKING: Chief Complaint: Abdominal pain External records reviewed: Imaging reviewed: CT scan abdomen pelvis from February 2023 shows no acute process, noted diverticulosis without acute diverticulitis Factors affecting care: Hypertension, Hep C Social determinants of health: hx of polysubstance abuse History obtained from others: none Consults: EMS MDM Narrative: The patient was initially hemodynamically stable, afebrile and nontoxic- appearing. Abdominal exam was slightly distended but overall benign with no significant tenderness no peritoneal signs. No pulsatile abdominal masses or signs of vascular emergency. I considered the following differential diagnosis: AAA, small bowel obstruction, abdominal perforation, appendicitis, pancreatitis, hepatobiliary pathology (acute cholecystitis), mesenteric ischemia, pathology (ie nephrolithiasis, pyelonephritis). The patient no urinary symptoms to suggest pathology such as nephrolithiasis or pyelonephritis. Patient's physical exam was not consistent with trauma, cervical spine fracture, cervical spine epidural abscess. Not consistent with subarachnoid hemorrhage, ICH or other intracranial normality. Her chief complaint was abdominal pain. Focused on abdominal pain in terms of workup and ED treatment. Given patient's age, history of severe pain I did obtain a broad lab and imaging workup to further elucidate the etiology patient complaints and rule out life or limb threatening etiologies. I treated the patient normal saline, nonnarcotic anti-inflammatory pain medicine and Zofran for prophylactic treatment of nausea or vomiting. Hydrate the patient 1 L normal saline. ALL IMAGES (IF OBTAINED) HAVE BEEN PERSONALLY REVIEWED AND INTERPRETED BY MYSELF. CT scan showed evidence of nonspecific enteritis. There is likely viral gastroenteritis. No indication for antibiotics at this time. CBC with leukocytosis suggestive of stable inflammation, no anemia or thrombocytopenia noted BMP with mild hyponatremia otherwise no significant Sidra abnormalities, there is no signs of endorgan hypoperfusion or metabolic acidosis, his baseline CKD Lipase is wnl indicating no pancreatic inflammation. LFTs show no evidence of hepatobiliary pathology. CT scan showed incidental adrenal nodule. Discussed with patient. Importance of follow-up was discussed and emphasized. The synthesis of the patient's history, physical exam, labs images suggest no acute life-limiting etiology. He is likely suffered from a viral etiology. Encouraged her to continue to replace fluid losses readily with p.o. electrolyte containing solutions such as body armor, Gatorade, Pedialyte. Patient expressed understanding. Strict return precautions were discussed. Despite report of heavy diarrhea patient cannot provide a stool sample here in the emergency department to test for ova, parasites and stool pathogens including E. coli. The patient and/or family, caregivers express understanding. The patient and/or family, caregivers agrees with the plan. Shared decision making: I will have a discussion with the patient and or visitors regarding risk/benefits of further testing or admission. They will be made aware of of the risk/benefits inherent in this decision they will be given the opportunity to voice understanding. Total critical care time today provided was at least 0 minutes. This excludes separately billable procedures. Critical care time (if documented) is secondary to the patient having high probability of clinically significant/life threatening deterioration in the patient's condition which required my urgent intervention. Impression: 1. Abdominal pain 2. Diarrhea 3. Enteritis Dispo: Discharge This note was generated with [employer] dictation software. It may contain incorrect words, spelling, and punctuation that were not noted in review of the chart prior to signing. Lab Data Labs: Laboratory Results - last 24 hr 05/17/23 03:13 WBC 13.5 H RBC 5.38 Hgb 15.7 H Hct 46.6 MCV 86.6 MCH 29.2 MCHC 33.7 RDW Std Deviation 45.1 H RDW Coeff of Chuck 14.2 Plt Count 279 MPV 8.8 Immature Gran % (Auto) 0.600 Neut % (Auto) 71.6 H Lymph % (Auto) 16.2 L [place] % (Auto) 10.4 H Eos % (Auto) 1.0 Baso % (Auto) 0.2 Absolute Neuts (auto) 9.7 H Absolute Lymphs (auto) 2.19 Nucleated RBC % 0 Sodium 135 L Potassium 3.8 Chloride 101 Carbon Dioxide 24.0 Anion Gap 10 BUN 31 H Creatinine 1.43 H Estim Creat Clear Calc 42.76 Est GFR (MDRD) Af Amer 48 L Est GFR (MDRD) Non-Af 40 L BUN/Creatinine Ratio 21.7 H Glucose 102 Calcium 9.6 Total Bilirubin 1.10 H AST 50 H ALT 55 Alkaline Phosphatase 107 Total Protein 8.6 H Albumin 4.1 Globulin 4.5 H Albumin/Globulin Ratio 0.9 Lipase 33 Radiography Diagnostic Testing: Clinical Impression(s) from Imaging Studies Abdomen/Pelvis CT 03/11/24 02:47 IMPRESSION: undefined Discharge Plan Triage Chief Complaint: Abd Pain ED Provider: Adi Couch Dx/Rx/DC Orders Clinical Impression: Diarrhea Instructions: Treating Diarrhea Prescriptions: No Action fluticasone propionate [Flonase Allergy Relief] 50 mcg/actuation spray,suspension 2 spray intranasal DAILY Qty: 15.8 1RF Rx Instructions: administer into each nostril levocetirizine [Xyzal] 5 mg tablet 5 mg PO QPM PRN (Reason: allergy symptoms) tizanidine 4 mg tablet 4 mg PO QHS PRN (Reason: muscle spasticity) Rx Instructions: 4-8mg orally at bedtime; one to three tablets PO at bedtime for neck pain or muscle cramps amlodipine 5 mg tablet 5 mg PO BID Qty: 180 1RF paroxetine HCl 20 mg tablet 20 mg PO QAM Qty: 90 1RF Primary Care Provider: Samina Joya Referrals: Samina Joya MD [Primary Care Provider] - Activity Restrictions/Additional Instructions: Thank you for trusting us with your care today! Please take Tylenol (2 pills, 650 mg), ibuprofen (2 pills, 400 mg) every 6 hours as needed for pain and fever control. Please drink plenty of oral fluids including body armor, Pedialyte and Gatorade to replace losses from diarrhea. Please return to the emergency department if your symptoms change or worsen. Please follow with your primary care physician for further outpatient evaluation and management. Disposition Disposition: Home, Self Care
[2023-05-17 02:35] VITALS: BP 146/98; PULSE 90; RESP 28; TEMP 36.7; O2SAT 98; BMI 26.5
[2023-05-17 02:38] VITALS: BP 146/98; PULSE 90; RESP 28; TEMP 36.7; O2SAT 98
--- NOTE | 2023-05-17 02:47 | CT_ITS ---
EXAM: CT abdomen and pelvis with contrast. HISTORY: Abdominal pain TECHNIQUE: CT Abdomen And Pelvis W/ Contrast Injection. A radiation dose optimization technique was used for this scan. COMPARISON: CT abdomen pelvis February 08, 2023. LIMITATIONS: Motion artifact. LOWER CHEST: Mild atelectasis in the lung bases bilaterally. LIVER: Normal. GALLBLADDER: Normal. BILE DUCTS: Normal. PANCREAS: Normal. SPLEEN: Normal. ADRENAL GLANDS: A 1.4 cm nodule in the left adrenal gland measures 50 Hounsfield units, similar to the prior exam. KIDNEYS/URETERS/BLADDER: Small cyst in the right kidney. Probable mild adrenal cortical scarring bilaterally. No hydronephrosis. AORTA: Normal caliber. BOWEL/MESENTERY: Diverticula are without evidence of diverticulitis. No small bowel obstruction. Fluid-filled loops of nondistended distal small bowel raise the possibility of mild enteritis. APPENDIX: Normal. PERITONEUM: Normal. REPRODUCTIVE ORGANS: Normal. BONES/SOFT TISSUES: Degenerative changes of the lumbar spine. Mild wedge deformity of L4, similar to the prior exam. OTHER: None. CONCLUSION: Questionable mild enteritis. 1.4 cm nonspecific adrenal nodule. Electronically Signed: Amado Luis MD at 4:34 EDT , CT/Abdomen/Pelvis W IV Cont ONLY IMPRESSION: undefined
[2023-05-17] MEDS: Ondansetron 4 MG/2 ML Vial IV (03:13)
[2023-05-17] MEDS: Ketorolac 15 MG/ML Vial IV (03:13)
[2023-05-17] MEDS: 0.9% Normal Saline (1000mL) 1,000 ML 1000 ML IV (03:13)
[2023-05-17 03:20] LABS: Absolute Lymphocyte Count 2.19 X10^3/uL (0.83-4.51); Absolute Neutrophil Count 9.7 X10^3/uL (2.0-7.7); Basophil# 0.03 X10^3/uL; Basophil% 0.2 % (0-1); Eosinophil# 0.14 X10^3/uL; Hematocrit 46.6 % (37-47); Hemoglobin 15.7 g/dL (12.0-15.0); Lymphocyte # 2.19 X10^3/ul (0.83-4.51); Lymphocyte % 16.2 % (19-41); Mean Corp Hgb Conc 33.7 g/dL (32-36); Mean Corpuscular Hgb 29.2 pg (27.0-32.0); Mean Corpuscular Volume 86.6 fL (81-99); Mean Platelet Vol. 8.8 fl (6.2-12.0); Monocyte# 1.41 X10^3/uL; Monocyte% 10.4 % (0-10); NRBC Flagged by Analyzer 0 % (0-5); Neutrophil # 9.67 X10^3/uL (2.7-7.7); Neutrophil % 71.6 % (47-70); Platelet Count 279 K/mm3 (150-450); RBC Distribution Width CV 14.2 % (11.6-14.6); RBC Distribution Width SD 45.1 fl (35.1-43.9); Red Blood Count 5.38 M/mm3 (4.2-5.4); White Blood Count 13.5 K/mm3 (4.4-11.0)
[2023-05-17 03:39] LABS: ALB/GLOB Ratio 0.9 RATIO (0.9-2.4); AST(SGOT) 50 U/L (15-37); Alanine Aminotransfer ALT/SGPT 55 U/L (13-56); Albumin, Serum 4.1 g/dL (3.2-5.0); Alkaline Phosphatase 107 U/L (45-117); Anion Gap 10 (5-15); BUN 31 mg/dL (7-18); BUN/Creat Ratio 21.7 RATIO (10-20); Calcium,Total 9.6 mg/dL (8.5-10.1); Chloride 101 mmol/L (98-107); Creatinine, Serum 1.43 mg/dL (0.55-1.02); EST Glomerular Filtration Rate 40 mL/min (>60); Est Glom Filt Rate - Afr Amer 48 mL/min (>60); Estimated Creatinine Clearance 42.76 ml/min; Globulin 4.5 g/dL (2.2-4.2); Glucose 102 mg/dL (74-106); Lipase 33 U/L (13-75); Potassium 3.8 mmol/L (3.5-5.1); Protein, Total 8.6 g/dL (6.4-8.2); Sodium Level 135 mmol/L (136-145)
[2023-05-17 04:31] VITALS: BP 134/78; PULSE 78; RESP 16; O2SAT 97
[2023-05-17 05:16] VITALS: BP 138/78; PULSE 64; RESP 16; TEMP 36.4; O2SAT 99
== END 2023-05-17 05:16 | disposition home or self-care (01) ==
PROVIDERS: Emergency Provider Emergency Medicine; PCP Internal Medicine; Visit Provider Emergency Medicine
DX: K52.9 Noninfective gastroenteritis and colitis, unspecified (principal); I10 Essential (primary) hypertension; F17.210 Nicotine dependence, cigarettes, uncomplicated; B19.20 Unspecified viral hepatitis C without hepatic coma; R10.9 Unspecified abdominal pain; B19.10 Unspecified viral hepatitis B without hepatic coma; Z79.899 Other long term (current) drug therapy; F41.8 Other specified anxiety disorders
CPT/HCPCS: 74177; 80053; 83690; 85025; 96361; 96374; 96375; 99283; J7030; Q9967; A4216; J2405

== ENCOUNTER → 2023-12-15 | Outpatient (CLI) | payer MEDICAID, SELFPAY ==
[2023-12-15 16:50] LABS: Absolute Lymphocyte Count 1.83 X10^3/uL (0.83-4.51); Absolute Neutrophil Count 5.2 X10^3/uL (2.0-7.7); Basophil# 0.03 X10^3/uL; Basophil% 0.4 % (0-1); Eosinophil# 0.23 X10^3/uL; Eosinophils% 2.9 % (0-5); Hematocrit 48.5 % (37-47); Hemoglobin 15.4 g/dL (12.0-15.0); Lymphocyte # 1.83 X10^3/ul (0.83-4.51); Lymphocyte % 23.3 % (19-41); Mean Corp Hgb Conc 31.8 g/dL (32-36); Mean Corpuscular Hgb 28.4 pg (27.0-32.0); Mean Corpuscular Volume 89.3 fL (81-99); Mean Platelet Vol. 9.4 fl (6.2-12.0); Monocyte% 6.4 % (0-10); NRBC Flagged by Analyzer 0 % (0-5); Neutrophil # 5.23 X10^3/uL (2.7-7.7); Neutrophil % 66.7 % (47-70); Platelet Count 258 K/mm3 (150-450); RBC Distribution Width CV 14.7 % (11.6-14.6); RBC Distribution Width SD 47.6 fl (35.1-43.9); Red Blood Count 5.43 M/mm3 (4.2-5.4); White Blood Count 7.8 K/mm3 (4.4-11.0)
[2023-12-15 17:33] LABS: ALB/GLOB Ratio 0.8 RATIO (0.9-2.4); AST(SGOT) 27 U/L (15-37); Alanine Aminotransfer ALT/SGPT 37 U/L (13-56); Albumin, Serum 3.4 g/dL (3.2-5.0); Alkaline Phosphatase 142 U/L (45-117); Anion Gap 6 (5-15); BUN 12 mg/dL (7-18); Calcium,Total 9.3 mg/dL (8.5-10.1); Chloride 111 mmol/L (98-107); Cholesterol 169 mg/dL (200); Creatinine, Serum 0.75 mg/dL (0.55-1.02); EST Glomerular Filtration Rate 84 mL/min (>60); Est Glom Filt Rate - Afr Amer 101 mL/min (>60); Globulin 4.4 g/dL (2.2-4.2); Glucose 129 mg/dL (74-106); High Density Lipoprotein 71 mg/dL; Protein, Total 7.8 g/dL (6.4-8.2); Sodium Level 141 mmol/L (136-145); Triglycerides 94 mg/dL; Very Low Density Lipoprotein 19 mg/dL (5-40)
== END | disposition home or self-care (01) ==
LOC: BIMLAB 16:22
PROVIDERS: PCP Internal Medicine; Referring Provider Internal Medicine; Visit Provider Internal Medicine
DX: J03.90 Acute tonsillitis, unspecified (principal)
CPT/HCPCS: 36415; 80053; 80061; 85025

== ENCOUNTER → 2024-04-13 | Outpatient (CLI) | payer MEDICAID, SELFPAY ==
--- NOTE | 2024-04-13 15:17 | BI_ITS ---
PROCEDURE: SCRN MAMM (CAD)W/REBEKAH BILAT REASON FOR EXAM: F, Age 58 y/o, no family history. TECHNIQUE: Bilateral screening digital breast tomosynthesis with 2D and 3D images. Computer aided detection. COMPARISON: Prior exam(s) dating back to outside examination dated September 03, 2022. FINDINGS: The breasts are heterogeneously dense which may obscure small masses. No suspicious masses, areas of developing architectural distortion, or suspicious calcifications. BI/SCRN MAMM (CAD)W/REBEKAH BILAT IMPRESSION: BI-RADS 1: NEGATIVE. RECOMMEND ANNUAL MAMMOGRAPHIC SCREENING. Follow-up code: Routine Follow-up The patient will be notified of the results by letter. Reading Location: [place] [id number]
== END | disposition home or self-care (01) ==
PROVIDERS: PCP Internal Medicine; Referring Provider Internal Medicine; Visit Provider Internal Medicine
DX: Z12.31 Encounter for screening mammogram for malignant neoplasm of breast (principal)
CPT/HCPCS: 77063; 77067

== ENCOUNTER → 2024-08-09 | Outpatient (CLI) | payer MEDICAID, SELFPAY ==
[2024-08-09 15:47] LABS: Absolute Lymphocyte Count 2.32 X10^3/uL (0.83-4.51); Absolute Neutrophil Count 8.2 X10^3/uL (2.0-7.7); Basophil# 0.03 X10^3/uL; Basophil% 0.3 % (0-1); Eosinophil# 0.24 X10^3/uL; Hematocrit 39.7 % (37-47); Hemoglobin 13.5 g/dL (12.0-15.0); Lymphocyte # 2.32 X10^3/ul (0.83-4.51); Lymphocyte % 19.7 % (19-41); Mean Corpuscular Hgb 29.6 pg (27.0-32.0); Mean Corpuscular Volume 87.1 fL (81-99); Mean Platelet Vol. 9.3 fl (6.2-12.0); Monocyte# 0.92 X10^3/uL; Monocyte% 7.8 % (0-10); NRBC Flagged by Analyzer 0 % (0-5); Neutrophil # 8.21 X10^3/uL (2.7-7.7); Neutrophil % 69.9 % (47-70); Platelet Count 284 K/mm3 (150-450); RBC Distribution Width CV 14.4 % (11.6-14.6); RBC Distribution Width SD 45.4 fl (35.1-43.9); Red Blood Count 4.56 M/mm3 (4.2-5.4); White Blood Count 11.8 K/mm3 (4.4-11.0)
[2024-08-09 16:12] LABS: Anion Gap 12 (5-15); BUN 20 mg/dL (4-19); BUN/Creat Ratio 29.4 RATIO (10-20); Carbon Dioxide 20.7 mmol/L (21.0-32.0); Chloride 106 mmol/L (98-108); Creatinine, Serum 0.66 mg/dL (0.70-1.20); EST Glomerular Filtration Rate 100 (>60); Glucose 89 mg/dL (70-99); Potassium 3.8 mmol/L (3.3-5.1); Sodium Level 139 mmol/L (133-145); Uric Acid 4.4 mg/dL (2.6-6.0)
== END | disposition home or self-care (01) ==
LOC: BIMLAB 13:24
PROVIDERS: PCP Internal Medicine; Referring Provider Internal Medicine; Visit Provider Internal Medicine
DX: M19.90 Unspecified osteoarthritis, unspecified site (principal); I10 Essential (primary) hypertension
CPT/HCPCS: 36415; 80048; 84550; 85025

== ENCOUNTER 2024-10-27 00:52 | Emergency (ER) | payer MEDICAID, SELFPAY ==
[2024-10-27 00:53] VITALS: BP 171/117; PULSE 108; RESP 16; TEMP 36.6; O2SAT 99; BMI 24.1
--- OUTSIDE RECORDS SUMMARY | 2024-10-27 01:11 | XMS RPT_ITS | CCD ---
Author Organization [facility]iniSy[facility] Care Team Providers Care Umbrella Supervisor Name Role Phone PHYSICIAN, NONE Unavailable Unavailable CARMITA, WILNER Unavailable Unavailable OWSHARATH LARA LSophia Unavailable Unavailable PHYSICIAN, NONE Unavailable Unavailable ALRED, CHASE Unavailable Unavailable PHYSICIAN, NONE Unavailable Unavailable Work Care Unavailable Unavailable YOLI PATTON Attending Unavaila vita PATTON, YOLI STEWART Primary Care Unavaila YOLI Patino Admitting Unavaila vita PATTON, YOLI STEWART Primary Care Unavaila Dr. Samina Germain Primary Care Provider [phone] Dr. Samina Joya Referring Provider [phone] Dr. Yoli Patton Attending Provider Unavailable Primary Care Provider UnavailDr. Samina Robertson Primary Care Provider [phone]) Dr. Samina Joya Referring Provider [phone] Dr. Yoli Patton Attending Provider Karla ALMOND BLANCHER OPERATOR, ALMOND BLANCHER OPERATOR-C Dangelo Attending Provider [phone] Samina Joya MD Primary Care Provider [phone] Dr. Samina Joya Primary Care Provider [phone] Dr. Samina Joya Referring Provider [phone] Karla ALMOND BLANCHER OPERATOR, ALMOND BLANCHER OPERATOR-C Dangelo Attending Provider [phone] JANEL Root Attending Provider Dr. Samina Joya Attending Provider [phone] Dr. Samina Joya Primary Care Provider [phone] 0) Oleghe, Dr. Haas Referring Provider [phone] JANEL Root Attending Provider Toan, Dr. Haas Attending Provider [phone] Toan, Dr. Haas Primary Care Provider 1([phone]) Dr. Samina Joya Attending Provider [phone] Toan, Dr. Haas Referring Provider [phone] Samina Joya MD Primary Care Provider [phone]) Toan MEDINA, Dr. Haas Primary Care Provider Toan MEDINA, Dr. Haas Attending Provider [phone] 0) Toan MEDINA, Dr. Haas Referring Provider 1(33 0) Marquise MEDINA, Dr. Miguel Attending Provider OLEGHE, EFEWONGBE B Primary Care Unavailable SADIQ RENO Attending Unavailable OLEGHE, EFEWONGBE B Primary Care Unavailable MINE MONTGOMERY Attending Unavailable OLEGHE, EFEWONGBE B Primary Care Unavailable TERESSA MARTINEZ Attending Unavailable OLEGHE, EFEWONGBE B Primary Care Unavailable OLEGHE, EFEWONGBE B Primary Care Unavailable Oleghe, Efewongbe Referring Unavailable Oleghe, Efewongbe Attending Unavailable Oleghe, Efewongbe Primary Care Unavailable Oleghe, Efewongbe Referring Unavailable Oleghe, Efewongbe Attending Unavailable Oleghe, Efewongbe Primary Care Unavailable Oleghe, Efewongbe Attending Unavailable Oleghe, Efewongbe Referring Unavailable Oleghe, Efewongbe Primary Care Unavailable Oleghe, Efewongbe Referring Unavailable Oleghe, Efewongbe Primary Care Unavailable Yoli Patton Attending Unavailable Peter Larios Attending Unavailable Oleghe, Efewongbe Referring Unavailable Oleghe, Efewongbe Primary Care Unavailable Oleghe, Efewongbe Primary Care Unavailable Oleghe, Efewongbe Attending Unavailable Oleghe, Efewongbe Referring Unavailable Oleghe, Efewongbe Referring Unavailable Samina Joya Primary Care Unavailable Yoli Patton Attending Unavailable Samina Joya Referring Unavailable Samina Joya Primary Care Unavailable Samina Joya Attending Unavailable Allergies Allergy Classification Reported Allergen(s) Allergy Type Date of Onset Reaction(s) Facility (20 sources) Codeine; Translations: [CODEINE] Drug Allergy 2 Anaphylaxis [facility] (20 sources) Latex; Translations: [LATEX] Propensity to adverse reactions 9 Hives [facility] (8 sources) gabapentin; Translations: [gabapentin] Drug Allergy 3 Itching [facility] (10 sources) levoFLOXacin; Translations: [LEVOFLOXACIN] Drug Allergy 4 Anaphylaxis [facility] (1 source) Codeine Drug Allergy 5 [facility] (1 source) Latex Drug allergy (disorder) 5 [facility] Medications Current Medications Medication Drug Class(es) Dates Sig (Normalized) Sig (Original) amLODIPine 5 mg oral tablet (20 sources) Dihydropyridine [facility] Start: 11-16-2022 End: 08-11-2024 take 1 tablet by mouth twice daily Amlodipine 5 mg tablet Active 5 mg PO TWICE A DAY 180 August 11, 2024 1:10pm Start: 07-08-2022 End: 11-16-2022 take 4 tablets by mouth twice daily Amlodipine 5 mg tablet Discontinued 20 mg PO TWICE A DAY July 08, 2022 11:32pm November 16, 2022 11:33am Start: 07-08-2022 End: 11-16-2022 take 20 mg by mouth twice daily Amlodipine Discontinue d 20 MG PO TWICE A DAY July 08, 2022 11:32pm November 16, 2022 11:33am Start: 08-26-2020 End: 07-08-2022 take 1 tablet by mouth twice daily Amlodipine 5 mg tablet Discontinued 5 mg PO TWICE A DAY 60 May 12, 2022 3:19pm July 08, 2022 11:33pm Start: 06-06-2020 End: 07-26-2020 take 1 tablet by mouth twice daily Amlodipine 5 mg tablet Discontinued 5 mg PO TWICE A DAY 60 July 23, 2020 9:20pm July 26, 2020 9:57am Start: 10-26-2019 End: 06-06-2020 take 1 tablet by mouth twice daily Amlodipine 2.5 mg tablet Discontinued 2.5 mg PO TWICE A DAY 180 October 26, 2019 3:46pm June 06, 2020 7:17pm Start: 10-17-2019 End: 10-26-2019 take 2 tablets by mouth once daily Amlodipine 2.5 MG tablet Discontinued 5 mg PO DAILY October 17, 2019 1:05pm October 26, 2019 3:46pm Start: 10-17-2019 End: 10-26-2019 take 5 mg by mouth once daily Amlodipine Discontinued 5 MG PO DAILY October 17, 2019 1:05pm October 26, 2019 3:46pm Start: 10-20-2018 End: 10-17-2019 take 1 tablet by mouth twice daily Amlodipine 2.5 mg tablet Discontinued 2.5 mg PO TWICE A DAY 180 October 20, 2018 12:00am October 17, 2019 1:05pm Start: 10-09-2018 End: 10-20-2018 take 1 tablet by mouth once daily Amlodipine 5 MG tablet Discontinued 5 mg PO DAILY 30 October 09, 2018 12:00am October 20, 2018 10:47am Comment on above: Take 5 mg by mouth o nce daily. amoxicillin 875 mg / clavulanate 125 mg oral tablet (8 sources) Penicillin-class Antibacterial Start: End: take 1 tablet by mouth every twelve hours amoxicillin-clavul anate potassium (AUGMENTIN) 875-125 mg per tablet Indications: Acute otitis media, left Take 1 tablet by mouth every 12 hours for 7 days. 14 tablet 09/24/2024 10/01/2024 Active Start: 07-28-2022 End: 10-12-2022 Amoxicillin-Pot Clavulanate 875-125 mg tablet Discontinued 1 {tbl} PO TWICE A DAY July 28, 2022 12:00am October 12, 2022 12:41pm Start: 07-28-2022 End: 10-12-2022 take 1 tablet by mouth twice daily Amoxicillin-Pot Clavulanate Discontinued 1 TABLET PO TWICE A DAY July 28, 2022 12:00am October 12, 2022 12:41pm diclofenac sodium 75 mg delayed release oral tablet (20 sources) Nonsteroidal Anti-inflammatory Drug Start: 11-09-2023 End: 07-04-2024 take 1 tablet by mouth twice daily as needed for pain Diclofenac Sodium 75 mg tablet,delayed release (DR/EC) Active 75 mg PO TWICE A DAY as needed for pain 60 July 04, 2024 2:56pm Start: 11-16-2019 End: 06-18-2022 take 1 tablet by mouth twice daily as needed for headache and pain Diclofenac Sodium 75 mg tablet,delayed release (DR/EC) Discontinued 75 mg PO TWICE A DAY as needed for headache and pain 60 October 23, 2021 1:49pm June 18, 2022 1:07pm fluticasone propionate 0.05 mg/actuat metered dose nasal spray (16 sources) Corticosteroid Start: 06-18-2022 End: 08-11-2024 take 50 ug nasal route once daily Fluticasone Propionate (Flonase Allergy Relief) 50 mcg/actuation spray,suspension Active 2 NMA INTRANASAL DAILY 15.8 August 11, 2024 1:10pm administer into each nostril Start: 06-18-2022 End: 07-28-2022 take 1 spray(s) nasal route once daily Fluticasone Propionate (Flonase Allergy Relief) 50 mcg/actuation spray,suspension Active 2 SPRAY INTRANASAL DAILY 15.8 July 28, 2022 10:15am administer into each nostril magnesium oxide 400 mg oral tablet (2 sources) Start: 07-04-2024 take 1 tablet by mouth at bedtime as needed Magnesium Oxide 400 mg magnesium tablet Active 400 mg PO AT BEDTIME as needed for muscle cramps July 04, 2024 12:00am methylPREDNISolone (12 sources) Corticosteroid Start: 09-24-2024 End: 09-30-2024 methylPREDNISolone (MEDROL, HERMILO,) 4 mg Dose-Pack Indications: Sore throat , Acute otitis media, left Take as instructed per package. 21 tablet 09/24/2024 09/30/2024 Active Start: 10-27-2019 End: 11-16-2019 take 1 tablet by mouth once Methylprednisolone (Medrol (Hermilo)) 4 mg tablets,dose pack Discontinued 0 PO per package directions October 27, 2019 12:00am November 16, 2019 2:30pm PO PER PKG DIR metroNIDAZOLE 500 mg oral tablet (20 sources) Nitroimidazole Antimicrobial Start: 03-21-2024 End: 03-28-2024 take 1 tablet by mouth twice daily metroNIDAZOLE (FLAGYL) 500 mg tablet Take 1 tablet by mouth two times a day for 7 days. 14 tablet 03/21/2024 03/28/2024 Active Start: 01-10-2024 End: 01-17-2024 take 1 tablet by mouth twice daily metroNIDAZOLE (FLAGYL) 500 mg tablet Take 1 tablet by mouth two times a day for 7 days. 14 tablet 01/10/2024 01/17/2024 Active Start: 12-13-2018 End: 01-13-2019 take 1 tablet by mouth twice daily Metronidazole (Flagyl) 500 mg tablet Discontinued 500 mg PO TWICE A DAY December 13, 2018 12:00am January 13, 2019 2:14pm Start: 11-18-2018 End: 12-08-2018 take 1 tablet by mouth twice daily Metronidazole (Flagyl) 500 mg tablet Discontinued 500 mg PO TWICE A DAY November 18, 2018 12:00am December 08, 2018 2:05pm predniSONE 20 mg oral tablet (3 sources) Start: 2023 End: 08-09-2024 take 2 tablets by mouth once daily Prednisone 20 mg tablet Active 40 mg PO daily August 10, 2024 12:00am Completed/Discontinued Medications Medication Drug Class(es) Dates Sig (Normalized) Sig (Original) acetaminophen 325 mg / butalbital 50 mg / caffeine 40 mg oral tablet (11 sources) Barbiturate, Central Nervous System Stimulant, Methylxanthine Start: 10-23-2019 End: 10-27-2019 Butalbital-Acetami nophen-Caff 1 TABLET tablet Discontinued 1 {tbl} PO EVERY 4 HOURS NEEDED as needed for Headache October 23, 2019 12:00am October 27, 2019 10:11am Start: 10-23-2019 End: 10-27-2019 take 1 tablet by mouth every four hours as needed Eiytlxqtgb-Zotcbfeewftrg-Bngm Discontinu ed 1 TABLET PO EVERY 4 HOURS NEEDED October 23, 2019 12:00am October 27, 2019 10:11am acetaminophen 325 mg / HYDROcodone bitartrate 5 mg oral tablet (20 sources) Opioid Agonist Start: 09-05-2021 End: 10-23-2021 Hydrocodone-Acetaminophen 5- 325 mg tablet Discontinued 1 {tbl} PO EVERY 6 HOURS NEEDED as needed for Pain 12 September 05, 2021 October 23, 2021 1:22pm Start: 09-05-2021 End: 10-23-2021 take 1 tablet by mouth every six hours as needed Hydrocodone-Acetaminophen Discontinued 1 TABLET PO EVERY 6 HOURS NEEDED 12 September 05, 2021 October 23, 2021 1:22pm Start: 01-16-2019 End: 01-20-2019 Hydrocodone-Acetaminophen 1 TABLET tablet Discontinued 1 {tbl} PO EVERY 4 HOURS NEEDED as needed for Pain 10 2 January 16, 2019 January 17, 2019 1:00am January 20, 2019 1:09am Start: 01-16-2019 End: 01-20-2019 take 1 tablet by mouth every four hours as needed Hydrocodone-Acetaminophen Discontinued 1 TABLET PO EVERY 4 HOURS NEEDED 10 January 16, 2019 January 20, 2019 1:09am acetaminophen 325 mg / oxyCODONE hydrochloride 5 mg oral tablet (20 sources) Opioid Agonist Start: 09-19-2019 End: 09-26-2019 Oxycodone-Acetaminophen (Percocet) 5-325 mg tablet Discontinued 1 {tbl} PO TWICE A DAY as needed for pain (scale score 7-10) 14 7 September 19, 2019 September 25, 2019 12:00am September 26, 2019 12:02am Start: 09-04-2019 End: 09-11-2019 Oxycodone-Acetaminophen (Per cocet) 5-325 mg tablet Discontinued 1 {tbl} PO 4 TIMES DAILY as needed for pain (scale score 7-10) 7 September 04, 2019 September 10, 2019 12:00am September 11, 2019 12:02am Start: 08-28-2019 End: 09-04-2019 Oxycodone-Acetaminophen 1 TA BLET tablet Discontinued 1 {tbl} PO EVERY 4 HOURS NEEDED as needed for Pain Score 4-5/10 40 7 August 28, 2019 September 03, 2019 12:00am September 04, 2019 12:02am 40 tabs (forty) Start: 08-28-2019 End: 09-04-2019 take 1 tablet by mouth every four hours as needed Oxycodone-Acetaminophen Discontinued 1 TABLET PO EVERY 4 HOURS NEEDED 40 7 August 28, 2019 September 04, 2019 12:02am 40 tabs (forty) [id number] 200 actuat albuterol 0.09 mg/actuat metered dose inhaler (2 sources) beta2-Adrenergic Agonist Start: 2023 End: 08-09-2024 Albuterol Sulfate 90 mcg/actuation HFA aerosol inhaler Discontinued 2 NMA INHALATION EVERY 6 HOURS as needed for shortness of breath or wheezing 8.5 2023 12:00am August 09, 2024 1:01pm amitriptyline hydrochloride 25 mg oral tablet (11 sources) Tricyclic Antidepressant Start: 11-16-2019 End: 12-26-2019 take 25-50 mg by mouth at bedtime Amitriptyline 25 mg tablet Discontinued 25 - 50 mg PO AT BEDTIME 60 November 16, 2019 12:00am December 26, 2019 6:53pm Start: 11-16-2019 End: 12-26-2019 take 25-50 mg by mouth at bedtime Amitriptyline Discontinued 25 - 50 MG PO AT BEDTIME 60 November 16, 2019 12:00am December 26, 2019 6:53pm aspirin 81 mg chewable tablet (20 sources) Platelet Aggregation Inhibitor, Nonsteroidal Anti-inflammatory Drug Start: 07-26-2020 End: 10-23-2021 take 1 tablet by mouth once daily Aspirin (Gurdeep Chewable Aspirin) 81 mg tablet,chewable Discontinued 81 mg PO DAILY August 26, 2020 5:42pm October 23, 2021 1:49pm azithromycin 250 mg oral tablet (7 sources) Macrolide Antimicrobial Start: 08-05-2022 End: 10-12-2022 Azithromycin 250 mg tablet Discontinued 0 PO .COMPLEX 6 August 05, 2022 12:00am October 12, 2022 12:42pm Take two tablets by mouth on day one then one tablet by mouth on days 2-5 cephalexin 500 mg oral tablet (3 sources) Cephalosporin Antibacterial Start: 02-12-2023 End: 03-10-2023 take 1 tablet by mouth three times daily Cephalexin 500 mg tablet Discontinued 500 mg PO THREE TIMES A DAY February 12, 2023 1:00am March 10, 2023 3:01pm ciprofloxacin 500 mg oral tablet (20 sources) Quinolone Antimicrobial Start: 11-02-2018 End: 01-13-2019 take 1 tablet by mouth twice daily Ciprofloxacin Hcl 500 mg tablet Discontinued 500 mg PO TWICE A DAY November 16, 2018 12:00am January 13, 2019 2:14pm Cranberry Fruit (11 sources) Non-Standardized Food Allergenic Extract, Non-Standardized Plant Allergenic Extract Start: 11-16-2018 End: 01-13-2019 take 1 tablet by mouth once daily Cranberry Fruit 450 mg tablet Discontinued 450 mg PO DAILY November 16, 2018 12:00am January 13, 2019 2:14pm administer with a meal Start: 11-16-2018 End: 01-13-2019 take 450 mg by mouth once daily Cranberry Fruit Discontinued 450 MG PO DAILY November 15, 2018 11:00pm January 13, 2019 1:14pm administer with a meal Start: 11-16-2018 End: 01-13-2019 take 450 mg by mouth once daily Cranberry Fruit Discontinued 450 MG PO DAILY November 16, 2018 12:00am January 13, 2019 2:14pm administer with a meal diazePAM 5 mg oral tablet (20 sources) Benzodiazepine Start: 09-19-2019 End: 09-26-2019 take 1 tablet by mouth twice daily as needed for muscle spasms Diazepam (Valium) 5 mg tablet Discontinued 5 mg PO TWICE A DAY as needed for muscle spasm 18 09September 19, 2019 12:00am September 25, 2019 12:00am September 26, 2019 12:02am Start: 09-04-2019 End: 09-11-2019 take 1 tablet by mouth three times daily as needed for muscle spasms Diazepam 5 mg tablet Discontinued 5 mg PO THREE TIMES A DAY as needed for muscle spasm 24 09September 04, 2019 12:00am September 10, 2019 12:00am September 11, 2019 12:02am dicyclomine hydrochloride 20 mg oral tablet (11 sources) Anticholinergic Start: 07-10-2021 End: 02-12-2023 take 1 tablet by mouth four times daily as needed for muscle spasms Dicyclomine 20 mg tablet Discontinued 20 mg PO 4 TIMES DAILY NEEDED as needed for Abdominal bloating/spasm July 10, 2021 6:28am February 12, 2023 2:55pm DULoxetine 60 mg delayed release oral capsule (20 sources) Serotonin and Norepinephrine Reuptake Inhibitor Start: 02-08-2020 End: 03-19-2020 take 1 capsule by mouth once daily Duloxetine 30 mg capsule,delayed release(DR/EC) Discontinued 30 mg PO DAILY February 08, 2020 1:00am March 19, 2020 2:49pm take one capsule PO daily for one week Start: 02-08-2020 End: 03-19-2020 take 1 capsule by mouth once daily Duloxetine 60 mg capsule,delayed release(DR/EC) Discontinued 60 mg PO DAILY February 08, 2020 1:00am March 19, 2020 2:49pm begin after completing one week course of duloxetine 30mg daily gabapentin 100 mg oral capsule (18 sources) Anti-epileptic Agent Start: 10-12-2022 End: 11-16-2022 take 1 capsule by mouth three times daily Gabapentin 100 mg capsule Discontinued 100 mg PO THREE TIMES A DAY October 12, 2022 12:00am November 16, 2022 11:08am Comment on above: Take 100 mg by mouth three times daily. hydrocortisone 25 mg/ml topical cream (8 sources) Corticosteroid Start: 06-18-2022 End: 10-12-2022 Hydrocortisone 2.5 % cream Discontinued 1 NMA TOPICAL TWICE A DAY as needed for skin irritation 453.June 18, 2022 12:00am October 12, 2022 12:42pm levocetirizine dihydrochloride 5 mg oral tablet (20 sources) Histamine-1 Receptor Antagonist Start: 06-18-2022 End: 07-28-2022 take 1 tablet by mouth once daily in the evening Levocetirizine (Xyzal) 5 mg tablet Discontinued 5 mg PO EVERY EVENING July 08, 2022 11:32pm July 28, 2022 9:36am Comment on above: Take 5 mg by mouth o nce daily as needed for cold/allergy symptoms. levoFLOXacin 750 mg oral tablet (4 sources) Quinolone Antimicrobial Start: 02-08-2023 End: 02-12-2023 take 1 tablet by mouth once daily Levofloxacin 750 mg tablet Discontinued 750 mg PO DAILY February 08, 2023 1:00am February 12, 2023 3:12pm lisinopril 10 mg oral tablet (20 sources) Angiotensin Converting Enzyme Inhibitor Start: 07-23-2020 End: 08-26-2020 take 1 tablet by mouth once daily Lisinopril 10 mg tablet Discontinued 10 mg PO DAILY July 23, 2020 12:00am August 26, 2020 3:16pm Start: 10-06-2018 End: 10-09-2018 take 1 tablet by mouth once daily Lisinopril 10 mg tablet Discontinued 10 mg PO DAILY October 06, 2018 11:24am October 09, 2018 9:28am Multivit With Min-Folic Acid (Multivitamin Gummies) 200 mcg Tablet,Chewable (7 sources) Start: 07-08-2022 End: 02-12-2023 take 1 tablet by mouth once daily Multivit With Min-Folic Acid (Multivitamin Gummies) 200 mcg Tablet,Chewable Discontinued 1 {tbl} PO DAILY July 08, 2022 12:00am February 12, 2023 2:55pm Start: 07-08-2022 End: 02-12-2023 take 1 tablet by mouth once daily Multivit With Min-Folic Acid (Multivitamin Gummies) 200 mcg Tablet,Chewable Discontinued 1 TABLET PO DAILY July 08, 2022 12:00am February 12, 2023 2:55pm Start: 07-08-2022 take 1 tablet by devyn th once daily Multivit With Min-Folic Acid (Multivitamin Gummies) 200 mcg Tablet,Chewable Active 1 TABLET PO DAILY July 07, 2022 11:00pm Start: 07-08-2022 take 1 tablet by devyn th once daily Multivit With Min-Folic Acid (Multivitamin Gummies) 200 mcg Tablet,Chewable Active 1 TABLET PO DAILY July 08, 2022 12:00am naproxen 500 mg oral tablet (11 sources) Nonsteroidal Anti-inflammatory Drug Start: 10-27-2019 End: 11-02-2019 take 1 tablet by mouth twice daily as needed for pain Naproxen 500 mg tablet Discontinued 500 mg PO TWICE A DAY as needed for pain 60 October 27, 2019 12:00am November 02, 2019 1:04pm ondansetron 4 mg disintegrating oral tablet (17 sources) Serotonin-3 Receptor Antagonist Start: 07-09-2022 End: 10-12-2022 take 2 tablets by mouth every eight hours as needed for nausea Ondansetron 4 mg tablet,disintegra ting Discontinued 8 mg PO EVERY 8 HOURS NEEDED as needed for Nausea July 09, 2022 12:00am October 12, 2022 12:43pm Start: 07-09-2022 End: 10-12-2022 take 8 mg by mouth every eight hours as needed Ondansetron Discontinued 8 MG PO EVERY 8 HOURS NEEDED July 09, 2022 12:00am October 12, 2022 12:43pm Start: 02-18-2022 End: 04-23-2022 take 2 tablets by mouth every eight hours as needed for nausea Ondansetron 4 mg tablet,disintegrating Discontinued 8 mg PO EVERY 8 HOURS NEEDED as needed for Nausea February 18, 2022 1:00am April 23, 2022 2:36pm Start: 02-18-2022 End: 04-23-2022 take 8 mg by mouth every eight hours as needed Ondansetron Discontinued 8 MG PO EVERY 8 HOURS NEEDED February 18, 2022 1:00am April 23, 2022 2:36pm PARoxetine hydrochloride 20 mg oral tablet (20 sources) Serotonin Reuptake Inhibitor Start: 03-19-2020 End: 12-15-2023 take 1 tablet by mouth once daily in the morning Paroxetine Hcl 20 mg tablet Discontinued 20 mg PO EVERY MORNING November 22, 2023 12:09pm December 15, 2023 4:29pm Start: 08-22-2019 End: 02-08-2020 take 1 tablet by mouth once daily Paroxetine Hcl 30 mg tablet Discontinued 30 mg PO DAILY 60 August 22, 2019 1:52pm February 08, 2020 8:33pm Start: 10-12-2018 End: 08-22-2019 take 1 tablet by mouth once daily Paroxetine Hcl 20 mg tablet Discontinued 20 mg PO DAILY March 03, 2019 10:41am August 22, 2019 1:53pm Start: 10-06-2018 End: 10-12-2018 take 1 tablet by mouth once daily Paroxetine Hcl (Paxil Cr) 25 mg tablet extended release 24 hr Discontinued 25 mg PO DAILY October 06, 2018 11:24am October 12, 2018 4:45pm Comment on above: Take 20 mg by mouth once daily. phenazopyridine hydrochloride 100 mg oral tablet (20 sources) Start: End: take 1 tablet by mouth three times daily as needed for pain Phenazopyridine (Pyridium) 100 mg tablet Discontinued 100 mg PO THREE TIMES A DAY as needed for pain 6 0 November 16, 2018 12:00am January 13, 2019 2:14pm will discolor urine sulfamethoxazole 800 mg / trimethoprim 160 mg oral tablet (20 sources) Dihydrofolate Reductase Inhibitor Antibacterial, Sulfonamide Antimicrobial Start: 023 End: Sulfamethoxazole-Trime thoprim (Bactrim Ds) 800-160 mg tablet Discontinued 1 {tbl} PO TWICE A DAY February 01, 2023 1:00am February 12, 2023 2:56pm Start: 09-05-2021 End: 04-23-2022 Sulfamethoxazole-Trimethopri m 800-160 mg tablet Discontinued 1 {tbl} PO TWICE A DAY September 05, 2021 12:00am April 23, 2022 2:36pm Start: 09-05-2021 End: 04-23-2022 take 1 tablet by mouth twice daily Sulfamethoxazole-Trimethoprim Discontinu ed 1 TABLET PO TWICE A DAY September 05, 2021 12:00am April 23, 2022 2:36pm Start: 12-16-2019 End: 03-19-2020 Sulfamethoxazole-Trimethopri m 1 TABLET tablet Discontinued 1 {tbl} PO TWICE A DAY December 16, 2019 12:00am March 19, 2020 2:49pm Start: 12-16-2019 End: 03-19-2020 take 1 tablet by mouth twice daily Sulfamethoxazole-Trimethoprim Discontinu ed 1 TABLET PO TWICE A DAY December 16, 2019 12:00am March 19, 2020 2:49pm tiZANidine 4 mg oral tablet (20 sources) Central alpha-2 Adrenergic Agonist Start: 11-02-2019 End: 07-04-2024 take 1 tablet by mouth at bedtime as needed Tizanidine 4 mg tablet Discontinued 4 mg PO AT BEDTIME as needed for muscle spasticity 60 August 12, 2023 10:54am November 09, 2023 2:35pm take 1 capsule by [facility] every eight hours as needed tiZANidine HCl 4 mg capsule Take 4 mg by mouth three times a day as needed. Active Comment on above: Take 4 mg by mouth t hree times daily as needed. traZODone hydrochloride 50 mg oral tablet (20 sources) Serotonin Reuptake Inhibitor Start: End: 3 take 1 tablet by mouth at bedtime Trazodone 50 mg tablet Discontinued 50 mg PO AT BEDTIME February 25, 2021 10:25am April 23, 2022 2:36pm Comment on above: Take 50 mg by mouth daily at bedtime. 24 hr divalproex sodium 250 mg extended release oral tablet (20 sources) Mood Stabilizer, Anti-epileptic Agent Start: End: take 1 tablet by mouth once daily Divalproex 250 mg tablet extended release 24 hr Discontinued 250 mg PO DAILY February 25, 2021 10:25am September 05, 2021 2:09am End: 10-21-2022 take 1 tablet by mouth three times daily divalproex DR (DEPAKOTE) 250 mg EC tablet Take 250 mg by mouth three times daily. 0 10/21/2022 Discontinued (Discontinued by another Health Care Provider) Comment on above: Take 250 mg by mouth three times daily. Problems Active Problems Problem Classification Problem Date Documented Da te Episodic/Chronic Abdominal pain (20 sources) Abdominal pain; Translations: [Unspecified abdominal pain] Onset: 08-28-2024 02-26-2022 Episodic Acute bronchitis (11 sources) Acute bronchitis; Translations: [Acute bronchitis, unspecified] 02-17-2019 Episodic Allergic reactions (20 sources) Contact dermatitis; Translations: [Unspecified contact dermatitis, unspecified cause] 10-17-2020 Episodic Anxiety disorders (4 sources) Mixed anxiety and depressive disorder; Translations: [Anxiety disorder, unspecified] Onset: 08-22-2024 12-15-2023 Chronic Chronic obstructive pulmonary disease and bronchiectasis (2 sources) Bronchitis; Translations: [Bronchitis, not specified as acute or chronic] 2023 Episodic Coagulation and hemorrhagic disorders (11 sources) Platelet count below reference range; Translations: [Thrombocytopenia, unspecified] 01-23-2021 Chronic Deficiency and other anemia (11 sources) Anemia; Translations: [Anemia, unspecified] 01-23-2021 Episodic Diseases of mouth; excluding dental (7 sources) Stomatitis; Translations: [Other forms of stomatitis] 07-17-2022 Episodic E Codes: Natural/environment (20 sources) Insect bite - wound; Translations: [Bitten or stung by nonvenomous insect and other nonvenomous arthropods, initial encounter] 09-05-2021 Episodic Essential hypertension (20 sources) Hypertensive disorder; Translations: [Essential (primary) hypertension] Onset: 08-22-2024 10-13-2018 Chronic Fluid and electrolyte disorders (11 sources) Mild dehydration; Translations: [Dehydration] 07-18-2021 Episodic Gastritis and duodenitis (10 sources) Acute gastritis; Translations: [Acute gastritis without bleeding] 02-26-2022 Episodic Genitourinary symptoms and ill-defined conditions (14 sources) Increased frequency of urination; Translations: [Frequency of micturition] Onset: 09-11-2024 10-21-2022 Episodic Headache; including migraine (20 sources) Migraine without aura; Translations: [Migraine without aura, not intractable, without status migrainosus] Chronic Headache; including migraine (11 sources) Headache; Translations: [Headache] 10-18-2019 Episodic Hepatitis (20 sources) Type B viral hepatitis; Translations: [Unspecified viral hepatitis B without hepatic coma] 02-16-2019 Episodic Inflammatory diseases of female pelvic organs (2 sources) Acute vaginitis; Translations: [Acute vaginitis] 10-21-2022 Episodic Malaise and fatigue (20 sources) Fatigue; Translations: [Other fatigue] 06-18-2022 Episodic Mood disorders (12 sources) Depressive disorder; Translations: [Depression] Onset: 08-22-2024 07-23-2020 Chronic Nausea and vomiting (6 sources) Nausea and vomiting; Translations: [Nausea with vomiting, unspecified] Onset: 09-11-2024 02-08-2023 Episodic Noninfectious gastroenteritis (7 sources) Gastroenteritis; Translations: [Noninfective gastroenteritis and colitis, unspecified] 07-17-2022 Episodic Nutritional deficiencies (9 sources) Vitamin deficiency; Translations: [Vitamin deficiency, unspecified] 06-18-2022 Episodic Open wounds of extremities (11 sources) Open wound of axillary region with complication; Translations: [Unspecified open wound of left upper arm, initial encounter] 10-16-2019 Episodic Osteoarthritis (4 sources) Arthritis; Translations: [Unspecified osteoarthritis, unspecified site] Onset: 09-26-2024 08-09-2024 Chronic Other aftercare (11 sources) Wound ; Translations: [Encounter for other specified surgical aftercare] 09-02-2019 Episodic Other and ill-defined cerebrovascular disease (11 sources) Cerebrovascular disease; Translations: [Cerebrovascular disease, unspecified] 07-23-2020 Chronic Other bone disease and musculoskeletal deformities (11 sources) Costal chondritis; Translations: [Chondrocostal junction syndrome [Tietze]] 02-17-2019 Episodic Other circulatory disease (19 sources) Vasculitis; Translations: [Arteritis, unspecified] 07-26-2020 Chronic Other circulatory disease (1 source) Arteritis, unspecified; Translations: [Arteritis, unspecified] 06-18-2022 Chronic Other connective tissue disease (13 sources) Cramp; Translations: [Cramp and spasm] 05-03-2022 Episodic Other connective tissue disease (3 sources) Cramp and spasm; Translations: [Cramp of limb] Onset: 09-02-2024 Episodic Other connective tissue disease (9 sources) Spasm; Translations: [Other muscle spasm] 03-29-2022 Episodic Other connective tissue disease (1 source) Muscle rigidity; Translations: [Other symptoms and signs involving the musculoskeletal system] Episodic Other connective tissue disease (4 sources) Pain in lower limb; Translations: [Pain in right leg] 11-10-2023 Episodic Other connective tissue disease (1 source) Pain in right leg; Translations: [Pain in right leg] Onset: 09-02-2024 Episodic Other connective tissue disease (1 source) Pain in left leg; Translations: [Pain in left leg] Onset: 09-02-2024 Episodic Other ear and sense organ disorders (7 sources) Pain of ear structure; Translations: [Otalgia, bilateral] 07-28-2022 Episodic Other ear and sense organ disorders (1 source) Otalgia, bilateral; Translations: [Otalgia, unspecified] 07-28-2022 Episodic Other female genital disorders (8 sources) Vaginal discharge; Translations: [Other specified noninflammatory disorders of vagina] 02-01-2023 Episodic Other female genital disorders (5 sources) Other specified noninflammatory disorders of vagina; Translations: [Leukorrhea, not specified as infective] 02-01-2023 Episodic Other gastrointestinal disorders (20 sources) Diarrhea; Translations: [Diarrhea, unspecified] 01-23-2021 Episodic Other gastrointestinal disorders (11 sources) Constipation; Translations: [Constipation, unspecified] 07-04-2021 Episodic Other gastrointestinal disorders (1 source) Diarrhea, unspecified; Translations: [Vomiting and diarrhea] Onset: 09-11-2024 Episodic Other nervous system disorders (7 sources) Neuropathy of lower limb; Translations: [Unspecified mononeuropathy of unspecified lower limb] 10-12-2022 Chronic Other nervous system disorders (4 sources) Unspecified mononeuropathy of unspecified lower limb; Translations: [Mononeuritis of lower limb, unspecified] 10-12-2022 Chronic Other skin disorders (20 sources) Axillary hidradenitis suppurativa; Translations: [Hidradenitis suppurativa] 08-25-2019 Episodic Other upper respiratory disease (1 source) Allergic rhinitis, unspecified; Translations: [Allergic rhinitis, cause unspecified] 06-18-2022 Chronic Other upper respiratory disease (11 sources) Bleeding from nose; Translations: [Epistaxis] 07-23-2020 Episodic Other upper respiratory disease (6 sources) Nasal congestion; Translations: [Nasal congestion] 02-01-2023 Episodic Other upper respiratory infections (2 sources) Sore throat symptom; Translations: [Acute pharyngitis, unspecified] Onset: 09-24-2024 09-24-2024 Episodic Otitis media and related conditions (10 sources) Otitis media; Translations: [Otitis media, unspecified, bilateral] Onset: 09-24-2024 07-28-2022 Episodic Residual codes; unclassified (11 sources) Insomnia; Translations: [Insomnia, unspecified] 07-23-2020 Episodic Residual codes; unclassified (9 sources) Generally unwell; Translations: [Other general symptoms and signs] 03-29-2022 Episodic Residual codes; unclassified (8 sources) Memory impairment; Translations: [Other amnesia] 05-03-2022 Episodic Residual codes; unclassified (1 source) Other amnesia; Translations: [Memory loss] 04-23-2022 Episodic Sexually transmitted infections (not HIV or hepatitis) (6 sources) Sexually transmitted infectious disease; Translations: [Unspecified sexually transmitted disease] 02-01-2023 Episodic Spondylosis; intervertebral disc disorders; other back problems (17 sources) Neck pain; Translations: [Cervicalgia] Episodic Substance-related disorders (20 sources) Cocaine abuse; Translations: [Cocaine abuse, uncomplicated] 02-17-2019 Chronic Unclassified (1 source) Unknown / UNK(Unknown) Onset: 02-03-2018 Unclassified (1 source) Onset: 11-17-2017 Unclassified (1 source) Low back pain, unspecified; Translations: [Low back pain, unspecified] Onset: 09-02-2024 Urinary tract infections (20 sources) Urinary tract infectious disease; Translations: [Urinary tract infection, site not specified] 10-17-2020 Episodic Viral infection (11 sources) Human papilloma virus infection; Translations: [Papillomavirus as the cause of diseases classified elsewhere] 12-21-2018 Episodic Comment on above: Pap normal, repeat i n 2019 Past or Other Problems Problem Classification Problem Date Documented Date Episodic/Chronic Acute and chronic tonsillitis (1 source) Acute tonsillitis, unspecified; Translations: [Acute tonsillitis, unspecified] Onset: 01-04-2024 Episodic Immunizations and screening for infectious disease (20 sources) Antineutrophil cytoplasmic antibody positive; Translations: [Other specified abnormal immunological findings in serum] Onset: 12-15-2023 07-30-2020 Episodic Other screening for suspected conditions (not mental disorders or infectious disease) (4 sources) Patient encounter status; Translations: [Encounter for screening for malignant neoplasm of colon] Onset: 12-15-2023 12-15-2023 Episodic Unclassified (1 source) FLANK PAIN/TRIAGE Onset: 02-03-2018 Results Test Name Value Interpretation Reference Range Facility [facility] 09-24-2024 CNOV Office Visit (WOUCA) SHANDA ARRIAGA ([id number]) 1965 F Date Time Provider Department 09/24/24 11:45 AM SADIQ RENO During your visit today, we recorded the following information about you: Temperature Pulse Respiration Blood pressure 96.9 degrees 76/minute 16/minute 122/70 Weight 64.2 kg Sadiq Reno MD 09/24/2024 11:59 AM Signed [facility] Subjective Shanda Arriaga is a 59 year old female. Patient presents with: Sore Throat: left ear pressure x 1 week Pt here with 1 week hx of uri sx now left ear pain and fullness + hearing loss no fever no chills + St and nasal congestion no dyspnea Sore Throat Associated symptoms include congestion, coughing and ear pain. Pertinent negatives include no headaches, shortness of breath or stridor. Review of Systems Constitutional: Negative for chills, fatigue and fever. HENT: Positive for congestion, ear pain, hearing loss, rhinorrhea and sore throat. Respiratory: Positive for cough. Negative for shortness of breath, wheezing and stridor. Neurological: Negative for dizziness and headaches. Objective BP 122/70 Pulse 76 Temp 36.1 ?C (96.9 ?F) Resp 16 Wt 64.2 kg (141 lb 8.6 oz) SpO2 99% Physical Exam Vitals and nursing note reviewed. Constitutional: Appearance: Normal appearance. She is not ill-appearing. HENT: Right Ear: Tympanic membrane and ear canal normal. Ears: Comments: Left TM red and bulging canal normal Nose: Congestion and rhinorrhea present. Mouth/Throat: Mouth: Mucous membranes are moist. Pharynx: Oropharynx is clear. Cardiovascular: Rate and Rhythm: Normal rate and regular rhythm. Heart sounds: Normal heart sounds. Pulmonary: Effort: Pulmonary effort is normal. Breath sounds: Normal breath sounds. No stridor. No wheezing, rhonchi or rales. Neurological: Mental Status: She is alert and oriented to person, place, and time. Psychiatric: Mood and Affect: Mood normal. Behavior: Behavior normal. {ASSESSMENT/PLAN: 1. Sore throat - ICD9: 462, ICD10: J02.9 (primary diagnosis) - STREP A MOLECULAR (POC) - METHYLPREDNISOLONE 4 MG TABLETS IN A DOSE PACK 2. Acute otitis media, left - ICD9: 382.9, ICD10: H66.92 Return here as needed - AMOXICILLIN 875 MG-POTASSIUM CLAVULANATE 125 MG TABLET - METHYLPREDNISOLONE 4 MG TABLETS IN A DOSE PACK Sadiq Reno MD History and Record Review External record(s) reviewed: prior outpatient record. Differential Diagnoses - OM is more likely for the following reason(s): suggested by HANDP - sinusitis is less likely for the following reason(s): HANDP not suggestive Disposition The patient was discharged. Procedures Allergies As of Date: 09/24/2024 Noted Allergy Reaction CODEINE 03/17/2021 10 - Anaphylaxis LATEX 12/08/2018 4 - Hives LEVOQUIN (LEVOFLOXACIN) 03/17/2023 10 - Anaphylaxis Date Reviewed: 09/24/2024 Reviewed by: Scarlet Hogan MA - Fully Assessed Reason for Visit: Sore Throat [200] Cmt: left ear pressure x 1 week Primary Visit Diagnosis:Sore throat [J02.9] Other Visit Diagnosis:Acute otitis media, left [H66.92] Order(s):STREP A MOLECULAR (POC) [[id number]] Order #: [id number]. #:[id number] amoxicillin-clavulanate potassium (AUGMENTIN) 875-125 mg per tabletTake 1 tablet by mouth every 12 hours for 7 days.Disp: 14 tabletRfl: 0 methylPREDNISolone (MEDROL, HERMILO,) 4 mg Dose-PackTake as instructed per package.Disp: 21 tabletRfl: 0 Prescriptions as of 09/25/2024 - amoxicillin-clavulanate potassium (AUGMENTIN) 875-125 mg per tablet Take 1 tablet by mouth every 12 hours for 7 days. - methylPREDNISolone (MEDROL, HERMILO,) 4 mg Dose-Pack Take as instructed per package. - gabapentin (NEURONTIN) 100 mg capsule Take 100 mg by mouth three times daily. - levocetirizine (XYZAL) 5 mg tablet Take 5 mg by mouth once daily as needed for cold/allergy symptoms. - PARoxetine (PAXIL) 20 mg tablet Take 20 mg by mouth once daily. - tiZANidine HCl 4 mg capsule Take 4 mg by mouth three times a day as needed. - amLODIPine (NORVASC) 5 mg tablet Take 5 mg by mouth once daily. Problem List As Of Date: 09/24/2024 (None) Prescriptions ordered this encounter Disp Refills Start End AMOXICILLIN 875 MG-POTASSIUM CLAVULA* 14 t* 0 09/24/2024 10/01/2024 Route: PO Sig: Take 1 tablet by mouth every 12 hours for 7 days. METHYLPREDNISOLONE 4 MG TABLETS IN A* 21 t* 0 09/24/2024 09/30/2024 Sig: Take as instructed per package. Level of Service: OFFICE/OUTPATIENT ESTABLISHED LOW MDM 20 MIN [55161] Encounter Status:Closed by SADIQ RENO on 09/24/24 Normal [facility] STREP A MOLECULAR (POC)on Procedural Control Valid [facility] Strep A (POCT) Negative Negative [facility] Bacteria Ur Culton Bacteria identified Cx Nom (U) ORGANISM ID: 1 10,000 -<50,000 CFU/ml Normal urogenital anthony Normal [facility] Comment on above: Performed By: #### 6 30-4 ####[facility] LABCLIA [id number] [address] CNOVon 09-11-2024 CNOV Office Visit (UCWSTR ) SHANDA ARRIAGA ([id number]) 1965 F Date Time Provider Department 09/11/24 2:00 PM [facility] During your visit today, we recorded the following information about you: Temperature Pulse Respiration Blood pressure 97.9 degrees 97/minute 21/minute 118/90 Weight 64.6 kg Mine [place] PA 09/11/2024 2:09 PM Signed [facility] Subjective Shanda Arriaga is a 59 year old female. Patient presents with: Urinary Problem: Burning with urination, frequency x 2 days HPI Vomiting and Diarrhea: - Onset September 08- 3 d ago; multiple episodes of emesis and diarrhea, Able to keep down water today. - Vomited 4 times today. - Denies abdominal pain. - Able to drink water today. Fatigue: - Reports significant fatigue, describing it as no energy. Urinary Symptoms: - Urine described as really yellow with burning sensation. - Mild back pain. - Denies vaginal discharge or pruritus. Fever: - Reports feeling febrile with chills, requiring multiple layers of clothing and blankets. No past medical history on file. No past surgical history on file. ALLERGIES Codeine, Latex, and Levoquin [Levofloxacin] MEDICATIONS levocetirizine (XYZAL) 5 mg tablet Take 5 mg by mouth once daily as needed for cold/allergy symptoms. PARoxetine (PAXIL) 20 mg tablet Take 20 mg by mouth once daily. tiZANidine HCl 4 mg capsule Take 4 mg by mouth three times a day as needed. amLODIPine (NORVASC) 5 mg tablet Take 5 mg by mouth once daily. gabapentin (NEURONTIN) 100 mg capsule Take 100 mg by mouth three times daily. (Patient not taking: Reported on 03/17/2023) No family history on file. Social History Tobacco Use Smoking status: Every Day Smokeless tobacco: Never Review of Systems Constitutional: (+) fatigue, (+) generalized weakness, (+) chills, (+) subjective fever Gastrointestinal: (+) vomiting, (-) abdominal pain Genitourinary: (+) dysuria, (+) dark urine, (-) vaginal discharge, (-) vaginal pruritus Musculoskeletal: (+) back pain Neurological: (+) tremors, (-) upper extremity numbness Objective BP 118/90 Pulse 97 Temp 36.6 ?C (97.9 ?F) Resp 21 Wt 64.6 kg (142 lb 6.7 oz) SpO2 95% Physical Exam Vitals reviewed. Constitutional: General: She is not in acute distress. Appearance: Normal appearance. She is not toxic-appearing. HENT: Mouth/Throat: Mouth: Mucous membranes are moist. Cardiovascular: Rate and Rhythm: Normal rate and regular rhythm. Pulmonary: Effort: Pulmonary effort is normal. Breath sounds: Normal breath sounds. Abdominal: General: Abdomen is flat. Palpations: Abdomen is soft. Tenderness: There is no abdominal tenderness. There is no right CVA tenderness, left CVA tenderness, guarding or rebound. Skin: General: Skin is warm and dry. Neurological: Mental Status: She is alert. General: No acute distress. HEENT: Oral mucosa moist. CV: Normal heart sounds. Resp: Lungs clear to auscultation bilaterally. Abd: No tenderness. {1. Burning with urination (R30.0) - Urinalysis shows protein and ketones, indicating possible mild dehydration; no signs of infection. - Urine culture ordered to rule out bacterial infection. - Advised to increase fluid intake to address dehydration. 2. Vomiting and diarrhea (R11.10) - Multiple episodes of emesis today; diarrhea reported since September 08. - No abdominal tenderness on examination; oral mucosa appears moist. - Lungs clear to auscultation; cardiac examination normal. - Advised to continue oral hydration; if unable to retain fluids, instructed to seek emergency care for potential IV fluid administration. Recording using Aur[employer]ist software for draft documentation of the visit was discussed with the patient/authorized medical collections representative; all questions welcomed and answered. Patient/authorized medical collections representative agreed to proceed History and Record Review External record(s) reviewed: prior outpatient record. Systemic symptoms present included: Chills, subjective fever Differential Diagnoses - Viral gastroenteritis is more likely for the following reason(s): suggested by HANDP - UTI is less likely for the following reason(s): laboratory studies not suggestive Disposition The patient was discharged. Procedures Allergies As of Date: 09/11/2024 Noted Allergy Reaction CODEINE 03/17/2021 10 - Anaphylaxis LATEX 12/08/2018 4 - Hives LEVOQUIN (LEVOFLOXACIN) 03/17/2023 10 - Anaphylaxis Date Reviewed: 09/11/2024 Reviewed by: Carmelita Jerome MA - Fully Assessed Reason for Visit: Urinary Problem [252] Cmt: Burning with urination, frequency x 2 days Primary Visit Diagnosis:Burning with urination [R30.0] Other Visit Diagnosis:Vomiting and diarrhea [R11.10, R19.7] Order(s):UA DIP, URINE (POC) [[id number]] Order #: [id number]. #:[id number] BACTERIAL (more content not included)... Normal [facility] UA DIP, URINE (POC)on 2024 BILIRUBIN UA (POCT) Small Abnormal Negative [facility] CLARITY UA (POCT) Clear [facility] COLOR UA (POCT) Dark yellow [facility] GLUCOSE UA (POCT) Negative Negative mg/dL [facility] Hemoglobin Ql (U) Negative Negative [facility] Interpretation and review of laboratory results Abnormal [facility] KETONE UA (POCT) 15 mg/dL Abnormal Negative [facility] LEUKOCYTES UA (POCT) Negative Negative [facility] NITRITE UA (POCT) Negative Negative [facility] PH UA (POCT) 5.5 4.5 - 8.0 [facility] Protein Ql (U) 30 mg/dL Abnormal Negative [facility] SPECIFIC GRAVITY UA (POCT) 1.025 1.005 - 1.030 [facility] UROBILINOGEN UA (POCT) 0.2 Normal E.U./d L [facility] Location:[facility], [address] [place] [address], [place], [place], [id number] [place] [address] POINT OF CARE [facility] CNOVon 08-28-2024 CNOV Office Visit (UCWSTR ) BARTSHANDA ([id number]) 1965 F Date Time Provider Department 08/28/24 2:15 PM TERESSA MARTINEZ [facility] During your visit today, we recorded the following information about you: Teressa Martinez APRN.HOME CARE ASSISTANT 08/28/2024 2:37 PM Signed [facility] Subjective Shanda Arriaga is a 59 year old female. No chief complaint on file. Abdominal Pain Abdominal Pain: - Severe abdominal pain described as feeling like my ovaries are ready to pop out. - Constant pain with no improvement. - Retains ovaries and appendix. No past medical history on file. No past surgical history on file. ALLERGIES Codeine, Latex, and Levoquin [Levofloxacin] MEDICATIONS gabapentin (NEURONTIN) 100 mg capsule Take 100 mg by mouth three times daily. (Patient not taking: Reported on 03/17/2023) levocetirizine (XYZAL) 5 mg tablet Take 5 mg by mouth once daily as needed for cold/allergy symptoms. PARoxetine (PAXIL) 20 mg tablet Take 20 mg by mouth once daily. tiZANidine HCl 4 mg capsule Take 4 mg by mouth three times a day as needed. amLODIPine (NORVASC) 5 mg tablet Take 5 mg by mouth once daily. No family history on file. Social History Tobacco Use Smoking status: Every Day Smokeless tobacco: Never Review of Systems Gastrointestinal: Positive for abdominal pain. Gastrointestinal: (+) abdominal pain Objective There were no vitals taken for this visit. Physical Exam General: Patient appears to be in significant discomfort. 1. Abdominal pain, lower (R10.30) - Severe, constant lower abdominal pain with suspicion for ovarian torsion or appendicitis. - Advised immediate evaluation in the emergency room for further diagnostic imaging, including a CT scan, which is not available in our facility. - Patient understands the urgency and will proceed to the ER with her mother. { and Recording using Auramist software for draft documentation of the visit was discussed with the patient/authorized medical collections representative; all questions welcomed and answered. Patient/authorized medical collections representative agreed to proceed Disposition The patient was discharged. Procedures Allergies As of Date: 08/28/2024 Noted Allergy Reaction CODEINE 03/17/2021 10 - Anaphylaxis LATEX 12/08/2018 4 - Hives LEVOQUIN (LEVOFLOXACIN) 03/17/2023 10 - Anaphylaxis Date Reviewed: 03/20/2024 Reviewed by: Scarlet Hogan MA - Fully Assessed Reason for Visit: Abdominal Pain [1] Primary Visit Diagnosis:Abdominal pain, lower [R10.30] Prescriptions as of 08/28/2024 - gabapentin (NEURONTIN) 100 mg capsule Take 100 mg by mouth three times daily. - levocetirizine (XYZAL) 5 mg tablet Take 5 mg by mouth once daily as needed for cold/allergy symptoms. - PARoxetine (PAXIL) 20 mg tablet Take 20 mg by mouth once daily. - tiZANidine HCl 4 mg capsule Take 4 mg by mouth three times a day as needed. - amLODIPine (NORVASC) 5 mg tablet Take 5 mg by mouth once daily. Problem List As Of Date: 08/28/2024 (None) Encounter Status:Closed by TERESSA MARTINEZ on 08/28/24 Normal [facility] Absolute lymphocyte countOrd ered By: Samina Joya on 08-09-2024 Lymphocytes Auto (Unsp spec) [#/Vol] 2.32 10*3/uL 0.83-4.51 [facility] Absolute neutrophil countOrd ered By: Samina Joya on 08-09-2024 Neutrophils (Bld) [#/Vol] 8.2 10*3/uL High 2.0-7.7 [facility] Anion gap in Serum or Plasma Ordered By: Samina Joya on 08-09-2024 Anion gap [Moles/Vol] 12 mmol/L 5-15 [facility] Automated lymphocyte count a s percentage of total leukocytesOrdered By: Samina Joya on 08-09-2024 Lymphocytes/100 WBC Auto (Unsp spec) 19.7 % 19-41 [facility] BUN/creatinine ratioOrdered By: Samina Joya on 08-09-2024 Urea nitrogen/Creatinine [Mass ratio] 29.4 mg/mg High 12-25 [facility] Basic Metabolic Profile (BMP )on 08-09-2024 BUN/CRE 29.4 RATIO High 12-25 [facility] Comment on above: Performed By: #### L 501.1400, L100.0100, L500.2500 #### [facility] [address] [place], [address] Calcium [Mass/Vol] 9.0 mg/dL Normal 7.6-11.[address] [facility] Comment on above: Performed By: #### L 501.1400, L100.0100, L500.2500 #### [facility] [address] [place], [address] Chloride [Moles/Vol] 106 mmol/L Normal 98-108 [facility] Comment on above: Performed By: #### L 501.1400, L100.0100, L500.2500 #### [facility] [address] [place], [address] CO2 [Moles/Vol] 20.7 mmol/L Low 21.0-32.0 [facility] Comment on above: Performed By: #### L 501.1400, L100.0100, L500.2500 #### [facility] [address] [place], [address] Creatinine [Mass/Vol] 0.66 mg/dL Low 0.70-1.20 [facility] Comment on above: Performed By: #### L 501.1400, L100.0100, L500.2500 #### [facility] [address] [place], [address] GAP 12 Normal 5-15 [facility] Comment on above: Performed By: #### L 501.1400, L100.0100, L500.2500 #### [facility] [address] [place], [address] GFR/1.73 sq M.predicted among non-blacks MDRD (S/P/Bld) [Vol rate/Area] 100 mL/min/{1.73_m2} Normal >60 [facility] Comment on above: Result Comment: mL/m in/1.73m2 CKD-EPI Creatinine Equation (2020) Performed By: #### L 501.1400, L100.0100, L500.2500 #### [facility] [address] [place], [address] Glucose [Mass/Vol] 89 mg/dL Normal 70-[address] [facility] Comment on above: Performed By: #### L 501.1400, L100.0100, L500.2500 #### [facility] [address] [place], [address] Potassium [Moles/Vol] 3.8 mmol/L Normal 3.3-5.1 [facility] Comment on above: Performed By: #### L 501.1400, L100.0100, L500.2500 #### [facility] [address] [place], [address] Sodium [Moles/Vol] 139 mmol/L Normal 133-[address] [facility] Comment on above: Performed By: #### L 501.1400, L100.0100, L500.2500 #### [facility] [address] [place], [address] Urea nitrogen [Mass/Vol] 20 mg/dL High 4-19 [facility] Comment on above: Performed By: #### L 501.1400, L100.0100, L500.2500 #### [facility] [address] [place], [address] Basophil percentageOrdered B y: Samina Joya on 08-09-2024 Basophils/100 WBC (Bld) 0.3 % 0-1 [facility] CBC W/Diff, Automatedon Absolute Lymph 2.32 X10 3/uL Normal 0.83-4.51 [facility] Comment on above: Performed By: #### L 501.1400, L100.0100, L500.2500 #### [facility] [address] [place], [address] Absolute Neut 8.2 X10 3/uL High 2.0-7.7 [facility] Comment on above: Performed By: #### L 501.1400, L100.0100, L500.2500 #### [facility] [address] [place], [address] Basophils/100 WBC (Bld) 0.3 % Normal 0-1 [facility] Comment on above: Performed By: #### L 501.1400, L100.0100, L500.2500 #### [facility] [address] [place], [address] Eosinophils/100 WBC (Bld) 2.0 % Normal 0-5 [facility] Comment on above: Performed By: #### L 501.1400, L100.0100, L500.2500 #### [facility] [address] [place], [address] Erythrocyte distribution width (RBC) [Ratio] 14.4 % Normal 11.6-14.6 [facility] Comment on above: Performed By: #### L 501.1400, L100.0100, L500.2500 #### [facility] [address] [place], [address] Hematocrit (Bld) [Volume fraction] 39.7 % Normal 37-47 [facility] Comment on above: Performed By: #### L 501.1400, L100.0100, L500.2500 #### [facility] [address] [place], [address] Hemoglobin (Bld) [Mass/Vol] 13.5 g/dL Normal 12.0-15.0 [facility] Comment on above: Performed By: #### L 501.1400, L100.0100, L500.2500 #### [facility] [address] [place], [address] IG% 0.300 Normal 0.0-0.9 [facility] Comment on above: Result Comment: IG% - Immature Granulocytes (promyelocytes, myelocytes and metamyelocytes) > 1% indicates that a LEFT SHIFT is Present. Performed By: #### L 501.1400, L100.0100, L500.2500 #### [facility] [address] [place], [address] Lymphocytes/100 WBC (Bld) 19.7 % Normal 19-41 [facility] Comment on above: Performed By: #### L 501.1400, L100.0100, L500.2500 #### [facility] [address] [place], [address] MCH (RBC) [Entitic mass] 29.6 pg Normal 27.0-32.0 [facility] Comment on above: Performed By: #### L 501.1400, L100.0100, L500.2500 #### [facility] [address] [place], [address] MCHC (RBC) [Mass/Vol] 34.0 g/dL Normal 32-36 [facility] Comment on above: Performed By: #### L 501.1400, L100.0100, L500.2500 #### [facility] [address] [place], [address] MCV (RBC) [Entitic vol] 87.1 fL Normal 81-99 [facility] Comment on above: Performed By: #### L 501.1400, L100.0100, L500.2500 #### [facility] [address] [place], [address] Monocytes/100 WBC (Bld) 7.8 % Normal 0-10 [facility] Comment on above: Performed By: #### L 501.1400, L100.0100, L500.2500 #### [facility] [address] [place], [address] Neutrophils/100 WBC (Bld) 69.9 % Normal 47-70 [facility] Comment on above: Performed By: #### L 501.1400, L100.0100, L500.2500 #### [facility] [address] [place], [address] Nucleated RBC (Bld) [#/Vol] 0 10*3/uL Normal 0-5 [facility] Comment on above: Performed By: #### L 501.1400, L100.0100, L500.2500 #### [facility] [address] [place], [address] Platelet mean volume (Bld) [Entitic vol] 9.3 fL Normal 6.2-12.0 [facility] Comment on above: Performed By: #### L 501.1400, L100.0100, L500.2500 #### [facility] [address] [place], [address] Platelets (Bld) [#/Vol] 284 10*3/uL Normal 150-450 [facility] Comment on above: Performed By: #### L 501.1400, L100.0100, L500.2500 #### [facility] [address] [place], [address] RBC (Bld) [#/Vol] 4.56 10*6/uL Normal 4.2-5.4 [facility] Comment on above: Performed By: #### L 501.1400, L100.0100, L500.2500 #### [facility] [address] [place], [address] RDW SD 45.4 fl High 35.1-43.9 [facility] Comment on above: Performed By: #### L 501.1400, L100.0100, L500.2500 #### [facility] [address] [place], [address] WBC (Bld) [#/Vol] 11.8 10*3/uL High 4.4-11.0 [facility] Comment on above: Performed By: #### L 501.1400, L100.0100, L500.2500 #### [facility] [address] [place], [address] Carbon dioxide, total [Moles /volume] in Central venous bloodOrdered By: Samina Joya on 08-09-2024 CO2 [Moles/Vol] 20.7 mmol/L Low 21.0-32.0 [facility] Chloride assayOrdered By: Chris Joya on 08-09-2024 Chloride [Moles/Vol] 106 mmol/L 98-108 [facility] Eosinophil percentageOrdered By: Samina Joya on 08-09-2024 Eosinophils/100 WBC (Bld) 2.0 % 0-5 [facility] Erythrocyte distribution wid th ratioOrdered By: Samina Joya on 08-09-2024 Erythrocyte distribution width (RBC) [Ratio] 14.4 % 11.6-14.6 [facility] Erythrocyte distribution wid th standard deviationOrdered By: Samina Joya on 08-09-2024 Erythrocyte distribution width (RBC) [Ratio] 45.4 fl High 35.1-43.9 [facility] Glomerular filtration rate ( GFR) estimation/1.73 sq m using serum, plasma, or whole bOrdered By: Samina Joya on 08-09-2024 GFR/1.73 sq M.predicted among non-blacks MDRD (S/P/Bld) [Vol rate/Area] 100 mL/min/{1.73_m2} >60 [facility] Comment on above: mL/min/1.73m2 CKD-EP I Creatinine Equation (2020) Hematocrit Auto (Bld) [Volum e fraction]Ordered By: Samina Joya on 08-09-2024 Hematocrit (Bld) [Volume fraction] 39.7 % 37-47 [facility] Hemoglobin measurementOrdere d By: Samina Joya on 08-09-2024 Hemoglobin (Bld) [Mass/Vol] 13.5 g/dL 12.0-15.0 [facility] Immature granulocytes/100 WB C Auto (Bld)Ordered By: Samina Joya on 08-09-2024 Immature granulocytes/100 WBC (Bld) 0.300 % 0.0-0.9 [facility] Comment on above: IG% - Immature Granu locytes (promyelocytes, myelocytes and metamyelocytes) > 1% indicates that a LEFT SHIFT is Present. Internal Medicine Office Vis noreen 08-09-2024 Internal Medicine Office Visit [facility] [address] [place] [address] [place] [address] OFFICE VISIT Date of Service: 08/09/24 MR#: [id number] Acct: [id number] Name: SHANDA ARRIAGA Rep #: [id number] : 1965 Provider: Dr. Samina robbins MD Age/Sex: 59/F [place] [facility] Status: Signed Intake Vital Signs 07/04/24 14:26 08/09/24 12:59 Height 5 ft 5 in 5 ft 5 in Weight: 142 lb 2 oz BMI 23.6 BP 118/80 Blood Pressure Location Rt brachial Position Sitting Respiration 16 Pulse 87 Pulse Source Monitor Temp 97 F L Temp Source Temporal Pulse Oximetry (%) 94 Oxygen Delivery Method room air Intake Visit Reasons: FU/MED REFILLS Chief Complaint: F/U Print Cutter Required: No Accompanied by: Self Is patient in pain?: Yes (christian feet but right foot worse then left and hands ) Pain scale (1-10): 7 Allergies codeine Allergy (Severe, Verified 08/09/24 12:55) difficulty breathing latex Adverse Reaction (Unknown, Verified 08/09/24 12:55) hives gabapentin Adverse Reaction (Verified 08/09/24 12:55) Itching Medications ???Medication ???Instructions ???Recorded ???Confirmed ???Type fluticasone propionate 50 2 spray intranasal DAILY #15.8 08/09/24 Rx mcg/actuation nasal grams spray,suspension (Flonase Allergy Relief) levocetirizine 5 mg tablet (Xyzal) 5 mg PO QPM PRN allergy symptoms 07/28/22 08/09/24 History paroxetine HCl 20 mg tablet 20 mg PO QAM #90 tabs 12/15/2306/30 Rx amlodipine 5 mg tablet 5 mg PO BID #60 tabs 06/27/2406/30 Rx diclofenac sodium 75 mg 75 mg PO BID PRN pain #60 tabs 08/09/24 Rx tablet,delayed release magnesium oxide 400 mg PO QHS PRN muscle cramps 08/09/24 Rx #30 tabs tizanidine 4 mg tablet 4 mg PO .COMPLEX PRN muscle 08/09/24 Rx spasm/muscle pain #90 tabs Have you fallen in the past year?: No PFSH Medical History (Updated 08/09/24 @ 13:[address] Samina Joya MD) Arthritis Health care maintenance Colon cancer screening Bronchitis Suprapubic discomfort Burning with urination Nasal congestion Malaise and fatigue Vaginal discharge Screening for STD (sexually transmitted disease) Dermatitis Lower extremity neuropathy Bilateral otitis media Vitamin deficiency Hepatitis C Fatigue Vasculitis Abnormal ANCA test Vasculitis Migraines Hydrocephalus Hepatitis B Hepatitis C Chronic back pain Anxiety and depression Acute kidney injury History of substance abuse Hypertension PTSD (post-traumatic stress disorder) Surgical History History of surgery on arm History of foot surgery History of hand surgery Family History Daughter Seizures Mother Diabetes Brother Diabetes Aunt Cancer Uncle Cancer Social History Smoking Status: Current every day smoker tobacco type: cigarettes Tobacco: How many years used: 40 second hand exposure: Yes alcohol intake: never substance use type: former substance user Date of last use: 2 years and crack/cocaine what type of physical activity do you participate in: walking frequency: 3-4 times per week tiffanie/pentecostalism: None seatbelt use: never HPI HPI Chief Complaint: F/U Details: SHANDA ARRIAGA, is a 59 F who presents to the office today for follow-up of her chronic medical conditions. Also has some concerns. She reports left ankle area pain which started yesterday. Also noted swelling. No known precipitating factor. Noted after she woke up. Some improvement through the day but still describes the pain as a 7 out of 10. Yesterday, it was a 10 out of 10. No chills, fever or otherwise feeling of unwell. She states that she recently made dietary changes and has been eating more veggies lately History of hypertension, blood pressure today at 118/80 mmHg. Currently on amlodipine which she states that she is taking as prescribed. No chest pain, palpitation or shortness of breath. Other chronic conditions are stable. ROS Const Constitutional: No body ache, excessive sweating, fatigue, fever(s), frequent falls, headache(s), snoring, weakness, weight change, sleep problems or change in appetite Eyes Eyes: No blurry vision, change in vision, floaters, visual disturbances, eye pain or Light sensitivity ENT ENT: No abnormal hearing, ear or mastoid pain, tinnitus, balance problems, nosebleed/epistaxis, nasal congestion, headache(s), neck pain or sore throat Resp Respiratory: No cough, excessive phlegm production, pain on inspiration, shortness of breath, snoring or wheezing Cardio Cardiology: No chest pain at rest, chest pain with exertion, excessive sweating, shortness of breath, dyspnea on exert (more content not included)... Normal [facility] MCV (mean corpuscular volume ) determinationOrdered By: Samina Joya on 08-09-2024 MCV (RBC) [Entitic vol] 87.1 fL 81-99 [facility] Mean corpuscular hemoglobin (MCH) determinationOrdered By: Samina Joya on 08-09-2024 MCH (RBC) [Entitic mass] 29.6 pg 27.0-32.0 [facility] Mean corpuscular hemoglobin concentration (MCHC) determinationOrdered By: Samina Joya on 08-09-2024 MCHC (RBC) [Mass/Vol] 34.0 g/dL 32-36 [facility] Mean platelet volume determi nationOrdered By: Samina Joya on 08-09-2024 Platelet mean volume (Bld) [Entitic vol] 9.3 fL 6.2-12.0 [facility] Monocyte percentageOrdered B y: Samina Joya on 08-09-2024 Monocytes/100 WBC (Bld) 7.8 % 0-10 [facility] Neutrophil percentageOrdered By: Samina Joya on 08-09-2024 Neutrophils/100 WBC (Bld) 69.9 % 47-70 [facility] Nucleated red blood cell per centageOrdered By: Samina Joya on 08-09-2024 Nucleated RBC/100 WBC (Bld) [Ratio] 0 % 0-5 [facility] Platelet countOrdered By: Chris Joya on 08-09-2024 Platelets (Bld) [#/Vol] 284 10*3/uL 150-450 [facility] Potassium measurement (mass/ volume)Ordered By: Samina Joya on 08-09-2024 Potassium (Unsp spec) [Mass/Vol] 3.8 mmol/L 3.3-5.1 [facility] RBC Auto (Bld) [#/Vol]Ordere d By: Samina Joya on 08-09-2024 RBC (Bld) [#/Vol] 4.56 10*6/uL 4.2-5.4 [facility] Serum creatinine measurement (mass/volume)Ordered By: Samina Joya on 08-09-2024 Creatinine [Mass/Vol] 0.66 mg/dL Low 0.70-1.20 [facility] Serum glucose measurement (m ass/volume)Ordered By: Samina Joya on 08-09-2024 Glucose [Mass/Vol] 89 mg/dL 70-[address] [facility] Serum or plasma calcium jeff urement (mass/volume)Ordered By: Samina Joya on 08-09-2024 Calcium [Mass/Vol] 9.0 mg/dL 7.6-11.[address] [facility] Serum or plasma urea nitroge n measurement (mass/volume)Ordered By: Samina Chamorrorodriguemarni on 08-09-2024 Urea nitrogen [Mass/Vol] 20 mg/dL High 4-19 [facility] Serum or plasma uric acid me asurement (mass/volume)Ordered By: reidrenohma Chamorrorodriguemarni on 08-09-2024 Urate [Mass/Vol] 4.4 mg/dL 2.6-6.0 [facility] Comment on above: The drugs N-Acetylcy steine and Metamizole may falsely depress this assay. Sodium levelOrdered By: Chrisreid bernna Pedro Pablorodriguemarni on 08-09-2024 Sodium [Moles/Vol] 139 mmol/L 133-[address] [facility] Uric Acidon 08-09-2024 URIC 4.4 mg/dL Normal 2.6-6.0 [facility] Comment on above: Result Comment: The drugs N-Acetylcysteine and Metamizole may falsely depress this assay. Performed By: #### L 501.1400, L100.0100, L500.2500 #### [facility] [address] [place], [place], [address] White blood cell (WBC) count Ordered By: Samina Joya on 08-09-2024 WBC (Bld) [#/Vol] 11.8 10*3/uL High 4.4-11.0 [facility] Neurology Visit Reporton Neurology Visit Report [facility] [address], [address] [place], [place] [address] OFFICE VISIT Date of Service: 07/04/24 MR#: [id number] Acct: [id number] Name: SHANDA ARRIAGA Rep #: [id number] : 1965 Provider: Dr. Yoli taylor MD Age/Sex: 59/F Location[place] [facility] Status: Signed HPI HPI Chief Complaint: F/U Details: Interim History: Shanda returns for a follow-up visit. She has a history of hypertension, childhood epilepsy, depression, posttraumatic stress disorder, learning disability and illicit drug use. In August 2019, she presented to the hospital with altered mental status with associated slurring of speech that resolved during the period of her ER evaluation; the cause of the transient altered mental status was not clear. A head CT performed at that time raised the possibility of hydrocephalus (on my review of the images, I felt the finding was likely hydrocephalus ex vacuo). She has had mild intermittent headaches since she was a teenager. In 2019, she began having headaches almost daily. Her headaches were typically localized to the occipital head region and she also had some frontal region headaches. She has not had associated photophobia or phonophobia. She, at times, has associated nausea. Her headaches subsided following initiation of divalproex ER in 2020 however she reported subsequent poor tolerance to divalproex ER and discontinued this medication. In 2021, she had recurrence of occipital headaches that occurred essentially daily however since her visit in October 2021, her headaches have subsided and she has not had any significant headaches subsequently. Ubrelvy was of benefit for her headaches. A 6-day Medrol Dosepak was of some transient benefit in reducing her headache severity. She has had chronic neck pain since 2019; tizanidine has been of moderate benefit. She has numbness and tingling in the feet that began in 2019. She has had musculoskeletal pain in the shins and calves since 2019. She has had a feeling of generalized weakness that is prominent in her legs. She has fatigue. Her first B12 injection was of benefit for her fatigue however a subsequent B12 injection was not of benefit for her fatigue and she reported developing transient dry skin over the knees following her last B12 injection. She previously had reported having dizziness and intermittent vertigo; she had subsequent improvement in these symptoms. Tizanidine is of moderate benefit for cramps in the legs and cramps in her her lower back. She is tolerating tizanidine well. Diclofenac is of benefit for her musculoskeletal pain. She reported having memory difficulty manifesting with poor recall. She completed a GED. She had generalized seizures between the ages of 2 years and 12 years and during childhood was treated with phenytoin, phenobarbital and Depakote; her anticonvulsant therapy was discontinued when she was a teenager and she has had no further seizures. She did not experience a preceding aura with her seizures. The etiology of her seizures is unknown. Her head CT revealed bilateral hemispheric white matter changes. She was seen in the emergency room in October 2019 for headaches. She had another head CT as well as a head MRI following her initial head CT in August 2019. Hydrocephalus was not reported on the latter studies. On my review of the head MRI, and [address] images, I suspected the ventricular enlargement that was noted is due to hydrocephalus ex vacuo related to diffuse cerebral atrophy rather than a primary condition causing hydrocephalus. Bilateral subcortical white matter changes are noted on her brain imaging studies (without abnormal enhancement on her head MRI). An ESR in October 2019 was elevated (40). A B12 level, folate, lipid panel and TSH in October 2019 were unremarkable. Naproxen (for headaches) and amitriptyline (for insomnia and headaches) were not of benefit. She takes yeqk-elp-oaxfnty naproxen for her muscle cramps and this is of some benefit. Fioricet and duloxetine (caused nausea) were not tolerated. Diclofenac was of benefit for her headaches. Trazodone was of benefit for insomnia however he insomnia improved and she no longer takes this. She has hepatitis B and hepatitis C. A lumbar puncture performed in January 2020 was unremarkable (opening pressure was normal) including being negative for findings supporting a diagnosis of multiple sclerosis. She is taking aspirin 81 mg 1 tablet daily. Since the beginning of July 2019 she has had multiple episodes of nosebleeds and these have been occurring frequently recently; she had decided not to pursue ENT evaluation. A urine tox screen in March 2022 was positive for amphetamines and MDMA (Ecstasy). She uses marijuana. Physical Exam: Neuro: The patient is awake and alert and responds appropriately Heart: Regular rate and rhythm On assessment in October 2021, visual acuity was 20 (more content not included)... Normal [facility] SCRN MAMM (CAD)W/REBEKAH Reaves n 04-13-2024 SCRN MAMM (CAD)W/REBEKAH [facility] Imaging Services [address] [place] [place], [place] [address] SCRN MAMM (CAD)W/REBEKAH BILAT MR#: [id number] Acct: [id number] Name: SHANDA ARRIAGA Rep #: [id number] : 1965 F 58 From: Yonatan hernandez MD PCP: Dr. Samina Joya MD Status: [facility] [address] Study: SCRN MAMM (CAD)W/REBEKAH BILAT Date of Exam: 08/30 Exam# [id number] Ordering Dr: Samina Joya MD PROCEDURE: SCRN MAMM (CAD)W/REBEKAH BILAT REASON FOR EXAM: F, Age 58 y/o, no family history. TECHNIQUE: Bilateral screening digital breast tomosynthesis with 2D and 3D images. Computer aided detection. COMPARISON: Prior exam(s) dating back to outside examination dated September 03, 2022. FINDINGS: The breasts are heterogeneously dense which may obscure small masses. No suspicious masses, areas of developing architectural distortion, or suspicious calcifications. BI/SCRN MAMM (CAD)W/REBEKAH BILAT IMPRESSION: BI-RADS 1: NEGATIVE. RECOMMEND ANNUAL MAMMOGRAPHIC SCREENING. Follow-up code: Routine Follow-up The patient will be notified of the results by letter. Reading Location: [place] [address] CC: Dr. Samina Joya MD Weeder: Signed [facility] 03-21-2024 [facility] ([id number]) 1965 F Date Time Provider Department 03/21/24 [facility] During your visit today, we recorded the following information about you: [facility] PA 03/21/2024 7:09 AM Signed Please contact patient let her know she tested positive for trichomonas and bacterial vaginosis. I have sent metronidazole to her pharmacy. Do not drink alcohol with taking this medication. Gonorrhea, chlamydia and yeast were all negative. Please notify partners of positive results. No sexual intercourse x 10 days Scarlet Hogan MA 03/21/2024 7:56 AM Signed Left message for patient to return call. LETITIA Dimas Alexandra, MA 03/23/2024 10:52 AM Signed Left VM instructing patient to return call to receive results. LETITIA Thomason Beth, LPN 03/23/2024 3:03 PM Signed Patient returned call and went over results, notes from express care provider with understanding. Aware rx sent to the pharmacy. Allergies As of Date: 03/21/2024 Noted Allergy Reaction CODEINE 03/17/2021 10 - Anaphylaxis LATEX 12/08/2018 4 - Hives LEVOQUIN (LEVOFLOXACIN) 03/17/2023 10 - Anaphylaxis Date Reviewed: 03/20/2024 Reviewed by: Scarlet Hogan MA - Fully Assessed Reason for Visit: Results [95] Order(s):metroNIDAZOLE (FLAGYL) 500 mg tabletTake 1 tablet by mouth two times a day for 7 days.Disp: 14 tabletRfl: 0 Prescriptions as of 03/23/2024 - metroNIDAZOLE (FLAGYL) 500 mg tablet Take 1 tablet by mouth two times a day for 7 days. - gabapentin (NEURONTIN) 100 mg capsule Take 100 mg by mouth three times daily. - levocetirizine (XYZAL) 5 mg tablet Take 5 mg by mouth once daily as needed for cold/allergy symptoms. - PARoxetine (PAXIL) 20 mg tablet Take 20 mg by mouth once daily. - tiZANidine HCl 4 mg capsule Take 4 mg by mouth three times a day as needed. - amLODIPine (NORVASC) 5 mg tablet Take 5 mg by mouth once daily. Problem List As Of Date: 03/21/2024 (None) Prescriptions ordered this encounter Disp Refills Start End METRONIDAZOLE 500 MG TABLET 14 t* 0 03/21/2024 03/28/2024 Route: ORAL Sig: Take 1 tablet by mouth two times a day for 7 days. Encounter Status:Closed by KASANDRA HILL on 03/23/24 Normal [facility] BACTERIAL VAGINOSIS NAATon 0 03-20-2024 Lactobacillus crispatus+gasseri+sergey enii + Gardnerella vaginalis + Atopobium vaginae rRNA KELLY+probe Ql (Vag fld) Detected Abnormal Not detected [facility] Comment on above: Order Comment: Speci men Type: SWABOrdering Facility: [facility] Address: [address] [place] [address] Performed By: #### 3 6902-5, BVAMP ####[facility] LABCLIA [id number] [place] [address] [place] C. trachomatis+N. gonorrhoea e DNA KELLY+probe Ql (Unsp spec)on 03-20-2024 C. trachomatis rRNA KELLY+probe Ql (Unsp spec) Not detected Normal Not detected [facility] Comment on above: Order Comment: Speci men Type: SWABOrdering Facility: [facility] Address: [address] [place] [address] Performed By: #### 3 6902-5, BVAMP ####[facility] LABCLIA [id number] [place] [address] [place] N. gonorrhoeae rRNA KELLY+probe Ql (Unsp spec) Not detected Normal Not detected [facility] Comment on above: Order Comment: Speci men Type: SWABOrdering Facility: [facility] Address: [address] [place] [address] Performed By: #### 3 6902-5, BVAMP ####[facility] LABCLIA [id number] [place] [address] [place] DEBORAH/TRICHOMONAS NAATon 0 03-20-2024 C. glabrata RNA KELLY+probe Ql (Vag fld) Not detected Normal Not detected [facility] Comment on above: Order Comment: Speci men Type: SWABOrdering Facility: [facility] Address: [address] [place] [address] Performed By: #### C VTV ####[facility] LABCLIA [id number] [place] [address] [place] Deborah sp DNA KELLY+probe Ql (Vag fld) Not detected Normal Not detected [facility] Comment on above: Order Comment: Speci men Type: SWABOrdering Facility: [facility] Address: [address] [place] [address] Result Comment: The Deborah species group target includes C. albicans, C. tropicalis, C. parapsilosis, and C. dubliniensis. Performed By: #### C VTV ####[facility] LABIA [id number] [place] [address] [place] T. vaginalis DNA KELLY+probe Ql (Unsp spec) Detected Abnormal Not detected [facility] Comment on above: Order Comment: Speci men Type: SWABOrdering Facility: [facility] Address: [address] [place] [address] Performed By: #### C VTV ####[facility] LABIA [id number] [place] [address] [place] CNOVon 03-20-2024 CNOV Office Visit (UCWSTR ) BARTSHANDA Ethel ([id number]) 1965 F Date Time Provider Department 03/20/24 2:00 PM MINE MONTGOMERY WSTR During your visit today, we recorded the following information about you: Temperature Pulse Respiration Blood pressure 98.5 degrees 78/minute 16/minute 122/78 Weight 67.3 kg Mine Montgomery PA 03/20/2024 2:04 PM Signed This note was created using NoteWriter. Subjective Shanda Arriaga is a 58 year old female. HPI 58-year-old female presents for vaginal discharge. Patient states she has had vaginal discharge for the past 10 days. She states that she is having some vaginal itching. Reports she had trichomonas back in January. She did sleep with the same partner afterwards and states he was cheating on her. She is concerned she may have trichomonas again. States her discharge is yellow/green and foul-smelling. She denies any abdominal pain, pelvic pain, fevers. No rash. No dysuria. No other complaint. No past medical history on file. No past surgical history on file. ALLERGIES Codeine, Latex, and Levoquin [Levofloxacin] MEDICATIONS levocetirizine (XYZAL) 5 mg tablet Take 5 mg by mouth once daily as needed for cold/allergy symptoms. PARoxetine (PAXIL) 20 mg tablet Take 20 mg by mouth once daily. tiZANidine HCl 4 mg capsule Take 4 mg by mouth three times a day as needed. amLODIPine (NORVASC) 5 mg tablet Take 5 mg by mouth once daily. gabapentin (NEURONTIN) 100 mg capsule Take 100 mg by mouth three times daily. (Patient not taking: Reported on 03/17/2023) No family history on file. Social History Tobacco Use Smoking status: Every Day Smokeless tobacco: Never Review of Systems Constitutional: Negative for chills and fever. HENT: Negative for congestion, ear pain and sore throat. Respiratory: Negative for cough and shortness of breath. Cardiovascular: Negative for chest pain. Gastrointestinal: Negative for diarrhea and vomiting. Genitourinary: Positive for vaginal discharge. Objective BP 122/78 Pulse 78 Temp 36.9 ?C (98.5 ?F) Resp 16 Wt 67.3 kg (148 lb 5.9 oz) SpO2 97% Physical Exam Vitals and nursing note reviewed. Constitutional: General: She is not in acute distress. Appearance: Normal appearance. She is not toxic-appearing. HENT: Nose: Nose normal. Mouth/Throat: Mouth: Mucous membranes are moist. Eyes: Conjunctiva/sclera: Conjunctivae normal. Cardiovascular: Rate and Rhythm: Normal rate and regular rhythm. Pulmonary: Effort: Pulmonary effort is normal. Breath sounds: Normal breath sounds. Abdominal: General: Abdomen is flat. Palpations: Abdomen is soft. Tenderness: There is no abdominal tenderness. There is no guarding or rebound. Genitourinary: Comments: Deferred by patient Skin: General: Skin is warm and dry. Neurological: Mental Status: She is alert. Assessment and Plan ASSESSMENT/PLAN: 1. Vaginal discharge - ICD9: 623.5, ICD10: N89.8 -Self swab. Please treat based on result - GONORRHEA/CHLAMYDIA NAAT - DEBORAH/TRICHOMONAS NAAT - BACTERIAL VAGINOSIS NAAT Diagnosis and treatment plan were discussed and questions were answered to the patient's satisfaction. Pt acknowledged understanding of concepts and follow up plan. Specific signs and symptoms that would indicate the need for higher level of care were discussed in detail warranting prompt ER evaluation. JANEL Turner Allergies As of Date: 03/20/2024 Noted Allergy Reaction CODEINE 03/17/2021 10 - Anaphylaxis LATEX 12/08/2018 4 - Hives LEVOQUIN (LEVOFLOXACIN) 03/17/2023 10 - Anaphylaxis Date Reviewed: 03/20/2024 Reviewed by: Scarlet Hogan MA - Fully Assessed Reason for Visit: Vaginal Discharge [4161] Cmt: ?trich, bv or yeast x 10 days Primary Visit Diagnosis:Vaginal discharge [N89.8] Order(s):GONORRHEA/CHLA MYDIA NAAT [SQGCCT] Order #: [id number]. #:[id number] DEBORAH/TRICHOMONAS NAAT [SQCVTV] Order #: [id number]. #:[id number] BACTERIAL VAGINOSIS NAAT [SQBVAMP] Order #: [id number]. #:[id number] Prescriptions as of 03/20/2024 - gabapentin (NEURONTIN) 100 mg capsule Take 100 mg by mouth three times daily. - levocetirizine (XYZAL) 5 mg tablet Take 5 mg by mouth once daily as needed for cold/allergy symptoms. - PARoxetine (PAXIL) 20 mg tablet Take 20 mg by mouth once daily. - tiZANidine HCl 4 mg capsule Take 4 mg by mouth three times a day as needed. - amLODIPine (NORVASC) 5 mg tablet Take 5 mg by mouth once daily. Problem List As Of Date: 03/20/2024 (None) Encounter Status:Closed by MINE MONTGOMERY on 03/20/24 [facility] 01-11-2024 [facility] Telephone (UCWSTR) BARTSHANDA Ethel ([id number]) 1965 F Date Time Provider Department 01/11/24 LYUBOV CLEMENTE [facility] During your visit today, we recorded the following information about you: Lyubov Clemente APRN.[facility] 01/11/2024 9:14 AM Signed Birthday verified with patient over the phone. Aware of the below information with all questions answered. +Trichomonas and BV. Already treated with oral flagyl. Instructed to take entire course and have partner tested and treated. No sexual contact for 2 weeks. Allergies As of Date: 01/11/2024 Noted Allergy Reaction CODEINE 03/17/2021 10 - Anaphylaxis LATEX 12/08/2018 4 - Hives LEVOQUIN (LEVOFLOXACIN) 03/17/2023 10 - Anaphylaxis Date Reviewed: 01/10/2024 Reviewed by: Jenn Alas MA - Fully Assessed Reason for Visit: Results [95] Prescriptions as of 01/11/2024 - metroNIDAZOLE (FLAGYL) 500 mg tablet Take 1 tablet by mouth two times a day for 7 days. - gabapentin (NEURONTIN) 100 mg capsule Take 100 mg by mouth three times daily. - levocetirizine (XYZAL) 5 mg tablet Take 5 mg by mouth once daily as needed for cold/allergy symptoms. - PARoxetine (PAXIL) 20 mg tablet Take 20 mg by mouth once daily. - tiZANidine HCl 4 mg capsule Take 4 mg by mouth three times a day as needed. - amLODIPine (NORVASC) 5 mg tablet Take 5 mg by mouth once daily. Problem List As Of Date: 01/11/2024 (None) Encounter Status:Closed by LYUBOV CLEMENTE on 01/11/24 [facility] Telephone (UCWSTR) SHANDA ARRIAGA ([id number]) 1965 F Date Time Provider Department 01/11/24 CHERELLE JIANGWSTR During your visit today, we recorded the following information about you: Scarlet Hogan MA 01/11/2024 12:20 PM Signed ----- Message from Cherelle Jiang APRN.HOME CARE ASSISTANT sent at 01/11/2024 11:33 AM EST ----- Please inform patient that the urine culture was negative showing no signs of infection. Scarlet Hogan MA 01/11/2024 12:23 PM Signed Patient given results and verbalized understanding of instructions given. Scarlet Hogan MA Allergies As of Date: 01/11/2024 Noted Allergy Reaction CODEINE 03/17/2021 10 - Anaphylaxis LATEX 12/08/2018 4 - Hives LEVOQUIN (LEVOFLOXACIN) 03/17/2023 10 - Anaphylaxis Date Reviewed: 01/10/2024 Reviewed by: Jenn Alas MA - Fully Assessed Reason for Visit: Results [95] Prescriptions as of 01/11/2024 - metroNIDAZOLE (FLAGYL) 500 mg tablet Take 1 tablet by mouth two times a day for 7 days. - gabapentin (NEURONTIN) 100 mg capsule Take 100 mg by mouth three times daily. - levocetirizine (XYZAL) 5 mg tablet Take 5 mg by mouth once daily as needed for cold/allergy symptoms. - PARoxetine (PAXIL) 20 mg tablet Take 20 mg by mouth once daily. - tiZANidine HCl 4 mg capsule Take 4 mg by mouth three times a day as needed. - amLODIPine (NORVASC) 5 mg tablet Take 5 mg by mouth once daily. Problem List As Of Date: 01/11/2024 (None) Encounter Status:Closed by SCARLET HOGAN on 01/11/24 Normal [facility] BACTERIAL VAGINOSIS NAATon 1 03-11-2023 Interpretation and review of laboratory results Abnormal [facility] Lactobacillus crispatus+gasseri+sergey enii + Gardnerella vaginalis + Atopobium vaginae rRNA KELLY+probe Ql (Vag fld) Positive Abnormal Negative for bacterial vaginosis [facility] Lactobacillus crispatus+gasseri+sergey enii + Gardnerella vaginalis + Atopobium vaginae rRNA KELLY+probe Ql (Vag fld) Positive Abnormal Negative for bacterial vaginosis [facility] Comment on above: Order Comment: Speci men Type: SWABOrdering Facility: [facility] Address: [address] [place] [address] Performed By: #### 3 6902-5, BVAMP ####[facility] LABCLIA [id number] [place] [address] [place] Bacteria Ur Culton Bacteria identified Cx Nom (U) ORGANISM ID: 1 <10,000 CFU/ml Normal urogenital anthony Normal [facility] Comment on above: Performed By: #### 6 30-4 ####[facility] LABCLIA [id number] [place] [address] [place] C. trachomatis+N. gonorrhoea e DNA KELLY+probe Ql (Unsp spec)on 01-10-2024 C. trachomatis rRNA KELLY+probe Ql (Unsp spec) Negative Negative for Chlamydia trachomatis [facility] Interpretation and review of laboratory results Normal [facility] N. gonorrhoeae rRNA KELLY+probe Ql (Unsp spec) Negative Negative for Neisseria gonorrhoeae by amplification [facility] C. trachomatis rRNA KELLY+probe Ql (Unsp spec) Negative Normal Negative for Chlamydia trachomatis by amplificaton [facility] Comment on above: Order Comment: Speci men Type: SWABOrdering Facility: [facility] Address: [address] [place] [address] Performed By: #### 3 6902-5, BVAMP ####[facility] LABCLIA [id number] [place] [address] [place] N. gonorrhoeae rRNA KELLY+probe Ql (Unsp spec) Negative Normal Negative for Neisseria gonorrhoeae by amplification [facility] Comment on above: Order Comment: Speci men Type: SWABOrdering Facility: [facility] Address: [address] [place] [address] Performed By: #### 3 6902-5, BVAMP ####[facility] LABCLIA [id number] [place] [address] [place] DEBORAH/TRICHOMONAS NAATon 1 03-11-2023 C. glabrata RNA KELLY+probe Ql (Vag fld) Negative Normal Negative for Deborah glabrata [facility] Comment on above: Order Comment: Speci men Type: SWABOrdering Facility: [facility] Address: [address] [place] [address] Performed By: #### C VTV ####[facility] LABCLIA [id number] [address] [place] Deborah sp DNA KELLY+probe Ql (Vag fld) Negative Normal Negative for Deborah species [facility] Comment on above: Order Comment: Speci men Type: SWABOrdering Facility: [facility] Address: [address] [place] [address] Performed By: #### C VTV ####[facility] LABCLIA [id number] [place] [address] [place] T. vaginalis DNA KELLY+probe Ql (Unsp spec) Positive Abnormal Negative for Trichomonas vaginalis by amplification [facility] Comment on above: Order Comment: Speci men Type: SWABOrdering Facility: [facility] Address: [address] [place] [address] Performed By: #### C VTV ####[facility] LABCLIA [id number] [place] [address] [place] CNOVon 01-10-2024 CNOV Office Visit (UCWSTR ) SHANDA ARRIAGA ([id number]) 1965 F Date Time Provider Department 01/10/24 11:15 AM TERESSA MARTINEZWSTR During your visit today, we recorded the following information about you: Temperature Pulse Respiration Blood pressure 96.7 degrees 74/minute 16/minute 124/72 Weight 64 kg Teressa Martinez APRN.HOME CARE ASSISTANT 01/10/2024 1:27 PM Signed This note was created using Wormholeriter. Subjective Shanda Arriaga is a 58 year old female. Relevant PMH and allergies reviewed: Pt is a 58 year old female who presents today with green smelly discharge x couple days. Pt states she has had a problem like this in the past and was given an given a antibiotic that helped. Pt states she has not been sexually active in 4 months. She has also gone through menopause. Pt states she has not tried anything for her symptoms. Pt states she has had many changes over the past couple of days that could have contributed to her symptoms. Pt has had changes to her soap, detergent and has been swimming in the past few days. Pt is also having fever, chills, back pain, diarrhea, vaginal redness, vaginal swelling, frequent urination and is having an abnormal sensation when urinating. Pt denies blood in her urine, abdominal pain, pelvic pain, vomiting, nausea, urgency, side pain, rash and decreased urinary output. The history is provided by the patient. No automobile carpets molder was used. Female Gu Problem This is a new problem. The current episode started yesterday. The onset was sudden. The problem occurs continuously. The problem has been gradually worsening. The pain is moderate. Nothing relieves the symptoms. Associated symptoms include chills, a fever, diarrhea, frequency, vaginal discharge and back pain. Pertinent negatives include no chest pain, no abdominal pain, no constipation, no nausea, no vomiting, no hematuria, no pelvic pain, no urgency, no headaches, no sore throat, no flank pain, no cough, no shortness of breath and no rash. Urine output has been normal. She is currently Not sexually active. Her past medical history is significant for STD. Services received include tests performed. No past medical history on file. No past surgical history on file. ALLERGIES Codeine, Latex, and Levoquin [Levofloxacin] MEDICATIONS levocetirizine (XYZAL) 5 mg tablet Take 5 mg by mouth once daily as needed for cold/allergy symptoms. PARoxetine (PAXIL) 20 mg tablet Take 20 mg by mouth once daily. amLODIPine (NORVASC) 5 mg tablet Take 5 mg by mouth once daily. metroNIDAZOLE (FLAGYL) 500 mg tablet Take 1 tablet by mouth two times a day for 7 days. gabapentin (NEURONTIN) 100 mg capsule Take 100 mg by mouth three times daily. (Patient not taking: Reported on 03/17/2023) tiZANidine HCl 4 mg capsule Take 4 mg by mouth three times a day as needed. No family history on file. Social History Tobacco Use Smoking status: Every Day Smokeless tobacco: Never Review of Systems Constitutional: Positive for chills and fever. Negative for activity change, appetite change and fatigue. HENT: Negative for congestion, rhinorrhea, sinus pressure, sinus pain and sore throat. Eyes: Negative for pain, discharge, redness and itching. Respiratory: Negative for cough, choking, shortness of breath and wheezing. Cardiovascular: Negative for chest pain and palpitations. Gastrointestinal: Positive for diarrhea. Negative for abdominal pain, constipation, nausea and vomiting. Genitourinary: Positive for frequency and vaginal discharge. Negative for flank pain, hematuria, pelvic pain and urgency. Musculoskeletal: Positive for back pain. Skin: Negative for rash. Allergic/Immunologic: Negative for environmental allergies and food allergies. Neurological: Negative for headaches. Objective BP 124/72 Pulse 74 Temp (!) 35.9 ?C (96.7 ?F) (Tympanic) Resp 16 Wt 64 kg (141 lb 1.5 oz) SpO2 97% Physical Exam Vitals and nursing note reviewed. Exam conducted with a transportation coordinator present. Constitutional: General: She is not in acute distress. Appearance: Normal appearance. She is not ill-appearing. Eyes: General: Right eye: No discharge. Left eye: No discharge. Pupils: Pupils are equal, round, and reactive to light. Cardiovascular: Rate and Rhythm: Normal rate and regular rhythm. Pulses: Normal pulses. Heart sounds: Normal heart sounds. Pulmonary: Effort: No respiratory distress. Breath sounds: Normal breath sounds. No stridor. No wheezing or rhonchi. Abdominal: Palpations: Abdomen is soft. Tenderness: There is abdominal tenderness in the suprapubic area. There is no right CVA tenderness or left CVA tenderness. Genitourinary: Comments: Mild erythema and edema around labia minora Skin: General: Skin is warm. Neurological: Mental Status: She is alert. Psychiatric: Mood and Affect: Mood normal. Behavi (more content not included)... Normal [facility] UA DIP, URINE (POC)on 2023 BILIRUBIN UA (POCT) Negative Negative [facility] CLARITY UA (POCT) Slightly Cloudy Cl [facility] COLOR UA (POCT) Dark yellow [facility] GLUCOSE UA (POCT) Negative Negative mg/dL [facility] Hemoglobin Ql (U) Negative Negative [facility] Interpretation and review of laboratory results Abnormal [facility] KETONE UA (POCT) Negative Negative mg/dL [facility] LEUKOCYTES UA (POCT) Small Abnormal Negative [facility] NITRITE UA (POCT) Negative Negative [facility] PH UA (POCT) 5.5 4.5 - 8.0 [facility] Protein Ql (U) 30 mg/dL Abnormal Negative [facility] SPECIFIC GRAVITY UA (POCT) 1.025 1.005 - 1.030 [facility] UROBILINOGEN UA (POCT) 0.2 Normal E.U./d L [facility] Location:[address], [place], [address] [facility] POINT OF CARE [facility] CBC W/Diff, Automatedon 10-0 Absolute Lymph 1.83 X10 3/uL Normal 0.83-4.51 [facility] Comment on above: Performed By: #### L 100.0100, L500.4100, L500.4050 #### [facility] [address] [place], [place], [id number] Absolute Neut 5.2 X10 3/uL Normal 2.0-7.7 [facility] Comment on above: Performed By: #### L 100.0100, L500.4100, L500.4050 #### [facility] [address] [place], [address] Basophils/100 WBC (Bld) 0.4 % Normal 0-1 [facility] Comment on above: Performed By: #### L 100.0100, L500.4100, L500.4050 #### [facility] [address] [place], [address] Eosinophils/100 WBC (Bld) 2.9 % Normal 0-5 [facility] Comment on above: Performed By: #### L 100.0100, L500.4100, L500.4050 #### [facility] [address] [place], [address] Erythrocyte distribution width (RBC) [Ratio] 14.7 % High 11.6-14.6 [facility] Comment on above: Performed By: #### L 100.0100, L500.4100, L500.4050 #### [facility] [address] [place], [address] Hematocrit (Bld) [Volume fraction] 48.5 % High 37-47 [facility] Comment on above: Performed By: #### L 100.0100, L500.4100, L500.4050 #### [facility] [address] [place], [address] Hemoglobin (Bld) [Mass/Vol] 15.4 g/dL High 12.0-15.0 [facility] Comment on above: Performed By: #### L 100.0100, L500.4100, L500.4050 #### [facility] [address] [place], [address] IG% 0.300 Normal 0.0-0.9 [facility] Comment on above: Result Comment: IG% - Immature Granulocytes (promyelocytes, myelocytes and metamyelocytes) > 1% indicates that a LEFT SHIFT is Present. Performed By: #### L 100.0100, L500.4100, L500.4050 #### [facility] [address] [place], [address] Lymphocytes/100 WBC (Bld) 23.3 % Normal 19-41 [facility] Comment on above: Performed By: #### L 100.0100, L500.4100, L500.4050 #### [facility] [address] [place], [address] MCH (RBC) [Entitic mass] 28.4 pg Normal 27.0-32.0 [facility] Comment on above: Performed By: #### L 100.0100, L500.4100, L500.4050 #### [facility] [address] [place], [address] MCHC (RBC) [Mass/Vol] 31.8 g/dL Low 32-36 [facility] Comment on above: Performed By: #### L 100.0100, L500.4100, L500.4050 #### [facility] [address] [place], [address] MCV (RBC) [Entitic vol] 89.3 fL Normal 81-99 [facility] Comment on above: Performed By: #### L 100.0100, L500.4100, L500.4050 #### [facility] [address] [place], [address] Monocytes/100 WBC (Bld) 6.4 % Normal 0-10 [facility] Comment on above: Performed By: #### L 100.0100, L500.4100, L500.4050 #### [facility] [address] [place], [address] Neutrophils/100 WBC (Bld) 66.7 % Normal 47-70 [facility] Comment on above: Performed By: #### L 100.0100, L500.4100, L500.4050 #### [facility] [address] [place], [address] Nucleated RBC (Bld) [#/Vol] 0 10*3/uL Normal 0-5 [facility] Comment on above: Performed By: #### L 100.0100, L500.4100, L500.4050 #### [facility] [address] [place], [address] Platelet mean volume (Bld) [Entitic vol] 9.4 fL Normal 6.2-12.0 [facility] Comment on above: Performed By: #### L 100.0100, L500.4100, L500.4050 #### [facility] [address] [place], [address] Platelets (Bld) [#/Vol] 258 10*3/uL Normal 150-450 [facility] Comment on above: Performed By: #### L 100.0100, L500.4100, L500.4050 #### [facility] [address] [place], [address] RBC (Bld) [#/Vol] 5.43 10*6/uL High 4.2-5.4 [facility] Comment on above: Performed By: #### L 100.0100, L500.4100, L500.4050 #### [facility] [address] [place], [address] RDW SD 47.6 fl High 35.1-43.9 [facility] Comment on above: Performed By: #### L 100.0100, L500.4100, L500.4050 #### [facility] [address] [place], [address] WBC (Bld) [#/Vol] 7.8 10*3/uL Normal 4.4-11.[address] [facility] Comment on above: Performed By: #### L 100.0100, L500.4100, L500.4050 #### [facility] [address] [place], [address] Comprehensive Metabolic Prof paul 12-15-2023 Albumin [Mass/Vol] 3.4 g/dL Normal 3.2-5.[address] [facility] Comment on above: Performed By: #### L 100.0100, L500.4100, L500.4050 #### [facility] [address] [place], [address] Albumin/Globulin [Mass ratio] 0.8 {ratio} Low 0.9-2.4 [facility] Comment on above: Performed By: #### L 100.0100, L500.4100, L500.4050 #### [facility] [address] [place], [address] ALK P 142 U/L High 45-117 [facility] Comment on above: Performed By: #### L 100.0100, L500.4100, L500.4050 #### [facility] [address] [place], [address] ALT [Catalytic activity/Vol] 37 U/L Normal 13-56 [facility] Comment on above: Performed By: #### L 100.0100, L500.4100, L500.4050 #### [facility] [address] [place], [address] AST [Catalytic activity/Vol] 27 U/L Normal 15-37 [facility] Comment on above: Performed By: #### L 100.0100, L500.4100, L500.4050 #### [facility] [address] [place], [address] Bilirubin [Mass/Vol] 0.30 mg/dL Normal 0.20-1.00 [facility] Comment on above: Result Comment: For patients on eltrombopag therapy, use of Dimension [place] TBIL is not recommended. Performed By: #### L 100.0100, L500.4100, L500.4050 #### [facility] [address] [place], [address] BUN/CRE 16.0 RATIO Normal 10-20 [facility] Comment on above: Performed By: #### L 100.0100, L500.4100, L500.4050 #### [facility] [address] [place], [address] CA,Total 9.3 mg/dL Normal 8.5-10.1 [facility] Comment on above: Performed By: #### L 100.0100, L500.4100, L500.4050 #### [facility] [address] [place], [address] Chloride [Moles/Vol] 111 mmol/L High 98-107 [facility] Comment on above: Performed By: #### L 100.0100, L500.4100, L500.4050 #### [facility] [address] [place], [address] CO2 [Moles/Vol] 23.0 mmol/L Normal 21.0-32.0 [facility] Comment on above: Performed By: #### L 100.0100, L500.4100, L500.4050 #### [facility] [address] [place], [address] Creatinine [Mass/Vol] 0.75 mg/dL Normal 0.55-1.02 [facility] [facility] Comment on above: Result Comment: The validity of the calculated GFR GFRAA in patients over 70 years has not been determined. Clinical correlation is essential. Performed By: #### L 100.0100, L500.4100, L500.4050 #### [facility] [address] [place], [address] EST GFR - AA 101 mL/min Normal >60 [facility] Comment on above: Result Comment: Afri can Indian GFR Calc Performed By: #### L 100.0100, L500.4100, L500.4050 #### [facility] [address] [place], [address] GAP 6 Normal 5-15 [facility] Comment on above: Performed By: #### L 100.0100, L500.4100, L500.4050 #### [facility] [address] [place], [address] GFR/1.73 sq M.predicted among non-blacks MDRD (S/P/Bld) [Vol rate/Area] 84 mL/min/{1.73_m2} Normal >60 [facility] Comment on above: Result Comment: Non- GFR Calc Performed By: #### L 100.0100, L500.4100, L500.4050 #### [facility] [address] [place], [address] Globulin (S) [Mass/Vol] 4.4 g/dL High 2.2-4.2 [facility] Comment on above: Performed By: #### L 100.0100, L500.4100, L500.4050 #### [facility] [address] [place], [address] Glucose [Mass/Vol] 129 mg/dL High 74-[address] [facility] Comment on above: Result Comment: Fast ing Glucose result greater than or equal to 126 mg/dL suggests DIABETES MELLITUS per A.D.A. criteria. Performed By: #### L 100.0100, L500.4100, L500.4050 #### [facility] [address] [place], [address] Potassium [Moles/Vol] 4.0 mmol/L Normal 3.5-5.1 [facility] Comment on above: Performed By: #### L 100.0100, L500.4100, L500.4050 #### [facility] [address] [place], [address] Sodium [Moles/Vol] 141 mmol/L Normal 136-[address] [facility] Comment on above: Performed By: #### L 100.0100, L500.4100, L500.4050 #### [facility] [address] [place], [address] T PROT 7.8 g/dL Normal 6.4-8.2 [facility] Comment on above: Performed By: #### L 100.0100, L500.4100, L500.4050 #### [facility] [address] [place], [address] Urea nitrogen [Mass/Vol] 12 mg/dL Normal 7-18 [facility] Comment on above: Performed By: #### L 100.0100, L500.4100, L500.4050 #### [facility] [address] [place], [address] Internal Medicine Office Vis itorasta 12-15-2023 Internal Medicine Office Visit [facility] [address] [place] [address] [place] [address] OFFICE VISIT Date of Service: 12/15/23 MR#: [id number] Acct: [id number] Name: SHANDA ARRIAGA Rep #: [id number] : 1965 Provider: Dr. Samina robbins MD Age/Sex: 58/F [place] [facility] Status: Signed with Addenda ADDENDUM by LETITIA Nguyen on 12/15/23 at 1632 Office Procedure Documentation entered by Nelly Nguyen MA 12/15/23 16:32: Immunizations Flucelvax Triv 9650-1786 (PF) 45 mcg (15 mcg x 3)/0.5 mL IM syringe Performing Provider: Samina Joya MD Performing Location: [facility] Administered by: Nelly Nguyen MA on 12/15/23 16:31 Dose Route Admin Location Dispensed Lot Number Expiration Date CHLOE [employer] ufacturer 0.5 mL IM Left Deltoid 0.5 mL [id number] 08/02/24 [id number] [employer]. VIS Given Date VIS Provided VIS Publication Date 12/15/23 Single Vaccine 23 Eligibility Eligibility Date Funding Source Not Applicable Date cc: * Signed Intake Vital Signs 11/09/23 13:23 12/15/23 16:07 Height 5 ft 5 in 5 ft 5 in Weight: 136 lb 142 lb 6 oz BMI 22.6 23.6 BP 144/90 H 136/84 H Blood Pressure Location Lt brachial Lt brachial Position Sitting Sitting Respiration 17 16 Pulse 90 96 Pulse Source Monitor Monitor Temp 98.0 F 98.0 F Temp Source Temporal Temporal Pulse Oximetry (%) 98 98 Oxygen Delivery Method room air room air Intake Visit Reasons: med check Chief Complaint: F/U chronic conditions Print Cutter Required: No Accompanied by: Self Is patient in pain?: No Allergies codeine Allergy (Severe, Verified 12/15/23 16:03) difficulty breathing latex Adverse Reaction (Unknown, Verified 12/15/23 16:03) hives gabapentin Adverse Reaction (Verified 12/15/23 16:03) Itching Medications ???Medication ???Instructions ???Recorded ???Confirmed ???Type fluticasone propionate 50 2 spray intranasal DAILY #15.8 07/28/22 12/15/23 Rx mcg/actuation nasal grams spray,suspension (Flonase Allergy Relief) levocetirizine 5 mg tablet (Xyzal) 5 mg PO QPM PRN allergy symptoms 07/28/22 12/15/23 History albuterol sulfate 90 mcg/actuation 2 puff inhalation Q6H PRN 05/26/23 12/15/23 Rx aerosol inhaler shortness of breath or wheezing #8.5 grams prednisone 20 mg tablet 40 mg (2 x 20 mg) PO DAILY #10 tabs 05/26/23 12/15/23 Rx diclofenac sodium 75 mg 75 mg PO BID PRN pain #60 tabs 11/09/23 12/15/23 Rx tablet,delayed release tizanidine 4 mg tablet 4 mg PO .COMPLEX PRN muscle 11/09/23 12/15/23 Rx spasm/muscle pain #60 tabs amlodipine 5 mg tablet 5 mg PO BID #180 tabs 12/15/23 12/15/23 Rx paroxetine HCl 20 mg tablet 20 mg PO QAM #90 tabs 12/15/23 12/15/23 Rx PFSH Medical History (Updated 12/15/23 @ 16:[address] Samina Joya MD) Health care maintenance Colon cancer screening Bronchitis Suprapubic discomfort Burning with urination Nasal congestion Malaise and fatigue Vaginal discharge Screening for STD (sexually transmitted disease) Dermatitis Lower extremity neuropathy Bilateral otitis media Vitamin deficiency Hepatitis C Fatigue Vasculitis Abnormal ANCA test Vasculitis Migraines Hydrocephalus Hepatitis B Hepatitis C Chronic back pain Anxiety and depression Acute kidney injury History of substance abuse Hypertension PTSD (post-traumatic stress disorder) Surgical History History of surgery on arm History of foot surgery History of hand surgery Family History Daughter Seizures Mother Diabetes Brother Diabetes Aunt Cancer Uncle Cancer Social History Smoking Status: Current every day smoker tobacco type: cigarettes Tobacco: How many years used: 40 second hand exposure: Yes alcohol intake: never substance use type: former substance user Date of last use: 2 years and crack/cocaine what type of physical activity do you participate in: walking frequency: 3-4 times per week tiffanie/pentecostalism: None seatbelt use: never HPI HPI Chief Complaint: F/U chronic conditions Details: SHANDA ARRIAGA, is a 58 F who presents to the office today for follow-up of her chronic medical conditions. History of hypertension on amlodipine 5 mg twice daily which she states that she is taking as prescribed. Blood pressure today at 136/84 mmHg. No chest pain, palpitation or shortness of breath. She also states that she stays active but continues to smoke. Other chronic medical conditions are stable. ROS Const Constitutional: No body ache, chills, excessive sweating, fatigue, fever(s), frequent falls, headache(s), snoring, weakness (more content not included)... Normal [facility] Lipid Profileon 12-15-2023 Cholesterol [Mass/Vol] 169 mg/dL Normal 200 [facility] Comment on above: Result Comment: <200 mg/dL Desirable 200-240 mg/dL Borderline >240 mg/dL High Risk Performed By: #### L 100.0100, L500.4100, L500.4050 #### [facility] [address] [place], [address] Cholesterol in HDL [Mass/Vol] 71 mg/dL Normal [facility] Comment on above: Result Comment: The drugs N-Acetylcysteine and Metamizole may falsely depress this assay. Reference Range HDL <40 mg/dL Low HDL Cholesterol HDL >or= 60 mg/dL High HDL Cholesterol Performed By: #### L 100.0100, L500.4100, L500.4050 #### [facility] [address] [place], [address] Cholesterol in LDL [Mass/Vol] 79 mg/dL Normal 0-130 [facility] Comment on above: Performed By: #### L 100.0100, L500.4100, L500.4050 #### [facility] [address] [place], [address] Cholesterol in VLDL [Mass/Vol] 19 mg/dL Normal 5-40 [facility] Comment on above: Performed By: #### L 100.0100, L500.4100, L500.4050 #### [facility] [address] [place], [address] Triglyceride [Mass/Vol] 94 mg/dL Normal [facility] Comment on above: Result Comment: The drugs N-Acetylcysteine and Metamizole may falsely depress this assay. Serum Triglycerides Reference Interval Normal <150 mg/dL Borderline high 150 - 199 mg/dL High 200 - 499 mg/dL Very High > or = 500 mg/dL Performed By: #### L 100.0100, L500.4100, L500.4050 #### [facility] [address] [place], [address] Neurology Visit Reporton Neurology Visit Report [facility] [address], [address] [place] [address] OFFICE VISIT Date of Service: 11/09/23 MR#: [id number] Acct: [id number] Name: SHANDA ARRIAGA Rep #: [id number] : 1965 Provider: Dr. Yoli taylro MD Age/Sex: 58/F [place] [facility] [place] Status: Signed HPI HPI Chief Complaint: F/U Details: Interim History: Shanda returns for a follow-up visit. She has a history of hypertension, childhood epilepsy, depression, posttraumatic stress disorder, learning disability and illicit drug use. In August 2019, she presented to the hospital with altered mental status with associated slurring of speech that resolved during the period of her ER evaluation; the cause of the transient altered mental status was not clear. A head CT performed at that time raised the possibility of hydrocephalus (on my review of the images, I felt the finding was likely hydrocephalus ex vacuo). She has had mild intermittent headaches since she was a teenager. In August 2019, she began having headaches almost daily. Her headaches were typically localized to the occipital head region and she also had some frontal region headaches. She has not had associated photophobia or phonophobia. She, at times has associated nausea. Her headaches subsided following initiation of divalproex ER in 2020 however she reported subsequent poor tolerance to divalproex ER and discontinued this medication. In 2021, she had recurrence of occipital headaches that occurred essentially daily however since her last visit in October 2021, her headaches have subsided and she has not had any significant headaches subsequently. Ubrelvy was of benefit for her headaches. A 6-day Medrol Dosepak was of some transient benefit in reducing her headache severity. She has had chronic neck pain since 2019; tizanidine has been of benefit. She has numbness and tingling in the feet that began in 2019. She has had musculoskeletal pain in the shins and calves since 2019. She has had a feeling of generalized weakness that is prominent in her legs and has caused her to stumble. She has fatigue. Her first B12 injection was of benefit for her fatigue however a subsequent B12 injection was not of benefit for her fatigue and she reported developing transient dry skin over the knees following her last B12 injection. She has dizziness and intermittent vertigo, but has had improvement in these symptoms. Tizanidine was of of modest benefit for cramps in the legs. She ran out of tizanidine. She now reports increased pain (described as aching) and cramps in the legs and also has similar symptoms in her lower back. Diclofenac was of benefit for her musculoskeletal pain; she ran out of this medication. She reported having memory difficulty manifesting with poor recall. She completed a GED. She had generalized seizures between the ages of 2 years and 12 years and during childhood was treated with phenytoin, phenobarbital and Depakote; her anticonvulsant therapy was discontinued when she was a teenager and she has had no further seizures. She did not experience a preceding aura with her seizures. The etiology of her seizures is unknown. Her head CT revealed bilateral hemispheric white matter changes. She was seen in the emergency room in October 2019 for headaches. She had another head CT as well as a head MRI following her initial head CT in August 2019. Hydrocephalus was not reported on the latter studies. On my review of the head MRI, and [address] images, I suspected the ventricular enlargement that was noted is due to hydrocephalus ex vacuo related to diffuse cerebral atrophy rather than a primary condition causing hydrocephalus. Bilateral subcortical white matter changes are noted on her brain imaging studies (without abnormal enhancement on her head MRI). An ESR in October 2019 was elevated (40). A B12 level, folate, lipid panel and TSH in October 2019 were unremarkable. Naproxen (for headaches) and amitriptyline (for insomnia and headaches) were not of benefit. Fioricet and duloxetine (caused nausea) were not tolerated. Diclofenac was of benefit for her headaches. Trazodone was of benefit for insomnia however he insomnia has improved and she no longer takes this. She has hepatitis B and hepatitis C. A lumbar puncture performed in January 2020 was unremarkable (opening pressure was normal) including being negative for findings supporting a diagnosis of multiple sclerosis. She is taking aspirin 81 mg 1 tablet daily. Since the beginning of July 2019 she has had multiple episodes of nosebleeds and these have been occurring frequently recently; she had decided not to pursue ENT evaluation. A urine tox screen in March 2022 was positive for amphetamines and MDMA (Ecstasy). She uses marijuana. Physical Exam: Neuro: The patient is awake and alert and responds appropriately; motor strength is 5/5 in the quadriceps bilatera (more content not included)... Normal [facility] Absolute lymphocyte countOrd ered By: Adi Couch on 05-17-2023 Lymphocytes Auto (Unsp spec) [#/Vol] 2.19 10*3/uL 0.83-4.51 [facility] Automated lymphocyte count a s percentage of total leukocytesOrdered By: Adi Couch on 05-17-2023 Lymphocytes/100 WBC Auto (Unsp spec) 16.2 % 19-41 [facility] Basophil percentageOrdered B y: Adi Couch on 05-17-2023 Basophils/100 WBC (Bld) 0.2 % 0-1 [facility] Bilirubin [Mass/Vol] 1.10 mg/dL 0.20-1.00 [facility] Comment on above: For patients on eltr ombopag therapy, use of Dimension [place] TBIL is not recommended. Chloride [Moles/Vol] 101 mmol/L 98-107 [facility] Eosinophils/100 WBC (Bld) 1.0 % 0-5 [facility] Glucose [Mass/Vol] 102 mg/dL 74-[address] [facility] Comment on above: Fasting Glucose resu lt from 100 to 125 mg/dL suggests IMPAIRED HOMEOSTASIS per A.D.A. criteria. Hemoglobin (Bld) [Mass/Vol] 15.7 g/dL 12.0-15.0 [facility] Monocytes/100 WBC (Bld) 10.4 % 0-10 [facility] Neutrophils (Bld) [#/Vol] 9.7 10*3/uL 2.0-7.7 [facility] Neutrophils/100 WBC (Bld) 71.6 % 47-70 [facility] Potassium [Moles/Vol] 3.8 mmol/L 3.5-5.1 [facility] Protein [Mass/Vol] 8.6 g/dL 6.4-8.[address] [facility] Sodium [Moles/Vol] 135 mmol/L 136-[address] [facility] WBC (Bld) [#/Vol] 13.5 10*3/uL 4.4-11.0 [facility] Determination of erythrocyte mean corpuscular volume (MCV)Ordered By: Adi Couch on 05-17-2023 MCV (RBC) [Entitic vol] 86.6 fL 81-99 [facility] Erythrocyte distribution wid th ratioOrdered By: Adi Couch on 05-17-2023 Erythrocyte distribution width (RBC) [Ratio] 14.2 % 11.6-14.6 [facility] Erythrocyte distribution wid th standard deviationOrdered By: Adi Couch on 05-17-2023 Erythrocyte distribution width (RBC) [Entitic vol] 45.1 fL 35.1-43.9 [facility] Hematocrit Auto (Bld) [Volum e fraction]Ordered By: Adi Couch on 05-17-2023 Hematocrit (Bld) [Volume fraction] 46.6 % 37-47 [facility] Immature granulocytes/100 WB C Auto (Bld)Ordered By: Adi Couch on 05-17-2023 Immature granulocytes/100 WBC (Bld) 0.600 % 0.0-0.9 [facility] Comment on above: IG% - Immature Granu locytes (promyelocytes, myelocytes and metamyelocytes) > 1% indicates that a LEFT SHIFT is Present. Laboratory - Chemistry and C hemistry - challengeOrdered By: Adi Couch on 05-17-2023 Albumin/Globulin [Mass ratio] 0.9 {ratio} 0.9-2.4 [facility] ALP [Catalytic activity/Vol] 107 U/L 45-117 [facility] ALT [Catalytic activity/Vol] 55 U/L 13-56 [facility] CO2 [Moles/Vol] 24.0 mmol/L 21.0-32.0 [facility] Globulin (S) [Mass/Vol] 4.5 g/dL 2.2-4.2 [facility] Lipase [Catalytic activity/Vol] 33 U/L 13-75 [facility] Comment on above: Please note:LIPASE r evised reference range effective 22. New Lipase methodology. Expected to produce lower values than the previous assay method. NEW Reference Range: 13 - 75 U/L Urea nitrogen/Creatinine [Mass ratio] 21.7 mg/mg 10-20 [facility] - Hematology and Cell countsOrdered By: Adi Couch on 05-17-2023 MCH (RBC) [Entitic mass] 29.2 pg 27.0-32.0 [facility] MCHC (RBC) [Mass/Vol] 33.7 g/dL 32-36 [facility] Nucleated RBC/100 WBC (Bld) [Ratio] 0 % 0-5 [facility] Platelet mean volume (Bld) [Entitic vol] 8.8 fL 6.2-12.0 [facility] Platelets (Bld) [#/Vol] 279 10*3/uL 150-450 [facility] No Panel InformationOrdered By: Adi Couch on 05-17-2023 Estimated Creatinine Clearance Calc 42.76 ml/min [facility] Estimated GFR (MDRD) Amer 48 mL/min >60 [facility] Comment on above: GFR Calc Estimated GFR (MDRD) Non-Af Amer 40 mL/min >60 [facility] Comment on above: Non- GFR Calc RBC Auto (Bld) [#/Vol]Ordere d By: Adi Couch on 05-17-2023 RBC (Bld) [#/Vol] 5.38 10*6/uL 4.2-5.4 [facility] Serum or plasma calcium jeff urement (mass/volume)Ordered By: Adi Couch on 05-17-2023 Calcium [Mass/Vol] 9.6 mg/dL 8.5-10.[address] [facility] Serum or plasma creatinine m easurement (mass/volume)Ordered By: Adi Couch on 05-17-2023 Creatinine [Mass/Vol] 1.43 mg/dL 0.55-1.02 [facility] Comment on above: The validity of the calculated GFR & GFRAA in patients over 70 years has not been determined. Clinical correlation is essential. Serum or plasma urea nitroge n measurement (mass/volume)Ordered By: Adi Couch on 05-17-2023 Urea nitrogen [Mass/Vol] 31 mg/dL 7-18 [facility] Thin prep Papanicolaou smear with manual screeningOrdered By: Adi Couch on 05-17-2023 Thin prep Papanicolaou smear with manual screening 4.1 g/dL 3.2-5.0 [facility] Thin prep Papanicolaou smear with manual screening 50 U/L 15-37 [facility] Thin prep Papanicolaou smear with manual screening 10 5-15 [facility] Absolute lymphocyte countOrd ered By: Berto Tashi on 02-08-2023 Lymphocytes Auto (Unsp spec) [#/Vol] 2.90 10*3/uL 0.83-4.51 [facility] Amorphous sediment detection in urine sediment by light microscopyOrdered By: Berto Akins on 02-08-2023 Amorphous sediment LM Ql (Urine sed) 1+ URATE [facility] Basophil percentageOrdered B y: Berto Akins on 02-08-2023 Basophils/100 WBC (Bld) 0.5 % 0-1 [facility] Bilirubin [Mass/Vol] 1.20 mg/dL 0.20-1.00 [facility] Comment on above: For patients on eltr ombopag therapy, use of Dimension [place] TBIL is not recommended. Chloride [Moles/Vol] 103 mmol/L 98-107 [facility] Eosinophils/100 WBC (Bld) 0.3 % 0-5 [facility] Glucose [Mass/Vol] 96 mg/dL 74-[address] [facility] Neutrophils (Bld) [#/Vol] 12.6 10*3/uL 2.0-7.7 [facility] Neutrophils/100 WBC (Bld) 74.3 % 47-70 [facility] Potassium [Moles/Vol] 4.2 mmol/L 3.5-5.1 [facility] Protein [Mass/Vol] 8.3 g/dL 6.4-8.[address] [facility] Sodium [Moles/Vol] 136 mmol/L 136-[address] [facility] WBC (Bld) [#/Vol] 17.0 10*3/uL 4.4-11.0 [facility] Basophil percentage 5-10 SEEN /hpf 0-5 [facility] Bilirubin Test strip Ql (U)O rdered By: Berto Akins on 02-08-2023 Bilirubin Ql (U) 3 mg/dL Negative [facility] Comment on above: COLOR OF URINE MAY A FFECT DIPSTICK RESULTS. Blood erythrocytes count (nu mber/volume)Ordered By: Berto Akins on 02-08-2023 RBC (Bld) [#/Vol] 5.26 10*6/uL 4.2-5.4 [facility] Blood hemoglobin measurement (mass/volume)Ordered By: Berto Akins on 02-08-2023 Hemoglobin (Bld) [Mass/Vol] 14.8 g/dL 12.0-15.0 [facility] Blood lymphocytes/100 leukoc ytesOrdered By: Berto Akins on 02-08-2023 Lymphocytes/100 WBC (Bld) 17.1 % 19-41 [facility] Blood monocytes/100 leukocyt esOrdered By: Berto Akins on 02-08-2023 Monocytes/100 WBC (Bld) 7.3 % 0-10 [facility] Blood platelet mean volumeOr dered By: Berto Akins on 02-08-2023 Platelet mean volume (Bld) [Entitic vol] 8.9 fL 6.2-12.0 [facility] Culture, urineOrdered By: Sonny Akins on 02-08-2023 Bacteria identified Cx Nom (U) Culture exhibits no growth. [facility] Determination of erythrocyte mean corpuscular volume (MCV)Ordered By: Berto Akins on 02-08-2023 MCV (RBC) [Entitic vol] 86.3 fL 81-99 [facility] Hematocrit Auto (Bld) [Volum e fraction]Ordered By: Berto Akins on 02-08-2023 Hematocrit (Bld) [Volume fraction] 45.4 % 37-47 [facility] Ketones Test strip Ql (U)Ord ered By: Berto Akins on 02-08-2023 Ketones Ql (U) 15 mg/dl Negative [facility] - Chemistry and C hemistry - challengeOrdered By: Berto Akins on 02-08-2023 ALP [Catalytic activity/Vol] 115 U/L 45-117 [facility] ALT [Catalytic activity/Vol] 36 U/L 13-56 [facility] CO2 [Moles/Vol] 21.0 mmol/L 21.0-32.0 [facility] Globulin (S) [Mass/Vol] 4.4 g/dL 2.2-4.2 [facility] Lipase [Catalytic activity/Vol] 26 U/L 13-75 [facility] Comment on above: Please note:LIPASE r evised reference range effective 22. New Lipase methodology. Expected to produce lower values than the previous assay method. NEW Reference Range: 13 - 75 U/L Urea nitrogen/Creatinine [Mass ratio] 15.7 mg/mg 10-20 [facility] - Hematology and Cell countsOrdered By: Berto Akins on 02-08-2023 Erythrocyte distribution width (RBC) [Entitic vol] 44.4 fL 35.1-43.9 [facility] Erythrocyte distribution width (RBC) [Ratio] 14.1 % 11.6-14.6 [facility] Immature granulocytes/100 WBC (Bld) 0.500 % 0.0-0.9 [facility] Comment on above: IG% - Immature Granu locytes (promyelocytes, myelocytes and metamyelocytes) > 1% indicates that a LEFT SHIFT is Present. MCH (RBC) [Entitic mass] 28.1 pg 27.0-32.0 [facility] Nucleated RBC/100 WBC (Bld) [Ratio] 0 % 0-5 [facility] MCHC Auto (RBC) [Mass/Vol]Or dered By: Berto Akins on 02-08-2023 MCHC (RBC) [Mass/Vol] 32.6 g/dL 32-36 [facility] Mucus LM Ql (Urine sed)Order ed By: Berto Akins on 02-08-2023 Mucus Ql (Urine sed) 0 SEEN /hpf [facility] Nitrite Test strip Ql (U)Ord ered By: Berto Akins on 02-08-2023 Nitrite Ql (U) Positive Negative [facility] No Panel InformationOrdered By: Berto Akins on 02-08-2023 Estimated GFR (MDRD) Amer 39 mL/min >60 [facility] Comment on above: GFR Calc Estimated GFR (MDRD) Non-Af Amer 32 mL/min >60 [facility] Comment on above: Non- GFR Calc Platelets bldOrdered By: Aretha Akins on 02-08-2023 Platelets (Bld) [#/Vol] 315 10*3/uL 150-450 [facility] Protein Test strip Ql (U)Ord ered By: Berto Akins on 02-08-2023 Protein Ql (U) 100 mg/dl Negative [facility] Serum or plasma albumin jeff urement (mass/volume)Ordered By: Berto Akins on 02-08-2023 Albumin [Mass/Vol] 3.9 g/dL 3.2-5.[address] [facility] Serum or plasma albumin/glob ulin mass ratioOrdered By: Berto Akins on 02-08-2023 Albumin/Globulin [Mass ratio] 0.9 {ratio} 0.9-2.4 [facility] Serum or plasma calcium jeff urement (mass/volume)Ordered By: Berto Akins on 02-08-2023 Calcium [Mass/Vol] 9.7 mg/dL 8.5-10.[address] [facility] Serum or plasma creatinine m easurement (mass/volume)Ordered By: Berto Akins on 02-08-2023 Creatinine [Mass/Vol] 1.72 mg/dL 0.55-1.02 [facility] Comment on above: The validity of the calculated GFR & GFRAA in patients over 70 years has not been determined. Clinical correlation is essential. Serum or plasma urea nitroge n measurement (mass/volume)Ordered By: Berto Akins on 02-08-2023 Urea nitrogen [Mass/Vol] 27 mg/dL 7-18 [facility] Squamous epithelial cells de tection in urine sediment by light microscopyOrdered By: Berto Akins on 02-08-2023 Epithelial cells.squamous LM Ql (Urine sed) 0-5 SEEN /hpf 5-10 [facility] Thin prep Papanicolaou smear with manual screeningOrdered By: Berto Akins on 02-08-2023 Thin prep Papanicolaou smear with manual screening 30 U/L 15-37 [facility] Thin prep Papanicolaou smear with manual screening 12 5-15 [facility] Urine blood detectionOrdered By: Berto Akins on 02-08-2023 RBC Ql (U) 10 /ul Negative [facility] RBC Ql (U) 0-5 SEEN /hpf 0-5 [facility] Urine clarityOrdered By: Aretha Akins on 02-08-2023 Clarity (U) Sl. Cloudy Clear [facility] Urine color determinationOrd ered By: Berto Akins on 02-08-2023 Color (U) Yellow Yellow [facility] Urine glucose detectionOrder ed By: Berto Akins on 02-08-2023 Glucose Ql (U) Normal mg/dl Normal [facility] Urine leukocyte esterase det ection by dipstickOrdered By: Berto Akins on 02-08-2023 Leukocyte esterase Test strip Ql (U) 100 /ul Negative [facility] Urine pHOrdered By: Berto cain on 02-08-2023 pH (U) 5.0 [pH] 5.0 - 8.0 [facility] Urine sediment bacteria coun t by microscopy (number/high power field)Ordered By: Berto Akins on 02-08-2023 Bacteria LM.HPF (Urine sed) [#/Area] 1 /[HPF] None Seen [facility] Urine specific gravity measu rementOrdered By: Berto Akins on 02-08-2023 Specific gravity (U) [Rel density] 1.025 1.002-1.030 [facility] Urobilinogen Auto test strip Ql (U)Ordered By: Berto Akins on 02-08-2023 Urobilinogen Ql (U) 1 mg/dl Normal [facility] Absolute lymphocyte countOrd ered By: Samina Joya on 02-01-2023 Lymphocytes Auto (Unsp spec) [#/Vol] 1.87 10*3/uL 0.83-4.51 [facility] Basophil percentageOrdered B y: Yanely Alegria on 02-01-2023 Basophil percentage 10-25 SEEN /hpf 0-5 [facility] Basophil percentageOrdered B y: Samina Joya on 02-01-2023 Basophils/100 WBC (Bld) 0.2 % 0-1 [facility] Bilirubin [Mass/Vol] 2.30 mg/dL 0.20-1.00 [facility] Comment on above: For patients on eltr ombopag therapy, use of Dimension [place] TBIL is not recommended. Chloride [Moles/Vol] 101 mmol/L 98-107 [facility] Eosinophils/100 WBC (Bld) 1.1 % 0-5 [facility] Glucose [Mass/Vol] 96 mg/dL 74-[address] [facility] Neutrophils (Bld) [#/Vol] 9.8 10*3/uL 2.0-7.7 [facility] Neutrophils/100 WBC (Bld) 78.5 % 47-70 [facility] Potassium [Moles/Vol] 5.6 mmol/L 3.5-5.1 [facility] Comment on above: Moderate Hemolysis, Result may be falsely increased. Protein [Mass/Vol] 9.8 g/dL 6.4-8.[address] [facility] Sodium [Moles/Vol] 135 mmol/L 136-[address] [facility] WBC (Bld) [#/Vol] 12.5 10*3/uL 4.4-11.0 [facility] Bilirubin Test strip Ql (U)O rdered By: Yanely Alegria on 02-01-2023 Bilirubin Ql (U) 3 mg/dL Negative [facility] Comment on above: COLOR OF URINE MAY A FFECT DIPSTICK RESULTS. Blood erythrocytes count (nu mber/volume)Ordered By: Samina Joya on 02-01-2023 RBC (Bld) [#/Vol] 6.30 10*6/uL 4.2-5.4 [facility] Blood hemoglobin measurement (mass/volume)Ordered By: Samina Joya on 02-01-2023 Hemoglobin (Bld) [Mass/Vol] 17.7 g/dL 12.0-15.0 [facility] Blood lymphocytes/100 leukoc ytesOrdered By: Samina Joya on 02-01-2023 Lymphocytes/100 WBC (Bld) 15.0 % 19-41 [facility] Blood monocytes/100 leukocyt esOrdered By: Samina Joya on 02-01-2023 Monocytes/100 WBC (Bld) 4.7 % 0-10 [facility] Blood platelet mean volumeOr dered By: Samina Joya on 02-01-2023 Platelet mean volume (Bld) [Entitic vol] 10.3 fL 6.2-12.0 [facility] Determination of erythrocyte mean corpuscular volume (MCV)Ordered By: Samina Joya on 02-01-2023 MCV (RBC) [Entitic vol] 87.6 fL 81-99 [facility] HIV 1 and HIV-2 antibody ass ay with HIV-1 p24 antigen detectionOrdered By: Samina Joya on 02-01-2023 HIV 1+2 Ab+HIV1 p24 Ag IA Ql Non-Reactive Nonreactive [facility] Hematocrit Auto (Bld) [Volum e fraction]Ordered By: Samina Joya on 02-01-2023 Hematocrit (Bld) [Volume fraction] 55.2 % 37-47 [facility] Ketones Test strip Ql (U)Ord ered By: Yanely Alegria on 02-01-2023 Ketones Ql (U) 50 mg/dl Negative [facility] - Chemistry and C hemistry - challengeOrdered By: Davonnapoleonham Joya on 02-01-2023 ALP [Catalytic activity/Vol] 159 U/L 45-117 [facility] ALT [Catalytic activity/Vol] 56 U/L 13-56 [facility] CO2 [Moles/Vol] 23.0 mmol/L 21.0-32.0 [facility] Globulin (S) [Mass/Vol] 5.2 g/dL 2.2-4.2 [facility] Urea nitrogen/Creatinine [Mass ratio] 12.1 mg/mg 10-20 [facility] - Hematology and Cell countsOrdered By: Samina Joya on 02-01-2023 Erythrocyte distribution width (RBC) [Entitic vol] 46.7 fL 35.1-43.9 [facility] Erythrocyte distribution width (RBC) [Ratio] 14.6 % 11.6-14.6 [facility] Immature granulocytes/100 WBC (Bld) 0.500 % 0.0-0.9 [facility] Comment on above: IG% - Immature Granu locytes (promyelocytes, myelocytes and metamyelocytes) > 1% indicates that a LEFT SHIFT is Present. MCH (RBC) [Entitic mass] 28.1 pg 27.0-32.0 [facility] Nucleated RBC/100 WBC (Bld) [Ratio] 0 % 0-5 [facility] - Microbiology an d Antimicrobial susceptibilityOrdered By: Samina Joya on 02-01-2023 SARS-CoV-2 (COVID-19) RNA KELLY+probe Ql (Unsp spec) [facility] SARS-CoV-2 (COVID-19) RNA KELLY[facility] [Mass/Vol]Or dered By: Samina Joya on 02-01-2023 MCHC (RBC) [Mass/Vol] 32.1 g/dL 32-36 [facility] Mucus LM Ql (Urine sed)Order ed By: Yanely Alegria on 02-01-2023 Mucus Ql (Urine sed) 0 SEEN /hpf [facility] Neisseria gonorrhoeae genita l PCROrdered By: Yanely Alegria on 02-01-2023 N. gonorrhoeae DNA KELLY+probe Ql (Genital specimen) [facility] N. gonorrhoeae DNA KELLY+probe Ql (Genital specimen) [facility] Nitrite Test strip Ql (U)Ord ered By: Yanely Alegria on 02-01-2023 Nitrite Ql (U) Positive Negative [facility] No Panel InformationOrdered By: Yanely Alegria on 02-01-2023 Chlamydia trachomatis (PCR) [facility] Chlamydia trachomatis (PCR) [facility] No Panel InformationOrdered By: Samina Joya on 02-01-2023 Estimated GFR (MDRD) Amer 57 mL/min >60 [facility] Comment on above: GFR Calc Estimated GFR (MDRD) Non-Af Amer 47 mL/min >60 [facility] Comment on above: Non- GFR Calc Platelets bldOrdered By: Shayne Joya on 02-01-2023 Platelets (Bld) [#/Vol] 244 10*3/uL 150-450 [facility] Protein Test strip Ql (U)Ord ered By: Yanely Alegria on 02-01-2023 Protein Ql (U) 100 mg/dl Negative [facility] Serum or plasma albumin jeff urement (mass/volume)Ordered By: Samina Joya on 02-01-2023 Albumin [Mass/Vol] 4.6 g/dL 3.2-5.[address] [facility] Serum or plasma albumin/glob ulin mass ratioOrdered By: Samina Joya on 02-01-2023 Albumin/Globulin [Mass ratio] 0.9 {ratio} 0.9-2.4 [facility] Serum or plasma calcium jeff urement (mass/volume)Ordered By: Samina Joya on 02-01-2023 Calcium [Mass/Vol] 9.9 mg/dL 8.5-10.[address] [facility] Serum or plasma creatinine m easurement (mass/volume)Ordered By: Samina Joya on 02-01-2023 Creatinine [Mass/Vol] 1.24 mg/dL 0.55-1.02 [facility] Comment on above: The validity of the calculated GFR & GFRAA in patients over 70 years has not been determined. Clinical correlation is essential. Serum or plasma urea nitroge n measurement (mass/volume)Ordered By: Samina Joya on 02-01-2023 Urea nitrogen [Mass/Vol] 15 mg/dL 7-18 [facility] Squamous epithelial cells de tection in urine sediment by light microscopyOrdered By: Yanely Alegria on 02-01-2023 Epithelial cells.squamous LM Ql (Urine sed) 0-5 SEEN /hpf 5-10 [facility] Thin prep Papanicolaou smear with manual screeningOrdered By: Samina Joya on 02-01-2023 Thin prep Papanicolaou smear with manual screening 62 U/L 15-37 [facility] Comment on above: Moderate Hemolysis, Result may be falsely increased. Thin prep Papanicolaou smear with manual screening 11 -15 [facility] Urine blood detectionOrdered By: Yanely Alegria on 02-01-2023 RBC Ql (U) 25 /ul Negative [facility] RBC Ql (U) 0-5 SEEN /hpf 0-5 [facility] Urine clarityOrdered By: Philly Alegria on 02-01-2023 Clarity (U) Cloudy Clear [facility] Urine color determinationOrd ered By: Yanely Alegria on 02-01-2023 Color (U) Yellow Yellow [facility] Urine glucose detectionOrder ed By: Yanely Alegria on 02-01-2023 Glucose Ql (U) Normal mg/dl Normal [facility] Urine leukocyte esterase det ection by dipstickOrdered By: Yanely Alegria on 02-01-2023 Leukocyte esterase Test strip Ql (U) 500 /ul Negative [facility] Urine pHOrdered By: Yanely Alegria on 02-01-2023 pH (U) 5.0 [pH] 5.0 - 8.0 [facility] Urine sediment bacteria coun t by microscopy (number/high power field)Ordered By: Yanely Alegria on 02-01-2023 Bacteria LM.HPF (Urine sed) [#/Area] 1 /[HPF] None Seen [facility] Urine specific gravity measu rementOrdered By: Yanely Alegria on 02-01-2023 Specific gravity (U) [Rel density] 1.030 1.002-1.030 [facility] Urobilinogen Auto test strip Ql (U)Ordered By: Yanely Alegria on 02-01-2023 Urobilinogen Ql (U) 1 mg/dl Normal [facility] Absolute lymphocyte countOrd ered By: Samina Joya on 11-16-2022 Lymphocytes Auto (Unsp spec) [#/Vol] 1.83 10*3/uL 0.83-4.51 [facility] Basophil percentageOrdered B y: Samina Joya on 11-16-2022 Basophils/100 WBC (Bld) 0.6 % 0-1 [facility] Bilirubin [Mass/Vol] 0.50 mg/dL 0.20-1.00 [facility] Comment on above: For patients on eltr ombopag therapy, use of Dimension [place] TBIL is not recommended. Chloride [Moles/Vol] 108 mmol/L 98-107 [facility] Cholesterol [Mass/Vol] 139 mg/dL <200 [facility] Comment on above: <200 mg/dL Desirable 200-240 mg/dL Borderline >240 mg/dL High Risk Eosinophils/100 WBC (Bld) 5.1 % 0-5 [facility] Glucose [Mass/Vol] 92 mg/dL 74-[address] [facility] Neutrophils (Bld) [#/Vol] 4.0 10*3/uL 2.0-7.7 [facility] Neutrophils/100 WBC (Bld) 57.6 % 47-70 [facility] Potassium [Moles/Vol] 4.2 mmol/L 3.5-5.1 [facility] Protein [Mass/Vol] 7.4 g/dL 6.4-8.[address] [facility] Sodium [Moles/Vol] 139 mmol/L 136-[address] [facility] Triglyceride [Mass/Vol] 33 mg/dL <199 [facility] Comment on above: The drugs N-Acetylcy steine and Metamizole may falsely depress this assay.Serum Triglycerides Reference Interval Normal <150 mg/dL Borderline high 150 - 199 mg/dL High 200 - 499 mg/dL Very High > or = 500 mg/dL WBC (Bld) [#/Vol] 6.9 10*3/uL 4.4-11.[address] [facility] Blood erythrocytes count (nu mber/volume)Ordered By: Samina Joya on 11-16-2022 RBC (Bld) [#/Vol] 4.78 10*6/uL 4.2-5.4 [facility] Blood hemoglobin measurement (mass/volume)Ordered By: Samina Joya on 11-16-2022 Hemoglobin (Bld) [Mass/Vol] 14.0 g/dL 12.0-15.0 [facility] Blood lymphocytes/100 leukoc ytesOrdered By: Samina Joya on 11-16-2022 Lymphocytes/100 WBC (Bld) 26.4 % 19-41 [facility] Blood monocytes/100 leukocyt esOrdered By: Samina Joya on 11-16-2022 Monocytes/100 WBC (Bld) 10.0 % 0-10 [facility] Blood platelet mean volumeOr dered By: Samina Joya on 11-16-2022 Platelet mean volume (Bld) [Entitic vol] 9.3 fL 6.2-12.0 [facility] Determination of erythrocyte mean corpuscular volume (MCV)Ordered By: Samina Joya on 11-16-2022 MCV (RBC) [Entitic vol] 89.7 fL 81-99 [facility] Hematocrit Auto (Bld) [Volum e fraction]Ordered By: Samina Joya on 11-16-2022 Hematocrit (Bld) [Volume fraction] 42.9 % 37-47 [facility] - Chemistry and C hemistry - challengeOrdered By: hari Joya on 11-16-2022 ALP [Catalytic activity/Vol] 125 U/L 45-117 [facility] ALT [Catalytic activity/Vol] 48 U/L 13-56 [facility] CO2 [Moles/Vol] 23.0 mmol/L 21.0-32.0 [facility] Free T4 [Mass/Vol] 0.87 ng/dL 0.76-1.[address] [facility] Globulin (S) [Mass/Vol] 4.1 g/dL 2.2-4.2 [facility] Urea nitrogen/Creatinine [Mass ratio] 25.5 mg/mg 10-20 [facility] - Hematology and Cell countsOrdered By: Samina Joya on 11-16-2022 Erythrocyte distribution width (RBC) [Entitic vol] 47.4 fL 35.1-43.9 [facility] Erythrocyte distribution width (RBC) [Ratio] 14.4 % 11.6-14.6 [facility] Immature granulocytes/100 WBC (Bld) 0.300 % 0.0-0.9 [facility] Comment on above: IG% - Immature Granu locytes (promyelocytes, myelocytes and metamyelocytes) > 1% indicates that a LEFT SHIFT is Present. MCH (RBC) [Entitic mass] 29.3 pg 27.0-32.0 [facility] Nucleated RBC/100 WBC (Bld) [Ratio] 0 % 0-5 [facility] MCHC Auto (RBC) [Mass/Vol]Or dered By: Samina Joya on 11-16-2022 MCHC (RBC) [Mass/Vol] 32.6 g/dL 32-36 [facility] No Panel InformationOrdered By: Samina Joya on 11-16-2022 Estimated GFR (MDRD) Amer 97 mL/min >60 [facility] Comment on above: GFR Calc Estimated GFR (MDRD) Non-Af Amer 80 mL/min >60 [facility] Comment on above: Non- GFR Calc Thyroid Stimulating Hormone (TSH) 0.53 uIU/mL 0.358-3.74 [facility] Platelets bldOrdered By: Shayne Joya on 11-16-2022 Platelets (Bld) [#/Vol] 271 10*3/uL 150-450 [facility] Serum or plasma albumin jeff urement (mass/volume)Ordered By: Samina Joya on 11-16-2022 Albumin [Mass/Vol] 3.3 g/dL 3.2-5.[address] [facility] Serum or plasma albumin/glob ulin mass ratioOrdered By: Samina Joya on 11-16-2022 Albumin/Globulin [Mass ratio] 0.8 {ratio} 0.9-2.4 [facility] Serum or plasma calcium jeff urement (mass/volume)Ordered By: Samina Joya on 11-16-2022 Calcium [Mass/Vol] 9.1 mg/dL 8.5-10.[address] [facility] Serum or plasma cholesterol in HDL measurement (mass/volume)Ordered By: Samina Joya on 11-16-2022 Cholesterol in HDL [Mass/Vol] 64 mg/dL >40 [facility] Comment on above: The drugs N-Acetylcy steine and Metamizole may falsely depress this assay. Reference Range HDL <40 mg/dL Low HDL Cholesterol HDL >or= 60 mg/dL High HDL Cholesterol Serum or plasma cholesterol in VLDL measurement (mass/volume)Ordered By: Samina Joya on 11-16-2022 Cholesterol in VLDL [Mass/Vol] 7 mg/dL 5-40 [facility] Serum or plasma creatinine m easurement (mass/volume)Ordered By: Samina Joya on 11-16-2022 Creatinine [Mass/Vol] 0.78 mg/dL 0.55-1.02 [facility] Comment on above: The validity of the calculated GFR & GFRAA in patients over 70 years has not been determined. Clinical correlation is essential. Serum or plasma low density lipoprotein (LDL) cholesterol measurement (mass/volume)Ordered By: Samina Joya on 11-16-2022 Cholesterol in LDL [Mass/Vol] 68 mg/dL 0-130 [facility] Serum or plasma urea nitroge n measurement (mass/volume)Ordered By: Samina Joya on 11-16-2022 Urea nitrogen [Mass/Vol] 20 mg/dL 7-18 [facility] Thin prep Papanicolaou smear with manual screeningOrdered By: Samina Joya on 11-16-2022 Thin prep Papanicolaou smear with manual screening 35 U/L 15-37 [facility] Thin prep Papanicolaou smear with manual screening 8 5-15 [facility] BACTERIAL VAGINOSIS NAATon 0 10-21-2022 Lactobacillus crispatus+gasseri+sergey enii + Gardnerella vaginalis + Atopobium vaginae rRNA KELLY+probe Ql (Vag fld) Negative Negative for bacterial vaginosis [facility] DEBORAH/TRICHOMONAS NAATon 0 10-21-2022 C. glabrata RNA KELLY+probe Ql (Vag fld) Negative Negative for Deborah glabrata [facility] Deborah sp DNA KELLY+probe Ql (Vag fld) Negative Negative for Deborah species [facility] T. vaginalis DNA KELLY+probe Ql (Unsp spec) Negative Negative for Trichomonas vaginalis by amplification [facility] UA DIP, URINE (POC)on 2022 BILIRUBIN UA (POCT) Negative Negative [facility] CLARITY UA (POCT) Clear [facility] COLOR UA (POCT) Dark yellow [facility] GLUCOSE UA (POCT) Negative Negative mg/dL [facility] Hemoglobin Ql (U) Negative Negative [facility] KETONE UA (POCT) Negative Negative mg/dL [facility] LEUKOCYTES UA (POCT) Negative Negative [facility] NITRITE UA (POCT) Negative Negative [facility] PH UA (POCT) 5.0 4.5 - 8.0 [facility] Protein Ql (U) Trace Abnormal Negative mg/dL [facility] SPECIFIC GRAVITY UA (POCT) >=1.030 1.005 - 1.030 [facility] UROBILINOGEN UA (POCT) 0.2 E.U./dL Normal E.U./ dL [facility] Laboratory - Chemistry and C hemistry - challengeon 10-12-2022 Glucose [Mass/Vol] 91 mg/dL 70-[address] [facility] Absolute lymphocyte countOrd ered By: Dangelo Acosta on 06-18-2022 Lymphocytes Auto (Unsp spec) [#/Vol] 1.87 10*3/uL 0.83-4.51 [facility] Basophil percentageOrdered B y: Dangelo Acosta on 06-18-2022 Basophil percentage 6.803 . [facility] Comment on above: Result Units: log10 IU/mL Basophils/100 WBC (Bld) 0.6 % 0-1 [facility] Eosinophils/100 WBC (Bld) 2.8 % 0-5 [facility] Neutrophils (Bld) [#/Vol] 5.8 10*3/uL 2.0-7.7 [facility] Neutrophils/100 WBC (Bld) 67.1 % 47-70 [facility] WBC (Bld) [#/Vol] 8.7 10*3/uL 4.4-11.[address] [facility] Basophil percentageOrdered B y: Dr. Patton on 06-18-2022 Bilirubin [Mass/Vol] 0.30 mg/dL 0.20-1.00 [facility] Comment on above: For patients on eltr ombopag therapy, use of Dimension [place] TBIL is not recommended. Chloride [Moles/Vol] 108 mmol/L 98-107 [facility] Glucose [Mass/Vol] 98 mg/dL 74-[address] [facility] Potassium [Moles/Vol] 4.2 mmol/L 3.5-5.1 [facility] Comment on above: Slight Hemolysis, Re sult may be falsely increased. Protein [Mass/Vol] 7.7 g/dL 6.4-8.[address] [facility] Sodium [Moles/Vol] 135 mmol/L 136-[address] [facility] Blood erythrocytes count (nu mber/volume)Ordered By: Dangelo Acosta on 06-18-2022 RBC (Bld) [#/Vol] 5.23 10*6/uL 4.2-5.4 [facility] Blood hemoglobin measurement (mass/volume)Ordered By: Dangelo Acosta on 06-18-2022 Hemoglobin (Bld) [Mass/Vol] 15.4 g/dL 12.0-15.0 [facility] Blood lymphocytes/100 leukoc ytesOrdered By: Dangelo Acosta on 06-18-2022 Lymphocytes/100 WBC (Bld) 21.5 % 19-41 [facility] Blood monocytes/100 leukocyt esOrdered By: Dangelo Acosta on 06-18-2022 Monocytes/100 WBC (Bld) 7.4 % 0-10 [facility] Blood platelet mean volumeOr dered By: Dangelo Acosta on 06-18-2022 Platelet mean volume (Bld) [Entitic vol] 9.5 fL 6.2-12.0 [facility] Determination of erythrocyte mean corpuscular volume (MCV)Ordered By: Dangelo Acosta on 06-18-2022 MCV (RBC) [Entitic vol] 91.6 fL 81-99 [facility] Erythrocyte sedimentation ra teOrdered By: Dangelo Acosta on 06-18-2022 ESR (Bld) [Velocity] 22 mm/h 0-30 [facility] Hematocrit Auto (Bld) [Volum e fraction]Ordered By: Dangelo Acosta on 06-18-2022 Hematocrit (Bld) [Volume fraction] 47.9 % 37-47 [facility] - Chemistry and C hemistry - challengeOrdered By: Dr. Patton on 06-18-2022 ALP [Catalytic activity/Vol] 129 U/L 45-117 [facility] ALT [Catalytic activity/Vol] 75 U/L 13-56 [facility] CO2 [Moles/Vol] 19.0 mmol/L 21.0-32.0 [facility] Cobalamin (Vitamin B12) [Mass/Vol] 405 pg/mL 211-911 [facility] Globulin (S) [Mass/Vol] 4.3 g/dL 2.2-4.2 [facility] Urea nitrogen/Creatinine [Mass ratio] 18.9 mg/mg 10-20 [facility] - Hematology and Cell countsOrdered By: Dangelo Acosta on 06-18-2022 Erythrocyte distribution width (RBC) [Entitic vol] 48.8 fL 35.1-43.9 [facility] Erythrocyte distribution width (RBC) [Ratio] 14.5 % 11.6-14.6 [facility] Immature granulocytes/100 WBC (Bld) 0.600 % 0.0-0.9 [facility] Comment on above: IG% - Immature Granu locytes (promyelocytes, myelocytes and metamyelocytes) > 1% indicates that a LEFT SHIFT is Present. MCH (RBC) [Entitic mass] 29.4 pg 27.0-32.0 [facility] Nucleated RBC/100 WBC (Bld) [Ratio] 0 % 0-5 [facility] MCHC Auto (RBC) [Mass/Vol]Or dered By: Dangelo Acosta on 06-18-2022 MCHC (RBC) [Mass/Vol] 32.2 g/dL 32-36 [facility] No Panel InformationOrdered By: Dangelo Acosta on 06-18-2022 Addendum Document Comment . [facility] Comment on above: The quantitative ran ge of this assay is 15 IU/mL to 100million IU/mL.Performed at: [email or web address] [address] [id number] Director: Matilde Cordoba MD, Phone: [phone] Vitamin D 25-Hydroxy 25.0 ng/mL [facility] Comment on above: Vitamin D 25(OH) Sta tus Range Deficiency <20 ng/mL (50nmol/L) Insufficiency 20 - 30 ng/mL (50 - 75 nmol/L) Sufficiency 30 - 100 ng/mL (75 - 250 nmol/L) Toxicity >100 ng/mL (>250 nmol/L) No Panel InformationOrdered By: Dr. Patton on 06-18-2022 Estimated GFR (MDRD) Amer 124 mL/min >60 [facility] Comment on above: GFR Calc Estimated GFR (MDRD) Non-Af Amer 102 mL/min >60 [facility] Comment on above: Non- GFR Calc Thyroid Stimulating Hormone (TSH) 0.82 uIU/mL 0.358-3.74 [facility] Whole Blood Vitamin B1 Level 167.5 nmol/L 66.5-200.0 [facility] Comment on above: Performed at: [facility] [address] [id number] Director: Matilde Cordoba MD, Phone: [phone] Platelets bldOrdered By: Fanny jonel Karla on 06-18-2022 Platelets (Bld) [#/Vol] 266 10*3/uL 150-450 [facility] Serum or plasma C reactive p rotein measurement (mass/volume)Ordered By: Dangelo Acosta on 06-18-2022 CRP [Mass/Vol] mg/L 0.0-3.0 [facility] Comment on above: C-Reactive Protein ( CRP) provides useful information for thediagnosis, therapy and monitoring of inflammatory processesand associated diseases. For the evaluation of Relative Riskfor Cardiovascular Disease, a High Sensitivity CRP (HSCRP)should be ordered. Serum or plasma albumin jeff urement (mass/volume)Ordered By: Dr. Patton on 06-18-2022 Albumin [Mass/Vol] 3.4 g/dL 3.2-5.[address] [facility] Serum or plasma albumin/glob ulin mass ratioOrdered By: Dr. Patton on 06-18-2022 Albumin/Globulin [Mass ratio] 0.8 {ratio} 0.9-2.4 [facility] Serum or plasma calcium jeff urement (mass/volume)Ordered By: Dr. Patton on 06-18-2022 Calcium [Mass/Vol] 9.4 mg/dL 8.5-10.[address] [facility] Serum or plasma creatinine m easurement (mass/volume)Ordered By: Dr. Patton on 06-18-2022 Creatinine [Mass/Vol] 0.64 mg/dL 0.55-1.02 [facility] Comment on above: The validity of the calculated GFR & GFRAA in patients over 70 years has not been determined. Clinical correlation is essential. Serum or plasma folate measu rement (mass/volume)Ordered By: Dr. Patton on 06-18-2022 Folate [Mass/Vol] 30.30 ng/mL 3.1-55.[address] [facility] Comment on above: Slight Hemolysis, Re sult may be falsely increased. Serum or plasma hepatitis C virus RNA measurement by probe and target amplification mOrdered By: Dangelo Acosta on 06-18-2022 HCV RNA KELLY+probe Qn [id number] IU/mL . [facility] Serum or plasma urea nitroge n measurement (mass/volume)Ordered By: Dr. Patton on 06-18-2022 Urea nitrogen [Mass/Vol] 12 mg/dL 7-18 [facility] Thin prep Papanicolaou smear with manual screeningOrdered By: Dr. Patton on 06-18-2022 Thin prep Papanicolaou smear with manual screening 67 U/L 15-37 [facility] Comment on above: Slight Hemolysis, Re sult may be falsely increased. Thin prep Papanicolaou smear with manual screening 8 5-15 [facility] Absolute lymphocyte countOrd ered By: Dr. Vega on 03-21-2022 Lymphocytes Auto (Unsp spec) [#/Vol] 3.20 10*3/uL 0.83-4.51 [facility] Basophil percentageOrdered B y: Dr. Vega on 03-21-2022 Basophil percentage 0-5 SEEN /hpf 0-5 [facility] Basophils/100 WBC (Bld) 0.4 % 0-1 [facility] Chloride [Moles/Vol] 102 mmol/L 98-107 [facility] Eosinophils/100 WBC (Bld) 1.6 % 0-5 [facility] Glucose [Mass/Vol] 92 mg/dL 74-[address] [facility] Neutrophils (Bld) [#/Vol] 8.3 10*3/uL 2.0-7.7 [facility] Neutrophils/100 WBC (Bld) 64.1 % 47-70 [facility] Potassium [Moles/Vol] 4.3 mmol/L 3.5-5.1 [facility] Sodium [Moles/Vol] 136 mmol/L 136-[address] [facility] WBC (Bld) [#/Vol] 12.9 10*3/uL 4.4-11.0 [facility] Bilirubin Test strip Ql (U)O rdered By: Dr. Vega on 03-21-2022 Bilirubin Ql (U) Negative Negative [facility] Blood erythrocytes count (nu mber/volume)Ordered By: Dr. Vega on 03-21-2022 RBC (Bld) [#/Vol] 5.26 10*6/uL 4.2-5.4 [facility] Blood hemoglobin measurement (mass/volume)Ordered By: Dr. Vega on 03-21-2022 Hemoglobin (Bld) [Mass/Vol] 15.3 g/dL 12.0-15.0 [facility] Blood lymphocytes/100 leukoc ytesOrdered By: Dr. Vega on 03-21-2022 Lymphocytes/100 WBC (Bld) 24.9 % 19-41 [facility] Blood monocytes/100 leukocyt esOrdered By: Dr. Vega on 03-21-2022 Monocytes/100 WBC (Bld) 8.5 % 0-10 [facility] Blood platelet mean volumeOr dered By: Dr. Vega on 03-21-2022 Platelet mean volume (Bld) [Entitic vol] 8.8 fL 6.2-12.0 [facility] Determination of erythrocyte mean corpuscular volume (MCV)Ordered By: Dr. Vega on 03-21-2022 MCV (RBC) [Entitic vol] 87.5 fL 81-99 [facility] Hematocrit Auto (Bld) [Volum e fraction]Ordered By: Dr. Vega on 03-21-2022 Hematocrit (Bld) [Volume fraction] 46.0 % 37-47 [facility] Hyaline casts LM.LPF (Urine sed) [#/Area]Ordered By: Dr. Vega on 03-21-2022 Hyaline casts (Urine sed) [#/Area] 0 /[LPF] 0-5 [facility] Ketones Test strip Ql (U)Ord ered By: Dr. Vega on 03-21-2022 Ketones Ql (U) Negative Negative [facility] - Chemistry and C hemistry - challengeOrdered By: Dr. Vega on 03-21-2022 CO2 [Moles/Vol] 27.0 mmol/L 21.0-32.0 [facility] Magnesium [Mass/Vol] 2.2 mg/dL 1.6-2.6 [facility] Urea nitrogen/Creatinine [Mass ratio] 26.7 mg/mg 10-20 [facility] - Drug toxicology Ordered By: Dr. Vega on 03-21-2022 Amphetamines Ql (U) Positive <1000 ng/mL [facility] Benzodiazepines Ql (U) Negative < 200 ng/mL [facility] Cannabinoids Screen Ql (U) Negative < 50 ng/mL [facility] Cocaine Ql (U) Negative < 300 ng/mL [facility] Opiates Ql (U) Negative < 300 ng/mL [facility] - Hematology and Cell countsOrdered By: Dr. Vega on 03-21-2022 Erythrocyte distribution width (RBC) [Entitic vol] 44.8 fL 35.1-43.9 [facility] Erythrocyte distribution width (RBC) [Ratio] 14.0 % 11.6-14.6 [facility] Immature granulocytes/100 WBC (Bld) 0.500 % 0.0-0.9 [facility] Comment on above: IG% - Immature Granu locytes (promyelocytes, myelocytes and metamyelocytes) > 1% indicates that a LEFT SHIFT is Present. MCH (RBC) [Entitic mass] 29.1 pg 27.0-32.0 [facility] Nucleated RBC/100 WBC (Bld) [Ratio] 0 % 0-5 [facility] MCHC Auto (RBC) [Mass/Vol]Or dered By: Dr. Vega on 03-21-2022 MCHC (RBC) [Mass/Vol] 33.3 g/dL 32-36 [facility] Mucus LM Ql (Urine sed)Order ed By: Dr. Vega on 03-21-2022 Mucus Ql (Urine sed) 0 SEEN /hpf [facility] Nitrite Test strip Ql (U)Ord ered By: Dr. Vega on 03-21-2022 Nitrite Ql (U) Negative Negative [facility] No Panel InformationOrdered By: Dr. Vega on 03-21-2022 MDMA (Ecstasy) Screen Positive < 500 ng/mL [facility] Urine Barbiturates Screen Negative < 200 ng/mL [facility] Urine Drug Screen Comment [facility] Comment on above: CONFIRMATORY TESTING FOR ALL POSITIVE URINE DRUG SCREENRESULTS WILL ONLY BE SENT OUT UPON PHYSICIAN ORDER. VISTA Urine Drug Screen methods provide only preliminaryanalytical test results. A more specific alternate chemicalmethod must be used in order to obtain a confirmedanalytical result. Gas chromatography/mass spectrometery(GC/MS) is the preferred confirmatory method. Clinicalconsideration and professional judgement should be appliedto any drug of abuse test result, particularly whenpreliminary positive results are used. URINE TCA TESTING MUST BE ORDERED SEPARATELY. USE TESTMNEMONIC: [facility] Urine Methadone Screen Negative < 300 ng/mL [facility] Estimated Creatinine Clearance Calc 43.04 ml/min [facility] Estimated GFR (MDRD) Amer 52 mL/min >60 [facility] Comment on above: GFR Calc Estimated GFR (MDRD) Non-Af Amer 43 mL/min >60 [facility] Comment on above: Non- GFR Calc Platelets bldOrdered By: Dr. Vega on 03-21-2022 Platelets (Bld) [#/Vol] 313 10*3/uL 150-450 [facility] Protein Test strip Ql (U)Ord ered By: Dr. Vega on 03-21-2022 Protein Ql (U) 30 mg/dl Negative [facility] Serum or plasma calcium jeff urement (mass/volume)Ordered By: Dr. Vega on 03-21-2022 Calcium [Mass/Vol] 9.5 mg/dL 8.5-10.[address] [facility] Serum or plasma creatinine m easurement (mass/volume)Ordered By: Dr. Vega on 03-21-2022 Creatinine [Mass/Vol] 1.35 mg/dL 0.55-1.02 [facility] Comment on above: The validity of the calculated GFR & GFRAA in patients over 70 years has not been determined. Clinical correlation is essential. Serum or plasma urea nitroge n measurement (mass/volume)Ordered By: Dr. Vega on 03-21-2022 Urea nitrogen [Mass/Vol] 36 mg/dL 7-18 [facility] Squamous epithelial cells de tection in urine sediment by light microscopyOrdered By: Dr. Vega on 03-21-2022 Epithelial cells.squamous LM Ql (Urine sed) 0-5 SEEN /hpf 5-10 [facility] Thin prep Papanicolaou smear with manual screeningOrdered By: Dr. Vega on 03-21-2022 Thin prep Papanicolaou smear with manual screening 7 5-15 [facility] Urine blood detectionOrdered By: Dr. Vega on 03-21-2022 RBC Ql (U) Negative Negative [facility] RBC Ql (U) 0 SEEN /hpf 0-5 [facility] Urine clarityOrdered By: Dr. Vega on 03-21-2022 Clarity (U) Sl. Cloudy Clear [facility] Urine color determinationOrd ered By: Dr. Vega on 03-21-2022 Color (U) Yellow Yellow [facility] Urine glucose detectionOrder ed By: Dr. Vega on 03-21-2022 Glucose Ql (U) Normal mg/dl Normal [facility] Urine leukocyte esterase det ection by dipstickOrdered By: Dr. Vega on 03-21-2022 Leukocyte esterase Test strip Ql (U) 25 /ul Negative [facility] Urine pHOrdered By: Dr. Mirian fox on 03-21-2022 pH (U) 5.0 [pH] 5.0 - 8.0 [facility] Urine phencyclidine (PCP) de tectionOrdered By: Dr. Vega on 03-21-2022 Phencyclidine Ql (U) Negative < 25 ng/mL [facility] Urine sediment bacteria coun t by microscopy (number/high power field)Ordered By: Dr. Vega on 03-21-2022 Bacteria LM.HPF (Urine sed) [#/Area] 0 /[HPF] None Seen [facility] Urine specific gravity measu rementOrdered By: Dr. Vega on 03-21-2022 Specific gravity (U) [Rel density] 1.025 1.002-1.030 [facility] Urobilinogen Auto test strip Ql (U)Ordered By: Dr. Vega on 03-21-2022 Urobilinogen Ql (U) Normal mg/dl Normal [facility] Absolute lymphocyte counton 07-10-2021 Lymphocytes Auto (Unsp spec) [#/Vol] 2.98 10*3/uL 0.83-4.51 [facility] Work Phone: Basophil percentageon 2021 Basophils/100 WBC (Bld) 0.3 % 0-1 [facility] Work Phone: Bilirubin [Mass/Vol] 0.80 mg/dL 0.20-1.00 [facility] Work Phone: Comment on above: For patients on eltr ombopag therapy, use of Dimension [place] TBIL is not recommended. Chloride [Moles/Vol] 100 mmol/L 98-107 [facility] Work Phone: Eosinophils/100 WBC (Bld) 0.8 % 0-5 [facility] Work Phone: Glucose [Mass/Vol] 126 mg/dL 74-[address] [facility] Work Phone: Comment on above: Fasting Glucose resu lt greater than or equal to 126 mg/dL suggests DIABETES MELLITUS per A.D.A. criteria. Neutrophils (Bld) [#/Vol] 7.7 10*3/uL 2.0-7.7 [facility] Work Phone: Neutrophils/100 WBC (Bld) 65.0 % 47-70 [facility] Work Phone: Potassium [Moles/Vol] 3.8 mmol/L 3.5-5.1 [facility] Work Phone: Comment on above: Slight Hemolysis, Re sult may be falsely increased. Protein [Mass/Vol] 8.4 g/dL 6.4-8.[address] [facility] Work Phone: Sodium [Moles/Vol] 133 mmol/L 136-[address] [facility] Work Phone: WBC (Bld) [#/Vol] 11.9 10*3/uL 4.4-11.0 [facility] Work Phone: Blood erythrocytes count (nu mber/volume)on 07-10-2021 RBC (Bld) [#/Vol] 5.21 10*6/uL 4.2-5.4 [facility] Work Phone: Blood hemoglobin measurement (mass/volume)on 07-10-2021 Hemoglobin (Bld) [Mass/Vol] 15.3 g/dL 12.0-15.0 [facility] Work Phone: Blood lymphocytes/100 leukoc yteson 07-10-2021 Lymphocytes/100 WBC (Bld) 25.1 % 19-41 [facility] Work Phone: Blood monocytes/100 leukocyt eson 07-10-2021 Monocytes/100 WBC (Bld) 8.3 % 0-10 [facility] Work Phone: Blood platelet mean volumeon 07-10-2021 Platelet mean volume (Bld) [Entitic vol] 8.8 fL 6.2-12.0 [facility] Work Phone: Determination of erythrocyte mean corpuscular volume (MCV)on 07-10-2021 MCV (RBC) [Entitic vol] 86.6 fL 81-99 [facility] Work Phone: Direct bilirubinon 2 Bilirubin.direct [Mass/Vol] 0.19 mg/dL 0.00-0.30 [facility] Work Phone: Hematocrit Auto (Bld) [Volum e fraction]on 07-10-2021 Hematocrit (Bld) [Volume fraction] 45.1 % 37-47 [facility] Work Phone: Laboratory - Chemistry and C hemistry - challengeon 07-10-2021 ALP [Catalytic activity/Vol] 110 U/L 45-117 [facility] Work Phone: ALT [Catalytic activity/Vol] 54 U/L 13-56 [facility] Work Phone: CO2 [Moles/Vol] 25.0 mmol/L 21.0-32.0 [facility] Work Phone: Globulin (S) [Mass/Vol] 4.5 g/dL 2.2-4.2 [facility] Work Phone: Lipase [Catalytic activity/Vol] 142 U/L 73-393 [facility] Work Phone: Urea nitrogen/Creatinine [Mass ratio] 14.6 mg/mg 10-20 [facility] Work Phone: Laboratory - Hematology and Cell countson 07-10-2021 Erythrocyte distribution width (RBC) [Entitic vol] 43.5 fL 35.1-43.9 [facility] Work Phone: Erythrocyte distribution width (RBC) [Ratio] 13.8 % 11.6-14.6 [facility] Work Phone: Immature granulocytes/100 WBC (Bld) 0.500 % 0.0-0.9 [facility] Work Phone: Comment on above: IG% - Immature Granu locytes (promyelocytes, myelocytes and metamyelocytes) > 1% indicates that a LEFT SHIFT is Present. MCH (RBC) [Entitic mass] 29.4 pg 27.0-32.0 [facility] Work Phone: Nucleated RBC/100 WBC (Bld) [Ratio] 0 % 0-5 [facility] Work Phone: MCHC Auto (RBC) [Mass/Vol]on 07-10-2021 MCHC (RBC) [Mass/Vol] 33.9 g/dL 32-36 [facility] Work Phone: No Panel Informationon 07-10 Estimated Creatinine Clearance Calc 38.48 ml/min [facility] Work Phone: Estimated GFR (MDRD) Amer 46 mL/min >60 [facility] Work Phone: Comment on above: GFR Calc Estimated GFR (MDRD) Non-Af Amer 38 mL/min >60 [facility] Work Phone: Comment on above: Non- GFR Calc Platelets bldon 07-10-2021 Platelets (Bld) [#/Vol] 332 10*3/uL 150-450 [facility] Work Phone: Serum or plasma albumin jeff urement (mass/volume)on 07-10-2021 Albumin [Mass/Vol] 3.9 g/dL 3.2-5.[address] [facility] Work Phone: Serum or plasma calcium jeff urement (mass/volume)on 07-10-2021 Calcium [Mass/Vol] 9.4 mg/dL 8.5-10.[address] [facility] Work Phone: Serum or plasma creatinine m easurement (mass/volume)on 07-10-2021 Creatinine [Mass/Vol] 1.51 mg/dL 0.55-1.02 [facility] Work Phone: Comment on above: The validity of the calculated GFR & GFRAA in patients over 70 years has not been determined. Clinical correlation is essential. Serum or plasma urea nitroge n measurement (mass/volume)on 07-10-2021 Urea nitrogen [Mass/Vol] 22 mg/dL 7-18 [facility] Work Phone: Thin prep Papanicolaou smear with manual screeningon 07-10-2021 Thin prep Papanicolaou smear with manual screening 47 U/L 15-37 [facility] Work Phone: Comment on above: Slight Hemolysis, Re sult may be falsely increased. Thin prep Papanicolaou smear with manual screening 8 5-15 [facility] Work Phone: Absolute lymphocyte counton 06-26-2021 Lymphocytes Auto (Unsp spec) [#/Vol] 2.84 10*3/uL 0.83-4.51 [facility] Work Phone: Basophil percentageon 2021 Basophil percentage 5-10 SEEN /hpf 0-5 [facility] Work Phone: Basophils/100 WBC (Bld) 0.4 % 0-1 [facility] Work Phone: Bilirubin [Mass/Vol] 1.30 mg/dL 0.20-1.00 [facility] Work Phone: Comment on above: For patients on eltr ombopag therapy, use of Dimension [place] TBIL is not recommended. Chloride [Moles/Vol] 103 mmol/L 98-107 [facility] Work Phone: Eosinophils/100 WBC (Bld) 2.1 % 0-5 [facility] Work Phone: Glucose [Mass/Vol] 130 mg/dL 74-[address] [facility] Work Phone: Comment on above: Fasting Glucose resu lt greater than or equal to 126 mg/dL suggests DIABETES MELLITUS per A.D.A. criteria. Neutrophils (Bld) [#/Vol] 6.8 10*3/uL 2.0-7.7 [facility] Work Phone: [phone] Neutrophils/100 WBC (Bld) 61.6 % 47-70 [facility] Work Phone: [phone] Potassium [Moles/Vol] 3.4 mmol/L 3.5-5.1 [facility] Work Phone: Protein [Mass/Vol] 8.0 g/dL 6.4-8.[address] [facility] Work Phone: Sodium [Moles/Vol] 138 mmol/L 136-[address] [facility] Work Phone: WBC (Bld) [#/Vol] 11.1 10*3/uL 4.4-11.0 [facility] Work Phone: Bilirubin Test strip Ql (U)o n 06-26-2021 Bilirubin Ql (U) 1 mg/dL Negative [facility] Work Phone: Comment on above: COLOR OF URINE MAY A FFECT DIPSTICK RESULTS. Blood erythrocytes count (nu mber/volume)on 06-26-2021 RBC (Bld) [#/Vol] 4.91 10*6/uL 4.2-5.4 [facility] Work Phone: Blood hemoglobin measurement (mass/volume)on 06-26-2021 Hemoglobin (Bld) [Mass/Vol] 14.3 g/dL 12.0-15.0 [facility] Work Phone: Blood lymphocytes/100 leukoc yteson 06-26-2021 Lymphocytes/100 WBC (Bld) 25.6 % 19-41 [facility] Work Phone: Blood monocytes/100 leukocyt eson 06-26-2021 Monocytes/100 WBC (Bld) 9.8 % 0-10 [facility] Work Phone: Blood platelet mean volumeon 06-26-2021 Platelet mean volume (Bld) [Entitic vol] 9.1 fL 6.2-12.0 [facility] Work Phone: Determination of erythrocyte mean corpuscular volume (MCV)on 06-26-2021 MCV (RBC) [Entitic vol] 88.8 fL 81-99 [facility] Work Phone: Direct bilirubinon 2 Bilirubin.direct [Mass/Vol] 0.45 mg/dL 0.00-0.30 [facility] Work Phone: Hematocrit Auto (Bld) [Volum e fraction]on 06-26-2021 Hematocrit (Bld) [Volume fraction] 43.6 % 37-47 [facility] Work Phone: Hyaline casts LM.LPF (Urine sed) [#/Area]on 06-26-2021 Hyaline casts (Urine sed) [#/Area] 10 /[LPF] 0-5 [facility] Work Phone: Ketones Test strip Ql (U)on 06-26-2021 Ketones Ql (U) Negative Negative [facility] Work Phone: Laboratory - Chemistry and C hemistry - challengeon 06-26-2021 ALP [Catalytic activity/Vol] 119 U/L 45-117 [facility] Work Phone: ALT [Catalytic activity/Vol] 59 U/L 13-56 [facility] Work Phone: CO2 [Moles/Vol] 25.0 mmol/L 21.0-32.0 [facility] Work Phone: Globulin (S) [Mass/Vol] 4.3 g/dL 2.2-4.2 [facility] Work Phone: Urea nitrogen/Creatinine [Mass ratio] 30.2 mg/mg 10-20 [facility] Work Phone: Laboratory - Drug toxicology on 06-26-2021 Amphetamines Ql (U) Positive <1000 ng[facility]: Benzodiazepines Ql (U) Negative < 200 ng/mL [facility] Work Phone: Cannabinoids Screen Ql (U) Positive < 50 ng/mL [facility] Work Phone: Cocaine Ql (U) Positive < 300 ng/mL [facility] Work Phone: Opiates Ql (U) Negative < 300 ng/mL [facility] Work Phone: Laboratory - Hematology and Cell countson 06-26-2021 Erythrocyte distribution width (RBC) [Entitic vol] 43.8 fL 35.1-43.9 [facility] Work Phone: Erythrocyte distribution width (RBC) [Ratio] 13.5 % 11.6-14.6 [facility] Work Phone: Immature granulocytes/100 WBC (Bld) 0.500 % 0.0-0.9 [facility] Work Phone: Comment on above: IG% - Immature Granu locytes (promyelocytes, myelocytes and metamyelocytes) > 1% indicates that a LEFT SHIFT is Present. MCH (RBC) [Entitic mass] 29.1 pg 27.0-32.0 [facility] Work Phone: Nucleated RBC/100 WBC (Bld) [Ratio] 0 % 0-5 [facility] Work Phone: MCHC Auto (RBC) [Mass/Vol]on 06-26-2021 MCHC (RBC) [Mass/Vol] 32.8 g/dL 32-36 [facility] Work Phone: Mucus LM Ql (Urine sed)on Mucus Ql (Urine sed) 0 SEEN /hpf [facility] Work Phone: Nitrite Test strip Ql (U)on 06-26-2021 Nitrite Ql (U) Negative Negative [facility] Work Phone: No Panel Informationon 06-26 MDMA (Ecstasy) Screen Positive < 500 ng/mL [facility] Work Phone: Urine Barbiturates Screen Negative < 200 ng/mL [facility] Work Phone: Urine Drug Screen Comment [facility] Work Phone: Comment on above: CONFIRMATORY TESTING FOR ALL POSITIVE URINE DRUG SCREENRESULTS WILL ONLY BE SENT OUT UPON PHYSICIAN ORDER. [facility]ISTA Urine Drug Screen methods provide only preliminaryanalytical test results. A more specific alternate chemicalmethod must be used in order to obtain a confirmedanalytical result. Gas chromatography/mass spectrometery(GC/MS) is the preferred confirmatory method. Clinicalconsideration and professional judgement should be appliedto any drug of abuse test result, particularly whenpreliminary positive results are used. URINE TCA TESTING MUST BE ORDERED SEPARATELY. USE TESTMNEMONIC: [facility] Urine Methadone Screen Negative < 300 ng/mL [facility] Work Phone: Estimated Creatinine Clearance Calc 46.12 ml/min [facility] Work Phone: Estimated GFR (MDRD) Amer 56 mL/min >60 [facility] Work Phone: Comment on above: GFR Calc Estimated GFR (MDRD) Non-Af Amer 47 mL/min >60 [facility] Work Phone: Comment on above: Non- GFR Calc Platelets bldon 06-26-2021 Platelets (Bld) [#/Vol] 273 10*3/uL 150-450 [facility] Work Phone: Protein Test strip Ql (U)on 06-26-2021 Protein Ql (U) 30 mg/dl Negative [facility] Work Phone: Serum or plasma albumin jeff urement (mass/volume)on 06-26-2021 Albumin [Mass/Vol] 3.7 g/dL 3.2-5.[address] [facility] Work Phone: Serum or plasma calcium ejff urement (mass/volume)on 06-26-2021 Calcium [Mass/Vol] 9.3 mg/dL 8.5-10.[address] [facility] Work Phone: Serum or plasma creatinine m easurement (mass/volume)on 06-26-2021 Creatinine [Mass/Vol] 1.26 mg/dL 0.55-1.02 [facility] Work Phone: Comment on above: The validity of the calculated GFR & GFRAA in patients over 70 years has not been determined. Clinical correlation is essential. Serum or plasma urea nitroge n measurement (mass/volume)on 06-26-2021 Urea nitrogen [Mass/Vol] 38 mg/dL 7-18 [facility] Work Phone: Squamous epithelial cells de tection in urine sediment by light microscopyon 06-26-2021 Epithelial cells.squamous LM Ql (Urine sed) 0-5 SEEN /hpf 5-10 [facility] Work Phone: Thin prep Papanicolaou smear with manual screeningon 06-26-2021 Thin prep Papanicolaou smear with manual screening 49 U/L 15-37 [facility] Work Phone: Thin prep Papanicolaou smear with manual screening 10 5-15 [facility] Work Phone: Urine blood detectionon 06-07 RBC Ql (U) 10 /ul Negative [facility] Work Phone: RBC Ql (U) 0-5 SEEN /hpf 0-5 [facility] Work Phone: Urine clarityon 06-26-2021 Clarity (U) Clear Clear [facility] Work Phone: Urine color determinationon 06-26-2021 Color (U) Yellow Yellow [facility] Work Phone: Urine glucose detectionon Glucose Ql (U) Normal mg/dl Normal [facility] Work Phone: Urine leukocyte esterase det ection by dipstickon 06-26-2021 Leukocyte esterase Test strip Ql (U) 100 /ul Negative [facility] Work Phone: Urine pHon 06-26-2021 pH (U) 5.0 [pH] 5.0 - 8.0 [facility] Work Phone: Urine phencyclidine (PCP) de tectionon 04-21-2022 Phencyclidine Ql (U) Negative < 25 ng/mL [facility] Work Phone: Urine sediment bacteria coun t by microscopy (number/high power field)on 06-26-2021 Bacteria LM.HPF (Urine sed) [#/Area] 2 /[HPF] None Seen [facility] Work Phone: Urine specific gravity measu rementon 06-26-2021 Specific gravity (U) [Rel density] 1.025 1.002-1.030 [facility] Work Phone: Urobilinogen Auto test strip Ql (U)on 06-26-2021 Urobilinogen Ql (U) 1 mg/dl Normal [facility] Work Phone: BMPon 02-03-2018 Anion gap 3 molar conc 6 mmol/L Normal 5-16 [facility] Comment on above: Order Comment: Campu s: M Performed By: #### L 500.94758, L500.95160, L500.84332 ####[facility] [id number] [place], [place] [address]Zk# [phone] Calcium mass conc 9.0 mg/dL Normal 8.5-10.1 [facility] Comment on above: Order Comment: Campu s: M Performed By: #### L 500.87352, L500.23108, L500.72793 ####[facility] [id number] [place], [place] [address]Qj# [phone] Chloride molar conc 105 mmol/L Normal 98-107 [facility] Comment on above: Order Comment: Campu s: M Performed By: #### L 500.81434, L500.20768, L500.14882 ####[facility] [id number] [place], [place] [address]Yt# [phone] CO2 molar conc 28 mmol/L Normal 21-32 [facility] Comment on above: Order Comment: Campu s: M Performed By: #### L 500.26176, L500.44633, L500.48627 ####[facility] [id number] [place], [place] [address]Sf# [phone] Creatinine mass conc 0.692 mg/dL Normal 0.510-0.950 [facility] Comment on above: Order Comment: Campu s: M Result Comment: Laura ents receiving either N-Acetylcysteine (NAC) orMetamizole prior to venipuncture, may have falsely depressedresults. Performed By: #### L 500.60415, L500.21511, L500.23009 ####[facility] [id number] [place], [place] [address]Mz# [phone] Glucose mass conc 75 mg/dL Normal 70-100 [facility] Comment on above: Order Comment: Campu s: M Result Comment: 70-1 00- Normal Fasting; 100-125 Impaired Fasting; greaterthan 126 on more than one result- Diabetes. ADA guidelines.Results may be falsely elevated after the administration ofSulfapyridine.Results may be falsely depressed after the administration ofSulfasalazine. Performed By: #### L 500.46987, L500.72897, L500.34857 ####[facility] [id number] [place], [place] [address]Bt# [phone] Potassium molar conc 4.1 mmol/L Normal 3.5-5.1 [facility]: Order Comment: Campu s: M Performed By: #### L 500.34961, L500.35981, L500.78584 ####[facility] [id number] [place], [place] [address]Gw# [phone] Sodium molar conc 139 mmol/L Normal 136-145 [facility] Comment on above: Order Comment: Campu s: M Performed By: #### L 500.86336, L500.07598, L500.31239 ####[facility] [id number] [place], [place] [address]Uo# [phone] Urea nitrogen mass conc 16 mg/dL Normal 7-26 [facility]: Order Comment: Campu s: M Performed By: #### L 500.19217, L500.81432, L500.67608 ####[facility] [id number] [place], [place] [address]Yt# [phone] Urea nitrogen/Creatinine mass ratio 23 mg/mg Normal 15-[address] [facility] Comment on above: Order Comment: Campu s: M Performed By: #### L 500.40065, L500.87967, L500.52145 ####[facility] [id number] [place], [place] [address]Es# [phone] CBC W/DIFFon 02-03-2018 BASO ABS 0.00 K/CU MM Normal 0-0.[address] [facility] Comment on above: Order Comment: Campu s: M Performed By: #### L 200.99187 ####[address] [address]Us# [phone] Basophils/100 WBC Auto (Bld) 0.3 % Normal 0-[address] [facility] Comment on above: Order Comment: Campu s: M Performed By: #### L 200.39972 ####[place] [id number]# [phone] EOS ABS 0.20 K/CU MM Normal 0-0.[address] [facility] Comment on above: Order Comment: Campu s: M Performed By: #### L 200.22489 ####[facility] [id number] [place] [address]Yn# [phone] Eosinophils/100 WBC Auto (Bld) 2.4 % Normal 0-[address] [facility] Comment on above: Order Comment: Campu s: M Performed By: #### L 200.27685 ####[facility] [id number] [place] [address]Kl# [phone] Erythrocyte distribution width Auto Ratio (RBC) 13.5 % Normal 11-14.[address] [facility] Comment on above: Order Comment: Campu s: M Performed By: #### L 200.35079 ####[place] [address] [place], [place] [address]Ck# [phone] Hematocrit Auto Volume Fraction (Bld) 44.9 % Normal 35.0-47.[address] [facility] Comment on above: Order Comment: Campu s: M Performed By: #### L 200.25959 ####[facility] [id number] [place] [address]Sz# [phone] Hemoglobin mass conc (Bld) 14.8 g/dL Normal 11.5-15.[address] [facility] Comment on above: Order Comment: Campu s: M Performed By: #### L 200.52229 ####[place] [id number]# [phone] IMMATR GRAN ABS 0.00 K/CU MM Normal Less than [address] [facility] Comment on above: Order Comment: Campu s: M Performed By: #### L 200.87366 ####[place] [address]Ph# [phone] IMMATURE GRAN % 0.3 % Normal Less than [address] [facility] Comment on above: Order Comment: Campu s: M Performed By: #### L 200.67348 ####[facility] [id number] [place], [place] [address]Ph# [phone] Lymphocytes Auto #/vol (Bld) 2.10 K/CU MM Normal 0.9-4.4 [facility]: Order Comment: Campu s: M Performed By: #### L 200.45430 ####[facility] [id number] [place], [place] [address]Ph# [phone] Lymphocytes/100 WBC Auto (Bld) 27.9 % Normal 20-40 [facility] Comment on above: Order Comment: Campu s: M Performed By: #### L 200.53943 ####[facility] [id number] [place], [place] [address]Ph# [phone] MCHC Auto mass conc (RBC) 33.0 g/dL Normal 32.0-36.[address] [facility] Comment on above: Order Comment: Campu s: M Performed By: #### L 200.72569 ####[facility] [id number] [place] [address]De# [phone] MCV Auto Entitic volume (RBC) 94.1 fL Normal 80.0-99.0 [facility] Comment [facility] above: Order Comment: Campu s: M Performed By: #### L 200.69326 ####[facility] [id number] [place], [place] [address]Ph# [phone] MONO ABS 0.60 K/CU MM Normal 0.1-1.1 [facility] Comment on above: Order Comment: Campu s: M Performed By: #### L 200.68609 ####[address] [address]Mx# [phone] Monocytes/100 WBC Auto (Bld) 7.6 % Normal 2-10 [facility] Comment on above: Order Comment: Campu s: M Performed By: #### L 200.52483 ####[facility] [id number] [place], [place] [id number]# [phone] NEUTROPHIL ABS 4.60 K/CU MM Normal 2.0-8.3 [facility] Comment on above: Order Comment: Campu s: M Performed By: #### L 200.80336 ####[facility] [id number] [place], [place] [address]Ph# [phone] Neutrophils/100 WBC Auto (Bld) 61.5 % Normal 45-75 [facility] Comment on above: Order Comment: Campu s: M Performed By: #### L 200.01898 ####[facility] [id number] [place] [address]Hm# [phone] Nucleated RBC/100 WBC Ratio (Bld) 0.0 % Normal Less than 1 [facility] Comment on above: Order Comment: Campu s: M Performed By: #### L 200.47122 ####[facility] [id number] [place], [place] [address]Dc# [phone] Platelet mean volume Auto Entitic volume (Bld) 9.1 fL Low 9.4-12.4 [facility] Comment on above: Order Comment: Campu s: M Performed By: #### L 200.01354 ####[facility] [id number] [place], [place] [address]Hp# [phone] Platelets Auto #/vol (Bld) 187 K/CU MM Normal 150-450 [facility] Comment on above: Order Comment: Campu s: M Performed By: #### L 200.28906 ####[facility] [id number] [place], [place] [address]Tu# [phone] RBC Auto #/vol (Bld) 4.77 M/CU MM Normal 3.90-5.30 [facility] Comment on above: Order Comment: Campu s: M Performed By: #### L 200.22885 ####[facility] [id number] [place], [place] [address]Tq# [phone] WBC Auto #/vol (Bld) 7.5 K/CU MM Normal 4.5-11.0 [facility] Comment on above: Order Comment: Campu s: M Performed By: #### L 200.39948 ####[facility] [id number] [place], [place] [address]Hx# [phone] CT ABD/PEL W IV CONTRAST ONL Yon 02-03-2018 CT ABD/PEL W IV CONTRAST ONLY CT ABD/PEL W IV CONTRAST ONLYOrdering Physician: Paresh San, DO02/03/2018 12:10 PMCT ABDOMEN AND PELVIS WITH CONTRASTClinical Statement: Left flank pain, left lower quadrant pain,patient states blood in stool x2 weeksComparison: NoneFINDINGS: Following the uneventful administration of 100 cc Qhcydq343, routine CT of the abdomen and pelvis was performed. Oral contrastwas not provided which limits evaluation of the bowel.The lung bases are clear. There is minimal nonspecific juxtapleuralinterlobula r septal thickening. Distal esophagus is unremarkable. Theheart size is normal.There is decreased hepatic attenuation likely from phase of contrastor mild hepatic steatosis. No hepatic mass or bile duct dilatation.The gallbladder, common bile duct, pancreas, and spleen are withinnormal limits. There is nodular thickening of the left greater thanright adrenal gland likely secondary to hyperplastic/adenomatou schanges. The kidneys are unremarkable.The abdominal aorta is atherosclerotic but nonaneurysmal. The majorabdominal vessels enhance appropriately. There is no retroperitonealmass or lymphadenopathy.No bowel obstruction, free air, or ascites. The stomach is collapsed.There are no dilated or thick-walled segments of small bowel. Theappendix is normal. There are few scattered colonic diverticulum.There is no evidence for acute diverticulitis. The colon is redundantwith a mild degree of stool throughout.The uterus and ovaries are atrophic. There is no pelvic mass or freepelvic fluid. The rectum is unremarkable. The bladder is unremarkable.There is remote anterior wedging of L4. There are moderatedegenerative changes at L3-S1. The bones are mildly osteopenic. Thereare no destructive bone lesions.IMPRESSION:No acute intra-abdominal or pelvic process.Scattered colonic diverticulosis without acute diverticulitisSuspect hepatic steatosisBilateral nodular adrenal gland thickening likely fromhyperplastic/adenom atous changes.Remote L4 compression deformity ---- Electronic Signature on File ----Signed By: Kaelyn [email or web address] tated: 02/03/2018 3:02 PMSigned: 02/03/2018 3:07 PM Reported By: QUE MASON M.D. Signed By: QUE MASON M.D. [facility] 02-03-2018 EMERGENCY PHYSICIAN REPORT This is a preliminary report only, as the practitioner review and authentication has not occurred. [facility] ER PHY SICIAN ASSESSMENT =======RECORDS: Discharge ReportEvent Time: 02/03/2018 16:19: FlexChartDataEvent Time: 02/03/2018 16:50Status: [facility] [[id number]]Attending Pdljpzehb28 / F / 1966Chart (V2b)Chart created at 02/03/2018 16:14 by Paresh SanChart closed at 02/03/2018 16:18Entry in Emergency Department at 02/03/2018 11:17,departure at 02/03/2018 16:45Patient Name: Shanda Arriaga Record Number: [id number]: 02/03/2018 16:14Entered Department at: 02/03/2018 11:17 Patient Seen at:02/03/2018 11:26 Historian: PatientPCP: *None,.Chief Complaint:LEFT FLANK PAIN X2 WEEKS, C/O BRIGHT REDBLOOD IN STOOL.Triage Note reviewed and Initial Vital Signs reviewed.Temperature: 98.8 F (37.1 C). Pulse: 60. Respiratory Rate:18. Blood-pressure:158/85. Oxygen Saturation: 97%.History of Present Illness:52-Year-old female presents with chief complaint of leftflank pain. Patient states she has had this overthe past 2 weeks. No injury that she can recall. She wasconcerned because she does have a history ofprevious acute kidney injury with urinary tract infection [facility] PATIENT NAME: SHANDA ARRIAGA [address] MEDICAL REC #: [id number], [place] [address] DEPARTMENT REPORT EMERGENCY DEPARTMENT PHYSICIANrequiring ICU admission and she had a lot oflower back pain with that issue. She has not had anyfevers, no urinary symptoms, no abdominal pain, novomiting or diarrhea. She states she did notice some bloodin her stool today, states she noticed somebright red discoloration. Patient does not take any bloodthinners. No other complaints.Review of Systems. All other systems reviewed and negative..Past History, Medications, Allergies, Social History andFamily History reviewed in nurses note.Medications: Reviewed RN Note.Allergies: Reviewed RN NoteSocial History: Reviewed RN Note.Family History: Reviewed RN NotePhysical Examination: General: Alert; Oriented x 3. NADHEENT: Eyes: PERRL; .Nose: Normal inspection. Oropharynx / Throat: NormalPharynx, Moistmucous membranes. Neck: Supple Respiratory: No RespDistress and Normal Breath Sounds Cardio-Vascular: Nomurmur, No rub and RRR Abdomen: Normal Bowel Sounds, NoOrganomegaly and Soft; negative for Rebound orGuarding; Non-distended. Mild left lower/lateral abdominaltenderness. Back: Left lumbar tenderness withpalpation Extremity: No Calf Tenderness, No edema andNormal Equal pulses; Cap refill andlt; 2 sec. Normalstrength/sensatio n. Neurological: Alert, Oriented X3 Skin:No rash, No Petechiae, Warm and DryCBC W/DIFF, information as of 02/03/2018, 1:19 pm94.1/ 14.8 /7.5 andgt;------andlt; 187/ 44.9 /N:61.5BASO ABS: 0.00 K/Cu Mm; BASOPHIL %: 0.3 %; EOS ABS: 0.20K/Cu Mm; EOSINOPHIL %: 2.4 %; IMMATR GRAN ABS:0.00 K/Cu Mm; IMMATURE GRAN %: 0.3 %; LYMPH %: 27.9 %;LYMPH ABS: 2.10 K/Cu Mm; MCHC: 33.0 Gm/Dl; [facility] PATIENT NAME: SHANDA ARRIAGA [address] [facility] [address] MEDICAL REC #: [id number], [place] [address] DEPARTMENT REPORT EMERGENCY DEPARTMENT PHYSICIANABS: 0.60 K/Cu Mm; MONOCYTE %: 7.6 %; MPV: 9.1; NEUTROPHILABS: 4.60 K/Cu Mm; NRBC: 0.0 %; RBC: 4.77 M/CuMm; RDW: 13.5BMP, information as of 02/03/2018, 1:19 pm139 --------+--------+----- ---andlt; 75 Anion Gap = 64.1 BUN/CREA: 23;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 [id number] [place], [place] [address]Kz# [phone] ALK PHOS 121 U/L High 45-117 [facility] Comment on above: Performed By: #### L 500.21409 ####[facility] NTGWEQBOSG[address] [place], [place] [address]Ql# [phone] ALT enzyme act/vol 63 U/L High 13-61 [facility] Comment on above: Result Comment: RESU LTS MAY BE FALSELY DEPRESSED AFTER THE ADMINISTRATION OFSULFASALAZINE AND/OR SULFAPYRIDINE. Performed By: #### L 500.16284 ####[facility] KNOGKPUQQZ[address] [place], [place] [address]Ij# [phone] BILI DIRECT 0.27 MG/DL High 0.00-0.20 [facility] Comment on above: Performed By: #### L 500.90230 ####[facility] [id number] [place], [place] [address]Hw# [phone] BILI TOTAL 1.1 MG/DL High 0.2-1.0 [facility] Comment on above: Performed By: #### L 500.79139 ####[facility] [id number] [place], [place] [address]Ur# [phone] Globulin Calculated mass conc (S) 3.7 g/dL Normal 2.2-4.2 [facility] Comment on above: Performed By: #### L 500.87738 ####[facility] [id number] [place], [place] [address]Ny# [phone] Protein mass conc 7.3 g/dL Normal 6.0-8.5 [facility] Comment on above: Performed By: #### L 500.94282 ####[facility] OEQEUOIMDI[address] [place], [place] [address]Kg# [phone] SGOT (AST) 46 U/L High 8-34 [facility] Comment on above: Result Comment: RESU LTS MAY BE FALSELY DEPRESSED AFTER THE ADMINISTRATION OFSULFASALAZINE AND/OR SULFAPYRIDINE. Performed By: #### L 500.81815 ####[facility] [id number] [place], [place] [address]Ef# [phone] .Auto Diffon 05-10-2017 Basophils Auto #/vol (Bld) 0.10 10 3/mcL Normal 0.00-0.19 [facility] ([place]) Comment on above: Performed By: #### C SOHA ADPARUL, ANEU ####[address] [place], [place] [address] Basophils/100 WBC Auto (Bld) 0.6 % Normal 0.0-2.5 [facility] ([place]) Comment on above: Performed By: #### C SOHA, ADIFF, ANEU ####[address] [place], [place] [address] Eosinophils 0.20 10 3/mcL Normal 0.00-0.40 [facility] ([place]) Comment on above: Performed By: #### C SOHA, ADPARUL, ANEU ####[address] [place], [place] [address] Eosinophils/100 leukocytes 2.1 % Normal 0.0-7.0 [facility] ([place]) Comment on above: Performed By: #### C SOHA, TANGELA, ANEU ####[address] [place], [place] [address] Lymphocytes 2.90 10 3/mcL Normal 0.77-3.85 [facility] ([place]) Comment on above: Performed By: #### C TANGELA HOYOS, ANEU ####[address] [place], [place] [address] Lymphocytes/100 leukocytes 29.6 % Normal 10.0-50.0 [facility] ([place]) Comment on above: Performed By: #### C SOHA ADIFF, ANEU ####[address] [place], [place] [address] Monocytes 0.90 10 3/mcL Normal 0.15-1.00 [facility] ([place]) Comment on above: Performed By: #### C SOHA, ADIFF, ANEU ####[address] [place], [place] [address] Monocytes/100 leukocytes 9.2 % Normal 1.7-13.0 [facility] ([place]) Comment on above: Performed By: #### C SOHA ADPARUL, ANEU ####[address] [place], [place] [address] Neutrophils/100 WBC Auto (Bld) 58.5 % Normal 37.0-80.0 [facility] ([place]) Comment on above: Performed By: #### C BC, TANGELA, ANEU ####[address] [place], [place] [address] .GFRon 05-10-2017 eGFR (non-black) mL/min/{1.73_m2} Normal [facility] ([place]) Comment on above: Result Comment: GFR Population mean for , Non- Americans Ages 20-29 = 116 mL/min/1.73 sq.m. Ages 30-39 = 107 mL/min/1.73 sq.m. Ages 40-49 = 99 mL/min/1.73 sq.m. Ages 50-59 = 93 mL/min/1.73 sq.m. Ages 60-69 = 85 mL/min/1.73 sq.m. Ages 70+ = 75 mL/min/1.73 sq.m.Chronic Kidney Disease: Less than 60 mL/min/1.73 square metersEnd Stage Renal Disease: Less than 15 mL/min/1.73 square meters Performed By: #### C MP, GFR ####[address] [place], [place] [address] eGFR (non-black) 86 ml/min/1.73sqm Normal [facility] ([place]) Comment on above: Result Comment: GFR Population mean for , Non- Americans Ages 20-29 = 116 mL/min/1.73 sq.m. Ages 30-39 = 107 mL/min/1.73 sq.m. Ages 40-49 = 99 mL/min/1.73 sq.m. Ages 50-59 = 93 mL/min/1.73 sq.m. Ages 60-69 = 85 mL/min/1.73 sq.m. Ages 70+ = 75 mL/min/1.73 sq.m.Chronic Kidney Disease: Less than 60 mL/min/1.73 square metersEnd Stage Renal Disease: Less than 15 mL/min/1.73 square meters Performed By: #### C MP, GFR ####[address] [place], [place] [address] .NEUABSon 05-10-2017 Neutrophils 5.60 10 3/mcL Normal 2.85-6.16 [facility] ([place]) Comment on above: Performed By: #### C TANGELA HOYOS, ANEU ####[address] [place], [place] [address] .Urinalysis Microscopic (AO) on 05-10-2017 UA Squam Epithelial None Seen Normal None Seen [facility] ([place]) Comment on above: Performed By: #### U A, UAMICAO ####[address] [place], [place] [address] UA WBC None Seen Normal None Seen [facility] ([place]) Comment on above: Performed By: #### U A, UAMICAO ####[address] [place], [place] [address] Urine, erythrocytes None Seen Normal None Seen [facility] ([place]) Comment on above: Performed By: #### U A, UAMICAO ####[address] [place], [place] [address] CBCon 05-10-2017 Erythrocyte distribution width Auto Ratio (RBC) 13.9 % Normal 11.5-14.5 [facility] ([place]) Comment on above: Performed By: #### C TANGELA HOYOS ANEU ####[address] [place], [place] [address] Erythrocytes (RBC) 5.03 10 6/mcL Normal 4.20-5.40 [facility] ([place]) Comment on above: Performed By: #### TANGELA BELL, ANEU ####[address] [place], [place] [address] Hematocrit (HCT) 45.0 % Normal 37.0-47.0 [facility] ([place]) Comment on above: Performed By: #### TANGELA BELL, ANEU ####[address] [place], [place] [address] Hemoglobin mass conc (Bld) 14.9 G/dL Normal 12.0-16.0 [facility] ([place]) Comment on above: Performed By: #### C TANGELA HOYOS, ANEU ####[address] [place], [place] [address] MCH 29.6 pg Normal 27.0-31.2 [facility] ([place]) Comment on above: Performed By: #### TANGELA BELL ANEU ####[address] [place], [place] [address] MCHC mass conc (RBC) 33.1 G/dL Normal 33.0-37.0 [facility] ([place]) Comment on above: Performed By: #### TANGELA BELL ANEU ####[address] [place], [place] [address] MCV 89.5 fL Normal 80.0-94.0 [facility] ([place]) Comment on above: Performed By: #### TANGELA BELL ANEU ####[address] [place], [place] [address] Platelet mean volume (PMV) 7.5 fL Normal 7.4-10.4 [facility] ([place]) Comment on above: Performed By: #### TANGELA BELL ANEU ####[address] [place], [place] [address] Platelets 223 10 3/mcL Normal 130-400 [facility] ([place]) Comment on above: Performed By: #### TANGELA BELL ANEU ####[address] [place], [place] [address] WBC (Leukocytes) 9.60 10 3/mcL Normal 4.60-10.80 [facility] ([place]) Comment on above: Performed By: #### TANGELA BELL ANEU ####[address] [place], [place] [address] CMPon 05-10-2017 Alanine aminotransferase (ALT) 31 U/L Normal 10-35 [facility] ([place]) Comment on above: Order Comment: Speci men hemolyzed Performed By: #### C MP, GFR ####[address] [place], [place] [address] Albumin 4.2 G/dL Normal 3.5-5.0 [facility] ([place]) Comment on above: Order Comment: Speci men hemolyzed Performed By: #### C MP, GFR ####[address] [place], [place] [address] Albumin/Globulin Ratio 1.8 {ratio} Normal 1.1-2.5 [facility] ([place]) Comment on above: Order Comment: Speci men hemolyzed Performed By: #### C MP, GFR ####[address] [place], [place] [address] Alk Phos 92 IU/L Normal 40-135 [facility] ([place]) Comment on above: Order Comment: Speci men hemolyzed Performed By: #### C MP, GFR ####[address] [place], [place] [address] Aspartate aminotransferase (AST) 34 U/L Normal 10-40 [facility] ([place]) Comment on above: Order Comment: Speci men hemolyzed Performed By: #### C MP, GFR ####[address] [place], [place] [address] Bili Total 0.7 mg/dL Normal 0.2-1.0 [facility] ([place]) Comment on above: Order Comment: Speci men hemolyzed Performed By: #### C MP, GFR ####[address] [place], [place] [address] BUN/Creatinine Ratio 36 ratio High 7-27 [facility] ([place]) Comment on above: Order Comment: Speci men hemolyzed Performed By: #### C MP, GFR ####[address] [place], [place] [address] Calcium 8.9 mg/dL Normal 8.4-10.2 [facility] ([place]) Comment on above: Order Comment: Speci men hemolyzed Performed By: #### C MP, GFR ####[address] [place], [place] [address] Chloride 107 mmol/L Normal 98-107 [facility] ([place]) Comment on above: Order Comment: Speci men hemolyzed Performed By: #### C MP, GFR ####[address] [place], [place] [address] CO2 23 mmol/L Normal 22-29 [facility] ([place]) Comment on above: Order Comment: Speci men hemolyzed Performed By: #### C MP, GFR ####[address] [place], [place] [address] Creatinine 0.8 mg/dL Normal 0.6-1.2 [facility] ([place]) Comment on above: Order Comment: Speci men hemolyzed Performed By: #### C MP, GFR ####[address] [place], [place] [address] Electrolyte Balance 8.0 mEq/L Normal [facility] ([place]) Comment on above: Order Comment: Speci men hemolyzed Performed By: #### C MP, GFR ####[address] [place], [place] [address] Globulin 2.4 G/dL Normal [facility] ([place]) Comment on above: Order Comment: Speci men hemolyzed Performed By: #### C MP, GFR ####[address] [place], [place] [address] Glucose mass conc 104 mg/dL Normal 70-105 [facility] ([place]) Comment on above: Order Comment: Speci men hemolyzed Performed By: #### C MP, GFR ####[address] [place], [place] [address] Potassium molar conc 3.9 mmol/L Normal 3.5-5.1 [facility] ([place]) Comment on above: Order Comment: Speci men hemolyzed Performed By: #### C MP, GFR ####[address] [place], [place] [address] Protein 6.6 G/dL Normal 6.0-8.3 [facility] ([place]) Comment on above: Order Comment: Speci men hemolyzed Performed By: #### C MP, GFR ####[address]sp[address] [place], [place] [address] Sodium 138 mmol/L Normal 136-146 [facility] ([place]) Comment on above: Order Comment: Speci men hemolyzed Performed By: #### C MP, GFR ####[address] [place], [place] [address] Urea nitrogen 28.5 mg/dL High 7.0-18.0 [facility] ([place]) Comment on above: Order Comment: Speci men hemolyzed Performed By: #### C MP, GFR ####[address] [place], [place] [address] CT ABDOMEN/PELVIS W/O CONTRA STon 05-10-2017 CT ABDOMEN/PELVIS W/O CONTRAST ORIGINALCT ABDOMEN/PELVIS W/O CONTRAST CLINICAL STATEMENT: BILATERAL flank pain COMPARISON: 08/26/2016 FINDINGS: This exam was performed according to our departmental dose-optimization program which includes automated exposure control, adjustment of the mA and/or kVp according to patient size and/or use of iterative reconstruction technique where applicable. The heart is borderline in size. Dependent atelectasis noted. No radiodense urinary calculus visualized. No obstructive uropathy. No suspicious findings seen of the liver. The gallbladder, pancreas, adrenal glands and spleen appear unremarkable. Diverticulosis noted. There is no inflammatory process of the bowel. No lymphadenopathy identified. The uterus and adnexa are grossly unremarkable. No filling defects seen in the bladder. Moderate atherosclerotic vascular disease noted. Degenerative changes visualized throughout the spine. IMPRESSION: 1. No radiodense calculus or obstructive uropathy.2. Significant degenerative changes in the lumbar spine.3. Incidental findings, as above Interpreted By: Sourav Dubois [facility] Report By: Sourav Dubois MDElectronically Signed By: Sourav Dubois MD Dictated Date: 05/10/2017 1:12:31 PM Prelim Date: 05/10/2017 1:12:31 PM Sign Date: 05/10/2017 1:17:43 PM Normal [facility] ([place]) [facility] Note on 05-10-2017 [facility] Note Normal [facility] ([place]) Pat Eduon 05-10-2017 Pat Edu Normal [facility] ([place]) Patient Summary Documentson 05-10-2017 Patient Summary Documents Normal [facility] ([place]) UAon 05-10-2017 UA Appear CLEAR Normal [facility] ([place]) Comment on above: Performed By: #### U A, UAMICAO ####[address] [place], [place] [address] UA Blood Negative [facility] ([place]) Comment on above: Performed By: #### U A, UAMICAO ####[address] [place] [address] UA Leuk Est Negative [facility] ([place]) Comment on above: Performed By: #### U A, UAMICAO ####[address] [place] [address] UA Nitrite Negative [facility] ([place]) Comment on above: Performed By: #### U A, UAMICAO ####[address] [place] [address] UA pH 5.5 [facility] ([place]) Comment on above: Performed By: #### U A, UAMICAO ####[address] [place] [address] UA Protein Negative [facility] ([place]) Comment on above: Performed By: #### U A, UAMICAO ####[address] [place] [address] UA Spec Grav >=1.030 [facility] ([place]) Comment on above: Performed By: #### U A, UAMICAO ####[address] [place] [address] UA Specimen Type Clean Catch [facility] ([place]) Comment on above: Performed By: #### U A, UAMICAO ####[address] [place] [address] UA Urobilinogen 0.2 E.U./dL [facility] ([place]) Comment on above: Performed By: #### U A, UAMICAO ####[address] [place] [address] Urine, color YELLOW [facility] ([place]) Comment on above: Performed By: #### U A, UAMICAO ####[address] [place] [address] Urine, glucose Negative [facility] ([place]) Comment on above: Performed By: #### U A, UAMICAO ####[address] [place], [place] [address] Urine, ketones presence Negative Normal [facility] ([place] Comment on above: Performed By: #### U A UAMICAO ####[address] [place], [place] [address] Urine, urobilinogen Negative Normal [facility] ([place]) Comment on above: Performed By: #### U A UAMICAO ####[id number] [place], [place] [address] [facility] Note on 04-13-2017 [facility] Note Normal [facility] ([place] Patient Summary Documentson 04-13-2017 Patient Summary Documents Normal [facility] [place] XR ELBOW MINIMUM 3 VIEWS RIG HTon 04-13-2017 XR ELBOW MINIMUM 3 VIEWS RIGHT ORIGINALXR ELBOW MINIMUM 3 VIEWS RIGHT CLINICAL STATEMENT: fall COMPARISON: None FINDINGS: No fracture or traumatic malalignment demonstrated. No joint effusion. IMPRESSION: No acute fracture Interpreted By: Sourav Duboisreliminary Report By: Sourav Dubois MDElectronically Signed By: Sourav Dubois MD Dictated Date: 04/13/2017 6:09:57 PM Prelim Date: 04/13/2017 6:09:57 PM Sign Date: 04/13/2017 6:10:42 PM Normal [facility] ([place]) XR HAND TWO VIEWS LEFTon XR HAND TWO VIEWS LEFT ORIGINALXR HAND T WO VIEWS LEFT CLINICAL STATEMENT: Prior Trauma With Pain COMPARISON: None FINDINGS: No acute fracture or dislocation is identified. There is advanced arthropathy at the proximal interphalangeal joint of the 5th digit. The distal interphalangeal joints of the third and fourth finger are hyperextended. There is no radiopaque foreign body. IMPRESSION: No acute fracture or dislocation. Is advanced arthropathy at the fifth PIP joint, which may be posttraumatic. Interpreted By: Sadiq Españareliminary Report By: Sadiq España MDElectronically Signed By: Sadiq España MD Dictated Date: 11/18/2016 4:04:32 PM Prelim Date: 11/18/2016 4:04:32 PM Sign Date: 11/18/2016 4:07:37 PM Normal [facility] ([place]) XR SPINE LUMBOSACRAL 2 OR 3 VIEWSon 11-18-2016 XR SPINE LUMBOSACRAL 2 OR 3 VIEWS ORIGINALXR SPINE LUMBOSACRAL 2 OR 3 VIEWS CLINICAL STATEMENT: Prior Trauma With Pain COMPARISON: 08/26/2016 FINDINGS: There is a 30% L4 compression deformity, not significantly changed from the previous CT. Vertebral body height is otherwise normal. Intervertebral disc height loss is most prominent at L4-5 and L5-S1. No acute fracture is identified. There is no significant listhesis. There is vacuum disc phenomenon at L4-5. There is slight retrolisthesis of L4 on L5. There is a dextrocurvature of the spine centered at L4. Atherosclerotic calcifications are noted in the aortic arch. IMPRESSION: Remote L4 compression deformity. Slight retrolisthesis of L4 on L5. Interpreted By: Sadiq Españareliminary Report By: Sadiq España MDElectronically Signed By: Sadiq España MD Dictated Date: 11/18/2016 4:02:37 PM Prelim Date: 11/18/2016 4:02:37 PM Sign Date: 11/18/2016 4:04:29 PM Normal [facility] ([place]) No Panel Information Influenza Types A,B Direct FA ([facility]) [facility] Work Phone: Vital Signs Date Time Vital Sign Value Performing Clinician Facility 09-24-2024 11:49-0400 Body temperature 96.91 [degF] Sadiq Reno MD Work Phone: [facility] 09-24-2024 11:49-0400 Body weight 64.2 kg Sadiq Reno MD Work Phone: [facility] 09-24-2024 11:49-0400 Diastolic blood pressure 70 mm[Hg] Sadiq Reno MD Work Phone: [facility] 09-24-2024 11:49-0400 Heart rate 76 /min Sadiq Reno MD Work Phone: [facility] 09-24-2024 11:49-0400 Respiratory rate 16 /min Sadiq Reno MD Work Phone: [facility] 09-24-2024 11:49-0400 SaO2% (BldA) [Mass fraction] 99 % Sadiq Reno MD Work Phone: [facility] 09-24-2024 11:49-0400 Systolic blood pressure 122 mm[Hg] Sadiq Reno MD Work Phone: [facility] 09-11-2024 14:01-0400 Body temperature 97.9 [degF] Krislyn Aberegg PA Work Phone: [facility] 09-11-2024 14:01-0400 Body weight 64.6 kg Krislyn Aberegg PA Work Phone: [facility] 09-11-2024 14:01-0400 Diastolic blood pressure 90 mm[Hg] Krislyn Aberegg PA Work Phone: [facility] 09-11-2024 14:01-0400 Heart rate 97 /min Krislyn Aberegg PA Work Phone: [facility] 09-11-2024 14:01-0400 Respiratory rate 21 /min Krislyn Aberegg PA Work Phone: [facility] 09-11-2024 14:01-0400 SaO2% (BldA) [Mass fraction] 95 % Krislyn Aberegg PA Work Phone: [facility] 09-11-2024 14:01-0400 Systolic blood pressure 118 mm[Hg] Krislyn Aberegg PA Work Phone: [facility] 08-09-2024 12:59-0400 Body height 165.[address] Samina Joya MD Work Phone: [facility] 08-09-2024 12:59-0400 Body mass index (BMI) [Ratio] 23.6 kg/m2 Dr. Samina Joya MD Work Phone: [facility] 08-09-2024 12:59-0400 Body temperature 97 [degF] Dr. Samina Joya MD Work Phone: [facility] 08-09-2024 12:59-0400 Body weight 64.[address] Samina Joya MD Work Phone: [facility] 08-09-2024 12:59-0400 Diastolic blood pressure 80 mm[Hg] Dr. Samina Joya MD Work Phone: [facility] 08-09-2024 12:59-0400 Heart rate 87 /min Dr. Samina Joya MD Work Phone: [facility] 08-09-2024 12:59-0400 Respiratory rate 16 /min Dr. Samina Joya MD Work Phone: [facility] 08-09-2024 12:59-0400 SaO2% (BldA) [Mass fraction] 94 % Dr. Samina Joya MD Work Phone: [facility] 08-09-2024 12:59-0400 Systolic blood pressure 118 mm[Hg] Dr. Samina Joya MD Work Phone: [facility] 07-04-2024 14:26-0400 Body mass index (BMI) [Ratio] 23.8 kg/m2 Dr. Samina Joya MD Work Phone: [facility] 07-04-2024 14:26-0400 Body temperature 98.4 [degF] Dr. Samina Joya MD Work Phone: [facility] 07-04-2024 14:26-0400 Body weight 64.[address] Samina Joya MD Work Phone: [facility] 07-04-2024 14:26-0400 Diastolic blood pressure 72 mm[Hg] Dr. Samina Joya MD Work Phone: [facility] 07-04-2024 14:26-0400 Heart rate 83 /min Dr. Samina Joya MD Work Phone: [facility] 07-04-2024 14:26-0400 Respiratory rate 16 /min Dr. Samina Joya MD Work Phone: [facility] 07-04-2024 14:26-0400 SaO2% (BldA) [Mass fraction] 97 % Dr. Samina Joya MD Work Phone: [facility] 07-04-2024 14:26-0400 Systolic blood pressure 128 mm[Hg] Dr. Samina Joya MD Work Phone: [facility] 03-20-2024 13:51-0500 Body temperature 98.49 [degF] Krislyn Aberegg PA Work Phone: [facility] 03-20-2024 13:51-0500 Body weight 67.3 kg Krislyn Aberegg PA Work Phone: [facility] 03-20-2024 13:51-0500 Diastolic blood pressure 78 mm[Hg] Krislyn Aberegg PA Work Phone: [facility] 03-20-2024 13:51-0500 Heart rate 78 /min Krislyn Aberegg PA Work Phone: [facility] 03-20-2024 13:51-0500 Respiratory rate 16 /min Krislyn Aberegg PA Work Phone: [facility] 03-20-2024 13:51-0500 SaO2% (BldA) [Mass fraction] 97 % Krislyn Aberegg PA Work Phone: [facility] 03-20-2024 13:51-0500 Systolic blood pressure 122 mm[Hg] Krislyn Aberegg PA Work Phone: [facility] 01-10-2024 11:19-0500 Body temperature 96.69 [degF] Teressa Martinez APRN.HOME CARE ASSISTANT Work Phone: [facility] 01-10-2024 11:19-0500 Body weight 64 kg Teressa Martinez VENTILATING EQUIPMENT INSTALLER.HOME CARE ASSISTANT Work Phone: [facility] 01-10-2024 11:19-0500 Diastolic blood pressure 72 mm[Hg] Teressa Martinez VENTILATING EQUIPMENT INSTALLER.HOME CARE ASSISTANT Work Phone: [facility] 01-10-2024 11:19-0500 Heart rate 74 /min Teressa Martinez VENTILATING EQUIPMENT INSTALLER.HOME CARE ASSISTANT Work Phone: [facility] 01-10-2024 11:19-0500 Respiratory rate 16 /min Teressa Martinez VENTILATING EQUIPMENT INSTALLER.HOME CARE ASSISTANT Work Phone: [facility] 01-10-2024 11:19-0500 SaO2% (BldA) [Mass fraction] 97 % Teressa Martinez VENTILATING EQUIPMENT INSTALLER.HOME CARE ASSISTANT Work Phone: [facility] 01-10-2024 11:19-0500 Systolic blood pressure 124 mm[Hg] Teressa Martinez VENTILATING EQUIPMENT INSTALLER.HOME CARE ASSISTANT Work Phone: [facility] 05-17-2023 05:16-0400 Body temperature 97.6 [degF] Dr. Samina Joya Work Phone: [facility] 05-17-2023 05:16-0400 Diastolic blood pressure 78 mm[Hg] Dr. Samina Joya Work Phone: [facility] 05-17-2023 05:16-0400 Heart rate 64 /min Dr. Samina Joya Work Phone: [facility] 05-17-2023 05:16-0400 Respiratory rate 16 /min Dr. Samina Joya Work Phone: [facility] 05-17-2023 05:16-0400 SaO2% (BldA) [Mass fraction] 99 % Dr. Samina Joya Work Phone: [facility] 05-17-2023 05:16-0400 Systolic blood pressure 138 mm[Hg] Dr. Samina Joya Work Phone: [facility] 05-17-2023 02:35-0400 Body height 165.[address] Samina Joya Work Phone: [facility] 05-17-2023 02:35-0400 Body mass index (BMI) [Ratio] 26.5 kg/m2 Dr. Samina Joya Work Phone: [facility] 05-17-2023 02:35-0400 Body weight 72.[address] Samina Joya Work Phone: [facility] 03-10-2023 14:03-0500 Body mass index (BMI) [Ratio] 25.7 kg/m2 Dr. Samina Joya Work Phone: [facility] 03-10-2023 14:03-0500 Body temperature 97.4 [degF] Dr. Samina Joya Work Phone: [facility] 03-10-2023 14:03-0500 Body weight 72.[address] Samina Joya Work Phone: [facility] 03-10-2023 14:03-0500 Diastolic blood pressure 98 mm[Hg] Dr. Samina Joya Work Phone: [facility] 03-10-2023 14:03-0500 Heart rate 71 /min Dr. Samina Joya Work Phone: [facility] 03-10-2023 14:03-0500 Respiratory rate 16 /min Dr. Samina Joya Work Phone: [facility] 03-10-2023 14:03-0500 SaO2% (BldA) [Mass fraction] 95 % Dr. Samina Joya Work Phone: [facility] 03-10-2023 14:03-0500 Systolic blood pressure 132 mm[Hg] Dr. Samina Joya Work Phone: [facility] 02-12-2023 13:59-0500 Body mass index (BMI) [Ratio] 25.9 kg/m2 Dr. Samina Joya Work Phone: [facility] 02-12-2023 13:59-0500 Body temperature 98.2 [degF] Dr. Samina Joya Work Phone: [facility] 02-12-2023 13:59-0500 Body weight 73.[address] Samina Joya Work Phone: [facility] 02-12-2023 13:59-0500 Diastolic blood pressure 80 mm[Hg] Dr. Samina Joya Work Phone: [facility] 02-12-2023 13:59-0500 Heart rate 74 /min Dr. Samina Joya Work Phone: [facility] 02-12-2023 13:59-0500 Respiratory rate 16 /min Dr. Samina Joya Work Phone: [facility] 02-12-2023 13:59-0500 SaO2% (BldA) [Mass fraction] 97 % Dr. Samina Joya Work Phone: [facility] 02-12-2023 13:59-0500 Systolic blood pressure 122 mm[Hg] Dr. Samina Joya Work Phone: [facility] 02-08-2023 23:00-0500 Respiratory rate 20 /min Dr. Samina Joya Work Phone: [facility] 02-08-2023 19:21-0500 Body height 167.[address] Samina Joya Work Phone: [facility] 02-08-2023 19:21-0500 Body temperature 96.8 [degF] Dr. Samina Joya Work Phone: [facility] 02-08-2023 19:21-0500 Diastolic blood pressure 94 mm[Hg] Dr. Samina Joya Work Phone: [facility] 02-08-2023 19:21-0500 Heart rate 100 /min Dr. Samina Joya Work Phone: [facility] 02-08-2023 19:21-0500 SaO2% (BldA) [Mass fraction] 99 % Dr. Samina Joya Work Phone: [facility] 02-08-2023 19:21-0500 Systolic blood pressure 134 mm[Hg] Dr. Samina Joya Work Phone: [facility] 02-01-2023 23:08-0500 Heart rate 80 /min Dr. Samina Joya Work Phone: [facility] 02-01-2023 23:08-0500 Respiratory rate 16 /min Dr. Samina Joya Work Phone: [facility] 02-01-2023 23:08-0500 SaO2% (BldA) [Mass fraction] 95 % Dr. Samina Joya Work Phone: [facility] 02-01-2023 22:13-0500 Body mass index (BMI) [Ratio] 25.6 kg/m2 Dr. Samina Joya Work Phone: [facility] 02-01-2023 22:13-0500 Body weight 72.[address] Samina Joya Work Phone: [facility] 02-01-2023 21:09-0500 Body height 167.[address] Samnia Joya Work Phone: [facility] 02-01-2023 21:09-0500 Body temperature 98.5 [degF] Dr. Samina Joya Work Phone: [facility] 02-01-2023 21:09-0500 Diastolic blood pressure 114 mm[Hg] Dr. Samina Joya Work Phone: [facility] 02-01-2023 21:09-0500 Systolic blood pressure 166 mm[Hg] Dr. Samina Joya Work Phone: [facility] 02-01-2023 13:18-0500 Body mass index (BMI) [Ratio] 25.5 kg/m2 Dr. Samina Joya Work Phone: [facility] 02-01-2023 13:18-0500 Body temperature 97.8 [degF] Dr. Samina Joya Work Phone: [facility] 02-01-2023 13:18-0500 Body weight 71.[address] Samina Joya Work Phone: [facility] 02-01-2023 13:18-0500 Diastolic blood pressure 78 mm[Hg] Dr. Samina Joya Work Phone: [facility] 02-01-2023 13:18-0500 Heart rate 97 /min Dr. Samina Joya Work Phone: [facility] 02-01-2023 13:18-0500 Respiratory rate 18 /min Dr. Samina Joya Work Phone: [facility] 02-01-2023 13:18-0500 SaO2% (BldA) [Mass fraction] 98 % Dr. Samina Joya Work Phone: [facility] 02-01-2023 13:18-0500 Systolic blood pressure 118 mm[Hg] Dr. Samina Joya Work Phone: [facility] 11-16-2022 11:10-0400 Body height 167.[address] Samina Joya Work Phone: [facility] 11-16-2022 11:10-0400 Body mass index (BMI) [Ratio] 24.3 kg/m2 Dr. Samina Joya Work Phone: [facility] 11-16-2022 11:10-0400 Body temperature 97.4 [degF] Dr. Samina Joya Work Phone: [facility] 11-16-2022 11:10-0400 Body weight 68.[address] Samina Joya Work Phone: [facility] 11-16-2022 11:10-0400 Diastolic blood pressure 80 mm[Hg] Dr. Samina Joya Work Phone: [facility] 11-16-2022 11:10-0400 Heart rate 71 /min Dr. Samina Joya Work Phone: [facility] 11-16-2022 11:10-0400 Respiratory rate 16 /min Dr. Samina Joya Work Phone: [facility] 11-16-2022 11:10-0400 SaO2% (BldA) [Mass fraction] 96 % Dr. Samina Joya Work Phone: [facility] 11-16-2022 11:10-0400 Systolic blood pressure 122 mm[Hg] Dr. Samina Joya Work Phone: [facility] 10-21-2022 09:39-0400 Body temperature 96.91 [degF] Angélica Amber VENTILATING EQUIPMENT INSTALLER.HOME CARE ASSISTANT Work Phone: [facility] 10-21-2022 09:39-0400 Body weight 69.76 kg Angélica Amber VENTILATING EQUIPMENT INSTALLER.HOME CARE ASSISTANT Work Phone: [facility] 10-21-2022 09:39-0400 Diastolic blood pressure 86 mm[Hg] Angélica Amber VENTILATING EQUIPMENT INSTALLER.HOME CARE ASSISTANT Work Phone: [facility] 10-21-2022 09:39-0400 Heart rate 85 /min Angélica Amber VENTILATING EQUIPMENT INSTALLER.HOME CARE ASSISTANT Work Phone: [facility] 10-21-2022 09:39-0400 Respiratory rate 22 /min Angélica Amber VENTILATING EQUIPMENT INSTALLER.HOME CARE ASSISTANT Work Phone: [facility] 10-21-2022 09:39-0400 SaO2% (BldA) [Mass fraction] 98 % Angélicamichele Clark APRN.HOME CARE ASSISTANT Work Phone: [facility] 10-21-2022 09:39-0400 Systolic blood pressure 118 mm[Hg] Angélica Clark APRN.HOME CARE ASSISTANT Work Phone: [facility] 10-12-2022 12:36-0400 Body mass index (BMI) [Ratio] 23.3 kg/m2 Dr. Samina Joya Work Phone: [facility] 10-12-2022 12:36-0400 Body temperature 97.5 [degF] Dr. Samina Joya Work Phone: [facility] 10-12-2022 12:36-0400 Body weight 65.[address] Samina Joya Work Phone: [facility] 10-12-2022 12:36-0400 Diastolic blood pressure 96 mm[Hg] Dr. Samina Joya Work Phone: [facility] 10-12-2022 12:36-0400 Heart rate 97 /min Dr. Samina Joya Work Phone: [facility] 10-12-2022 12:36-0400 Respiratory rate 18 /min Dr. Samina Joya Work Phone: [facility] 10-12-2022 12:36-0400 SaO2% (BldA) [Mass fraction] 97 % Dr. Samina Joya Work Phone: [facility] 10-12-2022 12:36-0400 Systolic blood pressure 138 mm[Hg] Dr. Samina Joya Work Phone: [facility] 07-28-2022 09:38-0400 Body mass index (BMI) [Ratio] 25 kg/m2 Dr. Samina Joya Work Phone: [facility] 07-28-2022 09:38-0400 Body temperature 97.1 [degF] Dr. Samina Joya Work Phone: [facility] 07-28-2022 09:38-0400 Body weight 70.[address] Samina Joya Work Phone: [facility] 07-28-2022 09:38-0400 Diastolic blood pressure 88 mm[Hg] Dr. Samina Joya Work Phone: [facility] 07-28-2022 09:38-0400 Heart rate 87 /min Dr. Samina Joya Work Phone: [facility] 07-28-2022 09:38-0400 Respiratory rate 16 /min Dr. Samina Joya Work Phone: [facility] 07-28-2022 09:38-0400 SaO2% (BldA) [Mass fraction] 98 % Dr. Samina Joya Work Phone: [facility] 07-28-2022 09:38-0400 Systolic blood pressure 124 mm[Hg] Dr. Samina Joya Work Phone: [facility] 06-18-2022 13:09-0400 Body height 167.[address] Samina Joya Work Phone: [facility] 06-18-2022 13:09-0400 Body mass index (BMI) [Ratio] 24.3 kg/m2 Dr. Samina Joya Work Phone: [facility] 06-18-2022 13:09-0400 Body temperature 97.4 [degF] Dr. Samina Joya Work Phone: [facility] 06-18-2022 13:09-0400 Body weight 68.[address] Samina Joya Work Phone: [facility] 06-18-2022 13:09-0400 Diastolic blood pressure 90 mm[Hg] Dr. Samina Joya Work Phone: [facility] 06-18-2022 13:09-0400 Heart rate 80 /min Dr. Samina Joya Work Phone: [facility] 06-18-2022 13:09-0400 Respiratory rate 16 /min Dr. Samina Joya Work Phone: [facility] 06-18-2022 13:09-0400 SaO2% (BldA) [Mass fraction] 99 % Dr. Samina Joya Work Phone: [facility] 06-18-2022 13:09-0400 Systolic blood pressure 130 mm[Hg] Dr. Samina Joya Work Phone: [facility] 04-23-2022 13:27-0500 Body mass index (BMI) [Ratio] 24.5 kg/m2 Dr. Samina Joya Work Phone: [facility] 04-23-2022 13:27-0500 Body temperature 98 [degF] Dr. Samina Joya Work Phone: [facility] 04-23-2022 13:27-0500 Body weight 69.[address] Samina Joya Work Phone: [facility] 04-23-2022 13:27-0500 Diastolic blood pressure 80 mm[Hg] Dr. Samina Joya Work Phone: [facility] 04-23-2022 13:27-0500 Heart rate 87 /min Dr. Samina Joya Work Phone: [facility] 04-23-2022 13:27-0500 Respiratory rate 16 /min Dr. Samina Joya Work Phone: [facility] 04-23-2022 13:27-0500 SaO2% (BldA) [Mass fraction] 97 % Dr. Samina Joya Work Phone: [facility] 04-23-2022 13:27-0500 Systolic blood pressure 138 mm[Hg] Dr. Samina Joya Work Phone: [facility] 03-21-2022 15:20-0500 Body height 167.64 cm [facility] Work Phone: 03-21-2022 15:20-0500 Body mass index (BMI) [Ratio] 22.6 kg/m2 [facility] 03-21-2022 15:20-0500 Body temperature 97.8 [degF] [facility] 03-21-2022 15:20-0500 Body weight 63.5 kg [facility] 03-21-2022 15:20-0500 Diastolic blood pressure 111 mm[Hg] [facility] 03-21-2022 15:20-0500 Heart rate 93 /min [facility] 03-21-2022 15:20-0500 Respiratory rate 18 /min [facility] 03-21-2022 15:20-0500 SaO2% (BldA) [Mass fraction] 99 % [facility] 03-21-2022 15:20-0500 Systolic blood pressure 158 mm[Hg] [facility] 02-18-2022 04:01-0500 Body height 167.[address] Samina Joya Work Phone: [facility] Work Phone: 02-18-2022 04:01-0500 Body mass index (BMI) [Ratio] 22.8 kg/m2 Dr. Samina Joya Work Phone: [facility] Work Phone: 02-18-2022 04:01-0500 Body temperature 96.9 [degF] Dr. Samina Joya Work Phone: [facility] Work Phone: 02-18-2022 04:01-0500 Body weight 64.[address] Samina Joya Work Phone: [facility] Work Phone: 02-18-2022 04:01-0500 Diastolic blood pressure 107 mm[Hg] Dr. Samina Joya Work Phone: [facility] Work Phone: 02-18-2022 04:01-0500 Heart rate 97 /min Dr. Samina Joya Work Phone: [facility] Work Phone: 02-18-2022 04:01-0500 Respiratory rate 19 /min Dr. Samina Joya Work Phone: [facility] Work Phone: 02-18-2022 04:01-0500 SaO2% (BldA) [Mass fraction] 95 % Dr. Samina Joya Work Phone: [facility] Work Phone: 02-18-2022 04:01-0500 Systolic blood pressure 148 mm[Hg] Dr. Samina Joya Work Phone: [facility] Work Phone: 10-23-2021 22:52-0400 Diastolic blood pressure 90 mm[Hg] Dr. Samina Joya Work Phone: [facility] Work Phone: 10-23-2021 22:52-0400 Systolic blood pressure 136 mm[Hg] Dr. Samina Joya Work Phone: [facility] Work Phone: 10-23-2021 13:01-0400 Body mass index (BMI) [Ratio] 23.3 kg/m2 Dr. Samina Joya Work Phone: [facility] Work Phone: 10-23-2021 13:01-0400 Body temperature 98.6 [degF] Dr. Samina Joya Work Phone: [facility] Work Phone: 10-23-2021 13:01-0400 Body weight 65.[address] Samina Joya Work Phone: [facility] Work Phone: 10-23-2021 13:01-0400 Heart rate 82 /min Dr. Samina Joya Work Phone: [facility] Work Phone: 10-23-2021 13:01-0400 Respiratory rate 16 /min Dr. Samina Joya Work Phone: [facility] Work Phone: 10-23-2021 13:01-0400 SaO2% (BldA) [Mass fraction] 98 % Dr. Samina Joya Work Phone: [facility] Work Phone: 09-05-2021 02:35-0400 Heart rate 110 /min [facility] Work Phone: 09-05-2021 02:35-0400 Respiratory rate 18 /min [facility] Work Phone: 09-05-2021 02:35-0400 SaO2% (BldA) [Mass fraction] 98 % [facility] Work Phone: 09-05-2021 02:05-0400 Body height 167.64 cm [facility] Work Phone: 09-05-2021 02:05-0400 Body mass index (BMI) [Ratio] 20.9 kg/m2 [facility] Work Phone: 09-05-2021 02:05-0400 Body temperature 97.1 [degF] [facility] Work Phone: 09-05-2021 02:05-0400 Body weight 58.96 kg [facility] Work Phone: 09-05-2021 02:05-0400 Diastolic blood pressure 131 mm[Hg] [facility] Work Phone: 09-05-2021 02:05-0400 Systolic blood pressure 171 mm[Hg] [facility] Work Phone: 07-10-2021 07:10-0400 Diastolic blood pressure 71 mm[Hg] [facility] Work Phone: 07-10-2021 07:10-0400 Heart rate 82 /min [facility] Work Phone: 07-10-2021 07:10-0400 Respiratory rate 16 /min [facility] Work Phone: 07-10-2021 07:10-0400 SaO2% (BldA) [Mass fraction] 95 % [facility] Work Phone: 07-10-2021 07:10-0400 Systolic blood pressure 138 mm[Hg] [facility] Work Phone: 07-10-2021 04:43-0400 Body mass index (BMI) [Ratio] 23 kg/m2 [facility] Work Phone: 07-10-2021 04:43-0400 Body temperature 97.5 [degF] [facility] Work Phone: 07-10-2021 04:43-0400 Body weight 64.8 kg [facility] Work Phone: 06-26-2021 03:14-0400 Body temperature 98 [degF] [facility] Work Phone: 06-26-2021 03:14-0400 Diastolic blood pressure 72 mm[Hg] [facility] Work Phone: 06-26-2021 03:14-0400 Respiratory rate 18 /min [facility] Work Phone: 06-26-2021 03:14-0400 SaO2% (BldA) [Mass fraction] 97 % [facility] Work Phone: 06-26-2021 03:14-0400 Systolic blood pressure 120 mm[Hg] [facility] Work Phone: 06-26-2021 01:00-0400 Body mass index (BMI) [Ratio] 23.1 kg/m2 [facility] Work Phone: 06-26-2021 01:00-0400 Body weight 64.9 kg [facility] Work Phone: 06-26-2021 01:00-0400 Heart rate 91 /min [facility] Work Phone: 05-16-2021 03:35-0500 Body mass index (BMI) [Ratio] 25.8 kg/m2 [facility] Work Phone: 05-16-2021 03:35-0500 Body temperature 97.5 [degF] [facility] Work Phone: 05-16-2021 03:35-0500 Body weight 70.4 kg [facility] Work Phone: 05-16-2021 03:35-0500 Diastolic blood pressure 97 mm[Hg] [facility] Work Phone: 05-16-2021 03:35-0500 Heart rate 79 /min [facility] Work Phone: 05-16-2021 03:35-0500 Respiratory rate 18 /min [facility] Work Phone: 05-16-2021 03:35-0500 SaO2% (BldA) [Mass fraction] 98 % [facility] Work Phone: 05-16-2021 03:35-0500 Systolic blood pressure 135 mm[Hg] [facility] Work Phone: Encounters Encounter Date Encounter Type Care Provider Facility Start: 09-24-2024 End: 09-24-2024 Office outpatient visit 15 minutes Sadiq Reno MD Work Phone: [facility] Comment on above: Sore throat (Primary Dx); Acute otitis media, left Start: 09-24-2024 End: 09-24-2024 ambulatory SADIQ SHOAIB Facility:[facility] Start: 09-12-2024 End: 09-13-2024 Follow-up encounter Teressa Martinez APRN.HOME CARE ASSISTANT Work Phone: [facility] Comment on above: Results Start: 09-11-2024 End: 09-11-2024 Patient encounter procedure Mine ISLAS Work Phone: [facility] Comment on above: Burning with urinati on (Primary Dx); Vomiting and diarrhea Start: 09-11-2024 End: 09-11-2024 ambulatory MINE MONTGOMERY Facility:[facility] Start: 08-28-2024 End: 08-28-2024 Patient encounter procedure Teressa Martinez APRN.HOME CARE ASSISTANT Work Phone: [facility] Comment on above: Abdominal pain, lowe r (Primary Dx) Start: 08-28-2024 End: 08-28-2024 ambulatory TERESSA MARTINEZ Facility:[facility] Start: 08-09-2024 End: 08-09-[address] Samina Joya MD -[facility] Work Phone: Start: 08-09-2024 End: 08-09-[address] Samina Joya MD Work Phone: [facility] Work Phone: Start: 08-09-2024 End: 08-09-2024 ambulatory Samina Joya Facility:[facility] Start: 07-04-2024 End: 07-04-[address] Yoli Patton MD -[facility] Work Phone: Start: 07-04-2024 End: 07-04-2024 ambulatory Samina Joya Facility[place] Start: 04-13-2024 End: 04-13-[address] Samina Joya MD -[facility] Work Phone: Start: 04-13-2024 End: 04-13-2024 ambulatory [facility] Facility:[facility] Start: 03-21-2024 End: 03-23-2024 Telephone encounter Mine ISLAS Work Phone: [facility] Comment on above: Results Start: 03-20-2024 End: 03-20-2024 ambulatory [facility] Facility:[facility] Start: 03-20-2024 End: 03-20-2024 Patient encounter procedure Mine ISLAS Work Phone: [facility] Comment on above: Vaginal discharge (P rimary Dx) Start: 01-11-2024 End: 01-11-2024 Telephone encounter Lyubov Clemente APRN.HOME CARE ASSISTANT Work Phone: [facility] Comment on above: Results Start: 01-10-2024 End: 01-10-2024 ambulatory [facility] Facility:[facility] Start: 01-10-2024 End: 01-10-2024 Patient encounter procedure Teressa Martinez AVI.HOME CARE ASSISTANT Work Phone: [facility] Comment on above: Dysuria (Primary Dx) ; Vaginal discharge; Vulvovaginitis Start: 12-15-2023 Encounter for genera l adult medical examination without abnormal findings [facility] Start: 12-15-[address] Samina Joya MD Work Phone: [facility] Start: 12-15-2023 End: 12-15-2023 [facility] Healthcare Facility[place] Start: 12-15-2023 End: 12-15-2023 ambulatory [facility] Start: 11-09-2023 End: 11-09-2023 ambulatory [facility] Start: 10-22-2023 ambulatory Peter ISLAS Facilit y:DELLA Start: 05-17-2023 End: 05-17-2023 Emergency department patient visit Dr. Samina Joya Work Phone: [facility] Work Phone: Start: 03-10-2023 End: 03-10-[address] Samina Joya Work Phone: [facility] Work Phone: Start: 02-12-2023 End: 02-12-[address] Samina Joya Work Phone: [facility] Work Phone: Start: 02-08-2023 End: 02-09-2023 Emergency department patient [facility] Start: 02-01-2023 End: 02-02-2023 Emergency department patient visit Dr[facility] Samina [facility] Work [facility] Start: 02-01-2023 End: 02-01-[address] Samina Joya Work Phone: [facility] Work Phone: Start: 02-01-2023 End: 02-01-[address] Samina Joya Work Phone: [facility] Work Phone: Start: 11-16-2022 End: 11-16-[address] Samina Joya Work Phone: [facility] Work Phone: Start: 11-16-2022 End: 11-16-[address] Samina Joya Work Phone: [facility] Work Phone: Start: 10-22-2022 Telephone encounter Kar Sheth MD Work Phone: [facility] Comment on above: Results Start: 10-21-2022 End: 10-21-2022 Patient encounter procedure Angélica Clark HOME CARE ASSISTANT Work Phone: [facility] Comment on above: Urinary frequency (P rimary Dx); Acute vaginitis Start: 10-12-2022 End: 10-12-[address] Samina Joya Work Phone: [facility] Work Phone: Start: 07-28-2022 End: 07-28-[address] Samina Joya Work Phone: [facility] Work Phone: Start: 06-18-2022 End: 06-18-[address] Samina Joya Work Phone: [facility] Work Phone: Start: 06-18-2022 End: 06-18-[address] Samina Joya Work Phone: [facility] Internal Medicine Start: 04-23-2022 End: 04-23-[address] Samina Joya Work Phone: [facility] Neurology Start: 03-21-2022 End: 03-21-2022 Emergency department patient visit [facility] Start: 03-21-2022 End: 03-21-2022 Patient encounter procedure Mary Jo Philip APRN.HOME CARE ASSISTANT Work Phone: [facility] Comment on above: Rigidity (muscles) ( Primary Dx) Start: 02-18-2022 End: 02-18-2022 Emergency department patient visit Dr. Samina Joy[facility] Start: 10-23-2021 End: 10-23-[address] Samina Joya Work Phone: [facility] Neurology Start: 09-05-2021 End: 09-05-2021 Emergency department patient visit [facility] Start: 07-10-2021 End: 07-10-2021 Emergency department patient visit [facility] Start: 06-26-2021 End: 06-26-2021 Emergency department patient visit [facility] Start: 05-16-2021 End: 05-16-2021 Emergency department patient visit [facility] Start: 01-26-2020 End: 01-26-2020 Patient encounter procedure [facility] Start: 01-26-2020 End: 01-30-2020 Patient encounter procedure [facility] Start: 02-03-2018 Emergency department patient visit Facility:[facility] Start: 11-17-2017 Patient encounter procedure Work Care Facility:[facility] Start: 05-10-2017 End: 05-10-2017 Emergency department patient visit CHASE PAUL Facility:B Start: 04-13-2017 End: 04-13-2017 Emergency department patient visit SHARATH MAJOR Facility:[facility] Start: 11-18-2016 End: 11-19-2016 Ambulatory NONE PHYSICIAN Facility:A Procedures Date Procedure Procedure Detail Performing Clinician Start: 09-24-2024 Iadna streptococcus group a amplified probe tq Sadiq Reno MD Work Phone: Start: 09-11-2024 Urnls dip stick/tabl et rgnt auto w/o microscopy Mine ISLAS Work Phone: Start: 04-13-2024 Screening mammography Carmina Joya MD Work Phone: Start: 01-10-2024 BACTERIAL VAGINOSIS NAAT Teressa Martinez VENTILATING EQUIPMENT INSTALLER.HOME CARE ASSISTANT Work Phone: Start: 01-10-2024 Iadna chlamydia trac homatis amplified probe tq Teressa Martinez VENTILATING EQUIPMENT INSTALLER.HOME CARE ASSISTANT Work Phone: Start: 01-10-2024 Urnls dip stick/tabl et rgnt auto w/o microscopy Teressa Martinez VENTILATING EQUIPMENT INSTALLER.HOME CARE ASSISTANT Work Phone: Start: 05-17-2023 Computed tomography of abdomen and pelvis with intravenous contrast Dr. Samina Joya Work Phone: Start: 02-08-2023 Computed tomography of abdomen and pelvis with intravenous contrast Dr. Samina Joya Work Phone: Start: 02-08-[address] Ellen Joya Work Phone: Start: 02-01-2023 Bacterial nucleic ac id assay Dr. Samina Joya Work Phone: Start: 02-01-2023 Chlamydia trachomatis (PCR) Dr. Samina Joya Work Phone: Start: 02-01-2023 Coronavirus COVID-[address] Samina Joya Work Phone: Start: 10-21-2022 BACTERIAL VAGINOSIS NAAT Angélica Clark VENTILATING EQUIPMENT INSTALLER.[facility] Work Phone: Start: 10-21-2022 Iadna trichomonas va ginalis amplified probe tech Angélica Clark VENTILATING EQUIPMENT INSTALLER.[facility] Work Phone: Start: 10-21-2022 Urnls dip stick/tabl et rgnt auto w/o microscopy Angélica Clark VENTILATING EQUIPMENT INSTALLER.[facility] Work Phone: Start: 03-21-2022 CT of head without contrast Start: 06-26-2021 Diagnostic radiograp hy of abdomen Influenza Types A,B Direct FA (LUNA) Dr. Samina Joya Work Phone: Viral antigen assay Plan of Treatment Date Care Activity Detail Author Start: 05-27-2039 RSV Vaccine (1 - 1-d ose 75+ series) RSV Vaccine (1 - 1-dose 75+ series) [facility] Start: 11-06-2024 Influenza vaccination Influenza Vacc ine (#1) [facility] Start: 08-09-2024 Basic metabolic 2008 panel with ionized calcium - Serum or Plasma [facility] Start: 08-09-2024 CBC W Auto Different ial panel - Blood [facility] Start: 08-09-2024 Urate [Mass/volume] in Serum or Plasma [facility] Start: 11-07-2023 Covid-19 Vaccine ( season) Covid-19 Vaccine () [facility] Start: 05-17-2023 Enteric precautions [facility] Start: 02-09-2023 [facility] Start: 02-08-2023 [facility] Start: 02-08-2023 Bacteria identified in Urine by Culture Urine Culture [facility] Start: 02-01-2023 End: 02-01-2023 [facility] Start: 02-01-2023 Antibody hiv-1&hiv-2 single result HIV-1/HIV-2 1 RESULT ANTBDY [facility] Start: 02-01-2023 Blood count complete auto&auto difrntl wbc COMPLETE CBC W/AUTO DIFF WBC [facility] Start: 02-01-2023 Chlamydia trachomati s (PCR) Chlamydia trachomatis (PCR) [facility] Start: 02-01-2023 Collection venous bl ood venipuncture ROUTINE VENIPUNCTURE [facility] Start: 02-01-2023 Comprehensive metabo lic panel COMPREHEN METABOLIC PANEL [facility] Start: 02-01-2023 Neisseria gonorrhoea e (PCR) Neisseria gonorrhoeae (PCR) [facility] Start: 02-01-2023 Sars-cov-2 detection by dna/rna SARS-COV-2 COVID-19 AMP PRB [facility] Start: 11-16-2022 Patient referral [facility] Work Phone: Start: 11-06-2022 Influenza vaccination INFLUENZA (#1) [facility] Start: 10-12-2022 Patient referral [facility] Work Phone: Start: 06-18-2022 Patient referral [facility] Work Phone: Start: 03-08-2022 DEPRESSION ASSESSMENT DEPRESSION ASS ESSMENT [facility] Start: 02-18-2022 [facility] Work Phone: Start: 11-06-2021 Influenza vaccination INFLUENZA (#1) [facility] Start: 03-21-2015 SHINGRIX VACCINE (1 of 2) CANDELARIA GRIX VACCINE (1 of 2) [facility] Start: 2009 COLOGUARD (FIT-DNA) COLOGUARD (FIT-D NA) [facility] Start: 2009 Colonoscopy COLONOSCOPY [facility] Start: 2009 COLORECTAL CANCER SCREENING COLORECTAL CANCER SCREENING [facility] Start: [address] COLONOGRAPHY [facility] Start: 2009 [facility] Start: 2009 Diabetes Screening Diabetes Screenin g [facility] Start: 2009 FECAL OCCULT BLOOD FECAL OCCULT BLOO D [facility] Start: 2009 Lipid panel Lipid Screening [facility] Start: 2009 LIPID SCREEN LIPID SCREEN [facility] Start: 2009 Screening for malign ant neoplasm of colon [facility] Start: 2009 SIGMOIDOSCOPY SIGMOIDOSCOPY [facility] Start: 2004 Mammography MAMMOGRAM [facility] Start: 2004 Screening for malign ant neoplasm of breast Mammogram Screening [facility] Start: 1994 HPV TESTING HPV TESTING [facility] Start: 1985 PAP TESTING PAP TESTING [facility] Start: 1985 Screening for malign ant neoplasm of cervix Cervical Cancer Screening [facility] Start: 05-27-1983 Pneumococcal Vaccine : 50+ (1 of 2 - PCV) Pneumococcal Vaccine: 50+ (1 of 2 - PCV) [facility] Start: 05-27-1983 Urine microalbumin profile [facility] Start: 1982 Anxiety Screening Anxiety Screening [facility] Start: 1982 Depression Screening Depression Scre ening [facility] Start: 1982 HEPATITIS C SCREENING HEPATITIS C [facility] Start: 1982 Hepatitis C screening Hepatitis C [facility] Start: 1982 HIV SCREENING HIV SCREENING [facility] Start: 1982 HIV screening HIV Screening [facility] Start: 1970 PNEUMOCOCCAL (1 - PCV) PNEUMOCOCCAL (1 - PCV) [facility] Start: 1970 Pneumococcal vaccination Pneum ococcal Vaccine (1 of 2 - PCV) [facility] Start: 1964 HEPATITIS B (1 of 3 - 3-dose series) HEPATITIS B (1 of 3 - 3-dose series) [facility] Alanine aminotransfe rase [Enzymatic activity/volume] in Serum or Plasma [facility] Work Phone: Albumin [Mass/volume ] in Serum or Plasma [facility] Work Phone: Alkaline phosphatase [Enzymatic activity/volume] in Serum or Plasma [facility] Work Phone: Anion gap in Serum o r Plasma [facility] Anion gap measurement [facility] Work Phone: Aspartate aminotrans ferase [Enzymatic activity/volume] in Serum or Plasma [facility] Work Phone: Bacteria identified in Urine by Culture URINE CULTURE Microbiology Routine Dysuria Vaginal discharge 01/10/2024 11:47 AM EST [facility] Work Phone: Bacteria identified in Urine by Culture BACTERIAL CULTURE, URINE Microbiology Routine Burning with urination 09/11/2024 3:02 PM EDT [facility] Work Phone: BACTERIAL VAGINOSIS NAAT BACTERI AL VAGINOSIS NAAT Lab Routine Vaginal discharge Ordered: 03/20/2024 [facility] Comment on above: Ordered: 03/20/2024 Bilirubin, total measurement [facility] Work Phone: BUN/Creatinine ratio [facility] Work Phone: BUN/Creatinine ratio [facility] Calcium [Mass/volume ] in Serum or Plasma [facility] Work Phone: Calcium [Mass/volume ] in Serum or Plasma [facility] DEBORAH/TRICHOMONAS NAAT DEBORAH /TRICHOMONAS NAAT Lab Routine Dysuria Vaginal discharge 01/10/2024 11:47 AM EST [facility] DEBORAH/TRICHOMONAS NAAT DEBORAH /TRICHOMONAS NAAT Lab Routine Vaginal discharge Ordered: 03/20/2024 [facility] Comment on above: Ordered: 03/20/2024 Carbon dioxide, tota l [Moles/volume] in Central venous blood [facility] Carbon dioxide, tota l [Moles/volume] in Serum or Plasma [facility] Work Phone: Chlamydia trachomatis [facility] Chlamydia trachomatis+Neisseria gonorrhoeae DNA [Presence] in Unspecified specimen by KELLY with probe detection GONORRHEA/CHLAMYDIA NAAT Lab Routine Acute vaginitis 10/21/2022 10:15 AM EDT [facility] Work Phone: Chlamydia trachomatis+Neisseria gonorrhoeae DNA [Presence] in Unspecified specimen by KELLY with probe detection GONORRHEA/CHLAMYDIA NAAT Lab Routine Vaginal discharge Ordered: 03/20/[address] [facility] Work Phone: Comment on above: Ordered: 03/20/2024 Chloride [Moles/volu me] in Serum or Plasma [facility] Work Phone: Clostridioides diffi cile DNA [Presence] in Unspecified specimen by KELLY with probe detection [facility] Creatinine [Mass/vol ume] in Serum or Plasma [facility] Creatinine [Moles/vo lume] in Serum or Plasma [facility] Work Phone: Erythrocyte mean corpuscular volume determination [facility] Gastrointestinal pat hogens panel - Stool by KELLY with probe detection [facility] Glucose [Mass/volume ] in Serum or Plasma [facility] Work Phone: Glucose [Mass/volume ] in Serum or Plasma [facility] Hematocrit [Volume Fraction] of Blood [facility] Work Phone: Hematocrit [Volume Fraction] of Blood [facility] Hemoglobin [Mass/vol ume] in Blood [facility] Work Phone: Hemoglobin [Mass/vol ume] in Blood [facility] Leukocytes [#/volume ] in Blood [facility] Work Phone: Leukocytes [#/volume ] in Blood [facility] Mean corpuscular hemoglobin concentration determination [facility] Work Phone: Mean corpuscular hemoglobin concentration determination [facility] Mean corpuscular hemoglobin determination [facility] Work Phone: Mean corpuscular hemoglobin determination [facility] Measurement of renal function [facility] Work Phone: Measurement of renal function [facility] Neisseria gonorrhoea e DNA [Presence] in Genital specimen by KELLY with probe detection [facility] Neutrophil count [facility] Work Phone: Neutrophil count [facility] Neutrophil percent differential count [facility] Work Phone: Neutrophil percent differential count [facility] Ova and parasites identified in Unspecified specimen by Light microscopy [facility] Patient Education [facility] Work Phone: Patient referral [facility] Work Phone: Platelets [#/volume] in Blood [facility] Work Phone: Platelets [#/volume] in Blood [facility] Potassium [Moles/vol ume] in Serum or Plasma [facility] Work Phone: Potassium measurement [facility] Red blood cell count [facility] Work Phone: Red blood cell count [facility] Red cell distributio n width determination [facility] Work Phone: Red cell distributio n width determination [facility] Serum chloride measurement [facility] Sodium [Moles/volume ] in Serum or Plasma [facility] Work Phone: Sodium measurement [facility] Total protein measurement [facility] Work Phone: Urea nitrogen [Mass/volume] in Serum or Plasma [facility] Work Phone: Urea nitrogen [Mass/volume] in Serum or Plasma [facility] Urinalysis complete panel - Urine [facility] Immunizations Immunization Date Immunization Notes [facility] influenza, injectabl e, madin shira canine kidney, preservative free Dr. Samina Joya MD Work Phone: [facility] 12-15-2023 influenza virus vaccine, unspecified formulation Mine ISLAS Work Phone: [facility] 11-23-2017 Influenza virus vaccine [facility] Payers Date Payer Category Payer Private Health Insurance HEM[employer] UGARTE [id number] 2023 Self-pay [id number] 2023 Unknown [id number] 2022 Medicaid [id number] 2021 Medicaid [id number] 2016 Unknown [id number] 2015 Medicaid [id number] 1964 Unknown [id number] 1964 Unknown [id number] Unknown [id number] Unknown [id number] Unknown [id number] Unknown [id number] Unknown [id number] 462 Unknown [id number] 462 Unknown [id number] Unknown [id number] Unknown [id number] Social History Date Type Detail Facility Start: 09-05-2021 End: 05-17-2023 Tobacco smoking status NDIS Unknown if ever smoked [facility] Start: 10-07-2018 Occasional [facility] Start: 10-07-2018 None;- [facility] Start: 10-07-2018 With Family [facility] Start: 07-09-2020 Cigarettes [facility] Start: 1965 Sex Assigned At Female [facility] Start: 03-17-2021 End: 10-21-2022 Tobacco smoking status NHIS Smokes tobacco daily [facility] Start: 03-17-2021 End: 10-21-2022 Tobacco use and exposure Smokeless tobacco non-user [facility] Start: 1965 Sex Assigned At Not on file [facility] Start: 10-21-2022 End: 01-10-2024 History of Social function [facility] Start: 10-21-2022 End: 01-10-2024 Tobacco use panel [facility] Mental Status Date Assessment Result Facility 03-21-2022 Cognitive function Level Of Cons ciousness Awake;Alert;Appropriate;Follow s Commands [facility] Work Phone: Clinical Notes 03-21-2022 to 09-24-2024 Sadiq Reno MD - 09/24/2024 11:56 AM EDTTelephone Encounter - Argenis Ramírez LPN - 09/13/2024 9:34 AM EDTTelephone Encounter - Argenis Ramírez LPN - 09/13/2024 9:34 AM EDT Note Date & Type Note Facility 09-24-2024 Note HNO ID: [id number] Author: SADIQ RENO MD Service: ? Author Type: Physician Type: Progress Notes Filed: 09/24/2024 11:59 Note Text: [facility] Arriaga is a 59 year old female. Patient presents with: Sore Throat: left ear pressure x 1 week Pt here with 1 week hx of uri sx now left ear pain and fullness + hearing loss no fever no chills + St and nasal congestion no dyspnea Sore Throat Associated symptoms include congestion, coughing and ear pain. Pertinent negatives include no headaches, shortness of breath or stridor. Review of Systems Constitutional: Negative for chills, fatigue and fever. HENT: Positive for congestion, ear pain, hearing loss, rhinorrhea and sore throat. Respiratory: Positive for cough. Negative for shortness of breath, wheezing and stridor. Neurological: Negative for dizziness and headaches. Objective BP 122/70 Pulse 76 Temp 36.1 ?C (96.9 ?F) Resp 16 Wt 64.2 kg (141 lb 8.6 oz) SpO2 99% Physical Exam Vitals and nursing note reviewed. Constitutional: Appearance: Normal appearance. She is not ill-appearing. HENT: Right Ear: Tympanic membrane and ear canal normal. Ears: Comments: Left TM red and bulging canal normal Nose: Congestion and rhinorrhea present. Mouth/Throat: Mouth: Mucous membranes are moist. Pharynx: Oropharynx is clear. Cardiovascular: Rate and Rhythm: Normal rate and regular rhythm. Heart sounds: Normal heart sounds. Pulmonary: Effort: Pulmonary effort is normal. Breath sounds: Normal breath sounds. No stridor. No wheezing, rhonchi or rales. Neurological: Mental Status: She is alert and oriented to person, place, and time. Psychiatric: Mood and Affect: Mood normal. Behavior: Behavior normal. {ASSESSMENT/PLAN: 1. Sore throat - ICD9: 462, ICD10: J02.9 (primary diagnosis) - STREP A MOLECULAR (POC) - METHYLPREDNISOLONE 4 MG TABLETS IN A DOSE PACK 2. Acute otitis media, left - ICD9: 382.9, ICD10: H66.92 Return here as needed - AMOXICILLIN 875 MG-POTASSIUM CLAVULANATE 125 MG TABLET - METHYLPREDNISOLONE 4 MG TABLETS IN A DOSE PACK Sadiq Reno MD History and Record Review External record(s) reviewed: prior outpatient record. Differential Diagnoses - OM is more likely for the following reason(s): suggested by HANDP - sinusitis is less likely for the following reason(s): HANDP not suggestive Disposition The patient was discharged. Procedures [facility] 09-24-2024 History of Present illness Narrative [facility] Subjective Shanda Arriaga is a 59 year old female. Patient presents with: Sore Throat: left ear pressure x 1 week Pt here with 1 week hx of uri sx now left ear pain and fullness + hearing loss no fever no chills + St and nasal congestion no dyspnea Sore Throat Associated symptoms include congestion, coughing and ear pain. Pertinent negatives include no headaches, shortness of breath or stridor. Review of Systems Constitutional: Negative for chills, fatigue and fever. HENT: Positive for congestion, ear pain, hearing loss, rhinorrhea and sore throat. Respiratory: Positive for cough. Negative for shortness of breath, wheezing and stridor. Neurological: Negative for dizziness and headaches. Objective BP 122/70 Pulse 76 Temp 36.1 C (96.9 F) Resp 16 Wt 64.2 kg (141 lb 8.6 oz) SpO2 99% Physical Exam Vitals and nursing note reviewed. Constitutional: Appearance: Normal appearance. She is not ill-appearing. HENT: Right Ear: Tympanic membrane and ear canal normal. Ears: Comments: Left TM red and bulging canal normal Nose: Congestion and rhinorrhea present. Mouth/Throat: Mouth: Mucous membranes are moist. Pharynx: Oropharynx is clear. Cardiovascular: Rate and Rhythm: Normal rate and regular rhythm. Heart sounds: Normal heart sounds. Pulmonary: Effort: Pulmonary effort is normal. Breath sounds: Normal breath sounds. No stridor. No wheezing, rhonchi or rales. Neurological: Mental Status: She is alert and oriented to person, place, and time. Psychiatric: Mood and Affect: Mood normal. Behavior: Behavior normal. {ASSESSMENT/PLAN: 1. Sore throat - ICD9: 462, ICD10: J02.9 (primary diagnosis) - STREP A MOLECULAR (POC) - METHYLPREDNISOLONE 4 MG TABLETS IN A DOSE PACK 2. Acute otitis media, left - ICD9: 382.9, ICD10: H66.92 Return here as needed - AMOXICILLIN 875 MG-POTASSIUM CLAVULANATE 125 MG TABLET - METHYLPREDNISOLONE 4 MG TABLETS IN A DOSE PACK Sadiq Reno MD History and Record Review External record(s) reviewed: prior outpatient record. Differential Diagnoses - OM is more likely for the following reason(s): suggested by H&P - sinusitis is less likely for the following reason(s): H&P not suggestive Disposition The patient was discharged. Procedures documented in this encounter [facility] 09-13-2024 Telephone encounter Note Patient notified.Argenis Ramírez LPN [facility] 09-13-2024 Miscellaneous Notes Patient notified.Argenis Ramírez LPN Urine culture negative bacterial growth If patient remains with symptoms, should follow up with PCP and or LIQUOR TESTER Please advise documented in this encounter [facility] 09-12-2024 Telephone encounter Note Urine culture negative bacterial growth If patient remains with symptoms, should follow up with PCP and or LIQUOR TESTER Please advise [facility] Work Phone: 09-11-2024 Note HNO ID: [id number] Author: MINE MONTGOMERY PA Service: ? Author Type: Physician Pharmacist Per Diem Type: Progress Notes Filed: 09/11/2024 14:09 Note Text: [facility] Subjective Shanda Arriaga is a 59 year old female. Patient presents with: Urinary Problem: Burning with urination, frequency x 2 days HPI Vomiting and Diarrhea: - Onset September 08- 3 d ago; multiple episodes of emesis and diarrhea, Able to keep down water today. - Vomited 4 times today. - Denies abdominal pain. - Able to drink water today. Fatigue: - Reports significant fatigue, describing it as no energy. Urinary Symptoms: - Urine described as really yellow with burning sensation. - Mild back pain. - Denies vaginal discharge or pruritus. Fever: - Reports feeling febrile with chills, requiring multiple layers of clothing and blankets. No past medical history on file. No past surgical history on file. ALLERGIES Codeine, Latex, and Levoquin [Levofloxacin] MEDICATIONS levocetirizine (XYZAL) 5 mg tablet Take 5 mg by mouth once daily as needed for cold/allergy symptoms. PARoxetine (PAXIL) 20 mg tablet Take 20 mg by mouth once daily. tiZANidine HCl 4 mg capsule Take 4 mg by mouth three times a day as needed. amLODIPine (NORVASC) 5 mg tablet Take 5 mg by mouth once daily. gabapentin (NEURONTIN) 100 mg capsule Take 100 mg by mouth three times daily. (Patient not taking: Reported on 03/17/2023) No family history on file. Social History Tobacco Use Smoking status: Every Day Smokeless tobacco: Never Review of Systems Constitutional: (+) fatigue, (+) generalized weakness, (+) chills, (+) subjective fever Gastrointestinal: (+) vomiting, (-) abdominal pain Genitourinary: (+) dysuria, (+) dark urine, (-) vaginal discharge, (-) vaginal pruritus Musculoskeletal: (+) back pain Neurological: (+) tremors, (-) upper extremity numbness Objective BP 118/90 Pulse 97 Temp 36.6 ?C (97.9 ?F) Resp 21 Wt 64.6 kg (142 lb 6.7 oz) SpO2 95% Physical Exam Vitals reviewed. Constitutional: General: She is not in acute distress. Appearance: Normal appearance. She is not toxic-appearing. HENT: Mouth/Throat: Mouth: Mucous membranes are moist. Cardiovascular: Rate and Rhythm: Normal rate and regular rhythm. Pulmonary: Effort: Pulmonary effort is normal. Breath sounds: Normal breath sounds. Abdominal: General: Abdomen is flat. Palpations: Abdomen is soft. Tenderness: There is no abdominal tenderness. There is no right CVA tenderness, left CVA tenderness, guarding or rebound. Skin: General: Skin is warm and dry. Neurological: Mental Status: She is alert. General: No acute distress. HEENT: Oral mucosa moist. CV: Normal heart sounds. Resp: Lungs clear to auscultation bilaterally. Abd: No tenderness. {1. Burning with urination (R30.0) - Urinalysis shows protein and ketones, indicating possible mild dehydration; no signs of infection. - Urine culture ordered to rule out bacterial infection. - Advised to increase fluid intake to address dehydration. 2. Vomiting and diarrhea (R11.10) - Multiple episodes of emesis today; diarrhea reported since September 08. - No abdominal tenderness on examination; oral mucosa appears moist. - Lungs clear to auscultation; cardiac examination normal. - Advised to continue oral hydration; if unable to retain fluids, instructed to seek emergency care for potential IV fluid administration. Recording using Aur[employer]ist software for draft documentation of the visit was discussed with the patient/authorized medical collections representative; all questions welcomed and answered. Patient/authorized medical collections representative agreed to proceed History and Record Review External record(s) reviewed: prior outpatient record. Systemic symptoms present included: Chills, subjective fever Differential Diagnoses - Viral gastroenteritis is more likely for the following reason(s): suggested by HANDP - UTI is less likely for the following reason(s): laboratory studies not suggestive Disposition The patient was discharged. Procedures [facility] 09-11-2024 History of Present illness Narrative [facility] Subjective Shanda Arriaga is a 59 year old female. Patient presents with: Urinary Problem: Burning with urination, frequency x 2 days HPI Vomiting and Diarrhea: - Onset September 08- 3 d ago; multiple episodes of emesis and diarrhea, Able to keep down water today. - Vomited 4 times today. - Denies abdominal pain. - Able to drink water today. Fatigue: - Reports significant fatigue, describing it as no energy. Urinary Symptoms: - Urine described as really yellow with burning sensation. - Mild back pain. - Denies vaginal discharge or pruritus. Fever: - Reports feeling febrile with chills, requiring multiple layers of clothing and blankets. No past medical history on file. No past surgical history on file. ALLERGIES Codeine, Latex, and Levoquin [Levofloxacin] MEDICATIONS levocetirizine (XYZAL) 5 mg tablet Take 5 mg by mouth once daily as needed for cold/allergy symptoms. PARoxetine (PAXIL) 20 mg tablet Take 20 mg by mouth once daily. tiZANidine HCl 4 mg capsule Take 4 mg by mouth three times a day as needed. amLODIPine (NORVASC) 5 mg tablet Take 5 mg by mouth once daily. gabapentin (NEURONTIN) 100 mg capsule Take 100 mg by mouth three times daily. (Patient not taking: Reported on 03/17/2023) No family history on file. Social History Tobacco Use Smoking status: Every Day Smokeless tobacco: Never Review of Systems Constitutional: (+) fatigue, (+) generalized weakness, (+) chills, (+) subjective fever Gastrointestinal: (+) vomiting, (-) abdominal pain Genitourinary: (+) dysuria, (+) dark urine, (-) vaginal discharge, (-) vaginal pruritus Musculoskeletal: (+) back pain Neurological: (+) tremors, (-) upper extremity numbness Objective BP 118/90 Pulse 97 Temp 36.6 C (97.9 F) Resp 21 Wt 64.6 kg (142 lb 6.7 oz) SpO2 95% Physical Exam Vitals reviewed. Constitutional: General: She is not in acute distress. Appearance: Normal appearance. She is not toxic-appearing. HENT: Mouth/Throat: Mouth: Mucous membranes are moist. Cardiovascular: Rate and Rhythm: Normal rate and regular rhythm. Pulmonary: Effort: Pulmonary effort is normal. Breath sounds: Normal breath sounds. Abdominal: General: Abdomen is flat. Palpations: Abdomen is soft. Tenderness: There is no abdominal tenderness. There is no right CVA tenderness, left CVA tenderness, guarding or rebound. Skin: General: Skin is warm and dry. Neurological: Mental Status: She is alert. General: No acute distress. HEENT: Oral mucosa moist. CV: Normal heart sounds. Resp: Lungs clear to auscultation bilaterally. Abd: No tenderness. {1. Burning with urination (R30.0) - Urinalysis shows protein and ketones, indicating possible mild dehydration; no signs of infection. - Urine culture ordered to rule out bacterial infection. - Advised to increase fluid intake to address dehydration. 2. Vomiting and diarrhea (R11.10) - Multiple episodes of emesis today; diarrhea reported since September 08. - No abdominal tenderness on examination; oral mucosa appears moist. - Lungs clear to auscultation; cardiac examination normal. - Advised to continue oral hydration; if unable to retain fluids, instructed to seek emergency care for potential IV fluid administration. \ Recording using Auramist software for draft documentation of the visit was discussed with the patient/authorized medical collections representative; all questions welcomed and answered. Patient/authorized medical collections representative agreed to proceed History and Record Review External record(s) reviewed: prior outpatient record. Systemic symptoms present included: Chills, subjective fever Differential Diagnoses - Viral gastroenteritis is more likely for the following reason(s): suggested by H&P - UTI is less likely for the following reason(s): laboratory studies not suggestive Disposition The patient was discharged. Procedures documented in this encounter [facility] 08-28-2024 Note HNO ID: [id number] Author: TERESSA MARTINEZ APRN.HOME CARE ASSISTANT Service: ? Author Type: Nurse Practitioner Type: Progress Notes Filed: 08/28/2024 14:37 Note Text: [facility] Subjective Shanda Arriaga is a 59 year old female. No chief complaint on file. Abdominal Pain Abdominal Pain: - Severe abdominal pain described as feeling like my ovaries are ready to pop out. - Constant pain with no improvement. - Retains ovaries and appendix. No past medical history on file. No past surgical history on file. ALLERGIES Codeine, Latex, and Levoquin [Levofloxacin] MEDICATIONS gabapentin (NEURONTIN) 100 mg capsule Take 100 mg by mouth three times daily. (Patient not taking: Reported on 03/17/2023) levocetirizine (XYZAL) 5 mg tablet Take 5 mg by mouth once daily as needed for cold/allergy symptoms. PARoxetine (PAXIL) 20 mg tablet Take 20 mg by mouth once daily. tiZANidine HCl 4 mg capsule Take 4 mg by mouth three times a day as needed. amLODIPine (NORVASC) 5 mg tablet Take 5 mg by mouth once daily. No family history on file. Social History Tobacco Use Smoking status: Every Day Smokeless tobacco: Never Review of Systems Gastrointestinal: Positive for abdominal pain. Gastrointestinal: (+) abdominal pain Objective There were no vitals taken for this visit. Physical Exam General: Patient appears to be in significant discomfort. 1. Abdominal pain, lower (R10.30) - Severe, constant lower abdominal pain with suspicion for ovarian torsion or appendicitis. - Advised immediate evaluation in the emergency room for further diagnostic imaging, including a CT scan, which is not available in our facility. - Patient understands the urgency and will proceed to the ER with her mother. { and Recording using ambient Motion[employer] software for draft documentation of the visit was discussed with the patient/authorized medical collections representative; all questions welcomed and answered. Patient/authorized medical collections representative agreed to proceed Disposition The patient was discharged. Procedures [facility] 08-28-2024 History of Present illness Narrative [facility] Subjective Shanda Arriaga is a 59 year old female. No chief complaint on file. Abdominal Pain Abdominal Pain: - Severe abdominal pain described as feeling like my ovaries are ready to pop out. - Constant pain with no improvement. - Retains ovaries and appendix. No past medical history on file. No past surgical history on file. ALLERGIES Codeine, Latex, and Levoquin [Levofloxacin] MEDICATIONS gabapentin (NEURONTIN) 100 mg capsule Take 100 mg by mouth three times daily. (Patient not taking: Reported on 03/17/2023) levocetirizine (XYZAL) 5 mg tablet Take 5 mg by mouth once daily as needed for cold/allergy symptoms. PARoxetine (PAXIL) 20 mg tablet Take 20 mg by mouth once daily. tiZANidine HCl 4 mg capsule Take 4 mg by mouth three times a day as needed. amLODIPine (NORVASC) 5 mg tablet Take 5 mg by mouth once daily. No family history on file. Social History Tobacco Use Smoking status: Every Day Smokeless tobacco: Never Review of Systems Gastrointestinal: Positive for abdominal pain. Gastrointestinal: (+) abdominal pain Objective There were no vitals taken for this visit. Physical Exam General: Patient appears to be in significant discomfort. 1. Abdominal pain, lower (R10.30) - Severe, constant lower abdominal pain with suspicion for ovarian torsion or appendicitis. - Advised immediate evaluation in the emergency room for further diagnostic imaging, including a CT scan, which is not available in our facility. - Patient understands the urgency and will proceed to the ER with her mother. { and Recording using Auramist software for draft documentation of the visit was discussed with the patient/authorized medical collections representative; all questions welcomed and answered. Patient/authorized medical collections representative agreed to proceed Disposition The patient was discharged. Procedures documented in this encounter [facility] 07-04-2024 Evaluation note Diagnosis Onset Date Resolution Leg pain, bilateral acute July 04, 2024 2:04pm Low back pain acute July 04, 2024 2:04pm Muscle cramps chronic July 04, 2024 2:04pm [facility] Work Phone: [phone] Evaluation note* Diagnosis Onset Date Resolution Status Admit Date Leg pain, bilateral acute July 04, 2024 2:04pm Low back pain acute July 04, 2024 2:04pm Muscle cramps chronic July 04, 2024 2:04pm Arthritis acute August 09, 2024 12:53pm Anxiety and depression chronic Ju 2024 12:53pm Hypertension chronic August 09 12:53pm [facility] Work Phone: 1(935) 554-376301-16-2025 Telephone encounter Note* Telephone Encounter - Kasandra Hill LPN - 03/23/2024 3:02 PM EST Patient returned call and went over results, notes from express care provider with understanding. Aware rx sent to the pharmacy. [facility]01-16-2025 Miscellaneous Notes* Telephone Encounter - Kasandra Hill LPN - 03/23/2024 3:02 PM EST Patient returned call and went over results, notes from express care provider with understanding. Aware rx sent to the pharmacy. * Telephone Encounter - Mitzy Lieberman MA - 03/23/2024 10:51 AM EST Left VM instructing patient to return call to receive results. Mitzy Lieberman MA * Telephone Encounter - Scarlet Hogan MA - 03/21/2024 7:56 AM EST Left message for patient to return call. Scarlet Hogan MA * Telephone Encounter - Mine Montgomery PA - 03/21/2024 7:09 AM EST Please contact patient let her know she tested positive for trichomonas and bacterial vaginosis. I have sent metronidazole to her pharmacy. Do not drink alcohol with taking this medication. Gonorrhea, chlamydia and yeast were all negative. Please notify partners of positive results. No sexual intercourse x 10 days [facility] Telephone encounter Note * Telephone Encounter - Mitzy Lieberman MA - 03/23/2024 10:51 AM EST Left VM instructing patient to return call to receive results. Mitzy Lieberman MA [facility]01-14-2025 Telephone encounter Note* Telephone Encounter - Scarlet Hogan MA - 03/21/2024 7:56 AM EST Left message for patient to return call. Scarlet Hogan MA [facility]01-14-2025 Telephone encounter Note* Telephone Encounter - Mine Montgomery PA - 03/21/2024 7:09 AM EST Please contact patient let her know she tested positive for trichomonas and bacterial vaginosis. I have sent metronidazole to her pharmacy. Do not drink alcohol with taking this medication. Gonorrhea, chlamydia and yeast were all negative. Please notify partners of positive results. No sexual intercourse x 10 days [facility]01-13-2025 NoteHNO ID: [id number] Author: MINE MONTGOMERY PA Service: ? Author Type: Physician Pharmacist Per Diem Type: Progress Notes Filed: 03/20/2024 14:04 Note Text: This note was created using Wormholeriter. Subjective Shanda Arriaga is a 58 year old female. HPI 58-year-old female presents for vaginal discharge. Patient states she has had vaginal discharge for the past 10 days. She states that she is having some vaginal itching. Reports she had trichomonas back in January. She did sleep with the same partner afterwards and states he was cheating on her. She is concerned she may have trichomonas again. States her discharge is yellow/green and foul-smelling. She denies any abdominal pain, pelvic pain, fevers. No rash. No dysuria. No other complaint. No past medical history on file. No past surgical history on file. ALLERGIES Codeine, Latex, and Levoquin [Levofloxacin] MEDICATIONS levocetirizine (XYZAL) 5 mg tablet Take 5 mg by mouth once daily as needed for cold/allergy symptoms. PARoxetine (PAXIL) 20 mg tablet Take 20 mg by mouth once daily. tiZANidine HCl 4 mg capsule Take 4 mg by mouth three times a day as needed. amLODIPine (NORVASC) 5 mg tablet Take 5 mg by mouth once daily. gabapentin (NEURONTIN) 100 mg capsule Take 100 mg by mouth three times daily. (Patient not taking: Reported on 03/17/2023) No family history on file. Social History Tobacco Use Smoking status: Every Day Smokeless tobacco: Never Review of Systems Constitutional: Negative for chills and fever. HENT: Negative for congestion, ear pain and sore throat. Respiratory: Negative for cough and shortness of breath. Cardiovascular: Negative for chest pain. Gastrointestinal: Negative for diarrhea and vomiting. Genitourinary: Positive for vaginal discharge. Objective BP 122/78 Pulse 78 Temp 36.9 ?C (98.5 ?F) Resp 16 Wt 67.3 kg (148 lb 5.9 oz) SpO2 97% Physical Exam Vitals and nursing note reviewed. Constitutional: General: She is not in acute distress. Appearance: Normal appearance. She is not toxic-appearing. HENT: Nose: Nose normal. Mouth/Throat: Mouth: Mucous membranes are moist. Eyes: Conjunctiva/sclera: Conjunctivae normal. Cardiovascular: Rate and Rhythm: Normal rate and regular rhythm. Pulmonary: Effort: Pulmonary effort is normal. Breath sounds: Normal breath sounds. Abdominal: General: Abdomen is flat. Palpations: Abdomen is soft. Tenderness: There is no abdominal tenderness. There is no guarding or rebound. Genitourinary: Comments: Deferred by patient Skin: General: Skin is warm and dry. Neurological: Mental Status: She is alert. Assessment and Plan ASSESSMENT/PLAN: 1. Vaginal discharge - ICD9: 623.5, ICD10: N89.8 -Self swab. Please treat based on result - GONORRHEA/CHLAMYDIA NAAT - DEBORAH/TRICHOMONAS NAAT - BACTERIAL VAGINOSIS NAAT Diagnosis and treatment plan were discussed and questions were answered to the patient's satisfaction. Pt acknowledged understanding of concepts and follow up plan. Specific signs and symptoms that would indicate the need for higher level of care were discussed in detail warranting prompt ER evaluation. Mine Montgomery [facility]01-13-2025 History of Present illness Narrative* Mine Montgomery, ID - 03/20/2024 1:56 PM EST This note was created using Wormholeriter. Subjective Shanda Arriaga is a 58 year old female. HPI 58-year-old female presents for vaginal discharge. Patient states she has had vaginal dischargefor the past 10 days. She states that she is having some vaginal itching. Reports she had trichomonas back in January. She did sleep with the same partner afterwards and states he was cheating on her. She is concerned she may have trichomonas again. States her discharge is yellow/green and foul-smelling. She denies any abdominal pain, pelvic pain, fevers. No rash. No dysuria. No other complaint. No past medical history on file. No past surgical history on file. ALLERGIES Codeine, Latex, and Levoquin [Levofloxacin] MEDICATIONS levocetirizine (XYZAL) 5 mg tablet Take 5 mg by mouth once daily as needed for cold/allergy symptoms. PARoxetine (PAXIL) 20 mg tablet Take 20 mg by mouth once daily. tiZANidine HCl 4 mg capsule Take 4 mg by mouth three times a day as needed. amLODIPine (NORVASC) 5 mg tablet Take 5 mg by mouth once daily. gabapentin (NEURONTIN) 100 mg capsule Take 100 mg by mouth three times daily. (Patient not taking: Reported on 03/17/2023) No family history on file. Social History Tobacco Use Smoking status: Every Day Smokeless tobacco: Never Review of Systems Constitutional: Negative for chills and fever. HENT: Negative for congestion, ear pain and sore throat. Respiratory: Negative for cough and shortness of breath. Cardiovascular: Negative for chest pain. Gastrointestinal: Negative for diarrhea and vomiting. Genitourinary: Positive for vaginal discharge. Objective BP 122/78 Pulse 78 Temp 36.9 C (98.5 F) Resp 16 Wt 67.3 kg (148 lb 5.9 oz) SpO2 97% Physical Exam Vitals and nursing note reviewed. Constitutional: General: She is not in acute distress. Appearance: Normal appearance. She is not toxic-appearing. HENT: Nose: Nose normal. Mouth/Throat: Mouth: Mucous membranes are moist. Eyes: Conjunctiva/sclera: Conjunctivae normal. Cardiovascular: Rate and Rhythm: Normal rate and regular rhythm. Pulmonary: Effort: Pulmonary effort is normal. Breath sounds: Normal breath sounds. Abdominal: General: Abdomen is flat. Palpations: Abdomen is soft. Tenderness: There is no abdominal tenderness. There is no guarding or rebound. Genitourinary: Comments: Deferred by patient Skin: General: Skin is warm and dry. Neurological: Mental Status: She is alert. Assessment and Plan ASSESSMENT/PLAN: 1. Vaginal discharge - ICD9: 623.5, ICD10: N89.8 -Self swab. Please treat based on result - GONORRHEA/CHLAMYDIA NAAT - DEBORAH/TRICHOMONAS NAAT - BACTERIAL VAGINOSIS NAAT Diagnosis and treatment plan were discussed and questions were answered to the patient's satisfaction. Pt acknowledged understanding of concepts and follow up plan. Specific signs and symptoms that would indicate the need for higher level of care were discussed in detail warranting prompt ER evaluation. JANEL Turner [facility] Telephone encounter Note * Telephone Encounter - Scarlet Hogan MA - 01/11/2024 12:20 PM EST Patient given results and verbalized understanding of instructions given. Scarlet Hogan MA [facility]11-05-[facility]24 Telephone encounter Note* Telephone Encounter - Scarlet Hogan MA - 01/11/2024 12:20 PM EST ----- Message from Cherelle Jiang APRN.CNP sent at 01/11/2024 11:33 AM EST ----- Please inform patient that the urine culture was negative showing no signs of infection. [facility] Miscellaneous Notes* Telephone Encounter - Scarlet Hogan MA - 01/11/2024 12:20 PM EST Patient given results and verbalized understanding of instructions given. Scarlet Hogan MA * Telephone Encounter - Scarlet Hogan MA - 01/11/2024 12:20 PM EST ----- Message from Cherelle Jiang APRN.CNP sent at 01/11/2024 11:33 AM EST ----- Please inform patient that the urine culture was negative showing no signs of infection. [facility] Telephone encounter Note * Telephone Encounter - Lyubov Clemente APRN.CNP - 01/11/2024 9:11 AM EST Birthday verified with patient over the phone. Aware of the below information with all questions answered. +Trichomonas and BV. Already treated with oral flagyl. Instructed to take entire course and have partner tested and treated. No sexual contact for 2 weeks. [facility] Work Phone: 1(316) 675-740411-05-2024 Miscellaneous Notes* Telephone Encounter - Lyubov Clemente APRN.CNP - 01/11/2024 9:11 AM EST Birthday verified with patient over the phone. Aware of the below information with all questions answered. +Trichomonas and BV. Already treated with oral flagyl. Instructed to take entire course and have partner tested and treated. No sexual contact for 2 weeks. [facility]24 NoteHNO ID: [id number] Author: TERESSA MARTINEZ APRN.CNP Service: ? Author Type: Nurse Practitioner Type: Progress Notes Filed: 01/10/2024 13:27 Note Text: This note was created using Wormholeriter. Subjective Shanda Arriaga is a 58 year old female. Relevant PMH and allergies reviewed: Pt is a 58 year old female who presents today with green smelly discharge x couple days. Pt states she has had a problem like this in the past and was given an given a antibiotic that helped. Pt states she has not been sexually active in 4 months. She has also gone through menopause. Pt states she has not tried anything for her symptoms. Pt states she has had many changes over the past couple of days that could have contributed to her symptoms. Pt has had changes to her soap, detergent and has been swimming in the past few days. Pt is also having fever, chills, back pain, diarrhea, vaginal redness, vaginal swelling, frequent urination and is having an abnormal sensation when urinating. Pt denies blood in her urine, abdominal pain, pelvic pain, vomiting, nausea, urgency, side pain, rash and decreased urinary output. The history is provided by the patient. No automobile carpets molder was used. Female Gu Problem This is a new problem. The current episode started yesterday. The onset was sudden. The problem occurs continuously. The problem has been gradually worsening. The pain is moderate. Nothing relieves the symptoms. Associated symptoms include chills, a fever, diarrhea, frequency, vaginal discharge and back pain. Pertinent negatives include no chest pain, no abdominal pain, no constipation, no nausea, no vomiting, no hematuria, no pelvic pain, no urgency, no headaches, no sore throat, no flank pain, no cough, no shortness of breath and no rash. Urine output has been normal. She is currently Not sexually active. Her past medical history is significant for STD. Services received include tests performed. No past medical history on file. No past surgical history on file. ALLERGIES Codeine, Latex, and Levoquin [Levofloxacin] MEDICATIONS levocetirizine (XYZAL) 5 mg tablet Take 5 mg by mouth once daily as needed for cold/allergy symptoms. PARoxetine (PAXIL) 20 mg tablet Take 20 mg by mouth once daily. amLODIPine (NORVASC) 5 mg tablet Take 5 mg by mouth once daily. metroNIDAZOLE (FLAGYL) 500 mg tablet Take 1 tablet by mouth two times a day for 7 days. gabapentin (NEURONTIN) 100 mg capsule Take 100 mg by mouth three times daily. (Patient not taking: Reported on 03/17/2023) tiZANidine HCl 4 mg capsule Take 4 mg by mouth three times a day as needed. No family history on file. Social History Tobacco Use Smoking status: Every Day Smokeless tobacco: Never Review of Systems Constitutional: Positive for chills and fever. Negative for activity change, appetite change and fatigue. HENT: Negative for congestion, rhinorrhea, sinus pressure, sinus pain and sore throat. Eyes: Negative for pain, discharge, redness and itching. Respiratory: Negative for cough, choking, shortness of breath and wheezing. Cardiovascular: Negative for chest pain and palpitations. Gastrointestinal: Positive for diarrhea. Negative for abdominal pain, constipation, nausea and vomiting. Genitourinary: Positive for frequency and vaginal discharge. Negative for flank pain, hematuria, pelvic pain and urgency. Musculoskeletal: Positive for back pain. Skin: Negative for rash. Allergic/Immunologic: Negative for environmental allergies and food allergies. Neurological: Negative for headaches. Objective BP 124/72 Pulse 74 Temp (!) 35.9 ?C (96.7 ?F) (Tympanic) Resp 16 Wt 64 kg (141 lb 1.5 oz) SpO2 97% Physical Exam Vitals and nursing note reviewed. Exam conducted with a transportation coordinator present. Constitutional: General: She is not in acute distress. Appearance: Normal appearance. She is not ill-appearing. Eyes: General: Right eye: No discharge. Left eye: No discharge. Pupils: Pupils are equal, round, and reactive to light. Cardiovascular: Rate and Rhythm: Normal rate and regular rhythm. Pulses: Normal pulses. Heart sounds: Normal heart sounds. Pulmonary: Effort: No respiratory distress. Breath sounds: Normal breath sounds. No stridor. No wheezing or rhonchi. Abdominal: Palpations: Abdomen is soft. Tenderness: There is abdominal tenderness in the suprapubic area. There is no right CVA tenderness or left CVA tenderness. Genitourinary: Comments: Mild erythema and edema around labia minora Skin: General: Skin is warm. Neurological: Mental Status: She is alert. Psychiatric: Mood and Affect: Mood normal. Behavior: Behavior normal. Assessment and Plan ASSESSMENT/PLAN: 1. Dysuria - ICD9: 788.1, ICD10: R30.0 (primary diagnosis) -green smelly discharge x couple days -history of similar complaints 03/17 positive for Trichomonas given Metronidazole pt states antibiotics helped - UA posi (more content not included)...[facility]11-04-2024 History of Present illness Narrative* Teressa Martinez APRN.[facility] - 01/10/2024 11:41 AM EST This note was created using Wormholer[employer]. Subjective Shanda Arriaga is a 58 year old female. Relevant PMH and allergies reviewed: Pt is a 58 year old female who presents today with green smelly discharge x couple days. Pt states she has had a problem like this in the past and was given an given a antibiotic that helped. Pt states she has not been sexually active in 4 months. She has also gone through menopause. Pt states she has not tried anything for her symptoms. Pt states she has had many changes over the past couple of days that could have contributed to her symptoms. Pt has had changes to her soap, detergent and has been swimming in the past few days. Pt is also having fever, chills, back pain, diarrhea, vaginal redness, vaginal swelling, frequent urination and is having an abnormal sensation when urinating. Pt denies blood in her urine, abdominal pain, pelvic pain, vomiting, nausea, urgency, side pain, rash and decreased urinary output. The history is provided by the patient. No automobile carpets molder was used. Female Gu Problem This is a new problem. The current episode started yesterday. The onset was sudden. The problem occurs continuously. The problem has been gradually worsening. The pain is moderate. Nothing relieves the symptoms. Associated symptoms include chills, a fever, diarrhea, frequency, vaginal discharge andback pain. Pertinent negatives include no chest pain, no abdominal pain, no constipation, no nausea, no vomiting, no hematuria, no pelvic pain, no urgency, no headaches, no sore throat, no flank pain, no cough, no shortness of breath and no rash. Urine output has been normal. She is currently Not sexually active. Her past medical history is significant for STD. Services received include tests performed. No past medical history on file. No past surgical history on file. ALLERGIES Codeine, Latex, and Levoquin [Levofloxacin] MEDICATIONS levocetirizine (XYZAL) 5 mg tablet Take 5 mg by mouth once daily as needed for cold/allergy symptoms. PARoxetine (PAXIL) 20 mg tablet Take 20 mg by mouth once daily. amLODIPine (NORVASC) 5 mg tablet Take 5 mg by mouth once daily. metroNIDAZOLE (FLAGYL) 500 mg tablet Take 1 tablet by mouth two times a day for 7 days. gabapentin (NEURONTIN) 100 mg capsule Take 100 mg by mouth three times daily. (Patient not taking: Reported on 03/17/2023) tiZANidine HCl 4 mg capsule Take 4 mg by mouth three times a day as needed. No family history on file. Social History Tobacco Use Smoking status: Every Day Smokeless tobacco: Never Review of Systems Constitutional: Positive for chills and fever. Negative for activity change, appetite change and fatigue. HENT: Negative for congestion, rhinorrhea, sinus pressure, sinus pain and sore throat. Eyes: Negative for pain, discharge, redness and itching. Respiratory: Negative for cough, choking, shortness of breath and wheezing. Cardiovascular: Negative for chest pain and palpitations. Gastrointestinal: Positive for diarrhea. Negative for abdominal pain, constipation, nausea and vomiting. Genitourinary: Positive for frequency and vaginal discharge. Negative for flank pain, hematuria, pelvic pain and urgency. Musculoskeletal: Positive for back pain. Skin: Negative for rash. Allergic/Immunologic: Negative for environmental allergies and food allergies. Neurological: Negative for headaches. Objective BP 124/72 Pulse 74 Temp (!) 35.9 C (96.7 F) (Tympanic) Resp 16 Wt 64 kg (141 lb 1.5 oz) SpO2 97% Physical Exam Vitals and nursing note reviewed. Exam conducted with a transportation coordinator present. Constitutional: General: She is not in acute distress. Appearance: Normal appearance. She is not ill-appearing. Eyes: General: Right eye: No discharge. Left eye: No discharge. Pupils: Pupils are equal, round, and reactive to light. Cardiovascular: Rate and Rhythm: Normal rate and regular rhythm. Pulses: Normal pulses. Heart sounds: Normal heart sounds. Pulmonary: Effort: No respiratory distress. Breath sounds: Normal breath sounds. No stridor. No wheezing or rhonchi. Abdominal: Palpations: Abdomen is soft. Tenderness: There is abdominal tenderness in the suprapubic area. There is no right CVA tenderness or left CVA tenderness. Genitourinary: Comments: Mild erythema and edema around labia minora Skin: General: Skin is warm. Neurological: Mental Status: She is alert. Psychiatric: Mood and Affect: Mood normal. Behavior: Behavior normal. Assessment and Plan ASSESSMENT/PLAN: 1. Dysuria - ICD9: 788.1, ICD10: R30.0 (primary diagnosis) -green smelly discharge x couple days -history of similar complaints 03/17 positive for Trichomonas given Metronidazole pt states antibiotics helped - UA positive for francis esterase - Send urine for culture - Patient education for prevention given - UA DIP, URINE (POC) - URINE CULTURE - DEBORAH/TRICHOMONAS NAAT - BACTERIAL VAGINOSIS NAAT - GONORRHEA/CHLAMYDIA NAAT -Will call with results 2. Vaginal discharge - ICD9: 623.5, ICD10: N89.8 -green smelly discharge x couple days - URINE CULTURE - DEBORAH/TRICHOMONAS NAAT - BACTERIAL VAGINOSIS NAAT - GONORRHEA/CHLAMYDIA NAAT -Will call with results -Given history of similar complaints will treat for possible Trichomonas -See Rx for Metronidazole 3. Vulvovaginitis - ICD9: 616.10, ICD10: N76.0 -Vaginal itching, redness and swelling reported by patient -mild erythema and edema around labia minora on PE -Advised follow up with gynecology if symptoms persist or worsen Monisha Galvez Student TEACHING PROVIDER (Physician/PA/VENTILATING EQUIPMENT INSTALLER) NOTE OF PERSONAL INVOLVEMENT IN CARE: I have personally seen and examined the patient and performed the medical decision-making components. I have reviewed the Advanced Practice Registered Nurse (VENTILATING EQUIPMENT INSTALLER) Student's documentation and verified the findings in the note as written. Any additions or changes are noted in bold/italics. Signature: Teressa Martinez Date: 01/10/2024 Time: 1:26 PM [facility] Discharge summary Author Adi Couch [facility] May 17, 2023 4:49am Note Date/Time May 17, 2023 2:3 4am [facility] Medical Records Department [address] [place] [address] Emergency Department Summary 05/17/23 MR#: [id number] Acct: [id number] Name: SHANDA ARRIAGA Rep #:[id number] : 1965 57 From: Adi Vidal PCP: Dr. Samina Joya MD Status:R EG ER Location: ED HPI History of Present Illness Chief Complaint: Abd Pain [facility] Medical History (Updated 05/17/23 @ 04:[address] Adi Couch, DO) Abnormal ANCA test Acute kidney injury Anxiety and depression Bilateral otitis media Burning with urination Chronic back pain Dermatitis Fatigue Hepatitis B Hepatitis C Hepatitis C History of substance abuse Hydrocephalus Hypertension Lower extremity neuropathy Malaise and fatigue Migraines Nasal congestion PTSD (post-traumatic stress disorder) Screening for STD (sexually transmitted disease) Suprapubic discomfort Vaginal discharge Vasculitis Vasculitis Vitamin deficiency Home Medications fluticasone propionate 50 mcg/actuation nasal spray,suspension (Flonase Allergy Relief) 2 spray intranasal DAILY #15.8 grams 07/28/22 [Rx Last Taken Unknown] levocetirizine 5 mg tablet (Xyzal) 5 mg PO QPM PRN allergy symptoms 07/28/22 [History Last Taken Unknown] amlodipine 5 mg tablet 5 mg PO BID #180 tabs 02/19/23 [Rx Last Taken Unknown] tizanidine 4 mg tablet 4 mg PO QHS PRN muscle spasticity 03/10/23 [History Last Taken Unknown] paroxetine HCl 20 mg tablet 20 mg PO QAM #90 tabs 04/30/23 [Rx Last Taken Unknown] Allergy/AdvReac Type Severity Reaction Status Date / Time codeine Allergy Severe difficulty Verified 05/17/23 02:43 breathing latex AdvReac Unknown hives Verified 05/17/23 02:43 gabapentin AdvReac Itching Verified 05/17/23 02:43 Family History Daughter Seizures Mother Diabetes Brother Diabetes Aunt Cancer Uncle Cancer Surgical History History of foot surgery History of hand surgery History of surgery on arm Social History Smoking Status: Current every day smoker tobacco type: cigarettes Tobacco: How many years used: 40 second hand exposure: Yes alcohol intake: never substance use type: former substance user Date of last use: 2 years and crack/cocaine what type of physical activity do you participate in: walking frequency: 3-4 times per week tiffanie/pentecostalism: None seatbelt use: never EXAM Physical Exam Const Vital Signs: 05/17/23 02:35 05/17/23 02:38 Temperature 98.1 F 98.1 F Temperature Source Temporal Temporal Pulse Rate 90 90 Respiratory Rate 28 H 28 H Blood Pressure 146/98 H 146/98 H Blood Pressure Mean 114 114 Pulse Ox 98 98 Oxygen Delivery Method Room Air Room Air MDM MDM MDM Narrative Medical decision making narrative: HISTORY OF PRESENT ILLNESS: 57-year-old female presents with abdominal pain and diarrhea. She states she isconcerned about abdominal pain. States she has mid abdominal pain that is constant. She states she is having diarrhea. Notes copious watery stool. Lastbowel was just prior to arrival. She denies any melena or hematochezia. Notes no history abdominal surgeries. Denies any vomiting or fever. Denies urinary complaints. Denies any vaginal bleeding or discharge. Notes recent sick contact. States her daughter was diagnosed with E. coli. Patient denies sudden onset or thunderclap headache, denies maximal intensity within 1 minute, vomiting, neck pain, stiffness, changes in vision, fever, history malignancy, syncope, or seizures associated with headache. REVIEW OF SYSTEMS: Pertinent positives: abdominal pain, diarrhea, headache Pertinent negatives: Focal numbness, loss sensation, PHYSICAL EXAM: Nursing triage notes reviewed, Vital signs reviewed Constitutional: please see mdm HENT: MMM Eyes: Pupils equal round and reactive to light, Extraocular muscles intact Neck: No stridor, no JVD, full neck ROM, no posterior C-spine step offs of deformities Lungs: Clear to auscultation, No wheezing or rales. No increased work of breathing, no conversational dyspnea, no accessory muscle use, no nasal flaring. No respiratory distress noted Heart: Regular rate and rhythm, No murmurs, No rubs and No gallops, 2+ distal pulses (radial, femoral, posterior tibial) in all extremities Abdomen: Soft, mild abdominal discomfort upon palpation, slight distention noted, no rigidity, rebound or guarding, no obvious peritoneal signs, no palpable pulsatile abdominal masses, no auscultated abdominal bruit, negative Otto sign. No right lower quadrant TTP. : No CVAT Extremities: No edema Neuro: No focal neurological deficits, cranial nerves II through XII intact, 5/5strength in all extremities. Intact sensation to light touch in all extremities,2+ reflexes bilateral patella tendons. Normal gait. No ataxia. Intact 5/5 strength with ok sign (median), intact finger abduction (ulnar) intact wrist extension (radial n). Intact sensation in the radial, ulnar, and median nerve distributions. Skin: No rash or lesions noted MEDICAL DECISION MAKING: Chief Complaint: Abdominal pain External records reviewed: Imaging reviewed: CT scan abdomen pelvis from February 2023 shows no acute process, noted diverticulosis without acute diverticulitis Factors affecting care: Hypertension, Hep C Social determinants of health: hx of polysubstance abuse History obtained from others: none Consults: EMS MDM Narrative: The patient was initially hemodynamically stable, afebrile and nontoxic- appearing. Abdominal exam was slightly distended but overall benign with no significant tenderness no peritoneal signs. No pulsatile abdominal masses or signs of vascular emergency. I considered the following differential diagnosis: AAA, small bowel obstruction,abdominal perforation, appendicitis, pancreatitis, hepatobiliary pathology (acute cholecystitis), mesenteric ischemia, pathology (ie nephrolithiasis, pyelonephritis). The patient no urinary symptoms to suggest pathology such as nephrolithiasis or pyelonephritis. Patient's physical exam was not consistent with trauma, cervical spine fracture,cervical spine epidural abscess. Not consistent with subarachnoid hemorrhage, ICH or other intracranial normality. Her chief complaint was abdominal pain. Focused on abdominal pain in terms of workup and ED treatment. Given patient's age, history of severe pain I did obtain a broad lab and imagingworkup to further elucidate the etiology patient complaints and rule out life orlimb threatening etiologies. I treated the patient normal saline, nonnarcotic anti-inflammatory pain medicineand Zofran for prophylactic treatment of nausea or vomiting. Hydrate the patient 1 L normal saline. ALL IMAGES (IF OBTAINED) HAVE BEEN PERSONALLY REVIEWED AND INTERPRETED BY MYSELF. CT scan showed evidence of nonspecific enteritis. There is likely viral gastroenteritis. No indication for antibiotics at this time. CBC with leukocytosis suggestive of stable inflammation, no anemia or thrombocytopenia noted BMP with mild hyponatremia otherwise no significant Sidra abnormalities, thereis no signs of endorgan hypoperfusion or metabolic acidosis, his baseline CKD Lipase is wnl indicating no pancreatic inflammation. LFTs show no evidence of hepatobiliary pathology. CT scan showed incidental adrenal nodule. Discussed with patient. Importance offollow-up was discussed and emphasized. The synthesis of the patient's history, physical exam, labs images suggest no acute life-limiting etiology. He is likely suffered from a viral etiology. Encouraged her to continue to replace fluid losses readily with p.o. electrolytecontaining solutions such as body armor, Gatorade, Pedialyte. Patient expressedunderstanding. Strict return precautions were discussed. Despite report of heavy diarrhea patient cannot provide a stool sample here in the emergency department to test for ova, parasites and stool pathogens including E. coli. The patient and/or family, caregivers express understanding. The patient and/orfamily, caregivers agrees with the plan. Shared decision making: I will have a discussion with the patient and or visitors regarding risk/benefits of further testing or admission. They will be made aware of of the risk/benefits inherent in this decision they will be given the opportunity to voice understanding. Total critical care time today provided was at least 0 minutes. This excludes separately billable procedures. Critical care time (if documented) is secondary to the patient having high probability of clinically significant/life threatening deterioration in the patient's condition which required my urgent intervention. Impression: 1. Abdominal pain 2. Diarrhea 3. Enteritis Dispo: Discharge This note was generated with [employer] dictation software. It may contain incorrectwords, spelling, and punctuation that were not noted in review of the chart prior to signing. Lab Data Labs: Laboratory Results - last 24 hr 05/17/23 03:13 WBC 13.5 H RBC 5.38 Hgb 15.7 H Hct 46.6 MCV 86.6 MCH 29.2 MCHC 33.7 RDW Std Deviation 45.1 H RDW Coeff of Chuck 14.2 Plt Count 279 MPV 8.8 Immature Gran % (Auto) 0.600 Neut % (Auto) 71.6 H Lymph % (Auto) 16.2 L [place] % (Auto) 10.4 H Eos % (Auto) 1.0 Baso % (Auto) 0.2 Absolute Neuts (auto) 9.7 H Absolute Lymphs (auto) 2.19 Nucleated RBC % 0 Sodium 135 L Potassium 3.8 Chloride 101 Carbon Dioxide 24.0 Anion Gap 10 BUN 31 H Creatinine 1.43 H Estim Creat Clear Calc 42.76 Est GFR (MDRD) Af Amer 48 L Est GFR (MDRD) Non-Af 40 L BUN/Creatinine Ratio 21.7 H Glucose 102 Calcium 9.6 Total Bilirubin 1.10 H AST 50 H ALT 55 Alkaline Phosphatase 107 Total Protein 8.6 H Albumin 4.1 Globulin 4.5 H Albumin/Globulin Ratio 0.9 Lipase 33 Radiography Diagnostic Testing: Clinical Impression(s) from Imaging Studies Abdomen/Pelvis CT 05/17/23 02:47 IMPRESSION: undefined Discharge Plan Triage Chief Complaint: Abd Pain ED Provider: Adi Couch Dx/Rx/DC Orders Clinical Impression: Diarrhea Instructions: Treating Diarrhea Prescriptions: No Action fluticasone propionate [Flonase Allergy Relief] 50 mcg/actuation spray,suspension 2 spray intranasal DAILY Qty: 15.8 1RF Rx Instructions: administer into each nostril levocetirizine [Xyzal] 5 mg tablet 5 mg PO QPM PRN (Reason: allergy symptoms) tizanidine 4 mg tablet 4 mg PO QHS PRN (Reason: muscle spasticity) Rx Instructions: 4-8mg orally at bedtime; one to three tablets PO at bedtime for neck pain or muscle cramps amlodipine 5 mg tablet 5 mg PO BID Qty: 180 1RF paroxetine HCl 20 mg tablet 20 mg PO QAM Qty: 90 1RF Primary Care Provider: Samina Joya Referrals: Samina Joya MD [Primary Care Provider] - Activity Restrictions/Additional Instructions: Thank you for trusting us with your care today! Please take Tylenol (2 pills, 650 mg), ibuprofen (2 pills, 400 mg) every 6 hoursas needed for pain and fever control. Please drink plenty of oral fluids including body armor, Pedialyte and Gatorade to replace losses from diarrhea. Please return to the emergency department if your symptoms change or worsen. Please follow with your primary care physician for further outpatient evaluationand management. Disposition Disposition: Home, Self Care What to do if you have Problems For any increased pain, shortness of breath, bleeding, nausea or vomiting, chestpain, or any unexpected problems, contact your Primary Care Provider. Call [facility] ([phone]) or report to the closest Emergency Room. Call 911 if necessary. 05/17/23 [id number] <Electronically signed by Adi Couch DO> Cosigner Signature (if applicable): CC: Dr. Samina Joya MD ~ Signed [facility] Work Phone: [phone] 385-957812-04-2023 Discharge summary Author Aba Emmanuelle [facility] February 09, 2023 12:05am Note Date/Time February 08, 2023 8 :41pm [facility] Medical Records Department [address] [place] [address] Emergency Department Summary 02/08/23 MR#: [id number] Acct: [id number] Name: SHANDA ARRIAGA Rep #:[id number] : 1965 57 From: Berto Akins MD PCP: Dr. Samina Joya MD Status:R EG ER Location: ED HPI HPI - GI History of Present Illness Chief Complaint: Abd Pain Narrative Narrative: 57-year-old female past medical history of hepatitis C, hydrocephalus, states she was seen in the emergency department previously, because of vaginal discharge. Her primary care provider had done gonorrhea test on her and she wasawaiting that. She was also treated for a UTI. She finished antibiotics, but presents via EMS today with abdominal pain, and nausea and vomiting. She statesthat she has been vomiting all day. It has been multiple times without any blood in her emesis. She has diffuse abdominal pain as well, on both sides of her abdomen. No fevers or chills, no other symptoms. [facility] Medical History Abnormal ANCA test Acute kidney injury Anxiety and depression Bilateral otitis media Burning with urination Chronic back pain Dermatitis Fatigue Hepatitis B Hepatitis C Hepatitis C History of substance abuse Hydrocephalus Hypertension Lower extremity neuropathy Malaise and fatigue Migraines Nasal congestion PTSD (post-traumatic stress disorder) Screening for STD (sexually transmitted disease) Vaginal discharge Vasculitis Vasculitis Vitamin deficiency Home Medications dicyclomine 20 mg tablet 20 mg PO 4X/DAY PRN PRN Abdominal bloating/spasm #28 tabs 07/10/21 [Rx Last Taken Unknown] multivitamin with minerals-folic acid 200 mcg chewable tablet (Multivitamin Gummies) 1 tab PO DAILY 07/08/22 [History Last Taken Unknown] fluticasone propionate 50 mcg/actuation nasal spray,suspension (Flonase Allergy Relief) 2 spray intranasal DAILY #15.8 grams 07/28/22 [Rx Last Taken Unknown] levocetirizine 5 mg tablet (Xyzal) 5 mg PO QPM PRN 07/28/22 [History Last Taken Unknown] amlodipine 5 mg tablet 5 mg PO BID 11/16/22 [History Last Taken Unknown] paroxetine HCl 20 mg tablet 20 mg PO QAM #90 tabs 01/18/23 [Rx Last Taken Unknown] sulfamethoxazole 800 mg-trimethoprim 160 mg tablet (Bactrim DS) 1 tab PO BID #6 tabs 02/01/23 [Rx Last Taken Unknown] tizanidine 4 mg tablet See Rx Instructions PO QHS 02/01/23 [History Last Taken Unknown] Allergy/AdvReac Type Severity Reaction Status Date / Time codeine Allergy Severe difficulty Verified 02/01/23 21:08 breathing latex AdvReac Unknown hives Verified 02/01/23 21:08 GABAPENTIN Allergy Intermediate Itching Uncoded 02/01/23 13:15 Family History Daughter Seizures Mother Diabetes Brother Diabetes Aunt Cancer Uncle Cancer Surgical History History of foot surgery History of hand surgery History of surgery on arm Social History Smoking Status: Current every day smoker tobacco type: cigarettes Tobacco: How many years used: 40 second hand exposure: Yes alcohol intake: never substance use type: former substance user Date of last use: 2 years and crack/cocaine what type of physical activity do you participate in: walking frequency: 3-4 times per week tiffanie/pentecostalism: None seatbelt use: never ROS ROS ED ROS Narrative Constitutional: No fever, no chills. HEENT: No sore throat. No neck pain. No loss of vision. No rhinorrhea. Cardiovascular: No chest pain. No palpitations. No pedal edema. Respiratory: No cough, no shortness of breath. Abdominal: Diffuse abdominal pain. Multiple episodes of nausea and vomiting today, no hematemesis. Diarrhea. Genitourinary: No dysuria. No hematuria. Musculoskeletal: No myalgias. No arthralgias. Neurologic: No headaches. No dizziness. No lightheadedness. Skin: No rash. No change in color. Psychiatric: No depression. No anxiety. EXAM Physical Exam Narrative Exam Narrative: Afebrile. Vital signs noted. HEENT: Normocephalic. Atraumatic. PERRL, EOMI. Neck soft and supple. No pointtenderness or step off. Cardiovascular: Regular rate and rhythm with intermittent tachycardia. No murmurs, rubs, or gallops appreciated. Respiratory: No tachypnea. Lungs clear to auscultation bilaterally. Gastrointestinal: Abdomen soft, mild diffuse tenderness. With normoactive bowelsounds. No rebound or guarding. Neurological: Awake. Alert. Nonfocal, nonlateralizing. Skin: No rash. Normal color. No pallor. Musculoskeletal: No pedal edema. Full range of motion extremities. Const Vital Signs: 02/08/23 19:21 Temperature 96.8 F L Temperature Source Temporal Pulse Rate 100 Respiratory Rate 24 H Blood Pressure 134/94 H Blood Pressure Mean 107 Pulse Ox 99 Oxygen Delivery Method Room Air MDM MDM MDM Narrative Medical decision making narrative: Given her abdominal pain, in the differential diagnosis is bowel obstruction versus diverticulitis versus pancreatitis. She may also have a UTI that not resolved next. I reviewed her prior ED report. She was treated for vaginal discharge with azithromycin and Rocephin. She was written for 3 days worth of Bactrim. Comprehensive work-up was pursued. I do feel CT imaging is indicated with IV contrast. She will be bolused normal saline and administered ondansetron. I will obtain a CBC, CMP, and lipase to help rule out pancreatitis. I reviewed her laboratory work and she has elevated white count of 17.0 which may be demargination from her vomiting. Hemoglobin normal at 14.8, hematocrit 45.4, platelet count normal at 315. Sodium is normal at 136 with potassium 4.2,BUN 27 with creatinine elevated at 1.72, but she does have chronic kidney disease. Glucose appropriately elevated at 96 with an anion gap normal at 12. AST and ALT are normal and lipase is also normal. I do not feel she has a pancreatitis. Urinalysis obtained and reviewed and she is positive for nitriteswith 5-10 WBCs. We will send a urine culture as I am not sure that her UTI was fully treated. She was given a dose of Levaquin here in the emergency department. At this point in time, the CT of the abdomen pelvis is currently pending. Patient will be signed out to the oncoming physician, Dr. Jennings, to check the CT scan and make final disposition on this patient. Patient is in stable condition. History & Record Review Discussion w/independent historian: Patient Additional record(s) reviewed:: Prior ED visit and Prior labs Lab Data Attestation: I reviewed the patient's lab results. Labs: Laboratory Results - last 24 hr 02/08/23 02/08/23 21:10 21:30 WBC 17.0 H RBC 5.26 Hgb 14.8 Hct 45.4 MCV 86.3 MCH 28.1 MCHC 32.6 RDW Std Deviation 44.4 H RDW Coeff of Chuck 14.1 Plt Count 315 MPV 8.9 Immature Gran % (Auto) 0.500 Neut % (Auto) 74.3 H Lymph % (Auto) 17.1 L [place] % (Auto) 7.3 Eos % (Auto) 0.3 Baso % (Auto) 0.5 Absolute Neuts (auto) 12.6 H Absolute Lymphs (auto) 2.90 Nucleated RBC % 0 Sodium 136 Potassium 4.2 Chloride 103 Carbon Dioxide 21.0 Anion Gap 12 BUN 27 H Creatinine 1.72 H Est GFR (MDRD) Af Amer 39 L Est GFR (MDRD) Non-Af 32 L BUN/Creatinine Ratio 15.7 Glucose 96 Calcium 9.7 Total Bilirubin 1.20 H AST 30 ALT 36 Alkaline Phosphatase 115 Total Protein 8.3 H Albumin 3.9 Globulin 4.4 H Albumin/Globulin Ratio 0.9 Lipase 26 Urine Color Yellow Urine Clarity Sl. Cloudy Urine pH 5.0 Ur Specific [place] 1.025 Urine Protein 100 H Urine Glucose (UA) Normal Urine Ketones 15 H Urine Occult Blood 10 H Urine Nitrite Positive H Urine Bilirubin 3 H Urine Urobilinogen 1 H Ur Leukocyte Esterase 100 H Urine RBC 0-5 SEEN Urine WBC 5-10 SEEN Ur Squamous Epith Cells 0-5 SEEN Amorphous Sediment 1+ URATE Urine Bacteria 1+ Urine Mucus 0 SEEN Discharge Plan Triage Chief Complaint: Abd Pain ED Provider: Berto Akins Dx/Rx/DC Orders Clinical Impression: UTI (urinary tract infection), Nausea and vomiting, Abdominal pain Prescriptions: No Action fluticasone propionate [Flonase Allergy Relief] 50 mcg/actuation spray,suspension 2 spray intranasal DAILY Qty: 15.8 1RF Rx Instructions: administer into each nostril amlodipine 5 mg tablet 5 mg PO BID dicyclomine 20 mg tablet 20 mg PO 4X/DAY PRN PRN (Reason: Abdominal bloating/spasm) Qty: 28 0RF Multivitamin Gummies 200 mcg Tablet,Chewable 1 tab PO DAILY levocetirizine [Xyzal] 5 mg tablet 5 mg PO QPM PRN tizanidine 4 mg tablet See Rx Instructions PO QHS Rx Instructions: 4-8mg orally at bedtime; one to three tablets PO at bedtime for neck pain or muscle cramps sulfamethoxazole-trimethoprim [Bactrim DS] 800-160 mg tablet 1 tab PO BID Qty: 6 0RF paroxetine HCl 20 mg tablet 20 mg PO QAM Qty: 90 1RF Primary Care Provider: Samina Joya Referrals: Samina Joya MD [Primary Care Provider] - What to do if you have Problems For any increased pain, shortness of breath, bleeding, nausea or vomiting, chestpain, or any unexpected problems, contact your Primary Care Provider. Call [facility] ([phone]) or report to the closest Emergency Room. Call 911 if necessary. 02/08/23 6025 <Electronically signed by Berto Akins MD> Cosigner Signature (if applicable): CC: Dr. Samina Joya MD ~ Signed ADDENDUM by Dr. Aba Handley DO on 02/09/23 at 0005 Signed out to me pending CT scan results. CT scan abdomen pelvis negative for any acute process. Patient been vomiting throughout the day, clinically improving is tolerating p.o. intake prior to discharge. She has Zofran at home. Levaquin was started by primary physician with prescription sent to her pharmacy. Discussed continue oral fluids for hydration at home. She has a follow-up with her PCP this coming Wednesday to read check labs with creatinine being at 1.7. Return precautions discussed with the patient. All questions were answered. 02/09/23 0005<Electronically signed by Aba Demarco> Cosigner Signature (if applicable): cc: Dr. Samina Joya MD ~* Signed [facility] Work Phone: 1(425) 991-588212-01-2023 Hospital Discharge instructions Additional Instructions Your CT scan was negative. Creatinine 1.7 urine with noted infection. Urine culture pending. Continue oral fluids for hydration. Take and finish antibiotic as prescribed. Keep your follow-up with your doctor on Wednesday for reevaluation and recheck lab work. Return if any worsening symptoms.[facility] Work Phone: [phone]) 202-783808-17-2023 Miscellaneous Notes* Telephone Encounter - Mitzy Lieberman MA - 10/22/2022 8:32 AM EDT Patient notified of results, verbalized understanding of instructions given. Mitzy Lieberman MA * Telephone Encounter - Carmelita Jerome MA - 10/22/2022 7:39 AM EDT ----- Message from Kar Santiago MD sent at 10/22/2022 7:18 AM EDT ----- Vaginal testing was negative. Follow up with MANAGER PORT or PCP if symptoms persist. documented in this encounterPromedica [facility] Hospital08-16-2023 Miscellaneous Notes* Addendum Note - Angélica Clark APRN.HOME CARE ASSISTANT - 10/21/2022 5:21 PM EDTAddended by: ANGÉLICA CLARK on: 10/21/2022 05:21 PM Modules accepted: Orders documented in this encounterPromedica Memorial Hospital08-16-2023 Instructions* Patient Instructions* Angélica Clark APRN.CNP - 10/21/2022 10:02 AM EDT Will send urine and vaginal cultures for testing As we receive results will call you and notify of treatment needed Follow up with PCP or MANAGER PORT for continued problems. documented in this encounterPromedica Memorial Hospital08-16-2023 History of Present illness Narrative* Angélica Clark APRN.CNP - 10/21/2022 9:46 AM EDT Subjective The history is provided by the patient. No automobile carpets molder was used. HPI Shanda Arriaga is a 57 year old female who presents today for CC of lower back pain and concern for STD. She states that her boyfriend cheated on her and now she is having increase vaginal discharge with odor. She has not used any medications or treatment. BP 118/86 Pulse 85 Temp 36.1 C (96.9 F) Resp 22 Wt 69.8 kg (153 lb 12.8 oz) SpO2 98% Social History Tobacco Use Smoking status: Every Day Smokeless tobacco: Never No past medical history on file. I have confirmed and edited as necessary, the [facility] Review of Systems Constitutional: Negative for chills and fever. Gastrointestinal: Negative for abdominal pain. Genitourinary: Negative for dysuria, flank pain, frequency, hematuria and urgency. Musculoskeletal: Positive for back pain. Objective Physical Exam Vitals and nursing note reviewed. Exam conducted with a transportation coordinator present. Constitutional: Appearance: Normal appearance. Abdominal: General: Bowel sounds are normal. There is no abdominal bruit. Palpations: Abdomen is not rigid. There is no mass or pulsatile mass. Tenderness: There is no abdominal tenderness. There is no guarding or rebound. Negative signs include Otto's sign and McBurney's sign. Genitourinary: General: Normal vulva. Vagina: Vaginal discharge and erythema present. Cervix: Discharge present. Neurological: Mental Status: She is alert and oriented to person, place, and time. Psychiatric: Mood and Affect: Affect normal. ASSESSMENT/PLAN: 1. Urinary frequency - ICD9: 788.41, ICD10: R35.0 (primary diagnosis) acute - UA negative - Will send culture and follow up based on testing 2. Acute vaginitis - ICD9: 616.10, ICD10: N76.0 STD testing and vaginal cultures done Will call with results and any treatment needed. - BACTERIAL VAGINOSIS NAAT - DEBORAH/TRICHOMONAS NAAT - GONORRHEA/CHLAMYDIA NAAT Diagnosis and treatment plan were discussed and questions were answered to the patient's satisfaction. Pt acknowledged understanding of concepts and follow up plan. Specific signs and symptoms that would indicate the need for higher level of care were discussed indetail warranting prompt ER evaluation. Angélica Clark APRN.MEERA documented in this encounterPromedica Memorial Hospital01-14-2023 History of Present illness Narrative* Mary Jo Philip APRN.CNP - 03/21/2022 3:02 PM EST Patient came in with complaints of bilateral legs being discolored. Patient says she is having a ton of pain in both legs rated a 7 out of 10. Patient said her hands keep locking up on her. Patient says she feels super ill and not well. Patient says she is feeling very confused. At this time patient is being sent to the emergency room for full evaluation patient was okay with this care plan. Patient's friend will be taking her to the ER. documented in this encounterPromedica Memorial HospitalEvaluation noteNo assessment information availableWMarietta Osteopathic Clinic Work Phone: Evaluation note* Diagnosis Onset Date Resolution Status Muscle cramps acute Migraine headache without aura chronic Neck pain [facility] Work Phone: Evaluation note* Diagnosis Rigidity (muscles)- Primary Other general symptoms documented in this encounter [facility] HospitalEvaludelaware [facility]* Diagnosis Onset Date Resolution Status Memory impairment chronic Migraine headache without aura chronic Muscle cramps chronic Neck pain chronic Fatigue acute Hepatitis C acute Vasculitis acute Vitamin deficiency acute Allergic rhinitis noneactive [facility] Work Phone: evaluation note* Diagnosis Urinary frequency- Primary Acute vaginitis Vaginitis and vulvovaginitis, unspecified documented in this encounter [facility] note* Diagnosis Onset Date Resolution Status Acute pain of both ears acut e Bilateral otitis media acute Lower extremity neuropathy a cute Dermatitis acute Fatigue chronic Hypertension chronic [facility] Work Phone: Evaluation note* Diagnosis Onset Date Resolution Status Lower extremity neuropathy a cute Dermatitis acute Fatigue chronic Hypertension chronic Burning with urination acute Hepatitis C acute Malaise and fatigue acute Screening for STD (sexually transmitted disease) acute Vaginal discharge acute Hepatitis B resolved [facility] Work Phone: Evaluation note* Diagnosis Onset Date Resolution Status Burning with urination acute Hepatitis C acute Malaise and fatigue acute Screening for STD (sexually transmitted disease) acute Vaginal discharge acute Hepatitis B resolved Suprapubic discomfort acute Vaginal discharge acute [facility] Work Phone: Evaluation note* Diagnosis Dysuria- Primary Vaginal discharge Leukorrhea, not specified as infective Vulvovaginitis Vaginitis and vulvovaginitis, unspecified documented in this encounter [facility] note* Diagnosis Vaginal discharge- Primary Leukorrhea, not specified as infective documented in this encounter [facility] note* Diagnosis Abdominal pain, lower- Primary Abdominal pain, other specified site documented in this encounter [facility] note* Diagnosis Burning with urination- Primary Dysuria Vomiting and diarrhea Vomiting alone documented in this encounter [facility] note* Diagnosis Sore throat- Primary Acute pharyngitis Acute otitis media, left Unspecified otitis media [facility] Discharge instructions Additional Instructions Thank you for trusting us with your care today! Please take Tylenol (2 pills, 650 mg), ibuprofen (2 pills, 400 mg) every 6 hours as needed for pain and fever control. Please drink plenty of oral fluids including body armor, Pedialyte and Gatorade to replace losses from diarrhea. Please return to the emergency department if your symptoms change or worsen. Please follow with your primary care physician for further outpatient evaluation and management.[facility] Work Phone: Reason for referral (narrative)No reason for referral information availableSalinas Surgery Center Work Phone: Summary Purpose Family History No Family History Records Found Relationship Condition Age at Onset Recorded Date/T blaze daughter Seizure Unknown mother Diabetes mellitus Unknown brother Diabetes mellitus Unknown aunt Malignant neoplasm Unknown uncle Malignant neoplasm Unknown Advance Directives No Advanced Directives Records Found Advance Directive Response Recorded Date/ Time Living Will No September 05, 2021 2 :09am Power of Budget Director No September 05, 2021 2:09am Advance Directive Response Recorded Date/ Time Living Will No February 18, 2 022 4:01am Power of Budget Director No February 18, 2022 4:01am Advance Directive Response Recorded Date/ Time Living Will No March 21 3:48pm Power of Budget Director No March 21, 2022 3:48pm Advance Directive Response Recorded Date/ Time Living Will No March 21 4:48pm Power of Budget Director No March 21, 2022 4:48pm Advance Directive Response Recorded Date/ Time Living Will No July 08, 2022 11 :27pm Power of Budget Director No July 08, 2022 11:27pm Advance Directive Response Recorded Date/ Time Living Will No February 01, 2 023 9:30pm Power of Budget Director No February 01, 2023 9:30pm Advance Directive Response Recorded Date/ Time Living Will No February 08 9:16pm Power of Budget Director No February 08, 2023 9:16pm Advance Directive Response Recorded Date/ Time Living Will No May 17, 2023 2:38am Power of Budget Director No May 16 2:38am Advance Directive Response Recorded Date/ Time Living Will No May 17, 2023 2:38am Do you have a Healthcare Power of Budget Director? No May 17, 2023 2:38am Chief Complaint and Reason for Visit Chief Complaint ABDOMINAL PAIN CONSTIPATION diarrhea bite Chief Complaint FOLLOW UP R/S Abd Pain Reason for Visit Muscle cramps Migraine headache without aura Neck pain Chief Complaint Abd Pain GENERAL ILLNESS Chief Complaint GENERAL ILLNESS 6 M FU DISCUSS SUPPLIMENTS Reason for Visit Memory impairment Migraine headache without aura Muscle cramps Neck pain Fatigue Hepatitis C Vasculitis Vitamin deficiency Allergic rhinitis Chief Complaint R/S - FU BILATERAL LEG SWELLING blisters on face/green discharge Reason for Visit Acute pain of both e ars Bilateral otitis media Lower extremity neuropathy Dermatitis Fatigue Hypertension Chief Complaint BILATERAL LEG SWELLI NG blisters on face/green discharge DISCHARGE POST MENOPAUSE ABD PAIN Reason for Visit Lower extremity neur opathy Dermatitis Fatigue Hypertension Burning with urination Hepatitis C Malaise and fatigue Screening for STD (sexually transmitted disease) Vaginal discharge Hepatitis B Chief Complaint BILATERAL LEG SWELLI NG blisters on face/green discharge DISCHARGE POST MENOPAUSE ABD PAIN abd pain Reason for Visit Lower extremity neur opathy Dermatitis Fatigue Hypertension Burning with urination Hepatitis C Malaise and fatigue Screening for STD (sexually transmitted disease) Vaginal discharge Hepatitis B Chief Complaint DISCHARGE POST MENOP AUSE ABD PAIN abd pain STD / [facility] FOLLOW UP 3 M FU abd pain Reason for Visit Burning with urinati on Hepatitis C Malaise and fatigue Screening for STD (sexually transmitted disease) Vaginal discharge Hepatitis B Suprapubic discomfort Vaginal discharge Chief Complaint Admit Date SCREENING April 13, 2024 3 :00pm FOLLOW UP July 04, 2024 2:0 4pm FU/MED REFILLS August 09, 2024 12:53 pm Reason for Visit Admit Date Leg pain, bilateral July 04, 2024 2:0 4pm Low back pain July 04, 2024 2:0 4pm Muscle cramps July 04, 2024 2:0 4pm Reason for Visit Admit Date Leg pain, bilateral July 04, 2024 2:0 4pm Low back pain July 04, 2024 2:0 4pm Muscle cramps July 04, 2024 2:0 4pm Arthritis August 09, 2024 12:53 pm Anxiety and depression August 09, 2024 12 :53pm Hypertension August 09, 2024 12:53 pm Additional Source Comments INFORMATION SOURCE (unrecogn ized section and content) DATE CREATED AUTHOR 08/27/2017 [facility] ([place]) DATE CREATED AUTHOR AUTHOR'S ORGANIZ ATION 02/17/2018 [facility] [place] DATE CREATED AUTHOR [facility]S [facility]IZ ATION [facility] DATE CREATED AUTHOR AUTHOR'S ORGANIZ ATION 09/26/2024 [facility] DATE CREATED AUTHOR AUTHOR'S ORGANIZ ATION 09/28/2024 [facility] Goals (unrecognized section and content) Goals may be documented in a n alternate sectionGoals may be documented in an alternate sectionGoals may be documented in an alternate sectionGoals may be documented in an alternate sectionGoals may be documented in an alternate sectionGoals may be documented in an alternate sectionGoals may be documented in an alternate sectionGoals may be documented in an alternate sectionGoals may be documented in an alternate sectionGoals may be documented in an alternate sectionGoals may be documented in an alternate section Source Comments (unrecognize d section and content) In the event this informatio n is protected by the Federal Confidentiality of Alcohol and Drug Abuse Patient Records regulations: The Federal rules restrict any use of the information to criminally investigate or prosecute any alcohol or drug abuse patient.[facility] HospitalIn the event this information is protected by the Federal Confidentiality of Alcohol and Drug Abuse Patient Records regulations: The Federal rules restrict any use of the information to criminally investigate or prosecute any alcohol or drug abuse patient.[facility] HospitalIn the event this information is protected by the Federal Confidentiality of Alcohol and Drug Abuse Patient Records regulations: The Federal rules restrict any use of the information to criminally investigate or prosecute any alcohol or drug abuse patient.[facility] HospitalIn the event this information is protected by the Federal Confidentiality of Alcohol and Drug Abuse Patient Records regulations: The Federal rules restrict any use of the information to criminally investigate or prosecute any alcohol or drug abuse patient.[facility] HospitalIn the event this information is protected by the Federal Confidentiality of Alcohol and Drug Abuse Patient Records regulations: The Federal rules restrict any use of the information to criminally investigate or prosecute any alcohol or drug abuse patient.[facility] HospitalIn the event this information is protected by the Federal Confidentiality of Alcohol and Drug Abuse Patient Records regulations: The Federal rules restrict any use of the information to criminally investigate or prosecute any alcohol or drug abuse patient.[facility] HospitalIn the event this information is protected by the Federal Confidentiality of Alcohol and Drug Abuse Patient Records regulations: The Federal rules restrict any use of the information to criminally investigate or prosecute any alcohol or drug abuse patient.[facility] HospitalIn the event this information is protected by the Federal Confidentiality of Alcohol and Drug Abuse Patient Records regulations: The Federal rules restrict any use of the information to criminally investigate or prosecute any alcohol or drug abuse patient.[facility] HospitalIn the event this information is protected by the Federal Confidentiality of Alcohol and Drug Abuse Patient Records regulations: The Federal rules restrict any use of the information to criminally investigate or prosecute any alcohol or drug abuse patient.[facility] HospitalIn the event this information is protected by the Federal Confidentiality of Alcohol and Drug Abuse Patient Records regulations: The Federal rules restrict any use of the information to criminally investigate or prosecute any alcohol or drug abuse patient.[facility] HospitalIn the event this information is protected by the Federal Confidentiality of Alcohol and Drug Abuse Patient Records regulations: The Federal rules restrict any use of the information to criminally investigate or prosecute any alcohol or drug abuse patient.[facility] HospitalIn the event this information is protected by the Federal Confidentiality of Alcohol and Drug Abuse Patient Records regulations: The Federal rules restrict any use of the information to criminally investigate or prosecute any alcohol or drug abuse patient.[facility] Reason for Visit (unrecogniz ed section and content) Reason Comments Pain Reason Comments STD Testing and urinary issues, foul smell x 2 days ago Back Pain X 1 day Reason Comments Results Reason Comments UTI Dysuria, discharge Reason Comments Vaginal Discharge ?trich, bv or yeast x 10 days Reason Comments Abdominal Pain Reason Comments Urinary Problem Burning with urinati on, frequency x 2 days Reason Onset Date Comments Results 09/12/2024 Reason Comments Sore Throat left ear pressure x 1 week Care Teams (unrecognized sec tion and content) Team Status: Active Member Role Status Dates Dr. Samina Joya MD Family Provider Active Dr. Samina Joya MD Primary Care Provider Active Team Status: Inactive Member Role Status Dates Dr. Samina Joya MD Primary Care Provider, Refer ring Provider Active Dr. Yoli Patton MD Attending Provider Active Team Status: Inactive Member Role Status Dates Dr. Samina Joya MD Primary Care Provider, Refer ring Provider Active Dangelo Acosta ALMOND BLANCHER OPERATOR, ALMOND BLANCHER OPERATOR-C Attending Provider Active Team Status: Inactive Member Role Status Dates Dr. Samina Joya MD Primary Care Provider Active Dr. Sung Vega MD Attending Provider, Emergency Provider Active Team Status: Inactive Member Role Status Dates Dr. Samina Joya MD Primary Care Provider Active Dangelo Acosta NP, ALMOND BLANCHER OPERATOR-C Attending Provider, Referring Prov ider Active Umbrella Supervisor Relationship Specialty Start Date End Date Samina Joya MD [address] [place] [address] PCP - General Internal Medicine 10/21/22 Umbrella Supervisor Relationship Specialty Start Date End Date Samina Joya MD [address] [place], [place] [id number] PCP - General Internal Medicine 10/21/22 Team Status: Inactive Member Role Status Dates Dr. Samina Joya MD Primary Care P susan, Attending Provider, Referring Provider Active Team Status: Inactive Member Role Status Dates Dr. Samina Joya MD Primary Care Provider, Refer ring Provider Active Stanford Stanford PA, PA Attending Provider Active Team Status: Inactive Member Role Status Dates Dr. Samina Joya MD Primary Care Provider Active Dr. Yanely Alegria MD Emergency Provider Active Team Status: Active Member Role Status Dates Dr. Samina Joya MD Primary Care Provider, Atten ding Provider Active Team Status: Inactive Member Role Status Dates Dr. Samina Joya MD Primary Care Provider, Atten ding Provider Active Team Status: Inactive Member Role Status Dates Dr. Samina Joya MD Primary Care Provider Active Dr. Yanely Alegria MD Attending Provider, Emergency Provider Active Team Status: Inactive Member Role Status Dates Dr. Samina Joya MD Primary Care Provider Active Berto Akins MD Emergency Provider Active Team Status: Inactive Member Role Status Dates Dr. Samina Joya MD Primary Care Provider Active Berto Akins MD Attending Provider, Emergency Provid er Active Team Status: Inactive Member Role Status Dates Dr. Samina Joya MD Primary Care Provider Active Dr. Adi Couch DO Emergency Provider Active Umbrella Supervisor Relationship Specialty Start Date End Date Samina Joya MD [address] [place] [address] PCP - General Internal Medicine 10/21/22 Umbrella Supervisor Relationship Specialty Start Date End Date Samina Joya MD [address] [place] [address] PCP - General Internal Medicine 10/21/22 Umbrella Supervisor Relationship Specialty Start Date End Date Samina Joya MD [address] [place] [address] PCP - General Internal Medicine 10/21/22 Umbrella Supervisor Relationship Specialty Start Date End Date Samina Joya MD [address] [place] [place], [place] [id number] PCP - General Internal Medicine 10/21/22 Team Status: Active Member Role Status Dates Dr. Samina Joya MD Primary Care Provider Active Team Status: Inactive Member Role Status Dates Dr. Samina Joya MD Primary Care Provider Active Start: April 13, 2024 End: April 13, 2024 Dr. Samina Joya MD Attending Provider Active Start: April 13, 2024 End: April 13, 2024 Dr. Samina Joya MD Referring Provider Active Start: April 13, 2024 End: April 13, 2024 Team Status: Inactive Member Role Status Dates Dr. Samina Joya MD Primary Care Provider Active Start: July 04, 2024 End: July 04, 2024 Dr. Samina Joya MD Referring Provider Active Start: July 04, 2024 End: July 04, 2024 Dr. Yoli Patton MD Attending Provider Active Start: July 04, 2024 End: July 04, 2024 Team Status: Inactive Member Role Status Dates Dr. Samina Joya MD Primary Care Provider Active Start: August 09, 2024 End: August 09, 2024 Dr. Samina Joya MD Attending Provider Active Start: August 09, 2024 End: August 09, 2024 Dr. Samina Joya MD Referring Provider Active Start: August 09, 2024 End: August 09, 2024 Team Status: Active Member Role Status Dates Dr. Samina Joya MD Primary Care Provider Active Start: August 09, 2024 Dr. Samina Joya MD Attending Provider Active Start: August 09, 2024 Dr. Samina Joya MD Referring Provider Active Start: August 09, 2024 Umbrella Supervisor Relationship Specialty Start Date End Date Samina Joya MD [address] [place] [address] PCP - General Internal Medicine 10/21/22 Umbrella Supervisor Relationship Specialty Start Date End Date Samina Joya MD [address] [place] [address] PCP - General Internal Medicine 10/21/22 Umbrella Supervisor Relationship Specialty Start Date End Date Samina Joya MD [address] [place] [address] PCP - General Internal Medicine 10/21/22 FOR RECORDS PERTAINING TO PATIENTS WHO ARE OR HAVE BEEN ENROLLED IN A CHEMICAL DEPENDENCY/SUBSTANCEABUSE PROGRAM, SOME INFORMATION MAY BE OMITTED. This clinical summary was aggregated from multiple sources. Caution should be exercised in using it in the provision of clinical care. This summary normalizes information from multiple sources, and as a consequence, information in this document may materially change the coding, format and clinical context of patient data. In addition, data may be omitted in some cases. CLINICAL DECISIONS SHOULD BE BASED ON THE PRIMARY CLINICAL RECORDS. [facility] [employer] provides no warranty or guarantee of the accuracy or completeness of information in this document.
--- NOTE | 2024-10-27 01:15 | EX.ED.VIS.EY ---
HPI History of Present Illness Chief Complaint: Eye Problem Informant: patient Narrative Narrative: Patient is a 59-year-old female with past medical history of hypertension anxiety and depression and hepatitis C. She states she wears glasses but denies any contact lens use. She states in the last few hours she has noticed increased left eye redness purulent discharge and pain/irritation. She denies any change in vision. She denies any trauma. She states there has been no known sick contacts but has concern for infection secondary to the eye redness and discharge and therefore comes in for evaluation [facility] Medical History (Updated 10/27/24 @ 02:[address] Luis Patel, DO) Arthritis Health care maintenance Colon cancer screening Bronchitis Suprapubic discomfort Burning with urination Nasal congestion Malaise and fatigue Vaginal discharge Screening for STD (sexually transmitted disease) Dermatitis Lower extremity neuropathy Bilateral otitis media Vitamin deficiency Hepatitis C Fatigue Vasculitis Abnormal ANCA test Vasculitis Migraines Hydrocephalus Hepatitis B Hepatitis C Chronic back pain Anxiety and depression Acute kidney injury History of substance abuse Hypertension PTSD (post-traumatic stress disorder) Home Medications ?Medication ?Instructions ?Recorded ?Last Taken ?Type levocetirizine 5 mg tablet (Xyzal) 5 mg PO QPM PRN allergy symptoms 07/28/22 Unknown History paroxetine HCl 20 mg tablet 20 mg PO QAM #90 tabs 12/15/23 Unknown Rx diclofenac sodium 75 mg 75 mg PO BID PRN pain #60 tabs 07/04/24 Unknown Rx tablet,delayed release magnesium oxide 400 mg PO QHS PRN muscle cramps 07/04/24 Unknown Rx #30 tabs tizanidine 4 mg tablet 4 mg PO .COMPLEX PRN muscle 07/04/24 Unknown Rx spasm/muscle pain #90 tabs prednisone 20 mg tablet 40 mg (2 x 20 mg) PO QDAY #10 tabs 08/10/24 Unknown Rx amlodipine 5 mg tablet 5 mg PO BID #180 tabs 08/11/24 Unknown Rx fluticasone propionate 50 2 spray intranasal DAILY #15.8 08/11/24 Unknown Rx mcg/actuation nasal grams spray,suspension (Flonase Allergy Relief) [id number] 3.5 2 drp LEFT EYE 4X/DAY 7 days #5 mL 10/27/24 Unknown Rx mg/mL-10,000 unit/mL-0.1% eye drops (Maxitrol) Allergy/AdvReac Type Severity Reaction Status Date / Time codeine Allergy Severe difficulty Verified 08/09/24 12:55 breathing latex AdvReac Unknown hives Verified 08/09/24 12:55 gabapentin AdvReac Itching Verified 08/09/24 12:55 Family History Daughter Seizures Mother Diabetes Brother Diabetes Aunt Cancer Uncle Cancer Surgical History History of surgery on arm History of foot surgery History of hand surgery Social History Smoking Status: Heavy Smoker (>10/day) Tobacco: How many years used: 40 second hand exposure: Yes alcohol intake: never substance use type: former substance user Date of last use: 2 years and crack/cocaine what type of physical activity do you participate in: walking frequency: 3-4 times per week tiffanie/scientology: None seatbelt use: never ROS ROS ED Constitutional Constitutional ED: Denies chills or fever(s) Eyes Eyes: Reports other Details: Positive left eye redness and discharge ; Denies blurry vision or change in vision ENT ENT ED: Denies rhinorrhea or sore throat Respiratory/Chest Respiratory/Chest: Denies cough Gastrointestinal Gastrointestinal: Denies diarrhea, nausea or vomiting Musculoskeletal Musculoskeletal: Denies myalgias Integumentary Denies rash Neurologic Neurologic: Denies headache(s) EXAM Physical Exam Const Vital Signs: 10/27/24 00:53 Temperature 97.8 F Temperature Source Oral Pulse Rate 108 H Respiratory Rate 16 Blood Pressure 171/117 H Blood Pressure Mean 135 Pulse Ox 99 Oxygen Delivery Method Room Air Positive well nourished and well developed General Appearance ED: well developed HEENT HEENT Narrative: Normocephalic atraumatic Eyes PERRL and EOMs intact bilaterally Eyes Narrative: Pupils are equal reactive to light and accommodation and extraocular muscles are intact There is diffuse scleral injection of the left eye with purulent discharge present as well as fullness of the left lower conjunctiva. No obvious retained foreign body. No obvious corneal ulcer noted Right eye appears normal Neck supple Resp normal respiratory effort and clear to auscultation bilaterally Cardio regular rate and regular rhythm Extremity normal to inspection Neuro oriented x3, CN's II-XII intact bilaterally, moves all extremities and no sensory deficits noted Sensorium / Orientation: alert Motor Exam: strength 5/5 throughout Psych mental status grossly normal Skin no rashes or lesions noted Skin Narrative: No surrounding erythema or soft tissue swelling along the left orbit to suggest periorbital cellulitis MDM MDM MDM Narrative Medical decision making narrative: Patient arrived to the ER hypertensive but has a past medical history of this. She states that over the last few hours she has had eye redness purulent discharge and discomfort without any reported trauma. She reports she wears glasses but denies contact lens use. She states there is been no high risk activities such as grinding metal or chipping wood or exposure to UV rays. On physical exam there is no obvious retained foreign object in the cornea or signs of corneal ulcer. Her history and exam is most consistent with a viral versus bacterial conjunctivitis. I have low concern for allergic conjunctivitis as it is only unilateral at this time. Also there is no obvious internal hordeolum noted. As history and exam is most consistent with conjunctivitis and there is high likelihood this is bacterial in nature I will start her on antibiotic drop. But as history and exam does not suggest corneal abrasion corneal ulcer UV keratitis or retained foreign body in the cornea there is no need for further intervention and she is otherwise safe for discharge. History & Record Review Discussion w/independent historian: Patient Discharge Plan Triage Chief Complaint: Eye Problem ED Provider: Luis Patel Dx/Rx/DC Orders Clinical Impression: Conjunctivitis, Hypertension, Hepatitis C, Anxiety and depression Instructions: ED Conjunctivitis, Nonspecific Prescriptions: New neomycin-polymyxin B-dexameth [Maxitrol] 3.5mg/mL-10,000 unit/mL-0.1 % drops,suspension 2 drp LEFT EYE 4X/DAY 7 Days Qty: 5 1RF No Action paroxetine HCl 20 mg tablet 20 mg PO QAM Qty: 90 1RF tizanidine 4 mg tablet 4 mg PO .COMPLEX PRN (Reason: muscle spasm/muscle pain) Qty: 90 6RF Rx Instructions: 4 mg orally PRN; Take 1 to 3 tablets orally nightly as needed for muscle pain/spasm diclofenac sodium 75 mg tablet,delayed release (DR/EC) 75 mg PO BID PRN (Reason: pain) Qty: 60 6RF magnesium oxide 400 mg magnesium tablet 400 mg PO QHS PRN (Reason: muscle cramps) Qty: 30 6RF levocetirizine [Xyzal] 5 mg tablet 5 mg PO QPM PRN (Reason: allergy symptoms) prednisone 20 mg tablet 40 mg PO QDAY Qty: 10 0RF amlodipine 5 mg tablet 5 mg PO BID Qty: 180 0RF fluticasone propionate [Flonase Allergy Relief] 50 mcg/actuation spray,suspension 2 spray intranasal DAILY Qty: 15.8 1RF Rx Instructions: administer into each nostril Primary Care Provider: Samina Joya Referrals: Samina Joya MD [Primary Care Provider] - Anthony Martinez MD [Med Staff - Active Staff] - Activity Restrictions/Additional Instructions: Please use the prescribed eyedrops to prevent/resolve redness and irritation which is most likely from a infectious process. Follow-up with ophthalmology for repeat evaluation and return to the ER should you have any further concerns or worsening of symptoms. If the redness and irritation progresses to the right eye use the prescribed antibiotic in that eye with the same directions as well Print Language: Setswana Disposition Disposition: Home, Self Care Discharge Date/Time: 10/27/24 01:26
[2024-10-27] MEDS: Tetracaine 0.5% Ophthalmic Bottle 1 DRP LEFT EYE (01:19)
[2024-10-27 01:20] VITALS: BP 171/117; PULSE 108; RESP 16; TEMP 36.6; O2SAT 99
== END 2024-10-27 01:26 | disposition home or self-care (01) ==
PROVIDERS: Emergency Provider Emergency Medicine; PCP Internal Medicine; Visit Provider Emergency Medicine
DX: H10.9 Unspecified conjunctivitis (principal); F41.9 Anxiety disorder, unspecified; F32.A Depression, unspecified; I10 Essential (primary) hypertension; M54.9 Dorsalgia, unspecified; Z86.19 Personal history of other infectious and parasitic diseases; G89.29 Other chronic pain; F17.200 Nicotine dependence, unspecified, uncomplicated
CPT/HCPCS: 99283